=== PATIENT | female | born 1985 | race Caucasian/White ===

== ENCOUNTER → 2017-01-12 | Outpatient (CLI) | payer MEDICARE, OTHER ==
--- NOTE | 2017-01-12 14:11 | BD ---
EXAMINATION TYPE: MG DEXA axial skeleton. DATE OF EXAM: 01/12/2017 COMPARISON: NONE CLINICAL HISTORY: Postmenopausal female. Height: 5 ft 5 in Weight: 191 FRAX RISK QUESTIONS: Alcohol (3 or more units per day): NO Family History (Parent hip fracture): NO Glucocorticoids (More than 3mos): YES (Ex: prednisone, prednisolone, methylprednisolone, dexamethasone, and hydrocortisone). History of Fracture in Adulthood: AGE 26 BROKE LT HIP Secondary Osteoporosis: 1. Type 1 Diabetes: NO 2. Hyperthyroidism: NO 3. Menopause before 45: NA 4. Malnutrition: NO 5. 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 PT HAS DIABETES,PT HAD A PITUITARY TU MOR IT WAS REMOVED IN 2002,NEVER HAD A MENSTRUAL CYCLE EXAM MEASUREMENTS: Bone mineral densitometry was performed using the [employer] System. Bone mineral density as measured about the Lumbar spine is: ----- L1-L4(G/cm2): 0.971 T Score Values are as follows: ----- L2: -1.3 ----- L3: -2.4 ----- L4: -2.6 ----- L1-L4: -1.7 Bone mineral density has: Increased 8.8% since study of: 2008 Bone mineral density about the R hip (g/cm2): 0.607 T Score values are as follows: -----R Neck: -3.1 -----R Total: -2.8 Bone mineral density has: Increased 2.3% since study of: 2008 IMPRESSION: Osteoporosis (T Score less than -2.5) as noted by T Score values at the There is increased fracture risk and therapy is usually indicated based on age. Re-Screen 1-2 years. NOTE: T-SCORE=SD OF THE YOUNG ADULT MEAN.
[2017-01-12 14:29] LABS: ALT 38 U/L (9-52); AST 26 U/L (14-36); Alkaline Phosphatase 69 U/L (38-126); Anion Gap 10 mmol/L; Blood Urea Nitrogen 10 mg/dL (7-17); Calcium 9.6 mg/dL (8.4-10.2); Carbon Dioxide 28 mmol/L (22-30); Chloride 104 mmol/L (98-107); Cholesterol 194 mg/dL (<200); Glucose 164 mg/dL (74-99); HDL Cholesterol 35 mg/dL (40-60); Non-African American GFR(MDRD) >60 (>60 ml/min/1.73 sqM); Potassium 4.4 mmol/L (3.5-5.1); Sodium 142 mmol/L (137-145); Total Bilirubin 0.8 mg/dL (0.2-1.3); Total Protein 7.4 g/dL (6.3-8.2); Triglycerides 479 mg/dL (<150)
[2017-01-12 14:43] LABS: Prolactin 12.2 ng/mL (3.0-18.6)
== END | disposition home or self-care (01) ==
LOC: RADBDWWP 12:36
PROVIDERS: ATTEND Internal Medicine Endocrinology, Diabetes & Metabolism
DX: M81.0 Age-related osteoporosis without current pathological fracture (principal); D35.2 Benign neoplasm of pituitary gland; E11.65 Type 2 diabetes mellitus with hyperglycemia; E03.8 Other specified hypothyroidism
CPT/HCPCS: 77080; 80053; 80061; 82306; 83970; 84146; 84439; 84443

== ENCOUNTER 2017-03-25 23:47 | Emergency (ER) | payer MEDICARE, OTHER ==
[2017-03-26 00:17] VITALS: RESP 18; TEMP 98.3
--- NOTE | 2017-03-26 01:57 | ED ---
General Adult HPI - General Chief complaint: Abdominal Pain Stated complaint: Constipation x5 days Time Seen by Provider: 03/26/17 00:49 Source: patient, RN notes reviewed Mode of arrival: ambulatory Limitations: no limitations - History of Present Illness Initial comments: 32-year-old female presents to the emergency department with a chief complaint of constipation. Patient states she has not had a normal bowel movement in about 5 days. Patient states that she they tried MiraLAX with no improvement to her symptoms. She states that she is not currently having any other complaints. She states that she has had one episode of vomiting with some lower abdominal cramping earlier. Patient was concerned due to her symptoms so she thought that she should be seen.Patient denies any recent fever, chills, shortness of breath, chest pain, back pain, numbness or tingling, dysuria or hematuria, headaches or visual changes, or any other current symptoms. - Related Data Home Medications Medication Instructions Recorded Confirmed Ergocalciferol [Vitamin D2 50,000 unit PO TU 03/25/14 07/09/16 (DRISDOL)] Escitalopram [Lexapro] 20 mg PO DAILY 03/25/14 07/09/16 Estrogens, Conjugated [Premarin] 0.3 mg PO DAILY 03/25/14 07/09/16 Levothyroxine Sodium [Synthroid] 150 mcg PO DAILY 03/25/14 07/09/16 Oxybutynin Chloride [Oxybutynin 5 mg PO DAILY 03/25/14 07/09/16 Chloride ER] Simvastatin [Zocor] 20 mg PO HS 03/25/14 07/09/16 medroxyPROGESTERone [Provera] 1.25 mg PO DAILY 03/25/14 07/09/16 metFORMIN HCL 500 mg PO BID 03/25/14 07/09/16 predniSONE 4 mg PO DAILY 03/25/14 07/09/16 V-Go 30 1 dose SQ DIRECTED 07/09/16 07/09/16 Allergies Allergy/AdvReac Type Severity Reaction Status Date / Time No Known Allergies Allergy Verified 03/26/17 00:16 Review of Systems ROS Statement: Those systems with pertinent positive or pertinent negative responses have been documented in the HPI. ROS Other: All systems not noted in ROS Statement are negative. 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 History of Any Multi-Drug Resistant Organisms: None Reported Past Surgical History: Orthopedic Surgery Additional Past Surgical History / Comment(s): brain, Past Psychological History: Depression Smoking Status: Never smoker Past Alcohol Use History: None Reported Past Drug Use History: None Reported General Exam - General Exam Comments Initial Comments: General: The patient is awake and alert, in no distress, and does not appear acutely ill. Eye: Pupils are equal, round. Ears, nose, mouth and throat: There are moist mucous membranes. Neck: The neck is supple, there is no tenderness. Cardiovascular: There is a regular rate and rhythm. No murmur, rub or gallop is appreciated. Respiratory: Lungs are clear to auscultation, respirations are non-labored, breath sounds are equal. No wheezes, stridor, rales, or rhonchi. Gastrointestinal: Soft, non-distended, non-tender abdomen without masses or organomegaly noted. There is no rebound or guarding present. No CVA tenderness. Bowel sounds are unremarkable. Back: There is no tenderness to palpation in the midline. There is no obvious deformity. No rashes noted. Musculoskeletal: Normal ROM, no tenderness, There is no pedal edema. There is no calf tenderness or swelling. Sensation intact. Pulses equal bilaterally 2+. Neurological: CN II-XII intact, There are no obvious motor or sensory deficits. Coordination appears grossly intact. Speech is normal. Skin: Skin is warm and dry. Psychiatric: Cooperative, appropriate mood & affect, normal judgment. Limitations: no limitations Course Vital Signs 03/26/17 00:14 Temperature 98.3 F Pulse Rate 88 Respiratory 18 Rate Blood Pressure 108/71 O2 Sat by Pulse 96 Oximetry Medical Decision Making - Medical Decision Making 32-year-old female presents emergency Department chief complaint of constipation. This time patient did have success with the enema. This time we discussed continued outpatient follow-up return parameters all patient's family' s questions. They state [facility] management plan. They will be discharged home. - Radiology Data Radiology results: report reviewed, image reviewed Disposition Clinical Impression: Constipation Disposition: HOME SELF-CARE Condition: Stable Instructions: Constipation (ED) Additional Instructions: Please use medication as discussed. Please follow up with family doctor if symptoms have not improved over the next two days. Please return to the emergency room if your symptoms increase or worsen or for any other concerns. Referrals: Janet Stanton MD [Primary Care Provider] - 1-2 days Time of Disposition: 02:41
--- NOTE | 2017-03-26 02:15 | XR ---
EXAM: XR Abdomen Complete, 2 or More Views CLINICAL HISTORY: Reason: Pain TECHNIQUE: Frontal view of the abdomen/pelvis with upright view of the abdomen. COMPARISON: No relevant prior studies available. FINDINGS: Intraperitoneal space: No free air. Gastrointestinal tract: Unremarkable. No dilation. Bones/joints: Left hip intra-medullary nail and compression screw partially visualized. IMPRESSION: No acute findings.
[2017-03-26 02:51] VITALS: BP 120/62; PULSE 80
== END 2017-03-26 02:48 | disposition home or self-care (01) ==
LOC: EC 23:47
DX: K59.00 Constipation, unspecified (principal); E11.9 Type 2 diabetes mellitus without complications; E07.9 Disorder of thyroid, unspecified; F32.9 Major depressive disorder, single episode, unspecified; Z79.84 Long term (current) use of oral hypoglycemic drugs; Z79.3 Long term (current) use of hormonal contraceptives; Z79.51 Long term (current) use of inhaled steroids; Z79.899 Other long term (current) drug therapy
CPT/HCPCS: 74020; 99284

== ENCOUNTER 2018-10-28 | Observation (INO) | payer MEDICARE, OTHER ==
--- NOTE | 2018-10-28 00:05 | ED ---
General Adult HPI - General Stated complaint: altered mental status Time Seen by Provider: 10/28/18 00:03 - History of Present Illness Initial comments: Octavia is a 33-year-old female with past medical history is documented below who is brought to the emergency department today via EMS for evaluation of fatigue and fever. Per family polys been sleeping for most of the past day, she wakes and is at her baseline mental status but then is very groggy and wants to go back to sleep. She's not been eating or drinking well. Upon EMS arrival he noted that she was febrile with a temperature of 104.5. Patient was given IV fluids and oral acetaminophen and he seemed to wake up a little bit more and be more interactive and route to the hospital. Upon arrival patient reports that she just feels tired and doesn't feel well. She denies any pain. denies any headaches or vision changes she denies any neck pain or stiffness. - Related Data Home Medications Medication Instructions Recorded Confirmed Ergocalciferol [Vitamin D2 50,000 unit PO TU 03/25/14 07/09/16 (DRISDOL)] Escitalopram [Lexapro] 20 mg PO DAILY 03/25/14 07/09/16 Estrogens, Conjugated [Premarin] 0.3 mg PO DAILY 03/25/14 07/09/16 Levothyroxine Sodium [Synthroid] 150 mcg PO DAILY 03/25/14 07/09/16 Oxybutynin Chloride [Oxybutynin 5 mg PO DAILY 03/25/14 07/09/16 Chloride ER] Simvastatin [Zocor] 20 mg PO HS 03/25/14 07/09/16 medroxyPROGESTERone [Provera] 1.25 mg PO DAILY 03/25/14 07/09/16 metFORMIN HCL 500 mg PO BID 03/25/14 07/09/16 predniSONE 4 mg PO DAILY 03/25/14 07/09/16 V-Go 30 1 dose SQ DIRECTED 07/09/16 07/09/16 Allergies Allergy/AdvReac Type Severity Reaction Status Date / Time No Known Allergies Allergy Verified 10/28/18 00:04 Review of Systems ROS Statement: Those systems with pertinent positive or pertinent negative responses have been documented in the HPI. ROS Other: All systems not noted in ROS Statement are negative. 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 History of Any Multi-Drug Resistant Organisms: None Reported Past Surgical History: Orthopedic Surgery Additional Past Surgical History / Comment(s): brain, Past Psychological History: Depression Smoking Status: Never smoker Past Alcohol Use History: None Reported Past Drug Use History: None Reported General Exam - General Exam Comments Initial Comments: Physical Exam GENERAL: Patient is pale, warm to the touch, ill-appearing HENT: Changes consistent with previous craniectomy EYES: Pupils are unequal per family this is baseline due to patient's previous brain surgeries PULMONARY: Unlabored respirations. No audible rales rhonchi or wheezing was noted. CARDIOVASCULAR: The cardiac, regular, warm and well perfused extremities ABDOMEN: Soft and nontender with normal bowel sounds. SKIN: Skin is clear with no lesions or rashes and otherwise unremarkable. Pale, warm to the touch, clammy : Normal External genitalia NEUROLOGIC: Patient prefers to be sleeping but wakes is awake alert oriented to person able to identify she is in the hospital and provide a decent recent history MUSCULOSKELETAL: Normal extremities with adequate strength and full range of motion. No lower extremity swelling or edema. No calf tenderness. PSYCHIATRIC: Normal psychiatric evaluation. Limitations: no limitations Course Vital Signs 10/28/18 10/28/18 10/28/18 00:02 01:18 02:05 Temperature 103.2 F H Pulse Rate 103 H 98 90 Respiratory 16 18 18 Rate Blood Pressure 91/76 111/58 102/64 O2 Sat by Pulse 98 98 98 Oximetry 10/28/18 10/28/18 10/28/18 02:27 03:00 03:30 Temperature 100.3 F H Pulse Rate 90 94 92 Respiratory 18 18 18 Rate Blood Pressure 99/60 90/48 90/51 O2 Sat by Pulse 99 100 99 Oximetry EKG Findings - EKG Comments: EKG Findings:: EKG was obtained at 12:21 AM, rate is 101 rhythm is sinus is a rightward axis there are normal intervals, NH 196, QRS 96, QTC [address] elevations or depressions additional evidence of acute ischemia or infarction Medical Decision Making - Medical Decision Making She was seen and evaluated immediately upon arrival to the emergency department there is concern for possible sepsis given the patient's tachycardic, febrile and fatigued with further family decreased mental status Patient is awake alert and oriented on initial evaluation Physical exam does reveal pale female in moderate distress her skin is pale warm and clammy Patient has full range of motion of her neck with no meningeal signs Given the unknown cause of the patient's very high fever 2 g IV Rocephin was ordered empirically Sepsis workup was initiated noted when the patient's fever broke she did become mildly hypotensive however she was more awake alert and oriented. IV fluids were infusing. We will continue to monitor this. Sepsis workup reveals a urine with multiple castanets consistent with dehydration no leukocytosis no acute kidney injury influenza is negative no signs of urinary tract infection At this time I suspect the patient is suffering from a viral illness resulting in significant fatigue and decreased by mouth intake resulting in profound fever and dehydration Patient's BP and transient hypotension improved with IVF Given the severity of the patient's fever with her associated change in mental status I will plan to place the patient in observation for further IV fluid resuscitation, hemodynamic monitoring [facility] were placed - Lab Data Result diagrams: 10/28/18 01:05 10/28/18 01:05 Lab Results 10/28/18 10/28/18 10/28/18 Range/Units 00:06 00:15 01:05 WBC 7.9 (3.8-10.6) k/uL RBC 4.30 (3.80-5.40) m/uL Hgb 12.5 (11.4-16.0) gm/dL Hct 41.3 (34.0-46.0) % MCV 96.1 (80.0-100.0) fL MCH 29.0 (25.0-35.0) pg MCHC 30.2 L (31.0-37.0) g/dL RDW 13.1 (11.5-15.5) % Plt Count 115 L (150-450) k/uL Neutrophils % 80 % Lymphocytes % 12 % Monocytes % 6 % Eosinophils % 1 % Basophils % 0 % Neutrophils # 6.4 (1.3-7.7) k/uL Lymphocytes # 1.0 (1.0-4.8) k/uL Monocytes # 0.5 (0-1.0) k/uL Eosinophils # 0.1 (0-0.7) k/uL Basophils # 0.0 (0-0.2) k/uL Hypochromasia Slight Sodium (137-145) mmol/L Potassium (3.5-5.1) mmol/L Chloride (98-107) mmol/L Carbon Dioxide (22-30) mmol/L Anion Gap mmol/L BUN (7-17) mg/dL Creatinine (0.52-1.04) mg/dL Est GFR (CKD-EPI)AfAm (>60 ml/min/1.73 sqM) Est GFR (CKD-EPI)NonAf (>60 ml/min/1.73 sqM) Glucose (74-99) mg/dL Plasma Lactic Acid William (0.7-2.0) mmol/L Calcium (8.4-10.2) mg/dL Total Bilirubin (0.2-1.3) mg/dL AST (14-36) U/L ALT (9-52) U/L Alkaline Phosphatase (38-126) U/L Total Protein (6.3-8.2) g/dL Albumin (3.5-5.0) g/dL Urine Color Yellow Urine Appearance Cloudy H (Clear) Urine pH 6.5 (5.0-8.0) Ur Specific [place] 1.027 (1.001-1.035) Urine Protein 1+ H (Negative) Urine Glucose (UA) Negative (Negative) Urine Ketones Negative (Negative) Urine Blood Trace H (Negative) Urine Nitrite Negative (Negative) Urine Bilirubin Negative (Negative) Urine Urobilinogen 3.0 (<2.0) mg/dL Ur Leukocyte Esterase Negative (Negative) Urine RBC 4 (0-5) /hpf Urine WBC 11 H (0-5) /hpf Ur Squamous Epith Cells 2 (0-4) /hpf Urine Bacteria Rare H (None) /hpf Cellular Casts 16 (0) /lpf Hyaline Casts 57 H (0-2) /lpf Granular Casts 8 (0) /lpf Urine Mucus Many H (None) /hpf Influenza Type A RNA Not Detected (Not Detectd) Influenza Type B (PCR) Not Detected (Not Detectd) 10/28/18 10/28/18 Range/Units 01:05 01:05 WBC (3.8-10.6) k/uL RBC (3.80-5.40) m/uL Hgb (11.4-16.0) gm/dL Hct (34.0-46.0) % MCV (80.0-100.0) fL MCH (25.0-35.0) pg MCHC (31.0-37.0) g/dL RDW (11.5-15.5) % Plt Count (150-450) k/uL Neutrophils % % Lymphocytes % % Monocytes % % Eosinophils % % Basophils % % Neutrophils # (1.3-7.7) k/uL Lymphocytes # (1.0-4.8) k/uL Monocytes # (0-1.0) k/uL Eosinophils # (0-0.7) k/uL Basophils # (0-0.2) k/uL Hypochromasia Sodium 139 (137-145) mmol/L Potassium 4.8 (3.5-5.1) mmol/L Chloride 106 (98-107) mmol/L Carbon Dioxide 25 (22-30) mmol/L Anion Gap 8 mmol/L BUN 17 (7-17) mg/dL Creatinine 1.15 H (0.52-1.04) mg/dL Est GFR (CKD-EPI)AfAm 72 (>60 ml/min/1.73 sqM) Est GFR (CKD-EPI)NonAf 63 (>60 ml/min/1.73 sqM) Glucose 174 H (74-99) mg/dL Plasma Lactic Acid William 2.0 (0.7-2.0) mmol/L Calcium 8.7 (8.4-10.2) mg/dL Total Bilirubin 1.1 (0.2-1.3) mg/dL AST 22 (14-36) U/L ALT 21 (9-52) U/L Alkaline Phosphatase 62 (38-126) U/L Total Protein 7.0 (6.3-8.2) g/dL Albumin 3.7 (3.5-5.0) g/dL Urine Color Urine Appearance (Clear) Urine pH (5.0-8.0) Ur Specific [place] (1.001-1.035) Urine Protein (Negative) Urine Glucose (UA) (Negative) Urine Ketones (Negative) Urine Blood (Negative) Urine Nitrite (Negative) Urine Bilirubin (Negative) Urine Urobilinogen (<2.0) mg/dL Ur Leukocyte Esterase (Negative) Urine RBC (0-5) /hpf Urine WBC (0-5) /hpf Ur Squamous Epith Cells (0-4) /hpf Urine Bacteria (None) /hpf Cellular Casts (0) /lpf Hyaline Casts (0-2) /lpf Granular Casts (0) /lpf Urine Mucus (None) /hpf Influenza Type A RNA (Not Detectd) Influenza Type B (PCR) (Not Detectd) Critical Care Time Critical Care Time: Yes Total Critical Care Time: 15 Disposition Clinical Impression: Altered mental status, Fever, unknown origin, Dehydration fever Disposition: ADMITTED IP TO THIS HOSP Condition: Stable Referrals: Janet Stanton MD [Primary Care Provider] - 1-2 days
[2018-10-28] MEDS: SODIUM CHLORIDE 0.9% 500 ML 500 ML IV SCH ×3 (00:23→01:15)
[2018-10-28 00:27] LABS: Appearance,Urine Cloudy (Clear); Bacteria,Urine Rare /hpf; Bilirubin,Urine Negative (Negative); Blood,Urine Trace (Negative); Cellular Casts,Urine 16 /lpf (0); Color,Urine Yellow; Glucose,Urine (UA) Negative (Negative); Granular Casts,Urine 8 /lpf (0); Hyaline Casts,Urine 57 /lpf (0-2); Ketones,Urine Negative (Negative); Leukocyte Esterase,Urine Negative (Negative); Mucus,Urine Many /hpf; Nitrite,Urine Negative (Negative); PH, Urine 6.5 (5.0-8.0); Protein,Urine 1+ (Negative); RBC,Urine 4 /hpf (0-5); Specific Gravity,Urine 1.027 (1.001-1.035); Squamous Epithelial Cell,Urine 2 /hpf (0-4); WBC,Urine 11 /hpf (0-5)
[2018-10-28 01:21] LABS: Basophils % (A) 0 %; Eosinophils # (A) 0.1 k/uL (0-0.7); Eosinophils % (A) 1 %; HCT 41.3 % (34.0-46.0); HGB 12.5 gm/dL (11.4-16.0); Hypochromasia Slight; Lymphocytes % (A) 12 %; MCHC 30.2 g/dL (31.0-37.0); MCV 96.1 fL (80.0-100.0); Mean Platelet Volume 8.3; Monocytes # (A) 0.5 k/uL (0-1.0); Monocytes % (A) 6 %; Neutrophils # (A) 6.4 k/uL (1.3-7.7); Neutrophils % (A) 80 %; Platelet Count 115 k/uL (150-450); RDW 13.1 % (11.5-15.5); WBC 7.9 k/uL (3.8-10.6)
[2018-10-28 02:07] LABS: Albumin 3.7 g/dL (3.5-5.0); Calcium 8.7 mg/dL (8.4-10.2); Potassium 4.8 mmol/L (3.5-5.1); Total Bilirubin 1.1 mg/dL (0.2-1.3)
--- NOTE | 2018-10-28 03:10 | XR ---
EXAM: XR Chest, 1 View CLINICAL HISTORY: Pain TECHNIQUE: Frontal view of the chest. COMPARISON: No relevant prior studies available. FINDINGS: Lungs: Unremarkable. No consolidation. Pleural space: Unremarkable. No pneumothorax. Heart: Unremarkable. No cardiomegaly. Mediastinum: Unremarkable. Bones/joints: Unremarkable. IMPRESSION: No acute abnormality in the lungs
[2018-10-28] MEDS ORDERED: IBUPROFEN 400 MG TAB PO PRN (04:25)
[2018-10-28] MEDS ORDERED: ACETAMINOPHEN TAB 325 MG TAB PO PRN (04:25)
[2018-10-28] MEDS ORDERED: NALOXONE 0.4 MG/ML 1 ML VIAL IV PRN (04:25)
[2018-10-28] MEDS: SODIUM CHLORIDE 0.9% 1,000 ML IV SCH ×2 (06:11→17:15)
[2018-10-28 06:21] VITALS: BMI 34.2
[2018-10-28 06:54] LABS: Glucose,Whole Blood 150 mg/dL (75-99)
[2018-10-28] MEDS ORDERED: INSULIN PUMP BASAL RATES 1 EACH MISC MISCELLANE PRN (11:43)
[2018-10-28] MEDS ORDERED: INSULIN ASPART (NovoLOG) 100 UNIT/ML VIAL SQ PRN (11:43)
[2018-10-28 11:49] LABS: Glucose,Whole Blood 114 mg/dL (75-99)
[2018-10-28] MEDS: INSULIN PUMP MEAL BOLUS 1 UNIT MISC MISCELLANE SCH ×3 (12:07→21:05)
[2018-10-28] MEDS ORDERED: DOCUSATE 100 MG CAP PO PRN (12:44)
[2018-10-28] MEDS ORDERED: SENNOSIDES 8.6 MG TAB PO PRN (12:44)
[2018-10-28] MEDS ORDERED: SODIUM CHLORIDE 0.9% 500 ML 500 ML IV ONE (13:19)
--- NOTE | 2018-10-28 13:22 | P.HPIM ---
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 Patient is alert awake and oriented and she tells me she was sent to the hospital by her and because she was sleeping a lot. And she does not have more information. However she denies headache, no neck pain, no chest pain, no dyspnea. No change in urine or bowel habits. No abdominal pain. No nausea vomiting. No rash. However patient states that she has diarrhea although she cannot clarify more. She said that she runs around 3-4 times a day. However there is no abdominal pain and abdominal examination looks benign. Patient is on his routine and prednisone Syeda she does not exactly washed taking this medication however she said that this might be related to her tumor in her pituitary gland. Her blood pressure on the low side Syeda patient is seen that her blood pressure usually runs low. She doesn't know which numbers. On admission her blood pressure on the low side 88/48 currently, she is saturating in 97% on 2 L. She has a temperature of 103.2. shows no leukocytosis. With WBC 7.9K. Hemoglobin 12.5. Creatinine is slightly elevated at 1.1, baseline 2 years ago was 0.7. Glucose controlled. Ethilons that is negative. Urine analysis showing only 11 WBC in the urine. Chest x-ray showing no acute process per radiology report. EKG: Sinus tachycardia at 101, with no significant ST-T changes. In the emergency room she received 1 dose of ceftriaxone. Started on normal saline at 75 mL/h. patient has a Perdomo catheter placed in the emergency room. i offered to check for test , pt decli nancy, risks and benefits are explained Past Medical History Past Medical History: Diabetes Mellitus, Eye Disorder, Hearing Disorder / Deafness, Hyperlipidemia, Musculoskeletal Disorder, Skin Disorder, Thyroid Disorder Additional Past Medical History / Comment(s): OP, has no peripheral vision, hard of hearing to left side, psoriasis History of Any Multi-Drug Resistant Organisms: None Reported Past Surgical History: Orthopedic Surgery Additional Past Surgical History / Comment(s): brain tumor removed 2002, Past Anesthesia/Blood Transfusion Reactions: No Reported Reaction Past Psychological History: Depression Smoking Status: Never smoker Past Alcohol Use History: None Reported Past Drug Use History: None Reported - Past Family History Brother(s) Additional Family Medical History / Comment(s): pt states her brother is healthy Medications and Allergies Home Medications Medication Instructions Recorded Confirmed Type Ergocalciferol [Vitamin D2 50,000 unit PO TU 03/25/14 10/28/18 History (DRISDOL)] Estrogens, Conjugated [Premarin] 0.3 mg PO DAILY 03/25/14 10/28/18 History Oxybutynin Chloride [Oxybutynin 5 mg PO DAILY 03/25/14 10/28/18 History Chloride ER] Simvastatin [Zocor] 20 mg PO HS 03/25/14 10/28/18 History predniSONE 4 mg PO DAILY 03/25/14 10/28/18 History Docusate [Colace] 100 mg PO DAILY PRN 10/28/18 10/28/18 History Escitalopram [Lexapro] 20 mg PO DAILY 10/28/18 10/28/18 History INSULIN LISPRO (humaLOG) [humaLOG] 30 units SQ DAILY 10/28/18 10/28/18 History Levothyroxine Sodium [Synthroid] 100 mcg PO DAILY 10/28/18 10/28/18 History Pioglitazone HCl 30 mg PO DAILY 10/28/18 10/28/18 History Sennosides [Senna] 8.6 mg PO HS PRN 10/28/18 10/28/18 History Allergies Allergy/AdvReac Type Severity Reaction Status Date / Time lactose Allergy Diarrhea Verified 10/28/18 09:17 Physical Exam Vitals: Vital Signs Temp Pulse Pulse Resp BP BP BP 10/28/18 12:00 80 18 10/28/18 11:58 98.5 F 80 18 88/48 10/28/18 11:15 84/48 10/28/18 10:52 99.3 F 76 18 83/50 10/28/18 08:00 84 18 10/28/18 07:49 100.9 F H 84 18 107/57 10/28/18 05:00 100.8 F H 91 17 84/56 10/28/18 04:47 99.6 F 89 18 103/71 10/28/18 03:30 100.3 F H 92 18 90/51 10/28/18 03:00 94 18 90/48 10/28/18 02:27 90 18 99/60 10/28/18 02:05 90 18 102/64 10/28/18 01:18 98 18 111/58 10/28/18 00:02 103.2 F H 103 H 16 91/76 Pulse Ox 10/28/18 12:00 10/28/18 11:58 97 10/28/18 11:15 10/28/18 10:52 96 10/28/18 08:00 10/28/18 07:49 99 10/28/18 05:00 96 10/28/18 04:47 100 10/28/18 03:30 99 10/28/18 03:00 100 10/28/18 02:27 99 10/28/18 02:05 98 10/28/18 01:18 98 10/28/18 00:02 98 Intake and Output 10/27/18 10/28/18 10/28/18 22:59 06:59 14:59 Intake Total 195 Output Total 100 400 Balance 95 -400 Intake: Intake, IV Titration 75 Amount Sodium Chloride 0.9% 1, 75 000 ml @ 75 mls/hr IV . [id number] [facility] Rx#:[id number] Oral 120 Output: Urine 100 400 Uretheral (Perdomo) 100 Other: Voiding Method Indwelling Catheter Indwelling Catheter Weight 96.3 kg GENERAL: The patient is alert and oriented x3, not in any acute distress. Obese, -HEENT: Pupils are round and equally reacting to light. EOMI. No scleral icterus. No conjunctival pallor. Normocephalic, atraumatic. No pharyngeal erythema. No thyromegaly. 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 Patient also has no teeth CARDIOVASCULAR: S1 and S2 present. No murmurs, rubs, or gallops. PULMONARY: Chest is clear to auscultation, no wheezing or crackles. ABDOMEN: Soft, nontender, nondistended, normoactive bowel sounds. No palpable organomegaly. She has external insulin pump in her epigastrium MUSCULOSKELETAL: No joint swelling or deformity. EXTREMITIES: No cyanosis, clubbing, or pedal edema. NEUROLOGICAL: Gross neurological examination did not reveal any focal deficits. SKIN: No rashes. Results CBC & Chem 7: 10/28/18 01:05 10/28/18 01:05 Labs: Abnormal Lab Results - Last 24 Hours (Table) 10/28/18 10/28/18 10/28/18 Range/Units 00:15 01:05 01:05 MCHC 30.2 L (31.0-37.0) g/dL Plt Count 115 L (150-450) k/uL Creatinine 1.15 H (0.52-1.04) mg/dL Glucose 174 H (74-99) mg/dL POC Glucose (mg/dL) (75-99) mg/dL Urine Appearance Cloudy H (Clear) Urine Protein 1+ H (Negative) Urine Blood Trace H (Negative) Urine WBC 11 H (0-5) /hpf Urine Bacteria Rare H (None) /hpf Hyaline Casts 57 H (0-2) /lpf Urine Mucus Many H (None) /hpf 10/28/18 10/28/18 Range/Units 06:53 11:48 MCHC (31.0-37.0) g/dL Plt Count (150-450) k/uL Creatinine (0.52-1.04) mg/dL Glucose (74-99) mg/dL POC Glucose (mg/dL) 150 H 114 H (75-99) mg/dL Urine Appearance (Clear) Urine Protein (Negative) Urine Blood (Negative) Urine WBC (0-5) /hpf Urine Bacteria (None) /hpf Hyaline Casts (0-2) /lpf Urine Mucus (None) /hpf Microbiology - Last 24 Hours (Table) 10/28/18 00:15 Urine Culture - Preliminary Urine,Catheterized Thrombosis Risk Factor Assmnt - Choose All That Apply Any of the Below Risk Factors Present?: Yes Each Factor Represents 1 point: Obesity (BMI >25), Oral contraceptives or hormone replacement therapy Other Risk Factors: No Other congenital or acquired thrombophilia - If yes, enter type in comment: No Thrombosis Risk Factor Assessment Total Risk Factor Score: 2 Thrombosis Risk Factor Assessment Level: Low Risk Assessment and Plan Assessment: Fever of unknown origin Possible loose bowel movements or diarrhea. Patient on laxative which are held. Check for C. diff History of diabetes mellitus on insulin History of pituitary tumor status post resection 2002, as per patient. Developmental delay Hypothyroidism Hyperlipidemia Hearing disorder Plan: This is a pleasant 50 years old female who presents because of fever, unknown source. Patient received ceftriaxone. We'll continue his Effexor for now. Infectious disease consult. Continue with IV fluids.Labs and medication were reviewed.. Continue same treatment. Continue with symptomatic treatment. Resume home medication. Monitor lytes and vitals. DVT and GI prophylaxis. Further recommendations of the clinical course of the patient DVT prophylaxis: Subcutaneous heparin GI Prophylaxis: Pepcid Prognosis is guarded
[2018-10-28 16:36] LABS: Glucose,Whole Blood 138 mg/dL (75-99)
[2018-10-28] MEDS: predniSONE 1 MG TAB PO SCH (17:14)
[2018-10-28] MEDS: LEVOTHYROXINE 100 MCG TAB PO SCH (17:15)
[2018-10-28] MEDS: ESCITALOPRAM 20 MG TAB PO SCH (17:15)
[2018-10-28] MEDS: PIOGLITAZONE 30 MG TAB PO SCH (17:15)
[2018-10-28] MEDS: OXYBUTYNIN XL 5 MG TAB.ER.24 PO SCH (17:15)
[2018-10-28] MEDS: FAMOTIDINE 20 MG/2 ML VIAL IV SCH (20:13)
[2018-10-28] MEDS: HEPARIN SODIUM,PORCINE 5,000 UNIT/ML 1 ML VIAL SQ SCH (20:14)
[2018-10-28] MEDS: ATORVASTATIN 10 MG TAB PO SCH (20:14)
[2018-10-28] MEDS ORDERED: LOPERAMIDE 2 MG CAP PO PRN (20:48)
[2018-10-28 20:59] LABS: Glucose,Whole Blood 130 mg/dL (75-99)
--- NOTE | 2018-10-29 05:45 | CONS ---
CONSULTATION DATE OF SERVICE: 10/28/2018 REASON FOR CONSULTATION: Fever. HISTORY OF PRESENT ILLNESS: The patient is a 33-year-old female who has been brought into the ER at [facility] early this morning for evaluation of fever and fatigue by the EMS. Per family, the patient had been sleeping for most of the past day; however, the patient noticed to be slightly groggy and will go back to sleep. She had not been eating or drinking well. The patient was noticed to have fever 104.5 degrees Fahrenheit on arrival of the EMS. She had been given Tylenol and subsequently was brought to the [facility] ER where the patient has been evaluated by the ER physician. The patient initial workup including a influenza serology that was negative. The patient did have a normal white count 7.6. Kidney function was normal. Liver enzymes were normal. The patient did have slightly cloudy urine with 11 WBCs and rare bacteria. The patient did receive one dose of Rocephin 2 grams in the ER. Subsequently she has been admitted to the hospital. Infectious Disease was consulted for further recommendation regarding of antibiotic therapy. At the time of evaluation earlier this afternoon, the patient's fever has resolved and the patient says she has been feeling sleepy but denies any headache to me. No URI symptoms. No chest pain, shortness of breath or cough. No abdominal pain. She denies any diarrhea today. However, the nursing staff did mention she did have some loose stools so not clear when exactly that started. REVIEW OF SYSTEMS: Positive points have been mentioned in HPI. The rest of the systems are negative. PAST MEDICAL HISTORY: Diabetes mellitus, hyperlipidemia, disorder, hypothyroidism, psoriasis and history of brain tumor. PAST SURGICAL HISTORY: Brain tumor removed 2002. SOCIAL HISTORY: No history of smoking, drinking or drug use. FAMILY HISTORY: No pertinent findings noticed. ALLERGIES: Allergies to LACTOSE. MEDICATIONS: Medications include the patient is currently on Tylenol, Lipitor, vitamin D2, Lexapro, Premarin, Pepcid, NovoLog, Synthroid, Narcan, Ditropan XL, Actos, prednisone and Rocephin one dose she received early this morning. PHYSICAL EXAMINATION: On examination, her blood pressure is 93/59 with a pulse of 77, temperature 98.5. She is 96% on . General weight description is a middle-aged female lying in bed in no distress. No tachypnea or accessory muscle of respiration use. HEENT examination shows no pallor or scleral icterus. Oral mucous membrane is dry. No pharyngeal erythema or thrush. NECK: Trachea central. No thyromegaly. LUNGS: Unlabored breathing, clear to auscultation anteriorly. No wheeze or crackles. HEART: S1, S2. Regular rate and rhythm. No added sounds. ABDOMEN: Soft, no tenderness. No guarding or rigidity. EXTREMITIES: No edema of feet. SKIN EXAMINATION: No rash or mass palpable. NEUROLOGICAL: Patient is awake, alert, oriented x2. Mood and affect normal. LABS: UA positive as mentioned earlier. Hemoglobin is 12.5, white count 7.9 with a BUN of 17, creatinine 1.15. Influenza serology currently negative. Blood and urine cultures currently pending. DIAGNOSTIC IMPRESSION AND PLAN: 1. Patient presented to the hospital with fever, sleepiness in this patient who did have mildly positive UA. Other symptom has been diarrhea with question of urinary tract infection the likely source of this fever as clinically no other clinical focus of infection and fever responded to the Rocephin. 2. Diarrhea, infectious etiology needs to be ruled out. PLAN: 1. We will obtain a stool for C difficile and stool culture. 2. Discontinue the Imodium and will give the patient Questran for symptomatic relief of her diarrhea. 3. Start the patient on Rocephin 1 gram daily. 4. We will follow up on clinical condition and culture to further adjust medication if needed. Thank you for this consultation. Will follow this patient along with you. MMODL / IJN: [id number] /
[2018-10-29] MEDS: SODIUM CHLORIDE 0.9% 1,000 ML IV SCH ×3 (06:06→23:47)
[2018-10-29] MEDS: LEVOTHYROXINE 100 MCG TAB PO SCH (06:07)
[2018-10-29 06:42] LABS: Glucose,Whole Blood 78 mg/dL (75-99)
[2018-10-29 08:06] LABS: Basophils % (A) 0 %; Eosinophils # (A) 0.1 k/uL (0-0.7); Eosinophils % (A) 2 %; HCT 35.3 % (34.0-46.0); HGB 11.5 gm/dL (11.4-16.0); Lymphocytes # (A) 0.9 k/uL (1.0-4.8); Lymphocytes % (A) 12 %; MCH 30.4 pg (25.0-35.0); MCHC 32.6 g/dL (31.0-37.0); MCV 93.2 fL (80.0-100.0); Mean Platelet Volume 8.6; Monocytes # (A) 0.4 k/uL (0-1.0); Monocytes % (A) 5 %; Neutrophils # (A) 5.9 k/uL (1.3-7.7); Neutrophils % (A) 80 %; Platelet Count 123 k/uL (150-450); RBC 3.78 m/uL (3.80-5.40); RDW 13.2 % (11.5-15.5); WBC 7.4 k/uL (3.8-10.6)
[2018-10-29 08:29] LABS: Anion Gap 4 mmol/L; Blood Urea Nitrogen 12 mg/dL (7-17); Calcium 8.4 mg/dL (8.4-10.2); Carbon Dioxide 28 mmol/L (22-30); Chloride 110 mmol/L (98-107); Glucose 88 mg/dL (74-99); Potassium 4.3 mmol/L (3.5-5.1); Sodium 142 mmol/L (137-145)
[2018-10-29] MEDS: FAMOTIDINE 20 MG/2 ML VIAL IV SCH (08:58)
[2018-10-29] MEDS: HEPARIN SODIUM,PORCINE 5,000 UNIT/ML 1 ML VIAL SQ SCH ×2 (08:58→22:25)
[2018-10-29] MEDS: ESCITALOPRAM 20 MG TAB PO SCH (08:59)
[2018-10-29] MEDS: ESTROGENS, CONJUGATED 0.3 MG TAB PO SCH (08:59)
[2018-10-29] MEDS: predniSONE 1 MG TAB PO SCH (08:59)
[2018-10-29] MEDS: OXYBUTYNIN XL 5 MG TAB.ER.24 PO SCH (08:59)
[2018-10-29] MEDS ORDERED: ERGOCALCIFEROL 50,000 UNIT CAP PO SCH (09:00)
[2018-10-29] MEDS: PIOGLITAZONE 30 MG TAB PO SCH (09:00)
[2018-10-29] MEDS: CHOLESTYRAMINE (WITH SUGAR) 4 GM PACKET PO SCH ×2 (09:01→17:40)
[2018-10-29] MEDS: INSULIN PUMP MEAL BOLUS 1 UNIT MISC MISCELLANE SCH ×3 (10:16→17:32)
[2018-10-29 11:49] LABS: Glucose,Whole Blood 106 mg/dL (75-99)
[2018-10-29] MEDS: INSULIN ASPART (NovoLOG) 100 UNIT/ML VIAL SQ SCH ×2 (12:23→17:37)
[2018-10-29 16:51] LABS: Glucose,Whole Blood 88 mg/dL (75-99)
--- NOTE | 2018-10-29 16:56 | P.PN ---
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 Patient is alert awake and oriented and she tells me she was sent to the hospital by her and because she was sleeping a lot. And she does not have more information. However she denies headache, no neck pain, no chest pain, no dyspnea. No change in urine or bowel habits. No abdominal pain. No nausea vomiting. No rash. However patient states that she has diarrhea although she cannot clarify more. She said that she runs around 3-4 times a day. However there is no abdominal pain and abdominal examination looks benign. Patient is on his routine and prednisone Syeda she does not exactly washed taking this medication however she said that this might be related to her tumor in her pituitary gland. Her blood pressure on the low side Syeda patient is seen that her blood pressure usually runs low. She doesn't know which numbers. On admission her blood pressure on the low side 88/48 currently, she is saturating in 97% on 2 L. She has a temperature of 103.2. shows no leukocytosis. With WBC 7.9K. Hemoglobin 12.5. Creatinine is slightly elevated at 1.1, baseline 2 years ago was 0.7. Glucose controlled. Ethilons that is negative. Urine analysis showing only 11 WBC in the urine. Chest x-ray showing no acute process per radiology report. EKG: Sinus tachycardia at 101, with no significant ST-T changes. In the emergency room she received 1 dose of ceftriaxone. Started on normal saline at 75 mL/h. patient has a Perdomo catheter placed in the emergency room. i offered to check for test , pt declined, risks and benefits are explained 10/29/2018 Patient looks clinically more stable today, her blood pressure is improve heart rate is within normal limits. The patient has been afebrile for 24 hrs. patient states that her diarrhea is improving. No abdominal pain. No nausea vomiting. She is tolerating diet well. Labs within normal limits.C. diff came back negative. Infectious disease input is appreciated. Continue ceftriaxone. Keep monitoring for now. Objective - Vital Signs Vital signs: Vital Signs Temp 99 F 10/29/18 12:00 Pulse 79 10/29/18 12:00 Resp 18 10/29/18 12:00 BP 101/67 10/29/18 12:00 Pulse Ox 95 10/29/18 12:00 Intake & Output 10/28/18 10/29/18 10/29/18 18:59 06:59 18:59 Intake Total 518 440 Output Total 1150 1800 Balance -632 -1800 440 Intake: Oral 518 440 Output: Urine 1150 1800 Other: Voiding Method Indwelling Catheter Indwelling Catheter Indwelling Catheter # Voids 1 # Bowel Movements 1 - Exam GENERAL: The patient is alert and oriented x3, not in any acute distress. Obese, -HEENT: Pupils are round and equally reacting to light. EOMI. No scleral icterus. No conjunctival pallor. Normocephalic, atraumatic. No pharyngeal erythema. No thyromegaly. 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 Patient also has no teeth CARDIOVASCULAR: S1 and S2 present. No murmurs, rubs, or gallops. PULMONARY: Chest is clear to auscultation, no wheezing or crackles. ABDOMEN: Soft, nontender, nondistended, normoactive bowel sounds. No palpable organomegaly. She has external insulin pump in her epigastrium MUSCULOSKELETAL: No joint swelling or deformity. EXTREMITIES: No cyanosis, clubbing, or pedal edema. NEUROLOGICAL: Gross neurological examination did not reveal any focal deficits. SKIN: No rashes. - Labs CBC & Chem 7: 10/29/18 07:48 10/29/18 07:48 Labs: Abnormal Lab Results - Last 24 Hours (Table) 10/28/18 10/29/18 10/29/18 Range/Units 20:52 07:48 07:48 RBC 3.78 L (3.80-5.40) m/uL Plt Count 123 L (150-450) k/uL Lymphocytes # 0.9 L (1.0-4.8) k/uL Chloride 110 H (98-107) mmol/L POC Glucose (mg/dL) 130 H (75-99) mg/dL 10/29/18 Range/Units 11:48 RBC (3.80-5.40) m/uL Plt Count (150-450) k/uL Lymphocytes # (1.0-4.8) k/uL Chloride (98-107) mmol/L POC Glucose (mg/dL) 106 H (75-99) mg/dL Microbiology - Last 24 Hours (Table) 10/28/18 13:43 Blood Culture - Preliminary Blood No Growth after 24 hours 10/28/18 00:15 Urine Culture - Final Urine,Catheterized 10/28/18 01:05 Blood Culture - Preliminary Blood No Growth after 24 hours 10/28/18 01:05 Blood Culture - Preliminary Blood No Growth after 24 hours Assessment and Plan Assessment: Fever of unknown origin Possible gastroenteritis, with loose bowel movements or diarrhea. Patient on laxative which are held. C. diff is negative History of diabetes mellitus on insulin History of pituitary tumor status post resection 2002, as per patient. Developmental delay Hypothyroidism Hyperlipidemia Hearing disorder Plan: This is a pleasant 50 years old female who presents because of fever, unknown source. Patient received ceftriaxone. We'll continue his Effexor for now. Infectious disease consult. Continue with IV fluids.Labs and medication were reviewed.. Continue same treatment. Continue with symptomatic treatment. Re sume home medication. Monitor lytes and vitals. DVT and GI prophylaxis. Further recommendations of the clinical course of the patient DVT prophylaxis: Subcutaneous heparin GI Prophylaxis: Pepcid Prognosis is guarded
[2018-10-29] MEDS ORDERED: INSULIN DETEMIR (LEVEMIR) 100 UNIT/ML SYR SQ SCH (21:00)
[2018-10-29] MEDS: ATORVASTATIN 10 MG TAB PO SCH (22:25)
[2018-10-29] MEDS: FAMOTIDINE 20 MG TAB PO SCH (22:25)
--- NOTE | 2018-10-29 22:38 | PN ---
PROGRESS NOTE DATE OF SERVICE: 10/29/2018. REASON FOR FOLLOWUP: Fever likely urinary tract infection. INTERVAL HISTORY: The patient overall fever pattern has improved. The patient is breathing comfortably. The patient denies having any chest pain, shortness of breath or cough. No abdominal pain. No diarrhea. PHYSICAL EXAMINATION: Blood pressure 96/63 with a pulse of 73, temperature 98.3. She is 93% on room air. General description is a middle-aged female lying in bed in no distress. Respiratory system: Unlabored breathing. Clear to auscultation anteriorly. Heart S1, S2. Regular rate and rhythm. Abdomen soft, no tenderness. LABS: Hemoglobin 11.5, white count 7.4, BUN of 12, creatinine 0.71. Urine culture currently pending. Blood culture so far negative. DIAGNOSTIC IMPRESSION AND PLAN: Patient admitted to the hospital with a fever, possible viral syndrome. However, the patient also have a mildly positive underlying urinary tract infection patient seemed to have responded to the Rocephin, to continue as the patient continued to improve finishing therapy with oral Ceftin 500 mg b.i.d. for another 3 to 5 days. Continue supportive care. MMODL / IJN: [id number] /
[2018-10-29 22:39] LABS: Glucose,Whole Blood 116 mg/dL (75-99)
[2018-10-30] MEDS: LEVOTHYROXINE 100 MCG TAB PO SCH (06:18)
[2018-10-30 07:45] LABS: Glucose,Whole Blood 123 mg/dL (75-99)
[2018-10-30] MEDS: HEPARIN SODIUM,PORCINE 5,000 UNIT/ML 1 ML VIAL SQ SCH (07:52)
[2018-10-30] MEDS: OXYBUTYNIN XL 5 MG TAB.ER.24 PO SCH (07:52)
[2018-10-30] MEDS: ESCITALOPRAM 20 MG TAB PO SCH (07:52)
[2018-10-30] MEDS: FAMOTIDINE 20 MG TAB PO SCH (07:52)
[2018-10-30] MEDS: INSULIN ASPART (NovoLOG) 100 UNIT/ML VIAL SQ SCH ×2 (07:53→13:13)
[2018-10-30] MEDS: ESTROGENS, CONJUGATED 0.3 MG TAB PO SCH (07:53)
[2018-10-30] MEDS: predniSONE 1 MG TAB PO SCH (07:53)
[2018-10-30] MEDS: PIOGLITAZONE 30 MG TAB PO SCH (07:53)
[2018-10-30 08:10] LABS: Basophils % (A) 0 %; Eosinophils # (A) 0.2 k/uL (0-0.7); Eosinophils % (A) 4 %; HCT 33.7 % (34.0-46.0); HGB 10.9 gm/dL (11.4-16.0); Lymphocytes # (A) 1.2 k/uL (1.0-4.8); Lymphocytes % (A) 24 %; MCH 30.3 pg (25.0-35.0); MCHC 32.2 g/dL (31.0-37.0); MCV 93.9 fL (80.0-100.0); Mean Platelet Volume 8.3; Monocytes # (A) 0.3 k/uL (0-1.0); Monocytes % (A) 6 %; Neutrophils # (A) 3.1 k/uL (1.3-7.7); Neutrophils % (A) 64 %; Platelet Count 129 k/uL (150-450); RBC 3.59 m/uL (3.80-5.40); RDW 13.7 % (11.5-15.5); WBC 4.9 k/uL (3.8-10.6)
[2018-10-30 08:33] LABS: Anion Gap 4 mmol/L; Blood Urea Nitrogen 13 mg/dL (7-17); Calcium 8.7 mg/dL (8.4-10.2); Carbon Dioxide 28 mmol/L (22-30); Chloride 110 mmol/L (98-107); Glucose 112 mg/dL (74-99); Potassium 4.3 mmol/L (3.5-5.1); Sodium 142 mmol/L (137-145)
[2018-10-30] MEDS: CHOLESTYRAMINE (WITH SUGAR) 4 GM PACKET PO SCH (10:32)
[2018-10-30] MEDS: SODIUM CHLORIDE 0.9% 1,000 ML IV SCH (11:02)
[2018-10-30 12:00] LABS: Glucose,Whole Blood 100 mg/dL (75-99)
--- NOTE | 2018-10-30 12:30 | PN ---
PROGRESS NOTE DATE OF SERVICE: 10/30/2018 REASON FOR FOLLOWUP: Fever, possible UTI/ syndrome. INTERVAL HISTORY: The patient is currently afebrile. No fever has been recorded for the last few days. The patient is awake, alert. She is breathing comfortably, feeling better. Denies any headache or chest pain. No abdominal pain or any diarrhea. PHYSICAL EXAMINATION: On examination, blood pressure is 99/64, pulse of 75, temperature 97. She is 92% on room air. General description is a middle-aged female lying in bed in no distress. RESPIRATORY SYSTEM: Unlabored breathing, clear to auscultation anteriorly. HEART: S1, S2. Regular rate and rhythm. ABDOMEN: Soft, no tenderness. LEGS: No swelling, no redness. LABS: Hemoglobin 10.9, white count 4.9, BUN of 13, creatinine 0.78. Cultures have been negative so far. DIAGNOSTIC IMPRESSION AND PLAN: Patient admitted to the hospital with fever, concern for possible urinary tract infection, syndrome. Patient did show overall improvement on Rocephin. Has been given a short course of oral Ceftin. The Perdomo catheter should be discontinued and postvoid residual check before discharge. I explained to the nurse practitioner. Continue supportive care. MMODL / IJN: [id number] /
--- NOTE | 2018-10-30 15:14 | P.DS ---
<Genevieve Titus - Last Filed: 10/30/18 15:13> Providers Expected date of discharge: 10/30/18 Attending physician: Dr. Joyce Final Diagnoses: Fever of unknown origin, suspect secondary to acute mild UTI, present on admission, possible viral syndrome. Possible gastroenteritis, with loose bowel movements or diarrhea. laxatives held. C. diff is negative Diabetes mellitus History of pituitary tumor status post resection 2002, as per patient. 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 Patient is alert awake and oriented and she tells me she was sent to the hospital by her and because she was sleeping a lot. And she does not have more information. However she denies headache, no neck pain, no chest pain, no dyspnea. No change in urine or bowel habits. No abdominal pain. No nausea vomiting. No rash. However patient states that she has diarrhea although she cannot clarify more. She said that she runs around 3-4 times a day. However there is no abdominal pain and abdominal examination looks benign. Patient is on his routine and prednisone Syeda she does not exactly washed taking this medication however she said that this might be related to her tumor in her pituitary gland. Her blood pressure on the low side Syeda patient is seen that her blood pressure usually runs low. She doesn't know which numbers. On admission her blood pressure on the low side 88/48 currently, she is saturating in 97% on 2 L. She has a temperature of 103.2. shows no leukocytosis. With WBC 7.9K. Hemoglobin 12.5. Creatinine is slightly elevated at 1.1, baseline 2 years ago was 0.7. Glucose controlled. Ethilons that is negative. Urine analysis showing only 11 WBC in the urine. Chest x-ray showing no acute process per radiology report. EKG: Sinus tachycardia at 101, with no significant ST-T changes. In the emergency room she received 1 dose of ceftriaxone. Started on normal saline at 75 mL/h. patient has a Perdomo catheter placed in the emergency room. i offered to check for test , pt declined, risks and benefits are explained 10/29/2018 Patient looks clinically more stable today, her blood pressure is improve heart rate is within normal limits. The patient has been afebrile for 24 hrs. patient states that her diarrhea is improving. No abdominal pain. No nausea vomiting. She is tolerating diet well. Labs within normal limits.C. diff came back negative. Infectious disease input is appreciated. Continue ceftriaxone. Keep monitoring for now. 10/30/2018 maintained on IV antibiotics of Rocephin as per infectious disease. Afebrile, normal WBC. Diarrhea improving. Reports feeling much better .Perdomo catheter discontinued, and patient voided. Bladder scanned, reporting 0 retention. Significant clinical improvement. Patient has been cleared by infectious disease for discharge. Patient is being discharged home in stable condition with guarded prognosis. - Exam GENERAL: alert and oriented x3, no acute distress. CARDIOVASCULAR: S1 and S2 present. No murmurs, rubs, or gallops. PULMONARY: Chest is clear to auscultation, no wheezing or crackles. ABDOMEN: Soft, nontender, nondistended, normoactive bowel sounds. No palpable organomegaly. NEUROLOGICAL: Gross neurological examination did not reveal any focal deficits. Microbiology 10/28/18 01:05 Blood Blood Culture - Preliminary No Growth after 48 hours 10/28/18 01:05 Blood Blood Culture - Preliminary No Growth after 48 hours 10/29/18 13:40 Stool Stool Culture - Preliminary 10/28/18 13:43 Blood Blood Culture - Preliminary No Growth after 24 hours 10/28/18 00:15 Urine,Catheterized Urine Culture - Final The impression and plan of care has been dictated as directed. : I performed a history and examination of this patient, discussed the same with the dictator. I agree with the dictator's note ,documented as a scribe. Any additional findings or plans will be noted. Time taken: 35 minutes Patient Condition at Discharge: Stable Plan - Discharge Summary Discharge Rx Participant: No New Discharge Prescriptions: New Cefuroxime Axetil [Ceftin] 500 mg PO BID #10 tab Continue Ergocalciferol [Vitamin D2 (DRISDOL)] 50,000 unit PO TU predniSONE 4 mg PO DAILY Estrogens, Conjugated [Premarin] 0.3 mg PO DAILY Simvastatin [Zocor] 20 mg PO HS Oxybutynin Chloride [Oxybutynin Chloride ER] 5 mg PO DAILY Escitalopram [Lexapro] 20 mg PO DAILY Pioglitazone HCl 30 mg PO DAILY INSULIN LISPRO (humaLOG) [humaLOG] 30 units SQ DAILY Levothyroxine Sodium [Synthroid] 100 mcg PO DAILY Discontinued Docusate [Colace] 100 mg PO DAILY PRN PRN Reason: Constipation Sennosides [Senna] 8.6 mg PO HS PRN PRN Reason: Constipation Discharge Medication List Ergocalciferol [Vitamin D2 (DRISDOL)] 50,000 unit PO TU 03/25/14 [History] Estrogens, Conjugated [Premarin] 0.3 mg PO DAILY 03/25/14 [History] Oxybutynin Chloride [Oxybutynin Chloride ER] 5 mg PO DAILY 03/25/14 [History] Simvastatin [Zocor] 20 mg PO HS 03/25/14 [History] predniSONE 4 mg PO DAILY 03/25/14 [History] Escitalopram [Lexapro] 20 mg PO DAILY 10/28/18 [History] INSULIN LISPRO (humaLOG) [humaLOG] 30 units SQ DAILY 10/28/18 [History] Levothyroxine Sodium [Synthroid] 100 mcg PO DAILY 10/28/18 [History] Pioglitazone HCl 30 mg PO DAILY 10/28/18 [History] Cefuroxime Axetil [Ceftin] 500 mg PO BID #10 tab 10/30/18 [Rx] Follow up Appointment(s)/Referral(s): Janet Stanton MD [Primary Care Provider] - 3 Days Patient Instructions/Handouts: Urinary Tract Infection in Women (DC) Activity/Diet/Wound Care/Special Instructions: resume your previous diet activity as tolerated Discharge Disposition: HOME SELF-CARE <Rodriguez Joyce E - Last Filed: 10/30/18 21:56> Providers Date of admission: 10/28/18 04:25 Attending physician: Sherice Govea I have discussed the plan and I have reviewed the note with Harleen Mckeon and I agree with it except what is mentioned below Pt is seen and examined by me at bed side his symptoms of tiredness, diarrhea and urinary difficulty, and other are greatly improved on the current therapy . on the day of discharge she returned to her baseline with no chest pain no dyspnea, no change in urine or bowel habit , no nausea or vomiting , no abd pain , she is tolerating diet well . no fever bladder scan was checked by staff and it was zero a.sh Consults: 10/28/18 09:40 Consult Physician Routine Consulting Provider: Maty Branch Consult Reason/Comments: poss sepsis Do you want consulting provider notified?: Yes Primary care physician: Janet Stanton
[2018-10-30 15:43] VITALS: BP 103/67; PULSE 71; RESP 18; TEMP 98.3
== END 2018-10-30 17:28 | disposition home or self-care (01) ==
LOC: EC → 1SOBS 04:25 → 4MS4W 10-29 18:00
PROVIDERS: ADMIT Hospitalist; ATTEND Hospitalist
DX: R50.9 Fever, unspecified (principal); N39.0 Urinary tract infection, site not specified; R41.82 Altered mental status, unspecified; H91.90 Unspecified hearing loss, unspecified ear; F32.9 Major depressive disorder, single episode, unspecified; E86.0 Dehydration; R00.0 Tachycardia, unspecified; I95.9 Hypotension, unspecified; H54.62 Unqualified visual loss, left eye, normal vision right eye; R19.7 Diarrhea, unspecified; E03.9 Hypothyroidism, unspecified; K59.00 Constipation, unspecified; E78.5 Hyperlipidemia, unspecified; E11.9 Type 2 diabetes mellitus without complications; L40.9 Psoriasis, unspecified; E66.9 Obesity, unspecified; Z68.32 Body mass index [BMI] 32.0-32.9, adult; R62.50 Unspecified lack of expected normal physiological development in childhood; R79.89 Other specified abnormal findings of blood chemistry; Z79.890 Hormone replacement therapy; Z79.84 Long term (current) use of oral hypoglycemic drugs; Z79.4 Long term (current) use of insulin; Z79.52 Long term (current) use of systemic steroids; Z79.899 Other long term (current) drug therapy; Z86.011 Personal history of benign neoplasm of the brain; Z91.011 Allergy to milk products
CPT/HCPCS: 96376; 96361 ×2; 96366 ×2; 96372 ×3; 96375; 96365; 99291; 51702; 36415; 93005; 97110; 97163; 97535; 97166; 80053; 80048 ×2; 84443; 83605; 85025 ×3; 81001; 87040; 87324; 87086; 87045; 87046; 87502; 71045; G0378 ×3; J1644 ×3; J0696 ×3; J7512 ×3; 96360

== ENCOUNTER → 2018-11-08 | Outpatient (CLI) | payer MEDICARE, OTHER ==
[2018-11-08 17:55] LABS: Hemoglobin A1C 6.4 % (4.0-6.0)
[2018-11-08 19:12] LABS: ALT 44 U/L (8-44); AST 60 U/L (13-35); Albumin/Globulin Ratio 1.46 (1.60-3.17); Alkaline Phosphatase 53 U/L (41-126); Calcium 9.1 mg/dL (8.7-10.3); Carbon Dioxide 28.8 mmol/L (21.6-31.8); Chloride 103 mmol/L (96-109); Cholesterol 191 mg/dL (0-200); Globulin 2.8 g/dL (1.6-3.3); Glucose 174 mg/dL (70-110); LDL Cholesterol,Calculated 78.6 mg/dL (0.0-131.0); Potassium 3.8 mmol/L (3.5-5.5); Sodium 139 mmol/L (135-145); Total Bilirubin 0.7 mg/dL (0.3-1.2); Total Protein 6.9 g/dL (6.2-8.2)
== END | disposition home or self-care (01) ==
LOC: LABWHC1 10:56
PROVIDERS: ATTEND Internal Medicine Endocrinology, Diabetes & Metabolism
DX: E11.65 Type 2 diabetes mellitus with hyperglycemia (principal); E03.8 Other specified hypothyroidism; D35.2 Benign neoplasm of pituitary gland
CPT/HCPCS: 36415; 80053; 80061; 82533; 83036; 84146; 84439; 84443

== ENCOUNTER 2019-02-07 16:57 | Emergency (ER) | payer MEDICARE, OTHER ==
[2019-02-07 17:40] VITALS: BP 100/67; PULSE 92; RESP 18; TEMP 99.2
--- NOTE | 2019-02-07 18:27 | XR ---
EXAMINATION TYPE: XR foot complete bilateral DATE OF EXAM: 02/07/2019 COMPARISON: NONE HISTORY: Diabetes. Third toe right side blackness TECHNIQUE: 3 views each foot FINDINGS: Metatarsals are intact. There is some narrowing of the left first MP joint with spurring. T here is some spurring at the PIP joint of the right second toe. There is mild deformity of the left s econd third fourth metatarsals consistent with old healed fractures. I see no acute fracture. IMPRESSION: Old trauma. Osteoarthritis. No evidence of osteomyelitis.
--- NOTE | 2019-02-07 18:48 | ED ---
Extremity Problem HPI - General Chief complaint: Extremity Problem,Nontraumatic Stated complaint: R Toe Pain Time Seen by Provider: 02/07/19 17:42 Source: patient, family Mode of arrival: wheelchair Limitations: physical limitation - History of Present Illness Initial comments: Patient is a 33-year-old diabetic female presents to the emergency Department with right foot problems. Patient reports with to the emergency department with her aunt who is taking care of her. The reports excoriations on the plantar aspect of the left foot near the first MTP joint. The aunt reports the patient occasionally walks barefoot and could potentially have stepped on something. The aunt also reports mild discoloration on the right third toe that started approximately 2 days ago. The aunt states are attempting to be seen by a filter screen cleaner who follows the patient but he is currently not in his office. Patient reports mild pain with flexion of the right toes. Patient has problems with balance due to previous neuro surgeries. - Related Data Home Medications Medication Instructions Recorded Confirmed Ergocalciferol [Vitamin D2 50,000 unit PO TU 03/25/14 10/28/18 (DRISDOL)] Estrogens, Conjugated [Premarin] 0.3 mg PO DAILY 03/25/14 10/28/18 Oxybutynin Chloride [Oxybutynin 5 mg PO DAILY 03/25/14 10/28/18 Chloride ER] Simvastatin [Zocor] 20 mg PO HS 03/25/14 10/28/18 predniSONE 4 mg PO DAILY 03/25/14 10/28/18 Escitalopram [Lexapro] 20 mg PO DAILY 10/28/18 10/28/18 INSULIN LISPRO (humaLOG) [humaLOG] 30 units SQ DAILY 10/28/18 10/28/18 Levothyroxine Sodium [Synthroid] 100 mcg PO DAILY 10/28/18 10/28/18 Pioglitazone HCl 30 mg PO DAILY 10/28/18 10/28/18 Previous Rx's Medication Instructions Recorded Cefuroxime Axetil [Ceftin] 500 mg PO BID #10 tab 10/30/18 Allergies Allergy/AdvReac Type Severity Reaction Status Date / Time lactose Allergy Diarrhea Verified 02/07/19 17:39 Review of Systems ROS Statement: Those systems with pertinent positive or pertinent negative responses have been documented in the HPI. ROS Other: All systems not noted in ROS Statement are negative. Past Medical History Past Medical History: Diabetes Mellitus, Eye Disorder, Hearing Disorder / Deafness, Hyperlipidemia, Musculoskeletal Disorder, Skin Disorder, Thyroid Disorder Additional Past Medical History / Comment(s): OP, has no peripheral vision, hard of hearing to left side, psoriasis History of Any Multi-Drug Resistant Organisms: None Reported Past Surgical History: Orthopedic Surgery Additional Past Surgical History / Comment(s): brain tumor removed 2002, Past Anesthesia/Blood Transfusion Reactions: No Reported Reaction Past Psychological History: Depression Smoking Status: Never smoker Past Alcohol Use History: None Reported Past Drug Use History: None Reported - Past Family History Brother(s) Additional Family Medical History / Comment(s): pt states her brother is healthy General Exam Limitations: physical limitation General appearance: alert, in no apparent distress Head exam: Present: atraumatic, normocephalic, normal inspection Eye exam: Present: normal appearance, PERRL, EOMI Pupils: Present: normal accommodation ENT exam: Present: normal exam, mucous membranes moist Neck exam: Present: normal inspection, full ROM Respiratory exam: Present: normal lung sounds bilaterally Cardiovascular Exam: Present: regular rate, normal rhythm, normal heart sounds Extremities exam: Present: normal inspection, full ROM, tenderness (Mild tenderness with toe flexion and extension on the right foot.), normal capillary refill, other (+2 dorsalis pedis and posterior tibialis, bilaterally. Mild excoriation on the plantar aspect of the left foot around the first MTP joint. Mild discoloration of the base of right third toe.) Back exam: Present: normal inspection, full ROM Neurological exam: Present: alert, oriented X3 Psychiatric exam: Present: normal affect, normal mood Skin exam: Present: warm, intact, normal color Course Vital Signs 02/07/19 17:37 Temperature 99.2 F Pulse Rate 92 Respiratory 18 Rate Blood Pressure 100/67 O2 Sat by Pulse 96 Oximetry Medical Decision Making - Medical Decision Making Patient is a 33-year-old female presents emergency Department with right foot discomfort. X-ray of the right third toe is suggestive of old trauma, osteoarthritis and no evidence of osteomyelitis, fractures or dislocations. Based on physical examination the patient does not appear to have any signs of infection. Patient has good capillary refill in bilateral feet. No foreign bodies detected. This point the patient and and were advised to wear socks and minimize barefoot walking. They're also advised to use bath salts. They're also advised to follow-up with the filter screen cleaner. Strict return parameters were thoroughly discussed with patient and aunt who were agreeable and understanding. Case discussed with physician. Disposition Clinical Impression: Superficial bruising of toe Disposition: HOME SELF-CARE Condition: Stable Instructions (If sedation given, give patient instructions): Swollen Joint (ED), Leg Pain (ED) Additional Instructions: Please follow with podiatry. Please use bath salts and avoid barefoot walking. Please return to emergency department if symptoms worsen. Is patient prescribed a controlled substance at d/c from ED?: No Referrals: Janet Stanton MD [Primary Care Provider] - 1-2 days Time of Disposition: 19:22
== END 2019-02-07 19:37 | disposition home or self-care (01) ==
LOC: EC 16:57
DX: S90.121A Contusion of right lesser toe(s) without damage to nail, initial encounter (principal); M19.071 Primary osteoarthritis, right ankle and foot; E11.628 Type 2 diabetes mellitus with other skin complications; E78.5 Hyperlipidemia, unspecified; L40.9 Psoriasis, unspecified; F32.9 Major depressive disorder, single episode, unspecified; E07.9 Disorder of thyroid, unspecified; H91.92 Unspecified hearing loss, left ear; Z79.52 Long term (current) use of systemic steroids; Z79.899 Other long term (current) drug therapy; Z79.890 Hormone replacement therapy; Z79.4 Long term (current) use of insulin; Z91.011 Allergy to milk products; Z98.890 Other specified postprocedural states
CPT/HCPCS: 99283

== ENCOUNTER 2019-04-23 17:15 | Inpatient (IN) | payer MEDICARE, OTHER ==
[2019-04-23 18:18] LABS: Glucose,Whole Blood 268 mg/dL (75-99)
[2019-04-23 18:30] LABS: Basophils # (A) 0.1 k/uL (0-0.2); Basophils % (A) 1 %; Eosinophils # (A) 0.1 k/uL (0-0.7); Eosinophils % (A) 1 %; HCT 33.3 % (34.0-46.0); HGB 11.1 gm/dL (11.4-16.0); Lymphocytes # (A) 1.4 k/uL (1.0-4.8); Lymphocytes % (A) 13 %; MCHC 33.3 g/dL (31.0-37.0); MCV 93.1 fL (80.0-100.0); Mean Platelet Volume 9.5; Monocytes # (A) 0.4 k/uL (0-1.0); Monocytes % (A) 4 %; Neutrophils # (A) 8.6 k/uL (1.3-7.7); Neutrophils % (A) 80 %; Platelet Count 169 k/uL (150-450); RBC 3.58 m/uL (3.80-5.40); RDW 14.8 % (11.5-15.5); WBC 10.7 k/uL (3.8-10.6)
[2019-04-23 18:39] LABS: ALT 25 U/L (9-52); AST 26 U/L (14-36); African American GFR (CKD) >90 (>60 ml/min/1.73 sqM); Albumin 3.9 g/dL (3.5-5.0); Alkaline Phosphatase 51 U/L (38-126); Anion Gap 8 mmol/L; Blood Urea Nitrogen 13 mg/dL (7-17); Carbon Dioxide 29 mmol/L (22-30); Chloride 102 mmol/L (98-107); Glucose 274 mg/dL (74-99); Potassium 4.4 mmol/L (3.5-5.1); Sodium 139 mmol/L (137-145); Total Bilirubin 0.6 mg/dL (0.2-1.3); Total Protein 7.1 g/dL (6.3-8.2)
[2019-04-23 18:41] LABS: INR 0.9 (<1.2); Partial Thromboplastin Time 24.7 sec (22.0-30.0)
--- NOTE | 2019-04-23 18:51 | XR ---
EXAMINATION TYPE: XR foot complete RT DATE OF EXAM: 04/23/2019 COMPARISON: 02/07/2019 HISTORY: Fifth metatarsal wound TECHNIQUE: 3 views FINDINGS: There is some narrowing of the fifth MP joint space with some mild sclerosis of the fifth m etatarsal head. I see no focal bone destruction. The toes appear intact. IMPRESSION: There is some osteoarthritis at the fifth MP joint unchanged. No specific sign of osteomy elitis.
[2019-04-23] MEDS: SODIUM CHLORIDE 0.9% 500 ML 500 ML IV SCH ×2 (19:03→20:58)
--- NOTE | 2019-04-23 19:16 | ED ---
General Adult HPI - General Chief complaint: Extremity Injury, Lower Stated complaint: rt foot diabetic ulcer Time Seen by Provider: 04/23/19 17:34 Source: patient, RN notes reviewed Mode of arrival: wheelchair Limitations: no limitations - History of Present Illness Initial comments: 34-year-old female presents to the emergency determine for chief complaint of diabetic ulcer of the right foot. Patient fell about 1.5 weeks ago and scraped her foot. Since then mother states there has been a wound on her foot that has been worsening. Patient has seen a hosiery looper for this. She was started on Keflex 2 days ago. Followed up with hosiery looper today who sent her into the emergency department for admission and infectious disease consultation. Patient denies fevers or chills. Patient has no other complaints at this time including shortness of breath, chest pain, abdominal pain, nausea or vomiting, headache, or visual changes. - Related Data Home Medications Medication Instructions Recorded Confirmed Ergocalciferol [Vitamin D2 50,000 unit PO TU 03/25/14 04/23/19 (DRISDOL)] Estrogens, Conjugated [Premarin] 0.3 mg PO HS 03/25/14 04/23/19 Oxybutynin Chloride [Oxybutynin 5 mg PO HS 03/25/14 04/23/19 Chloride ER] Simvastatin [Zocor] 20 mg PO HS 03/25/14 04/23/19 predniSONE 4 mg PO HS 03/25/14 04/23/19 Escitalopram [Lexapro] 20 mg PO HS 10/28/18 04/23/19 INSULIN LISPRO (humaLOG) [humaLOG] See Protocol SQ DAILY 10/28/18 04/23/19 Levothyroxine Sodium [Synthroid] 100 mcg PO HS 10/28/18 04/23/19 Pioglitazone HCl 30 mg PO HS 10/28/18 04/23/19 Cephalexin [Keflex] 500 mg PO QID 04/23/19 04/23/19 Allergies Allergy/AdvReac Type Severity Reaction Status Date / Time lactose Allergy Diarrhea Verified 04/23/19 18:19 Review of Systems ROS Statement: Those systems with pertinent positive or pertinent negative responses have been documented in the HPI. ROS Other: All systems not noted in ROS Statement are negative. Past Medical History Past Medical History: Diabetes Mellitus, Eye Disorder, Hearing Disorder / Deafness, Hyperlipidemia, Musculoskeletal Disorder, Skin Disorder, Thyroid Disorder Additional Past Medical History / Comment(s): OP, has no peripheral vision, hard of hearing to left side, psoriasis History of Any Multi-Drug Resistant Organisms: None Reported Past Surgical History: Orthopedic Surgery Additional Past Surgical History / Comment(s): brain tumor removed 2002, Past Anesthesia/Blood Transfusion Reactions: No Reported Reaction Past Psychological History: Depression Smoking Status: Never smoker Past Alcohol Use History: None Reported Past Drug Use History: None Reported - Past Family History Brother(s) Additional Family Medical History / Comment(s): pt states her brother is healthy General Exam Limitations: no limitations General appearance: alert, in no apparent distress Head exam: Present: atraumatic, normocephalic, normal inspection Eye exam: Present: normal appearance, PERRL, EOMI. Absent: scleral icterus, conjunctival injection, periorbital swelling ENT exam: Present: normal exam, mucous membranes moist Neck exam: Present: normal inspection, full ROM. Absent: tenderness, meningismus, lymphadenopathy Respiratory exam: Present: normal lung sounds bilaterally. Absent: respiratory distress, wheezes, rales, rhonchi, stridor Cardiovascular Exam: Present: regular rate, normal rhythm, normal heart sounds. Absent: systolic murmur, diastolic murmur, rubs, gallop, clicks Extremities exam: Present: full ROM (Full range of motion of the right foot and all toes), normal capillary refill (Capillary refill less than 2 seconds, DP pulse 2+ in the right lower extremity.), other (Patient has ulceration noted to the lateral right foot with surrounding erythema and increased warmth. Mild pedal edema noted.) Course Vital Signs 04/23/19 04/23/19 04/23/19 17:24 19:05 19:48 Temperature 98.1 F 97.1 F L Pulse Rate 74 72 Respiratory 18 18 Rate Blood Pressure 113/72 113/71 108/70 O2 Sat by Pulse 97 99 Oximetry Medical Decision Making - Medical Decision Making 34-year-old presents for diabetic foot ulcer 1.5 weeks. There is surrounding erythema around a 2 cm x 2 cm ulceration of the lateral right foot. Patient was sent in by Dr. Cote for admission and infectious disease consultation after feeling 2 days of outpatient antibiotic therapy on Keflex. CBC does show mild cytosis of 10.7. CMP shows a hyperglycemia of 268, history of insulin-dependent diabetes. X-ray shows no specific sign of osteomyelitis. Patient was started on Unasyn, no history of MRSA. Patient will be admitted for IV antibiotics and infectious disease consultation. - Lab Data Result diagrams: 04/23/19 18:12 04/23/19 18:12 Lab Results 04/23/19 04/23/19 04/23/19 Range/Units 18:12 18:12 18:12 WBC 10.7 H (3.8-10.6) k/uL RBC 3.58 L (3.80-5.40) m/uL Hgb 11.1 L (11.4-16.0) gm/dL Hct 33.3 L (34.0-46.0) % MCV 93.1 (80.0-100.0) fL MCH 31.0 (25.0-35.0) pg MCHC 33.3 (31.0-37.0) g/dL RDW 14.8 (11.5-15.5) % Plt Count 169 (150-450) k/uL Neutrophils % 80 % Lymphocytes % 13 % Monocytes % 4 % Eosinophils % 1 % Basophils % 1 % Neutrophils # 8.6 H (1.3-7.7) k/uL Lymphocytes # 1.4 (1.0-4.8) k/uL Monocytes # 0.4 (0-1.0) k/uL Eosinophils # 0.1 (0-0.7) k/uL Basophils # 0.1 (0-0.2) k/uL PT (9.0-12.0) sec INR (<1.2) APTT (22.0-30.0) sec Sodium 139 (137-145) mmol/L Potassium 4.4 (3.5-5.1) mmol/L Chloride 102 (98-107) mmol/L Carbon Dioxide 29 (22-30) mmol/L Anion Gap 8 mmol/L BUN 13 (7-17) mg/dL Creatinine 0.66 (0.52-1.04) mg/dL Est GFR (CKD-EPI)AfAm >90 (>60 ml/min/1.73 sqM) Est GFR (CKD-EPI)NonAf >90 (>60 ml/min/1.73 sqM) Glucose 274 H (74-99) mg/dL POC Glucose (mg/dL) (75-99) mg/dL POC Glu Diesel Machinist ID Plasma Lactic Acid William 1.6 (0.7-2.0) mmol/L Calcium 9.0 (8.4-10.2) mg/dL Total Bilirubin 0.6 (0.2-1.3) mg/dL AST 26 (14-36) U/L ALT 25 (9-52) U/L Alkaline Phosphatase 51 (38-126) U/L Total Protein 7.1 (6.3-8.2) g/dL Albumin 3.9 (3.5-5.0) g/dL Urine Color Urine Appearance (Clear) Urine pH (5.0-8.0) Ur Specific [place] (1.001-1.035) Urine Protein (Negative) Urine Glucose (UA) (Negative) Urine Ketones (Negative) Urine Blood (Negative) Urine Nitrite (Negative) Urine Bilirubin (Negative) Urine Urobilinogen (<2.0) mg/dL Ur Leukocyte Esterase (Negative) Urine HCG, Qual (Not Detectd) 04/23/19 04/23/19 04/23/19 Range/Units 18:12 18:17 20:21 WBC (3.8-10.6) k/uL RBC (3.80-5.40) m/uL Hgb (11.4-16.0) gm/dL Hct (34.0-46.0) % MCV (80.0-100.0) fL MCH (25.0-35.0) pg MCHC (31.0-37.0) g/dL RDW (11.5-15.5) % Plt Count (150-450) k/uL Neutrophils % % Lymphocytes % % Monocytes % % Eosinophils % % Basophils % % Neutrophils # (1.3-7.7) k/uL Lymphocytes # (1.0-4.8) k/uL Monocytes # (0-1.0) k/uL Eosinophils # (0-0.7) k/uL Basophils # (0-0.2) k/uL PT 10.0 (9.0-12.0) sec INR 0.9 (<1.2) APTT 24.7 (22.0-30.0) sec Sodium (137-145) mmol/L Potassium (3.5-5.1) mmol/L Chloride (98-107) mmol/L Carbon Dioxide (22-30) mmol/L Anion Gap mmol/L BUN (7-17) mg/dL Creatinine (0.52-1.04) mg/dL Est GFR (CKD-EPI)AfAm (>60 ml/min/1.73 sqM) Est GFR (CKD-EPI)NonAf (>60 ml/min/1.73 sqM) Glucose (74-99) mg/dL POC Glucose (mg/dL) 268 H (75-99) mg/dL POC Glu Diesel Machinist ID Sofía Wilkinson Plasma Lactic Acid William (0.7-2.0) mmol/L Calcium (8.4-10.2) mg/dL Total Bilirubin (0.2-1.3) mg/dL AST (14-36) U/L ALT (9-52) U/L Alkaline Phosphatase (38-126) U/L Total Protein (6.3-8.2) g/dL Albumin (3.5-5.0) g/dL Urine Color Yellow Urine Appearance Clear (Clear) Urine pH 7.0 (5.0-8.0) Ur Specific [place] 1.026 (1.001-1.035) Urine Protein Trace H (Negative) Urine Glucose (UA) 2+ H (Negative) Urine Ketones Negative (Negative) Urine Blood Negative (Negative) Urine Nitrite Negative (Negative) Urine Bilirubin Negative (Negative) Urine Urobilinogen 8.0 (<2.0) mg/dL Ur Leukocyte Esterase Negative (Negative) Urine HCG, Qual (Not Detectd) 04/23/19 Range/Units 20:21 WBC (3.8-10.6) k/uL RBC (3.80-5.40) m/uL Hgb (11.4-16.0) gm/dL Hct (34.0-46.0) % MCV (80.0-100.0) fL MCH (25.0-35.0) pg MCHC (31.0-37.0) g/dL RDW (11.5-15.5) % Plt Count (150-450) k/uL Neutrophils % % Lymphocytes % % Monocytes % % Eosinophils % % Basophils % % Neutrophils # (1.3-7.7) k/uL Lymphocytes # (1.0-4.8) k/uL Monocytes # (0-1.0) k/uL Eosinophils # (0-0.7) k/uL Basophils # (0-0.2) k/uL PT (9.0-12.0) sec INR (<1.2) APTT (22.0-30.0) sec Sodium (137-145) mmol/L Potassium (3.5-5.1) mmol/L Chloride (98-107) mmol/L Carbon Dioxide (22-30) mmol/L Anion Gap mmol/L BUN (7-17) mg/dL Creatinine (0.52-1.04) mg/dL Est GFR (CKD-EPI)AfAm (>60 ml/min/1.73 sqM) Est GFR (CKD-EPI)NonAf (>60 ml/min/1.73 sqM) Glucose (74-99) mg/dL POC Glucose (mg/dL) (75-99) mg/dL POC Glu Diesel Machinist ID Plasma Lactic Acid William (0.7-2.0) mmol/L Calcium (8.4-10.2) mg/dL Total Bilirubin (0.2-1.3) mg/dL AST (14-36) U/L ALT (9-52) U/L Alkaline Phosphatase (38-126) U/L Total Protein (6.3-8.2) g/dL Albumin (3.5-5.0) g/dL Urine Color Urine Appearance (Clear) Urine pH (5.0-8.0) Ur Specific [place] (1.001-1.035) Urine Protein (Negative) Urine Glucose (UA) (Negative) Urine Ketones (Negative) Urine Blood (Negative) Urine Nitrite (Negative) Urine Bilirubin (Negative) Urine Urobilinogen (<2.0) mg/dL Ur Leukocyte Esterase (Negative) Urine HCG, Qual Not Detected (Not Detectd) Disposition Clinical Impression: Ulcer of right foot, Leukocytosis, Cellulitis Disposition: ADMITTED IP TO THIS HOSP Condition: Fair Is patient prescribed a controlled substance at d/c from ED?: No Referrals: Janet Stanton MD [Primary Care Provider] - 1-2 days Time of Disposition: 20:51
[2019-04-23] MEDS ORDERED: cefTRIAXone IN SWFI 1,000 MG/10 ML SYRINGE IVP STA (19:30)
[2019-04-23 20:28] LABS: Appearance,Urine Clear (Clear); Bilirubin,Urine Negative (Negative); Blood,Urine Negative (Negative); Color,Urine Yellow; Glucose,Urine (UA) 2+ (Negative); Ketones,Urine Negative (Negative); Leukocyte Esterase,Urine Negative (Negative); Nitrite,Urine Negative (Negative); Protein,Urine Trace (Negative); Specific Gravity,Urine 1.026 (1.001-1.035)
[2019-04-23] MEDS ORDERED: NALOXONE 0.4 MG/ML 1 ML VIAL IV PRN (20:52)
[2019-04-23] MEDS ORDERED: ACETAMINOPHEN TAB 325 MG TAB PO PRN (20:52)
[2019-04-23 21:17] LABS: Glucose,Whole Blood 233 mg/dL (75-99)
[2019-04-23] MEDS ORDERED: IBUPROFEN 400 MG TAB PO PRN (22:00)
[2019-04-23 22:46] LABS: Glucose,Whole Blood 171 mg/dL (75-99)
[2019-04-23] MEDS: INSULIN ASPART (NovoLOG) 100 UNIT/ML VIAL SQ SCH (22:47)
[2019-04-23] MEDS: AMPICILLIN-SULBACTAM 3 GM in SODIUM CHLORIDE 0.9% 100 ML IVPB SCH (23:12)
[2019-04-23] MEDS: SODIUM CHLORIDE 0.9% 1,000 ML IV SCH (23:12)
[2019-04-24] MEDS: AMPICILLIN-SULBACTAM 3 GM in SODIUM CHLORIDE 0.9% 100 ML IVPB SCH ×3 (05:25→17:27)
[2019-04-24 06:58] LABS: Glucose,Whole Blood 141 mg/dL (75-99)
[2019-04-24] MEDS: SODIUM CHLORIDE 0.9% 1,000 ML IV SCH ×2 (07:44→14:17)
[2019-04-24] MEDS: INSULIN ASPART (NovoLOG) 100 UNIT/ML VIAL SQ SCH ×4 (07:44→21:57)
[2019-04-24] MEDS ORDERED: DIPH,PERTUS(ACELL)TETVAC-LF 0.5 ML VIAL IM ONE (08:47)
--- NOTE | 2019-04-24 11:42 | P.CONS ---
History of Present Illness - Reason for Consult Consult date: 04/24/19 Diabetic ulcer - History of Present Illness This is a 34-year-old female use history of a fall on April 03 and s he scooted across the carpet injuring her right lateral foot causing a wound. She has seen a primary care physician for this and started on Keflex 2 days ago without any improvement. Redness and swelling have been worsening and patient came into [facility] emergency center for evaluation. She was found to be afebrile, white count 10.7, creatinine 0.66, blood sugar 274. Urinalysis was positive for 2+ glucose, hCG nondetected. 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 No signs of osteomyelitis. Regarding diabetes, patient states that her blood sugars have been running in the 200s and 300s at home. Her last hemoglobin A1c was 6.4 in November 2018. Patient does not recall her last tetanus booster. She has been started on Unasyn. 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, chronic), denies blurred vision Ears, nose, mouth and throat: Denies dysphagia, Denies nasal congestion, Denies nasal discharge, Denies vertigo Cardiovascular: Denies decreased exercise tolerance, Denies dyspnea on exertion, Denies edema, Denies irregular heart beat, Denies leg edema, Denies lightheadedness, Denies syncope Respiratory: Denies cough, Denies cough with sputum, Denies dyspnea, Denies excessive sputum, Denies hemoptysis, Denies home oxygen Gastrointestinal: Denies abdominal pain, Denies diarrhea, Denies loss of appetite, Denies nausea, Denies vomiting Genitourinary: Denies dysuria, Denies urgency, Denies urinary frequency Musculoskeletal: Reports frequent falls, Reports gait dysfunction, Reports muscle weakness, Denies myalgias Integumentary: Reports wounds, Denies pruritus, Denies rash Neurological: Denies aphasia, Denies confusion, Denies head injury, Denies headaches, Denies seizures, Denies syncope, Denies vertigo Psychiatric: Denies anxiety, Denies depression Endocrine: Reports high blood sugars Past Medical History Past Medical History: Diabetes Mellitus, Eye Disorder, Hearing Disorder / Deafness, Hyperlipidemia, Musculoskeletal Disorder, Skin Disorder, Thyroid Disorder Additional Past Medical History / Comment(s): OP, has no peripheral vision, hard of hearing to left side, psoriasis History of Any Multi-Drug Resistant Organisms: None Reported Past Surgical History: Orthopedic Surgery Additional Past Surgical History / Comment(s): brain tumor removed 2002, Past Anesthesia/Blood Transfusion Reactions: No Reported Reaction Past Psychological History: Depression Smoking Status: Never smoker Past Alcohol Use History: None Reported Additional Past Alcohol Use History / Comment(s): Patient has been a lifelong nonsmoker, no illicit drug use, no alcohol use. She lives at home with her aunt and brother. There are 2 dogs and 3 cats in the home. Past Drug Use History: None Reported - Past Family History Brother(s) Additional Family Medical History / Comment(s): pt states her brother is healthy Medications and Allergies Home Medications Medication Instructions Recorded Confirmed Type Ergocalciferol [Vitamin D2 50,000 unit PO TU 03/25/14 04/23/19 History (DRISDOL)] Estrogens, Conjugated [Premarin] 0.3 mg PO HS 03/25/14 04/23/19 History Oxybutynin Chloride [Oxybutynin 5 mg PO HS 03/25/14 04/23/19 History Chloride ER] Simvastatin [Zocor] 20 mg PO HS 03/25/14 04/23/19 History predniSONE 4 mg PO HS 03/25/14 04/23/19 History Escitalopram [Lexapro] 20 mg PO HS 10/28/18 04/23/19 History INSULIN LISPRO (humaLOG) [humaLOG] See Protocol SQ DAILY 10/28/18 04/23/19 Hist ory Levothyroxine Sodium [Synthroid] 100 mcg PO HS 10/28/18 04/23/19 History Pioglitazone HCl 30 mg PO HS 10/28/18 04/23/19 History Cephalexin [Keflex] 500 mg PO QID 04/23/19 04/23/19 History Allergies Allergy/AdvReac Type Severity Reaction Status Date / Time lactose Allergy Diarrhea Verified 04/23/19 18:19 Physical Exam Vitals: Vital Signs Temp Pulse Pulse Pulse Resp BP BP 04/24/19 05:45 98.0 F 69 20 101/67 04/23/19 22:45 98.1 F 70 20 115/78 04/23/19 21:02 98.2 F 88 18 111/69 04/23/19 19:48 97.1 F L 108/70 04/23/19 19:05 72 18 113/71 04/23/19 17:24 98.1 F 74 18 113/72 Pulse Ox 04/24/19 05:45 92 L 04/23/19 22:45 96 04/23/19 21:02 98 04/23/19 19:48 99 04/23/19 19:05 04/23/19 17:24 97 Intake and Output 04/23/19 04/24/19 04/24/19 22:59 06:59 14:59 Other: Voiding Method Diaper Incontinent # Voids 2 Weight 90.718 kg Gen: This is an obese 34-year-old female. Patient is resting bed appears to be comfortable and in no acute distress. HEENT: Head is atraumatic, normocephalic. Left pupil is dilated. Right pupil round and reactive to light. Sclerae is anicteric. Oral mucous membranes are moist. Dentition is in poor order. Mid frontal lobe bilateral alopecia which patient states present since her brain surgery. NECK: Supple. No JVD. No lymphadenopathy. No thyromegaly. LUNGS: Clear to auscultation. No wheezes or rhonchi. No intercostal retractions. HEART: Regular rate and rhythm. No murmur. ABDOMEN: Soft. Bowel sounds are present. No masses. No tenderness. EXTREMITIES: Ulcer to the right foot lateral fifth metatarsal, no drainage, no foul order, there is surrounding erythema and edema. Dorsalis pedis +2 bilaterally. NEUROLOGICAL: Patient is awake, alert and oriented x3. Cranial nerves 2 through 12 are grossly intact. Results Results: Laboratory Results WBC 10.7 k/uL (3.8-10.6) H 04/23/19 18:12 RBC 3.58 m/uL (3.80-5.40) L 04/23/19 18:12 Hgb 11.1 gm/dL (11.4-16.0) L 04/23/19 18:12 Hct 33.3 % (34.0-46.0) L 04/23/19 18:12 MCV 93.1 fL (80.0-100.0) 04/23/19 18:12 MCH 31.0 pg (25.0-35.0) 04/23/19 18:12 MCHC 33.3 g/dL (31.0-37.0) 04/23/19 18:12 RDW 14.8 % (11.5-15.5) 04/23/19 18:12 Plt Count 169 k/uL (150-450) 04/23/19 18:12 Neutrophils % 80 % 04/23/19 18:12 Lymphocytes % 13 % 04/23/19 18:12 Monocytes % 4 % 04/23/19 18:12 Eosinophils % 1 % 04/23/19 18:12 Basophils % 1 % 04/23/19 18:12 Neutrophils # 8.6 k/uL (1.3-7.7) H 04/23/19 18:12 Lymphocytes # 1.4 k/uL (1.0-4.8) 04/23/19 18:12 Monocytes # 0.4 k/uL (0-1.0) 04/23/19 18:12 Eosinophils # 0.1 k/uL (0-0.7) 04/23/19 18:12 Basophils # 0.1 k/uL (0-0.2) 04/23/19 18:12 PT 10.0 sec (9.0-12.0) 04/23/19 18:12 INR 0.9 (<1.2) 04/23/19 18:12 APTT 24.7 sec (22.0-30.0) 04/23/19 18:12 Sodium 139 mmol/L (137-145) 04/23/19 18:12 Potassium 4.4 mmol/L (3.5-5.1) 04/23/19 18:12 Chloride 102 mmol/L (98-107) 04/23/19 18:12 Carbon Dioxide 29 mmol/L (22-30) 04/23/19 18:12 Anion Gap 8 mmol/L 04/23/19 18:12 BUN 13 mg/dL (7-17) 04/23/19 18:12 Creatinine 0.66 mg/dL (0.52-1.04) 04/23/19 18:12 Est GFR (CKD-EPI)AfAm >90 (>60 ml/min/1.73 sqM) 04/23/19 18:12 Est GFR (CKD-EPI)NonAf >90 (>60 ml/min/1.73 sqM) 04/23/19 18:12 Glucose 274 mg/dL (74-99) H 04/23/19 18:12 POC Glucose (mg/dL) 141 mg/dL (75-99) H 04/24/19 06:56 POC Glu Dynamics Ax Developer ID Desire Moreira 04/24/19 06:56 Plasma Lactic Acid William 1.6 mmol/L (0.7-2.0) 04/23/19 18:12 Calcium 9.0 mg/dL (8.4-10.2) 04/23/19 18:12 Total Bilirubin 0.6 mg/dL (0.2-1.3) 04/23/19 18:12 AST 26 U/L (14-36) 04/23/19 18:12 ALT 25 U/L (9-52) 04/23/19 18:12 Alkaline Phosphatase 51 U/L (38-126) 04/23/19 18:12 Total Protein 7.1 g/dL (6.3-8.2) 04/23/19 18:12 Albumin 3.9 g/dL (3.5-5.0) 04/23/19 18:12 Urine Color Yellow 04/23/19 20:21 Urine Appearance Clear (Clear) 04/23/19 20:21 Urine pH 7.0 (5.0-8.0) 04/23/19 20:21 Ur Specific [place] 1.026 (1.001-1.035) 04/23/19 20:21 Urine Protein Trace (Negative) H 04/23/19 20:21 Urine Glucose (UA) 2+ (Negative) H 04/23/19 20:21 Urine Ketones Negative (Negative) 04/23/19 20:21 Urine Blood Negative (Negative) 04/23/19 20:21 Urine Nitrite Negative (Negative) 04/23/19 20:21 Urine Bilirubin Negative (Negative) 04/23/19 20:21 Urine Urobilinogen 8.0 mg/dL (<2.0) 04/23/19 20:21 Ur Leukocyte Esterase Negative (Negative) 04/23/19 20:21 Urine HCG, Qual Not Detected (Not Detectd) 09/18/19 20:21 CBC & Chem 7: 04/23/19 18:12 04/23/19 18:12 Labs: Abnormal Lab Results - Last 24 Hours (Table) 04/23/19 04/23/19 04/23/19 Range/Units 18:12 18:12 18:17 WBC 10.7 H (3.8-10.6) k/uL RBC 3.58 L (3.80-5.40) m/uL Hgb 11.1 L (11.4-16.0) gm/dL Hct 33.3 L (34.0-46.0) % Neutrophils # 8.6 H (1.3-7.7) k/uL Glucose 274 H (74-99) mg/dL POC Glucose (mg/dL) 268 H (75-99) mg/dL Urine Protein (Negative) Urine Glucose (UA) (Negative) 04/23/19 04/23/19 04/23/19 Range/Units 20:21 21:16 22:44 WBC (3.8-10.6) k/uL RBC (3.80-5.40) m/uL Hgb (11.4-16.0) gm/dL Hct (34.0-46.0) % Neutrophils # (1.3-7.7) k/uL Glucose (74-99) mg/dL POC Glucose (mg/dL) 233 H 171 H (75-99) mg/dL Urine Protein Trace H (Negative) Urine Glucose (UA) 2+ H (Negative) 04/24/19 Range/Units 06:56 WBC (3.8-10.6) k/uL RBC (3.80-5.40) m/uL Hgb (11.4-16.0) gm/dL Hct (34.0-46.0) % Neutrophils # (1.3-7.7) k/uL Glucose (74-99) mg/dL POC Glucose (mg/dL) 141 H (75-99) mg/dL Urine Protein (Negative) Urine Glucose (UA) (Negative) Assessment and Plan Plan: This is a 34-year-old female injured her right foot after a fall and scooted across the carpet on April 03. She has underlying history of diabetes. Patient is currently on Unasyn. No culture obtained as this wound is not currently draining. Tetanus status will be updated. Bone scan will be ordered to assess for possible underlying osteomyelitis. Hemoglobin A1c has been ordered. Continue supportive care. Further recommendations as patient regresses. The above dictated assessment and findings were discussed with Dr. Addison. The impression and plan of care have been directed as dictated. Margie Ramirez nurse practitioner acting as scribe for Dr. Addison.
--- NOTE | 2019-04-24 11:42 | P.HPIM ---
History of Present Illness This is a pleasant 54 years old female with past medical history of diabetes mellitus, hearing disorder/deafness, hyperlipidemia, hypothyroidism, psoriasis.patient presents with right foot ulcer Vitals are stable labs showing mild leukocytosis of 10.7 K, unremarkable liver enzymes and BNP. Sugar is controlled. , UA is not suspicious for infection urine test is negative, who did x-ray showing some osteoarthritis of the fifth MP joint with no signs of osteo-myelitis patient was started on Unasyn Past Medical History Past Medical History: Diabetes Mellitus, Eye Disorder, Hearing Disorder / Deafness, Hyperlipidemia, Musculoskeletal Disorder, Skin Disorder, Thyroid Disorder Additional Past Medical History / Comment(s): OP, has no peripheral vision, hard of hearing to left side, psoriasis History of Any Multi-Drug Resistant Organisms: None Reported Past Surgical History: Orthopedic Surgery Additional Past Surgical History / Comment(s): brain tumor removed 2002, Past Anesthesia/Blood Transfusion Reactions: No Reported Reaction Past Psychological History: Depression Smoking Status: Never smoker Past Alcohol Use History: None Reported Past Drug Use History: None Reported - Past Family History Brother(s) Additional Family Medical History / Comment(s): pt states her brother is healthy Medications and Allergies Home Medications Medication Instructions Recorded Confirmed Type Ergocalciferol [Vitamin D2 50,000 unit PO TU 03/25/14 04/23/19 History (DRISDOL)] Estrogens, Conjugated [Premarin] 0.3 mg PO HS 03/25/14 04/23/19 History Oxybutynin Chloride [Oxybutynin 5 mg PO HS 03/25/14 04/23/19 History Chloride ER] Simvastatin [Zocor] 20 mg PO HS 03/25/14 04/23/19 History predniSONE 4 mg PO HS 03/25/14 04/23/19 History Escitalopram [Lexapro] 20 mg PO HS 10/28/18 04/23/19 History INSULIN LISPRO (humaLOG) [humaLOG] See Protocol SQ DAILY 10/28/18 04/23/19 History Levothyroxine Sodium [Synthroid] 100 mcg PO HS 10/28/18 04/23/19 History Pioglitazone HCl 30 mg PO HS 10/28/18 04/23/19 History Cephalexin [Keflex] 500 mg PO QID 04/23/19 04/23/19 History Allergies Allergy/AdvReac Type Severity Reaction Status Date / Time lactose Allergy Diarrhea Verified 04/23/19 18:19 Physical Exam Vitals: Vital Signs Temp Pulse Pulse Pulse Resp BP BP 04/24/19 05:45 98.0 F 69 20 101/67 04/23/19 22:45 98.1 F 70 20 115/78 04/23/19 21:02 98.2 F 88 18 111/69 04/23/19 19:48 97.1 F L 108/70 04/23/19 19:05 72 18 113/71 04/23/19 17:24 98.1 F 74 18 113/72 Pulse Ox 04/24/19 05:45 92 L 04/23/19 22:45 96 04/23/19 21:02 98 04/23/19 19:48 99 04/23/19 19:05 04/23/19 17:24 97 Intake and Output 04/23/19 04/24/19 04/24/19 22:59 06:59 14:59 Intake Total 118 Balance 118 Intake: Oral 118 Other: Voiding Method Diaper Incontinent # Voids 2 Weight 90.718 kg GENERAL: The patient is alert and oriented x3, not in any acute distress. Well developed, well nourished. HEENT: Pupils are round and equally reacting to light. EOMI. No scleral icterus. No conjunctival pallor. Normocephalic, atraumatic. No pharyngeal erythema. No thyromegaly. CARDIOVASCULAR: S1 and S2 present. No murmurs, rubs, or gallops. PULMONARY: Chest is clear to auscultation, no wheezing or crackles. ABDOMEN: Soft, nontender, nondistended, normoactive bowel sounds. No palpable organomegaly. MUSCULOSKELETAL: No joint swelling or deformity. -EXTREMITIES: No cyanosis, clubbing, or pedal edema. ulcer on the lateral right mid foot, with necrotic center and no surrounding redness or swelling. Discharge NEUROLOGICAL: Gross neurological examination did not reveal any focal deficits. SKIN: No rashes. no petechiae. Results CBC & Chem 7: 04/23/19 18:12 04/23/19 18:12 Labs: Abnormal Lab Results - Last 24 Hours (Table) 04/23/19 04/23/19 04/23/19 Range/Units 18:12 18:12 18:17 WBC 10.7 H (3.8-10.6) k/uL RBC 3.58 L (3.80-5.40) m/uL Hgb 11.1 L (11.4-16.0) gm/dL Hct 33.3 L (34.0-46.0) % Neutrophils # 8.6 H (1.3-7.7) k/uL Glucose 274 H (74-99) mg/dL POC Glucose (mg/dL) 268 H (75-99) mg/dL Urine Protein (Negative) Urine Glucose (UA) (Negative) 04/23/19 04/23/19 04/23/19 Range/Units 20:21 21:16 22:44 WBC (3.8-10.6) k/uL RBC (3.80-5.40) m/uL Hgb (11.4-16.0) gm/dL Hct (34.0-46.0) % Neutrophils # (1.3-7.7) k/uL Glucose (74-99) mg/dL POC Glucose (mg/dL) 233 H 171 H (75-99) mg/dL Urine Protein Trace H (Negative) Urine Glucose (UA) 2+ H (Negative) 04/24/19 Range/Units 06:56 WBC (3.8-10.6) k/uL RBC (3.80-5.40) m/uL Hgb (11.4-16.0) gm/dL Hct (34.0-46.0) % Neutrophils # (1.3-7.7) k/uL Glucose (74-99) mg/dL POC Glucose (mg/dL) 141 H (75-99) mg/dL Urine Protein (Negative) Urine Glucose (UA) (Negative) Thrombosis Risk Factor Assmnt - Choose All That Apply Any of the Below Risk Factors Present?: Yes Each Factor Represents 1 point: Obesity (BMI >25) Other Risk Factors: No Other congenital or acquired thrombophilia - If yes, enter type in comment: No Thrombosis Risk Factor Assessment Total Risk Factor Score: 1 Thrombosis Risk Factor Assessment Level: Low Risk Assessment and Plan Assessment: Diabetic Foot ulcer Diabetes mellitus Diabetic neuropathy Hearing difficulty/deafness No peripheral vision Hyperlipidemia Hypothyroidism History of psoriasis Plan: this is a pleasant 54 years old female who presents with diabetic foot ulcer. Continue with antibiotics and IV fluids. Consult infectious disease and surgeon for evaluation. Labs and medication were reviewed.. Continue same treatment. Continue with symptomatic treatment. Resume home medication. Monitor lytes and vitals. DVT and GI prophylaxis. Further recommendations of the clinical course of the patient DVT prophylaxis: Subcutaneous heparin GI Prophylaxis: Pepcid PT/OT: Pending Prognosis is guarded
[2019-04-24 11:46] LABS: Glucose,Whole Blood 172 mg/dL (75-99)
[2019-04-24 13:32] VITALS: BMI 34.3
--- NOTE | 2019-04-24 13:51 | NM ---
EXAMINATION TYPE: NM bone 3 phase DATE OF EXAM: 04/24/2019 COMPARISON: Correlation radiograph 04/23/2019 HISTORY: 34-year-old female with right foot pain for 2 to 3 weeks, rubbing injury against carpet. Pat ient reports history of prior left foot, left hip, and left arm fractures. Prior surgery to the left hip. Technique: Triple phase bone scintigraphy was performed following the injection of 23.5 mCi Tc 99m MD P. Immediate and pool images and 4 hours post injection images acquired. Imaging centered at the abrahan ateral distal lower extremities. FINDINGS: Flow and pool images show increased activity along the lateral aspect of the right midfoot. Pole images show increased uptake within the right forefoot probably at the level of the fourth toe. Delayed images show focal increased uptake on the right along the lateral mid foot and also the right forefoot. IMPRESSION: 1. Three-phase bone scan positive along the lateral right mid foot. This could be posttraumatic osseo us uptake (such as with an occult, acute fracture or bone bruise) or could represent osteomyelitis. 2. Additional focal activity in the right forefoot near the level of the fourth toe. Correlate for an y injury to this location. If an ulcer is present here, additional site of osteomyelitis would be dif ficult to exclude.
[2019-04-24 14:06] LABS: Glucose,Whole Blood 253 mg/dL (75-99)
[2019-04-24 16:50] LABS: Glucose,Whole Blood 196 mg/dL (75-99)
[2019-04-24 21:26] LABS: Glucose,Whole Blood 208 mg/dL (75-99)
[2019-04-24] MEDS: ATORVASTATIN 10 MG TAB PO SCH (21:57)
[2019-04-24] MEDS: LEVOTHYROXINE 100 MCG TAB PO SCH (21:57)
[2019-04-24] MEDS: ARTIFICIAL TEARS-HYPROMELLOSE DROPS 15 ML BTL BOTH EYES PRN (21:57)
[2019-04-24] MEDS: predniSONE 1 MG TAB PO SCH (21:58)
[2019-04-24] MEDS: PIOGLITAZONE 30 MG TAB PO SCH (21:58)
[2019-04-24] MEDS: OXYBUTYNIN XL 5 MG TAB.ER.24 PO SCH (22:01)
[2019-04-24] MEDS: ESTROGENS, CONJUGATED 0.3 MG TAB PO SCH (22:01)
[2019-04-24] MEDS: ESCITALOPRAM 20 MG TAB PO SCH (22:02)
--- NOTE | 2019-04-24 22:11 | P.CON ---
Consult Note - . Consult date: 04/24/19 Assessment/Plan:: This is a 34-year-old female use history of a fall on April 03 and she scooted across the carpet injuring her right lateral foot causing a wound. She has seen a blade worker for this and started on Keflex 2 days ago without any improvement. Redness and swelling have been worsening and patient came into [facility] emergency center for evaluation. She was found to be afebrile, white count 10.7, creatinine 0.66, blood sugar 274. Urinalysis was positive for 2+ glucose, hCG nondetected. 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 No signs of osteomyelitis. Regarding diabetes, patient states that her blood sugars have been running in the 200s and 300s at home. Her last hemoglobin A1c was 6.4 in November 2018. Patient does not recall her last tetanus booster. She has been started on Unasyn. Please see the consult note as dictated by nurse practitioner Mrs. Margie Ramirez. Patient relates to the injury to her foot which is now been nonhealing. Despite some outpatient antibiotic therapy has not improved because he presents the emergency center. Workup at this time for underlying osteomyelitis is occurring. Antibiotic therapy with Unasyn was added. Tetanus will be updated. Local wound care with Santyl is requested to be done twice a day for now. Elevation of the foot to help with underlying edema is also helpful. Improved glucose control will allow some further improvement also. If osteomyelitis is found will require a course of outpatient antibiotic therapy. Wound cultures obtained personally. I agree with evaluation, assessment and plan as dictated by nurse practitioner Mrs. Margie Ramirez.
[2019-04-24 23:44] LABS: Hemoglobin A1C 7.1 % (4.0-6.0)
[2019-04-25] MEDS: AMPICILLIN-SULBACTAM 3 GM in SODIUM CHLORIDE 0.9% 100 ML IVPB SCH ×5 (01:04→23:12)
[2019-04-25] MEDS: SODIUM CHLORIDE 0.9% 1,000 ML IV SCH ×2 (04:43→12:36)
[2019-04-25 07:09] LABS: Glucose,Whole Blood 191 mg/dL (75-99)
[2019-04-25] MEDS: INSULIN ASPART (NovoLOG) 100 UNIT/ML VIAL SQ SCH ×4 (07:24→21:04)
--- NOTE | 2019-04-25 08:10 | P.PN ---
Subjective This is a pleasant 54 years old female with past medical history of diabetes mellitus, hearing disorder/deafness, hyperlipidemia, hypothyroidism, ps oriasis.patient presents with right foot ulcer Vitals are stable labs showing mild leukocytosis of 10.7 K, unremarkable liver enzymes and BNP. Sugar is controlled. , UA is not suspicious for infection urine test is negative, who did x-ray showing some osteoarthritis of the fifth MP joint with no signs of osteo-myelitis patient was started on Unasyn 04/25/2019 Patient was admitted for right lateral foot ulcer with necrotic base, bone scan showed possible osteomyelitis versus fracture of the area. Because also patient has mild leukocytosis, patient has been started on Unasyn and fluids with normal saline Clorpactin 50 mL/h. Hemoglobin A1c, ESR/CRP are sent and results are pending. Also follow-up WBC. Objective - Vital Signs Vital signs: Vital Signs Temp 98.1 F 04/25/19 06:15 Pulse 98 04/25/19 06:15 Resp 16 04/25/19 06:15 BP 117/71 04/25/19 06:15 Pulse Ox 92 L 04/25/19 06:15 Intake & Output 04/24/19 04/25/19 04/25/19 18:59 06:59 18:59 Intake Total 118 Balance 118 Weight 90.718 kg Intake: Oral 118 Other: Voiding Method Toilet Toilet Diaper Bedside Commode Incontinent Incontinent # Voids 2 3 - Exam GENERAL: The patient is alert and oriented x3, not in any acute distress. Well developed, well nourished. HEENT: Pupils are round and equally reacting to light. EOMI. No scleral icterus. No conjunctival pallor. Normocephalic, atraumatic. No pharyngeal erythema. No thyromegaly. CARDIOVASCULAR: S1 and S2 present. No murmurs, rubs, or gallops. PULMONARY: Chest is clear to auscultation, no wheezing or crackles. ABDOMEN: Soft, nontender, nondistended, normoactive bowel sounds. No palpable organomegaly. MUSCULOSKELETAL: No joint swelling or deformity. -EXTREMITIES: No cyanosis, clubbing, or pedal edema. ulcer on the lateral right mid foot, with necrotic center and no surrounding redness or swelling. Discharge NEUROLOGICAL: Gross neurological examination did not reveal any focal deficits. SKIN: No rashes. no petechiae. - Labs CBC & Chem 7: 04/23/19 18:12 04/23/19 18:12 Labs: Abnormal Lab Results - Last 24 Hours (Table) 04/23/19 04/24/19 04/24/19 Range/Units 18:21 11:44 14:04 POC Glucose (mg/dL) 172 H 253 H (75-99) mg/dL Hemoglobin A1c 7.1 H (4.0-6.0) % 04/24/19 04/24/19 04/25/19 Range/Units 16:48 21:25 07:06 POC Glucose (mg/dL) 196 H 208 H 191 H (75-99) mg/dL Hemoglobin A1c (4.0-6.0) % Microbiology - Last 24 Hours (Table) 04/24/19 19:08 Gram Stain - Preliminary Foot - Right Wound Culture - Preliminary 04/23/19 18:12 Blood Culture - Preliminary Blood No Growth after 24 hours Assessment and Plan Assessment: Diabetic Foot ulcer Diabetes mellitus Diabetic neuropathy Hearing difficulty/deafness No peripheral vision Hyperlipidemia Hypothyroidism History of psoriasis Plan: this is a pleasant 54 years old female who presents with diabetic foot ulcer. Continue with antibiotics and IV fluids. Consult infectious disease and surgeon for evaluation. Labs and medication were reviewed.. Continue same treatment. Continue with symptomatic treatment. Resume home medication. Monitor lytes and vitals. DVT and GI prophylaxis. Further recommendations of the clinical course of the patient DVT prophylaxis: Subcutaneous heparin GI Prophylaxis: Pepcid PT/OT: Pending Prognosis is guarded
[2019-04-25 11:37] LABS: Basophils # (A) 0.1 k/uL (0-0.2); Basophils % (A) 1 %; Eosinophils # (A) 0.1 k/uL (0-0.7); Eosinophils % (A) 1 %; HCT 34.4 % (34.0-46.0); HGB 11.3 gm/dL (11.4-16.0); Lymphocytes # (A) 1.3 k/uL (1.0-4.8); Lymphocytes % (A) 17 %; MCH 31.1 pg (25.0-35.0); MCHC 32.8 g/dL (31.0-37.0); MCV 94.8 fL (80.0-100.0); Mean Platelet Volume 9.3; Monocytes # (A) 0.3 k/uL (0-1.0); Monocytes % (A) 4 %; Neutrophils # (A) 5.6 k/uL (1.3-7.7); Neutrophils % (A) 75 %; Platelet Count 135 k/uL (150-450); RBC 3.63 m/uL (3.80-5.40); RDW 13.6 % (11.5-15.5); WBC 7.5 k/uL (3.8-10.6)
[2019-04-25 11:55] LABS: African American GFR (CKD) >90 (>60 ml/min/1.73 sqM); Anion Gap 5 mmol/L; Blood Urea Nitrogen 12 mg/dL (7-17); C Reactive Protein 32.8 mg/L (<10.0); Calcium 8.6 mg/dL (8.4-10.2); Carbon Dioxide 29 mmol/L (22-30); Chloride 105 mmol/L (98-107); Glucose 259 mg/dL (74-99); Potassium 4.4 mmol/L (3.5-5.1); Sodium 139 mmol/L (137-145)
[2019-04-25 12:03] LABS: Glucose,Whole Blood 247 mg/dL (75-99)
[2019-04-25] MEDS: NYSTATIN 100,000 UNIT/GM POWD 15 GM TOPICAL SCH ×3 (12:35→21:08)
[2019-04-25] MEDS: COLLAGENASE 250 UNIT/GM OINTMENT 30 GM TUBE TOPICAL SCH ×2 (12:35→21:05)
[2019-04-25 15:20] LABS: Erythrocyte Sedimentation Rate 25 mm/hr (0-20)
[2019-04-25 16:51] LABS: Glucose,Whole Blood 145 mg/dL (75-99)
--- NOTE | 2019-04-25 17:15 | P.GSHP ---
History of Present Illness H&P Date: 04/25/19 Chief Complaint: Diabetic foot ulcer right with ascending cellulitis 34-year-old female presented my office on Sunday after sustaining a injury to the right foot approximately 10 days prior. This injury occurred in the kitchen where she fell and she may have hit under the counter or the refrigerator. Patient is not sure as she has diabetic neuropathy. After the injury no treatment was rendered other than keeping the area covered. Presented Sunday to my office for treatment of what was a nonhealing wound with redness. During this visit culture and sensitivities of the tissue was taken and sent out as well as debridement of necrotic tissue. She was placed on Keflex and was instructed to use repeat present to our office on Sunday for reevaluation. Sunday there is no progression of the infection and it appeared to be unresponsive. The patient systemic conditions patient was instructed to present to [facility] emergency room for admission and treatment. During this admission will get infectious disease consultation as well as medical to stabilize patie nt's uncontrolled diabetes. Patient states today during the visit that she is doing quite well for the last 24 hours well noted. - Cardiovascular Comment: Patient has edema bilateral with diminished pedal pulses bilateral there is no digital hair. - Musculoskeletal Comment: All inverters everters plantar flexors dorsiflexors grossly intact and symmetrical bilateral range of motion ankle joint subtalar joint and midtarsal joint and metatarsophalangeal joints grossly normal symmetric bilateral. Radiographs show no apparent osteomyelitis. - Integumentary Comment: There is a full-thickness ulceration located at the base of the fifth met cuboid articulation laterally full-thickness there is necrotic tissue marginally fibrotic in nature. There are extending erythema edema of the foot is similar to presentation on Sunday and extends proximal and 5 cm from the wound. There is no advertent purulence there is no odor. Edema of the foot with increased temperature consistent with soft tissue infection. - Neurological Comment: Patient has loss of protective sensation bilateral in a stocking glove distribution up to including the lower leg. Light touch deep tendon reflexes 2 point tactile diminished bilateral to this area. Past Medical History Past Medical History: Diabetes Mellitus, Eye Disorder, Hearing Disorder / Deafness, Hyperlipidemia, Musculoskeletal Disorder, Skin Disorder, Thyroid Disorder Additional Past Medical History / Comment(s): OP, has no peripheral vision, hard of hearing to left side, psoriasis History of Any Multi-Drug Resistant Organisms: None Reported Past Surgical History: Orthopedic Surgery Additional Past Surgical History / Comment(s): brain tumor removed 2002, Past Anesthesia/Blood Transfusion Reactions: No Reported Reaction Past Psychological History: Depression Smoking Status: Never smoker Past Alcohol Use History: None Reported Additional Past Alcohol Use History / Comment(s): Patient has been a lifelong nonsmoker, no illicit drug use, no alcohol use. She lives at home with her aunt and brother. There are 2 dogs and 3 cats in the home. Past Drug Use History: None Reported - Past Family History Brother(s) Additional Family Medical History / Comment(s): pt states her brother is healthy Medications and Allergies Home Medications Medication Instructions Recorded Confirmed Type Ergocalciferol [Vitamin D2 50,000 unit PO TU 03/25/14 04/23/19 History (DRISDOL)] Estrogens, Conjugated [Premarin] 0.3 mg PO HS 03/25/14 04/23/19 History Oxybutynin Chloride [Oxybutynin 5 mg PO HS 03/25/14 04/23/19 History Chloride ER] Simvastatin [Zocor] 20 mg PO HS 03/25/14 04/23/19 History predniSONE 4 mg PO HS 03/25/14 04/23/19 History Escitalopram [Lexapro] 20 mg PO HS 10/28/18 04/23/19 History INSULIN LISPRO (humaLOG) [humaLOG] See Protocol SQ DAILY 10/28/18 04/23/19 History Levothyroxine Sodium [Synthroid] 100 mcg PO HS 10/28/18 04/23/19 History Pioglitazone HCl 30 mg PO HS 10/28/18 04/23/19 History Cephalexin [Keflex] 500 mg PO QID 04/23/19 04/23/19 History Allergies Allergy/AdvReac Type Severity Reaction Status Date / Time lactose Allergy Diarrhea Verified 04/23/19 18:19 Surgical - Exam Vital Signs Temp Pulse Resp BP Pulse Ox 98.1 F 74 18 113/72 97 04/23/19 17:24 04/23/19 17:24 04/23/19 17:24 04/23/19 17:24 04/23/19 17:24 - Cardiovascular Pedal pulses are diminished secondary to be pedal edema bilateral digital hair b ilateral extremities are somewhat cool bilateral - Integumentary Full-thickness ulcer on the lateral aspect of the right foot as above. - Neurologic Decreased epicritic and pallesthetic sensations bilateral stocking glove distribution up to including the lower leg bilateral deep tendon reflexes 2 point tactile and vibratory diminished bilateral to the lower leg - Musculoskeletal All inverters everters plantar flexors dorsiflexors grossly intact symmetrical bilateral range of motion ankle joint subtalar joint and midtarsal joint and metatarsophalangeal joints grossly normal symmetrical bilateral radiographs do not show any osteomyelitis at this point. Results - Labs 04/25/19 10:49 04/25/19 10:49 Abnormal Lab Results - Last 24 Hours (Table) 04/23/19 04/24/19 04/25/19 Range/Units 18:21 21:25 07:06 RBC (3.80-5.40) m/uL Hgb (11.4-16.0) gm/dL Plt Count (150-450) k/uL ESR (0-20) mm/hr Glucose (74-99) mg/dL POC Glucose (mg/dL) 208 H 191 H (75-99) mg/dL Hemoglobin A1c 7.1 H (4.0-6.0) % C-Reactive Protein (<10.0) mg/L 04/25/19 04/25/19 04/25/19 Range/Units 10:49 10:49 11:58 RBC 3.63 L (3.80-5.40) m/uL Hgb 11.3 L (11.4-16.0) gm/dL Plt Count 135 L (150-450) k/uL ESR 25 H (0-20) mm/hr Glucose 259 H (74-99) mg/dL POC Glucose (mg/dL) 247 H (75-99) mg/dL Hemoglobin A1c (4.0-6.0) % C-Reactive Protein 32.8 H (<10.0) mg/L 04/25/19 Range/Units 16:49 RBC (3.80-5.40) m/uL Hgb (11.4-16.0) gm/dL Plt Count (150-450) k/uL ESR (0-20) mm/hr Glucose (74-99) mg/dL POC Glucose (mg/dL) 145 H (75-99) mg/dL Hemoglobin A1c (4.0-6.0) % C-Reactive Protein (<10.0) mg/L Microbiology - Last 24 Hours (Table) 04/24/19 19:08 Gram Stain - Preliminary Foot - Right Wound Culture - Preliminary 04/23/19 18:12 Blood Culture - Preliminary Blood No Growth after 24 hours Diabetes panel 04/23/19 04/25/19 Range/Units 18:21 10:49 Sodium 139 (137-145) mmol/L Potassium 4.4 (3.5-5.1) mmol/L Chloride 105 (98-107) mmol/L Carbon Dioxide 29 (22-30) mmol/L BUN 12 (7-17) mg/dL Creatinine 0.59 (0.52-1.04) mg/dL Glucose 259 H (74-99) mg/dL Hemoglobin A1c 7.1 H (4.0-6.0) % Calcium 8.6 (8.4-10.2) mg/dL Calcium panel 04/25/19 Range/Units 10:49 Calcium 8.6 (8.4-10.2) mg/dL Pituitary panel 04/25/19 Range/Units 10:49 Sodium 139 (137-145) mmol/L Potassium 4.4 (3.5-5.1) mmol/L Chloride 105 (98-107) mmol/L Carbon Dioxide 29 (22-30) mmol/L BUN 12 (7-17) mg/dL Creatinine 0.59 (0.52-1.04) mg/dL Glucose 259 H (74-99) mg/dL Calcium 8.6 (8.4-10.2) mg/dL Adrenal panel 04/25/19 Range/Units 10:49 Sodium 139 (137-145) mmol/L Potassium 4.4 (3.5-5.1) mmol/L Chloride 105 (98-107) mmol/L Carbon Dioxide 29 (22-30) mmol/L BUN 12 (7-17) mg/dL Creatinine 0.59 (0.52-1.04) mg/dL Glucose 259 H (74-99) mg/dL Calcium 8.6 (8.4-10.2) mg/dL Assessment and Plan Assessment: Cleveland grade 3 ulcer right foot with ascending cellulitis Plan: Exam review past medical history and treatment plan as well as IV antibiotic therapy. Agree with treatment at this point and will order Santyl to be applied to the foot daily. We'll reevaluate in 48 hours and if needed we'll performed surgical debridement hopefully at bedside. Once converted will follow patient in the wound care center.
[2019-04-25 20:28] LABS: Glucose,Whole Blood 159 mg/dL (75-99)
[2019-04-25] MEDS: HEPARIN SODIUM,PORCINE 5,000 UNIT/ML 1 ML VIAL SQ SCH (21:03)
[2019-04-25] MEDS: ARTIFICIAL TEARS-HYPROMELLOSE DROPS 15 ML BTL BOTH EYES PRN (21:03)
[2019-04-25] MEDS: ATORVASTATIN 10 MG TAB PO SCH (21:03)
[2019-04-25] MEDS: FAMOTIDINE 20 MG/2 ML VIAL IV SCH (21:03)
[2019-04-25] MEDS: OXYBUTYNIN XL 5 MG TAB.ER.24 PO SCH (21:03)
[2019-04-25] MEDS: ESCITALOPRAM 20 MG TAB PO SCH (21:03)
[2019-04-25] MEDS: LEVOTHYROXINE 100 MCG TAB PO SCH (21:03)
[2019-04-25] MEDS: PIOGLITAZONE 30 MG TAB PO SCH (21:04)
[2019-04-25] MEDS: ESTROGENS, CONJUGATED 0.3 MG TAB PO SCH (21:04)
[2019-04-25] MEDS: predniSONE 1 MG TAB PO SCH (21:04)
--- NOTE | 2019-04-25 22:11 | P.PN ---
Subjective Progress Note Date: 04/25/19 This is a 34-year-old female use history of a fall on April 03 and she scooted across the carpet injuring her right lateral foot causing a wound. She has seen a director dental services for this and started on Keflex 2 days ago without any improvement. Redness and swelling have been worsening and patient came into [facility] emergency center for evaluation. She was found to be afebrile, white count 10.7, creatinine 0.66, blood sugar 274. Urinalysis was positive for 2+ glucose, hCG nondetected. 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 No signs of osteomyelitis. Regarding diabetes, patient states that her blood sugars have been running in the 200s and 300s at home. Her last hemoglobin A1c was 6.4 in November 2018. Patient does not recall her last tetanus booster. She has been started on Unasyn. 04/25/2019 the patient does not have new complaints. Her energy level slightly improved she is not having nausea pain is controlled. There are significant psychosocial dynamics that her occurring that are being navigated for the discharge plan. Objective - Vital Signs Vital signs: Vital Signs Temp 97.6 F 04/25/19 21:44 Pulse 74 04/25/19 21:44 Resp 16 04/25/19 14:25 BP 106/72 04/25/19 21:44 Pulse Ox 95 04/25/19 21:44 Intake & Output 04/25/19 04/25/19 04/26/19 06:59 18:59 06:59 Intake Total 50 Balance 50 Intake: Oral 50 Other: Voiding Method Toilet Toilet Bedside Commode Bedside Commode Incontinent Incontinent # Voids 3 3 - Exam Gen: This is an obese 34-year-old female. Patient is resting bed appears to be comfortable and in no acute distress. HEENT: Head is atraumatic, normocephalic. Left pupil is dilated. Right pupil round and reactive to light. Sclerae is anicteric. Oral mucous membranes are moist. Dentition is in poor order. Mid frontal lobe bilateral alopecia which patient states present since her brain surgery. NECK: Supple. No JVD. No lymphadenopathy. No thyromegaly. LUNGS: Clear to auscultation. No wheezes or rhonchi. No intercostal retractions. HEART: Regular rate and rhythm. No murmur. ABDOMEN: Soft. Bowel sounds are present. No masses. No tenderness. EXTREMITIES: Ulcer to the right foot lateral fifth metatarsal, no drainage, no foul order, there is surrounding erythema and edema. Dorsalis pedis +2 bilaterally. NEUROLOGICAL: Patient is awake, alert and oriented x3. Patient however has a slow affect, and is hesitant about the future any plans about what she'll happen with her - Labs CBC & Chem 7: 04/25/19 10:49 04/25/19 10:49 Labs: Abnormal Lab Results - Last 24 Hours (Table) 04/23/19 04/25/19 04/25/19 Range/Units 18:21 07:06 10:49 RBC 3.63 L (3.80-5.40) m/uL Hgb 11.3 L (11.4-16.0) gm/dL Plt Count 135 L (150-450) k/uL ESR 25 H (0-20) mm/hr Glucose (74-99) mg/dL POC Glucose (mg/dL) 191 H (75-99) mg/dL Hemoglobin A1c 7.1 H (4.0-6.0) % C-Reactive Protein (<10.0) mg/L 04/25/19 04/25/19 04/25/19 Range/Units 10:49 11:58 16:49 RBC (3.80-5.40) m/uL Hgb (11.4-16.0) gm/dL Plt Count (150-450) k/uL ESR (0-20) mm/hr Glucose 259 H (74-99) mg/dL POC Glucose (mg/dL) 247 H 145 H (75-99) mg/dL Hemoglobin A1c (4.0-6.0) % C-Reactive Protein 32.8 H (<10.0) mg/L 04/25/19 Range/Units 20:21 RBC (3.80-5.40) m/uL Hgb (11.4-16.0) gm/dL Plt Count (150-450) k/uL ESR (0-20) mm/hr Glucose (74-99) mg/dL POC Glucose (mg/dL) 159 H (75-99) mg/dL Hemoglobin A1c (4.0-6.0) % C-Reactive Protein (<10.0) mg/L Microbiology - Last 24 Hours (Table) 04/23/19 18:12 Blood Culture - Preliminary Blood No Growth after 48 hours 04/24/19 19:08 Gram Stain - Preliminary Foot - Right Wound Culture - Preliminary Presumptive Staph aureus Laboratory Results WBC 7.5 k/uL (3.8-10.6) 04/25/19 10:49 RBC 3.63 m/uL (3.80-5.40) L 04/25/19 10:49 Hgb 11.3 gm/dL (11.4-16.0) L 04/25/19 10:49 Hct 34.4 % (34.0-46.0) 04/25/19 10:49 MCV 94.8 fL (80.0-100.0) 04/25/19 10:49 MCH 31.1 pg (25.0-35.0) 04/25/19 10:49 MCHC 32.8 g/dL (31.0-37.0) 04/25/19 10:49 RDW 13.6 % (11.5-15.5) 04/25/19 10:49 Plt Count 135 k/uL (150-450) L 04/25/19 10:49 Neutrophils % 75 % 04/25/19 10:49 Lymphocytes % 17 % 04/25/19 10:49 Monocytes % 4 % 04/25/19 10:49 Eosinophils % 1 % 04/25/19 10:49 Basophils % 1 % 04/25/19 10:49 Neutrophils # 5.6 k/uL (1.3-7.7) 04/25/19 10:49 Lymphocytes # 1.3 k/uL (1.0-4.8) 04/25/19 10:49 Monocytes # 0.3 k/uL (0-1.0) 04/25/19 10:49 Eosinophils # 0.1 k/uL (0-0.7) 04/25/19 10:49 Basophils # 0.1 k/uL (0-0.2) 04/25/19 10:49 ESR 25 mm/hr (0-20) H 04/25/19 10:49 PT 10.0 sec (9.0-12.0) 04/23/19 18:12 INR 0.9 (<1.2) 04/23/19 18:12 APTT 24.7 sec (22.0-30.0) 04/23/19 18:12 Sodium 139 mmol/L (137-145) 04/25/19 10:49 Potassium 4.4 mmol/L (3.5-5.1) 04/25/19 10:49 Chloride 105 mmol/L (98-107) 04/25/19 10:49 Carbon Dioxide 29 mmol/L (22-30) 04/25/19 10:49 Anion Gap 5 mmol/L 04/25/19 10:49 BUN 12 mg/dL (7-17) 04/25/19 10:49 Creatinine 0.59 mg/dL (0.52-1.04) 04/25/19 10:49 Est GFR (CKD-EPI)AfAm >90 (>60 ml/min/1.73 sqM) 04/25/19 10:49 Est GFR (CKD-EPI)NonAf >90 (>60 ml/min/1.73 sqM) 04/25/19 10:49 Glucose 259 mg/dL (74-99) H 04/25/19 10:49 POC Glucose (mg/dL) 159 mg/dL (75-99) H 04/25/19 20:21 POC Glu Sales Receptionist ID Ricarda Mathew 04/25/19 20:[address] Glu mg/dL 157 04/23/19 18:21 Hemoglobin A1c 7.1 % (4.0-6.0) H 04/23/19 18:21 Plasma Lactic Acid William 1.6 mmol/L (0.7-2.0) 04/23/19 18:12 Calcium 8.6 mg/dL (8.4-10.2) 04/25/19 10:49 Total Bilirubin 0.6 mg/dL (0.2-1.3) 04/23/19 18:12 AST 26 U/L (14-36) 04/23/19 18:12 ALT 25 U/L (9-52) 04/23/19 18:12 Alkaline Phosphatase 51 U/L (38-126) 04/23/19 18:12 C-Reactive Protein 32.8 mg/L (<10.0) H 04/25/19 10:49 Total Protein 7.1 g/dL (6.3-8.2) 04/23/19 18:12 Albumin 3.9 g/dL (3.5-5.0) 04/23/19 18:12 HCG, Qual Not Detected 04/23/19 18:12 Urine Color Yellow 04/23/19 20:21 Urine Appearance Clear (Clear) 04/23/19 20:21 Urine pH 7.0 (5.0-8.0) 04/23/19 20:21 Ur Specific [place] 1.026 (1.001-1.035) 04/23/19 20:21 Urine Protein Trace (Negative) H 04/23/19 20:21 Urine Glucose (UA) 2+ (Negative) H 04/23/19 20:21 Urine Ketones Negative (Negative) 04/23/19 20: Urine Blood Negative (Negative) 04/23/19 20:21 Urine Nitrite Negative (Negative) 04/23/19 20:21 Urine Bilirubin Negative (Negative) 04/23/19 20:21 Urine Urobilinogen 8.0 mg/dL (<2.0) 04/23/19 20:21 Ur Leukocyte Esterase Negative (Negative) 04/23/19 20:21 Urine HCG, Qual Not Detected (Not Detectd) 04/23/19 20:21 Microbiology 04/23/19 18:12 Blood Blood Culture - Preliminary No Growth after 48 hours 04/24/19 19:08 Foot - Right Gram Stain - Preliminary 04/24/19 19:08 Foot - Right Wound Culture - Preliminary Presumptive Staph aureus Assessment and Plan (1) Cellulitis of right leg Current Visit: Yes Status: Acute Code(s): L03.115 - CELLULITIS OF RIGHT LOWER LIMB SNOMED Code(s): 468309229 (2) Diabetic foot ulcer with osteomyelitis Narrative/Plan: Patient relates to the injury to her foot which is now been nonhealing. Despite some outpatient antibiotic therapy has not improved because he presents the emergency center. Workup at this time for underlying osteomyelitis is occurring. Antibiotic therapy with Unasyn was added. Tetanus will be updated. Local wound care with Santyl is requested to be done twice a day for now. Elevation of the foot to help with underlying edema is also helpful. Improved glucose control will allow some further improvement also. If osteomyelitis is found will require a course of outpatient antibiotic therapy. Wound cultures obtained personally. 04/25/2019 the patient is feeling slightly better. Wound cultures did show evidence of staph aureus. Final culture is in process. The bone scan is positive and the patient does have the Cleveland grade 3 diabetic lower extremity ulceration. Local wound care with Santyl has been requested. She's been seen by podiatry. May need a surgical debridement. Would need ongoing follow-up with the wound healing Center. The patient's family apparently is going out of town and the patient herself should not travel in is not capable of taking care of herself and constantly will likely be going to rehab to receive local wound care, antibiotic therapy and diabetes care. Current Visit: Yes Status: Acute Code(s): E11.621 - TYPE 2 DIABETES MELLITUS WITH FOOT ULCER; E11.69 - TYPE 2 DIABETES MELLITUS WITH OTHER SPECIFIED COMPLICATION; L97.509 - NON-PRESSURE CHRONIC ULCER OTH PRT UNSP FOOT W UNSP SEVERITY; M86.9 - OSTEOMYELITIS, UNSPECIFIED SNOMED Code(s): 53538108
[2019-04-26] MEDS: AMPICILLIN-SULBACTAM 3 GM in SODIUM CHLORIDE 0.9% 100 ML IVPB SCH ×4 (05:52→23:35)
[2019-04-26 07:22] LABS: Glucose,Whole Blood 188 mg/dL (75-99)
[2019-04-26 08:16] LABS: Basophils # (A) 0.1 k/uL (0-0.2); Basophils % (A) 1 %; Eosinophils # (A) 0.1 k/uL (0-0.7); Eosinophils % (A) 1 %; HCT 36.6 % (34.0-46.0); Lymphocytes # (A) 1.2 k/uL (1.0-4.8); Lymphocytes % (A) 18 %; MCH 30.4 pg (25.0-35.0); MCHC 32.6 g/dL (31.0-37.0); MCV 93.3 fL (80.0-100.0); Mean Platelet Volume 9.5; Monocytes # (A) 0.3 k/uL (0-1.0); Monocytes % (A) 4 %; Neutrophils # (A) 5.1 k/uL (1.3-7.7); Neutrophils % (A) 75 %; Platelet Count 156 k/uL (150-450); RBC 3.93 m/uL (3.80-5.40); RDW 13.5 % (11.5-15.5); WBC 6.8 k/uL (3.8-10.6)
[2019-04-26 08:19] LABS: African American GFR (CKD) >90 (>60 ml/min/1.73 sqM); Anion Gap 6 mmol/L; Blood Urea Nitrogen 13 mg/dL (7-17); Calcium 8.9 mg/dL (8.4-10.2); Carbon Dioxide 30 mmol/L (22-30); Chloride 105 mmol/L (98-107); Glucose 194 mg/dL (74-99); Sodium 141 mmol/L (137-145)
[2019-04-26 08:34] LABS: Potassium 4.6 mmol/L (3.5-5.1)
[2019-04-26] MEDS: DOCUSATE 100 MG CAP PO SCH ×2 (09:00→20:10)
[2019-04-26] MEDS: INSULIN ASPART (NovoLOG) 100 UNIT/ML VIAL SQ SCH ×4 (09:01→22:36)
[2019-04-26] MEDS: HEPARIN SODIUM,PORCINE 5,000 UNIT/ML 1 ML VIAL SQ SCH ×2 (09:01→20:10)
[2019-04-26] MEDS: FAMOTIDINE 20 MG/2 ML VIAL IV SCH ×2 (09:01→20:09)
[2019-04-26] MEDS: SODIUM CHLORIDE 0.9% 1,000 ML IV SCH (09:02)
[2019-04-26] MEDS: COLLAGENASE 250 UNIT/GM OINTMENT 30 GM TUBE TOPICAL SCH ×2 (09:02→20:22)
[2019-04-26] MEDS: NYSTATIN 100,000 UNIT/GM POWD 15 GM TOPICAL SCH ×3 (09:02→20:14)
[2019-04-26 12:26] LABS: Glucose,Whole Blood 198 mg/dL (75-99)
--- NOTE | 2019-04-26 13:16 | P.PN ---
Subjective Progress Note Date: 04/26/19 Principal diagnosis: Right diabetic foot ulcer with osteomyelitis Mrs. Huynh is a 54-year-old female with a past medical history of diabetes mellitus, hearing disorder/deafness, hyperlipidemic, hypothyroidism, scoliosis coming to the hospital with a chief complaint of right foot ulcer. Patient had a bone scan showing osteomyelitis so she is currently being treated with IV a ntibiotics as per Dr. Addison recommendations. On 04/26/2019 - patient is lying comfortably in the bed appears to be in no acute distress. She is knitting . On review of systems she denies having any fevers chills or rigors. No chest pain or palpitations. No cough or difficulty in breathing. No abdominal pain nausea vomiting or diarrhea. No dysuria or hematuria. Patient had blood work done this morning which was within normal limits. Active Medications Acetaminophen (Tylenol Tab) 650 mg PO Q6HR PRN PRN Reason: Mild Pain or Fever > 100.5 Artificial Tears (Artificial Tear Drops) 1 drops BOTH EYES TID PRN PRN Reason: Dry Eye(s) Last Admin: 04/25/19 21:03 Dose: 1 drops Documented by: Atorvastatin Calcium (Lipitor) 10 mg PO [facility] Last Admin: 04/25/19 21:03 Dose: 10 mg Documented by: Collagenase (Santyl) 1 applic TOPICAL BID [facility] Last Admin: 04/26/19 09:02 Dose: 1 applic Documented by: Docusate Sodium (Colace) 100 mg PO BID [facility] Last Admin: 04/26/19 09:00 Dose: 100 mg Documented by: Ergocalciferol (Vitamin D2) 50,000 unit PO Tu@0900 [facility] Escitalopram Oxalate (Lexapro) 20 mg PO [facility] Last Admin: 04/25/19 21:03 Dose: 20 mg Documented by: Estrogens Conjugated (Premarin) 0.3 mg PO [facility] Last Admin: 04/25/19 21:04 Dose: 0.3 mg Documented by: Famotidine (Pepcid) 20 mg IV Q12HR [facility] Last Admin: 04/26/19 09:01 Dose: 20 mg Documented by: Heparin Sodium (Porcine) (Heparin) 5,000 unit SQ Q12HR [facility] Last Admin: 04/26/19 09:01 Dose: 5,000 unit Documented by: Ampicillin Sodium/Sulbactam (Sodium 3 gm/ Sodium Chloride) 100 mls @ 200 mls/hr IVPB Q6H [facility] Last Admin: 04/26/19 05:52 Dose: 200 mls/hr Documented by: Sodium Chloride (Saline 0.9%) 1,000 mls @ 50 mls/hr IV .Q20H [facility] Last Admin: 04/26/19 09:02 Dose: 50 mls/hr Documented by: Ibuprofen (Motrin) 400 mg PO Q6HR PRN PRN Reason: Mild Pain or Fever > 100.5 Insulin Aspart (Novolog) 0 unit SQ [facility]; Protocol Last Admin: 04/26/19 09:01 Dose: 2 unit Documented by: Levothyroxine Sodium (Synthroid) 100 mcg PO [facility] Last Admin: 04/25/19 21:03 Dose: 100 mcg Documented by: Naloxone HCl (Narcan) 0.2 mg IV Q2M PRN PRN Reason: Opioid Reversal Nystatin (Mycostatin Powder) 1 applic TOPICAL TID [facility] Last Admin: 04/26/19 09:02 Dose: 1 applic Documented by: Oxybutynin Chloride (Ditropan Xl) 5 mg PO [facility] Last Admin: 04/25/19 21:03 Dose: 5 mg Documented by: Pioglitazone HCl (Actos) 30 mg PO [facility] Last Admin: 04/25/19 21:04 Dose: 30 mg Documented by: Prednisone () 4 mg PO [facility] Last Admin: 04/25/19 21:04 Dose: 4 mg Documented by: Objective - Vital Signs Vital signs: Vital Signs Temp 96.7 F L 04/26/19 07:00 Pulse 77 04/26/19 07:00 Resp 16 04/26/19 07:00 BP 120/67 04/26/19 07:00 Pulse Ox 92 L 04/26/19 07:00 Intake & Output 04/25/19 04/26/19 04/26/19 18:59 06:59 18:59 Intake Total 50 Balance 50 Intake: Oral 50 Other: Voiding Method Toilet Toilet Bedside Commode Incontinent Incontinent # Voids 3 2 - Exam GENERAL: Well developed, well nourished. HEENT: PERRLA. CARDIOVASCULAR: S1 and S2 present. No murmurs, rubs, or gallops. PULMONARY: Chest is clear to auscultation, no wheezing or crackles. ABDOMEN: Soft, nontender, nondistended, normoactive bowel sounds. No palpable organomegaly. MUSCULOSKELETAL: No joint swelling or deformity. EXTREMITIES: Ulcer on the lateral side of the right mid foot, with necrotic base witl mild surrounding redness . No swelling. No pedal edema. NEUROLOGICAL: Gross neurological examination did not reveal any focal deficits. SKIN: No rashes. no petechiae. - Labs CBC & Chem 7: 04/26/19 07:19 04/26/19 07:19 Labs: Abnormal Lab Results - Last 24 Hours (Table) 04/25/19 04/25/19 04/25/19 Range/Units 10:49 16:49 20:21 ESR 25 H (0-20) mm/hr Glucose (74-99) mg/dL POC Glucose (mg/dL) 145 H 159 H (75-99) mg/dL 04/26/19 04/26/19 04/26/19 Range/Units 07:14 07:19 12:19 ESR (0-20) mm/hr Glucose 194 H (74-99) mg/dL POC Glucose (mg/dL) 188 H 198 H (75-99) mg/dL Microbiology - Last 24 Hours (Table) 04/23/19 18:12 Blood Culture - Preliminary Blood No Growth after 48 hours 04/24/19 19:08 Gram Stain - Preliminary Foot - Right Wound Culture - Preliminary Presumptive Staph aureus Assessment and Plan Assessment: Right Diabetic Foot ulcer with osteomyelitis Diabetes mellitus Diabetic neuropathy Hearing difficulty/deafness No peripheral vision Hyperlipidemia Hypothyroidism History of psoriasis PLAN: Continue the antibiotics in the form of Unasyn as per KAILEY Addison recommendations. Continue with the current medication regimen. GI DVT prophylaxis. 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 Further recommendations depending on the progress of the patient. Anticipate discharge on Sunday after approval of home IV antibiotics.
[2019-04-26 17:11] LABS: Glucose,Whole Blood 97 mg/dL (75-99)
[2019-04-26] MEDS: ATORVASTATIN 10 MG TAB PO SCH (20:09)
[2019-04-26] MEDS: ESCITALOPRAM 20 MG TAB PO SCH (20:09)
[2019-04-26] MEDS: OXYBUTYNIN XL 5 MG TAB.ER.24 PO SCH (20:09)
[2019-04-26] MEDS: LEVOTHYROXINE 100 MCG TAB PO SCH (20:09)
[2019-04-26] MEDS: PIOGLITAZONE 30 MG TAB PO SCH (20:11)
[2019-04-26] MEDS: predniSONE 1 MG TAB PO SCH (20:11)
[2019-04-26] MEDS: ESTROGENS, CONJUGATED 0.3 MG TAB PO SCH (20:12)
[2019-04-26 21:21] LABS: Glucose,Whole Blood 158 mg/dL (75-99)
[2019-04-27] MEDS: AMPICILLIN-SULBACTAM 3 GM in SODIUM CHLORIDE 0.9% 100 ML IVPB SCH ×4 (05:23→23:41)
[2019-04-27] MEDS: SODIUM CHLORIDE 0.9% 1,000 ML IV SCH ×2 (05:25→23:44)
[2019-04-27 07:24] LABS: Glucose,Whole Blood 169 mg/dL (75-99)
[2019-04-27 08:09] LABS: Basophils % (A) 0 %; Eosinophils # (A) 0.1 k/uL (0-0.7); Eosinophils % (A) 2 %; HCT 35.2 % (34.0-46.0); HGB 11.6 gm/dL (11.4-16.0); Lymphocytes % (A) 18 %; MCHC 33.1 g/dL (31.0-37.0); MCV 93.6 fL (80.0-100.0); Mean Platelet Volume 8.7; Monocytes # (A) 0.2 k/uL (0-1.0); Monocytes % (A) 4 %; Neutrophils % (A) 75 %; Platelet Count 127 k/uL (150-450); RBC 3.76 m/uL (3.80-5.40); RDW 13.5 % (11.5-15.5); WBC 5.4 k/uL (3.8-10.6)
[2019-04-27] MEDS: HEPARIN SODIUM,PORCINE 5,000 UNIT/ML 1 ML VIAL SQ SCH ×2 (08:13→21:26)
[2019-04-27] MEDS: DOCUSATE 100 MG CAP PO SCH ×2 (08:13→21:26)
[2019-04-27] MEDS: FAMOTIDINE 20 MG/2 ML VIAL IV SCH ×2 (08:13→21:26)
[2019-04-27] MEDS: INSULIN ASPART (NovoLOG) 100 UNIT/ML VIAL SQ SCH ×4 (08:13→21:27)
[2019-04-27] MEDS: NYSTATIN 100,000 UNIT/GM POWD 15 GM TOPICAL SCH ×3 (08:14→21:32)
[2019-04-27] MEDS: COLLAGENASE 250 UNIT/GM OINTMENT 30 GM TUBE TOPICAL SCH ×2 (08:14→21:32)
[2019-04-27 08:26] LABS: African American GFR (CKD) >90 (>60 ml/min/1.73 sqM); Anion Gap 5 mmol/L; Blood Urea Nitrogen 12 mg/dL (7-17); Calcium 8.9 mg/dL (8.4-10.2); Carbon Dioxide 30 mmol/L (22-30); Chloride 106 mmol/L (98-107); Glucose 159 mg/dL (74-99); Potassium 4.3 mmol/L (3.5-5.1); Sodium 141 mmol/L (137-145)
[2019-04-27 11:50] LABS: Glucose,Whole Blood 123 mg/dL (75-99)
--- NOTE | 2019-04-27 11:51 | P.PN ---
Subjective Progress Note Date: 04/27/19 Principal diagnosis: Right diabetic foot ulcer with osteomyelitis Mrs. Huynh is a 54-year-old female with a past medical history of diabetes mellitus, hearing disorder/deafness, hyperlipidemic, hypothyroidism, scoliosis coming to the hospital with a chief complaint of right foot ulcer. Patient had a bone scan showing osteomyelitis so she is currently being treated with IV a ntibiotics as per Dr. Addison recommendations. On 04/27/2019 - patient is sitting up in a chair by the bedside. Appears to be no acute distress. No overnight active issues reported by the nursing staff. Patient denies having any fevers chills or rigors. No cough or difficulty in breathing. No chest pain or palpitations. No abdominal pain nausea vomiting or diarrhea. She states that she is constipated and she had a bowel movement yesterday that was small. She has been passing gas. Active Medications Acetaminophen (Tylenol Tab) 650 mg PO Q6HR PRN PRN Reason: Mild Pain or Fever > 100.5 Artificial Tears (Artificial Tear Drops) 1 drops BOTH EYES TID PRN PRN Reason: Dry Eye(s) Last Admin: 04/25/19 21:03 Dose: 1 drops Documented by: Atorvastatin Calcium (Lipitor) 10 mg PO [facility] Last Admin: 04/26/19 20:09 Dose: 10 mg Documented by: Collagenase (Santyl) 1 applic TOPICAL BID [facility] Last Admin: 04/27/19 08:14 Dose: 1 applic Documented by: Docusate Sodium (Colace) 100 mg PO BID [facility] Last Admin: 04/27/19 08:13 Dose: 100 mg Documented by: Ergocalciferol (Vitamin D2) 50,000 unit PO Tu@0900 [facility] Escitalopram Oxalate (Lexapro) 20 mg PO [facility] Last Admin: 04/26/19 20:09 Dose: 20 mg Documented by: Estrogens Conjugated (Premarin) 0.3 mg PO [facility] Last Admin: 04/26/19 20:12 Dose: 0.3 mg Documented by: Famotidine (Pepcid) 20 mg IV Q12HR [facility] Last Admin: 04/27/19 08:13 Dose: 20 mg Documented by: Heparin Sodium (Porcine) (Heparin) 5,000 unit SQ Q12HR [facility] Last Admin: 04/27/19 08:13 Dose: 5,000 unit Documented by: Ampicillin Sodium/Sulbactam (Sodium 3 gm/ Sodium Chloride) 100 mls @ 200 mls/hr IVPB Q6H [facility] Last Admin: 04/27/19 05:23 Dose: 200 mls/hr Documented by: Sodium Chloride (Saline 0.9%) 1,000 mls @ 50 mls/hr IV .Q20H [facility] Last Admin: 04/27/19 05:25 Dose: 50 mls/hr Documented by: Ibuprofen (Motrin) 400 mg PO Q6HR PRN PRN Reason: Mild Pain or Fever > 100.5 Insulin Aspart (Novolog) 0 unit SQ [facility]; Protocol Last Admin: 04/27/19 08:13 Dose: 2 unit Documented by: Levothyroxine Sodium (Synthroid) 100 mcg PO [facility] Last Admin: 04/26/19 20:09 Dose: 100 mcg Documented by: Naloxone HCl (Narcan) 0.2 mg IV Q2M PRN PRN Reason: Opioid Reversal Nystatin (Mycostatin Powder) 1 applic TOPICAL TID [facility] Last Admin: 04/27/19 08:14 Dose: 1 applic Documented by: Oxybutynin Chloride (Ditropan Xl) 5 mg PO [facility] Last Admin: 04/26/19 20:09 Dose: 5 mg Documented by: Pioglitazone HCl (Actos) 30 mg PO [facility] Last Admin: 04/26/19 20:11 Dose: 30 mg Documented by: Prednisone () 4 mg PO [facility] Last Admin: 04/26/19 20:11 Dose: 4 mg Documented by: Objective - Vital Signs Vital signs: Vital Signs Temp 97.5 F L 04/27/19 06:06 Pulse 72 04/27/19 06:06 Resp 18 04/27/19 06:06 BP 119/79 04/27/19 06:06 Pulse Ox 93 L 04/27/19 06:06 Intake & Output 04/26/19 04/27/19 04/27/19 18:59 06:59 18:59 Intake Total 200 400 Balance 200 400 Intake: Oral 200 400 Other: Voiding Method Toilet Toilet Toilet Incontinent Incontinent Incontinent # Voids 2 1 # Bowel Movements 0 - Exam GENERAL: Well developed, well nourished. HEENT: PERRLA. CARDIOVASCULAR: S1 and S2 present. No murmurs, rubs, or gallops. PULMONARY: Chest is clear to auscultation, no wheezing or crackles. ABDOMEN: Soft, nontender, nondistended, normoactive bowel sounds. EXTREMITIES: Ulcer on the lateral side of the right mid foot, with necrotic base witl mild surrounding redness . No swelling. No pedal edema. NEUROLOGICAL: Gross neurological examination did not reveal any focal deficits. SKIN: No rashes. no petechiae. - Labs CBC & Chem 7: 04/27/19 07:50 04/27/19 07:50 Labs: Abnormal Lab Results - Last 24 Hours (Table) 04/26/19 04/26/19 04/27/19 Range/Units 12:19 21:18 07:21 RBC (3.80-5.40) m/uL Plt Count (150-450) k/uL Glucose (74-99) mg/dL POC Glucose (mg/dL) 198 H 158 H 169 H (75-99) mg/dL 04/27/19 04/27/19 Range/Units 07:50 07:50 RBC 3.76 L (3.80-5.40) m/uL Plt Count 127 L (150-450) k/uL Glucose 159 H (74-99) mg/dL POC Glucose (mg/dL) (75-99) mg/dL Microbiology - Last 24 Hours (Table) 04/24/19 19:08 Gram Stain - Final Foot - Right Wound Culture - Final Staphylococcus aureus 04/23/19 18:12 Blood Culture - Preliminary Blood No Growth after 72 hours Assessment and Plan Assessment: ASSESSMENT Right Diabetic Foot ulcer with osteomyelitis Diabetes mellitus Diabetic neuropathy Hearing difficulty/deafness No peripheral vision Hyperlipidemia Hypothyroidism History of psoriasis PLAN: Reviewed the patient's vitals and labs that are within normal limits. Wound cultures are positive for staph aureus, MSSA. She is on Unasyn. ID Dr. Addison following the patient. Continue with the current medication regimen. GI and DVT prophylaxis. Further recommendations to follow depending on the progress of the patient. 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
[2019-04-27] MEDS ORDERED: BISACODYL 10 MG SUPP RECTAL STA (12:52)
[2019-04-27 17:09] LABS: Glucose,Whole Blood 127 mg/dL (75-99)
[2019-04-27 20:44] LABS: Glucose,Whole Blood 152 mg/dL (75-99)
[2019-04-27] MEDS: PIOGLITAZONE 30 MG TAB PO SCH (21:26)
[2019-04-27] MEDS: predniSONE 1 MG TAB PO SCH (21:26)
[2019-04-27] MEDS: ATORVASTATIN 10 MG TAB PO SCH (21:26)
[2019-04-27] MEDS: ESTROGENS, CONJUGATED 0.3 MG TAB PO SCH (21:26)
[2019-04-27] MEDS: ESCITALOPRAM 20 MG TAB PO SCH (21:26)
[2019-04-27] MEDS: LEVOTHYROXINE 100 MCG TAB PO SCH (21:27)
[2019-04-27] MEDS: OXYBUTYNIN XL 5 MG TAB.ER.24 PO SCH (21:27)
[2019-04-28 05:13] VITALS: BP 99/61; PULSE 71; RESP 18; TEMP 97.5
[2019-04-28] MEDS: AMPICILLIN-SULBACTAM 3 GM in SODIUM CHLORIDE 0.9% 100 ML IVPB SCH (05:43)
[2019-04-28 07:23] LABS: Glucose,Whole Blood 180 mg/dL (75-99)
[2019-04-28] MEDS: DOCUSATE 100 MG CAP PO SCH (07:55)
[2019-04-28] MEDS: HEPARIN SODIUM,PORCINE 5,000 UNIT/ML 1 ML VIAL SQ SCH (07:55)
[2019-04-28] MEDS: FAMOTIDINE 20 MG/2 ML VIAL IV SCH (07:55)
[2019-04-28] MEDS: INSULIN ASPART (NovoLOG) 100 UNIT/ML VIAL SQ SCH ×2 (07:55→12:49)
[2019-04-28] MEDS: COLLAGENASE 250 UNIT/GM OINTMENT 30 GM TUBE TOPICAL SCH (07:56)
[2019-04-28] MEDS: NYSTATIN 100,000 UNIT/GM POWD 15 GM TOPICAL SCH (07:56)
[2019-04-28 12:27] LABS: Glucose,Whole Blood 157 mg/dL (75-99)
[2019-04-28] MEDS ORDERED: LIDOCAINE 1% INJ 10MG/ML (20 ML MDV) ONE (14:29)
[2019-04-28] MEDS ORDERED: LIDOCAINE 1% INJ 10MG/ML (20 ML MDV) SQ ONE ×2 (14:42→14:50)
--- NOTE | 2019-04-28 15:32 | P.DS ---
Providers Date of admission: 04/23/19 21:27 Expected date of discharge: 04/28/19 Attending physician: Sherice Govea Consults: 04/23/19 23:25 Consult Physician Urgent Consulting Provider: Uzair Gibson Consult Reason/Comments: foot ulcer Do you want consulting provider notified?: Yes 04/23/19 23:26 Consult Physician Urgent Consulting Provider: Sumit Addison Reason/Comments: diabetic ulcer/ infection Do you want consulting provider notified?: Yes Primary care physician: [facility] Course: Mrs. Huynh is a 54-year-old female with a past medical history of diabetes mellitus, hearing disorder/deafness, hyperlipidemic, hypothyroidism, scoliosis coming to the hospital with a chief complaint of right foot ulcer. Patient had a bone scan showing osteomyelitis so she is treated with IV antibiotics as per Dr. Addison recommendations. Patient had Unasyn during her hospital stay. She had frequent dressing changes of the foot ulcer. There was significant improvement in her pain and swelling and redness. Patient got a PICC line placed on 04/28/2019. ID Dr. Addison recommended ceftriaxone to be taken for her osteomyelitis for a total of 6 weeks. Patient is being discharged to [facility]. Vital Signs - 24 hr 04/27/19 04/28/19 20:45 04:20 Temperature 98.2 F 97.5 F L Pulse Rate [ 77 71 Pulse Oximetery ] Respiratory 20 18 Rate Blood Pressure 94/65 99/61 [Right Arm] O2 Sat by Pulse 93 L 93 L Oximetry GENERAL: Well developed, well nourished. HEENT: PERRLA. CARDIOVASCULAR: S1 and S2 present. No murmurs, rubs, or gallops. PULMONARY: Chest is clear to auscultation, no wheezing or crackles. ABDOMEN: Soft, nontender, nondistended, normoactive bowel sounds. EXTREMITIES: Ulcer on the lateral side of the right mid foot, with necrotic base witl mild surrounding redness . No swelling. No pedal edema. NEUROLOGICAL: Gross neurological examination did not reveal any focal deficits. SKIN: No rashes. no petechiae. DISCHARGE DIAGNOSIS Right Diabetic Foot ulcer with osteomyelitis Diabetes mellitus Diabetic neuropathy Hearing difficulty/deafness No peripheral vision Hyperlipidemia Hypothyroidism History of psoriasis PLAN: Patient is being discharged to [facility] . She is advised to complete her antibiotic course for 6 weeks. Follow-up with Dr. Addison in 3 weeks. And her primary care physician Dr. Janet Stanton in 1-2 days. More than 35 minutes spent towards the discharge of the patient. Patient Condition at Discharge: Fair Plan - Discharge Summary Discharge Rx Participant: No New Discharge Prescriptions: New cefTRIAXone [Rocephin] 2,000 mg IVPB Q24HR #42 vial Discontinued Cephalexin [Keflex] 500 mg PO QID No Action Ergocalciferol [Vitamin D2 (DRISDOL)] 50,000 unit PO TU predniSONE 4 mg PO HS Estrogens, Conjugated [Premarin] 0.3 mg PO HS Simvastatin [Zocor] 20 mg PO HS Oxybutynin Chloride [Oxybutynin Chloride ER] 5 mg PO HS Escitalopram [Lexapro] 20 mg PO HS Pioglitazone HCl 30 mg PO HS INSULIN LISPRO (humaLOG) [humaLOG] See Protocol SQ DAILY Levothyroxine Sodium [Synthroid] 100 mcg PO HS Discharge Medication List Ergocalciferol [Vitamin D2 (DRISDOL)] 50,000 unit PO TU 03/25/14 [History] Estrogens, Conjugated [Premarin] 0.3 mg PO HS 03/25/14 [History] Oxybutynin Chloride [Oxybutynin Chloride ER] 5 mg PO HS 03/25/14 [History] Simvastatin [Zocor] 20 mg PO HS 03/25/14 [History] predniSONE 4 mg PO HS 03/25/14 [History] Escitalopram [Lexapro] 20 mg PO HS 10/28/18 [History] INSULIN LISPRO (humaLOG) [humaLOG] See Protocol SQ DAILY 10/28/18 [History] Levothyroxine Sodium [Synthroid] 100 mcg PO HS 10/28/18 [History] Pioglitazone HCl 30 mg PO HS 10/28/18 [History] cefTRIAXone [Rocephin] 2,000 mg IVPB Q24HR #42 vial 04/28/19 [Rx] Follow up Appointment(s)/Referral(s): Sumit Addison MD [STAFF PHYSICIAN] - 3 Weeks [facility], [NON-STAFF] - Janet Stanton MD [Primary Care Provider] - 1-2 days [facility] [NON-STAFF] - 1 Week Ambulatory/Diagnostic Orders: Basic Metabolic Panel [LAB.AMB] Location: None Selected C Reactive Protein [LAB.AMB] Location: None Selected Complete Blood Count w/diff [LAB.AMB] Location: None Selected Erythrocyte Sedimentation Rate [LAB.AMB] Location: None Selected
--- NOTE | 2019-04-28 23:14 | P.PN ---
Subjective Progress Note Date: 04/28/19 This is a 34-year-old female use history of a fall on April 03 and she scooted across the carpet injuring her right lateral foot causing a wound. She has seen a signaling design engineer for this and started on Keflex 2 days ago without any improvement. Redness and swelling have been worsening and patient came into [facility] emergency center for evaluation. She was found to be afebrile, white count 10.7, creatinine 0.66, blood sugar 274. Urinalysis was positive for 2+ glucose, hCG nondetected. 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 No signs of osteomyelitis. Regarding diabetes, patient states that her blood sugars have been running in the 200s and 300s at home. Her last hemoglobin A1c was 6.4 in November 2018. Patient does not recall her last tetanus booster. She has been started on Unasyn. 04/25/2019 the patient does not have new complaints. Her energy level slightly improved she is not having nausea pain is controlled. There are significant psychosocial dynamics that her occurring that are being navigated for the discharge plan. 04/28/2019 the patient is discharge plan has been finalized. She will go to rehab to receive therapy wound care and antibiotics. Objective - Vital Signs Vital signs: Vital Signs Temp 97.5 F L 04/28/19 04:20 Pulse 71 04/28/19 04:20 Resp 18 04/28/19 04:20 BP 99/61 04/28/19 04:20 Pulse Ox 93 L 04/28/19 04:20 Intake & Output 04/28/19 04/28/19 04/29/19 06:59 18:59 06:59 Other: # Voids 2 3 - Exam Gen: This is an obese 34-year-old female. Patient is resting bed appears to be comfortable and in no acute distress. HEENT: Head is atraumatic, normocephalic. Left pupil is dilated. Right pupil round and reactive to light. Sclerae is anicteric. Oral mucous membranes are m oist. Dentition is in poor order. Mid frontal lobe bilateral alopecia which patient states present since her brain surgery. NECK: Supple. No JVD. No lymphadenopathy. No thyromegaly. LUNGS: Clear to auscultation. No wheezes or rhonchi. No intercostal retractions. HEART: Regular rate and rhythm. No murmur. ABDOMEN: Soft. Bowel sounds are present. No masses. No tenderness. EXTREMITIES: Ulcer to the right foot lateral fifth metatarsal, no drainage, no foul order, there is surrounding erythema and edema. Dorsalis pedis +2 bilaterally. NEUROLOGICAL: Patient is awake, alert and oriented x3. Patient however has a slow affect, and is hesitant about the future any plans about what she'll happen with her - Labs CBC & Chem 7: 04/27/19 07:50 04/27/19 07:50 Labs: Abnormal Lab Results - Last 24 Hours (Table) 04/28/19 04/28/19 Range/Units 07:06 12:17 POC Glucose (mg/dL) 180 H 157 H (75-99) mg/dL Microbiology - Last 24 Hours (Table) 04/23/19 18:12 Blood Culture - Preliminary Blood No Growth after 120 hours Laboratory Results WBC 5.4 k/uL (3.8-10.6) 04/27/19 07:50 RBC 3.76 m/uL (3.80-5.40) L 04/27/19 07:50 Hgb 11.6 gm/dL (11.4-16.0) 04/27/19 07:50 Hct 35.2 % (34.0-46.0) 04/27/19 07:50 MCV 93.6 fL (80.0-100.0) 04/27/19 07:50 MCH 31.0 pg (25.0-35.0) 04/27/19 07:50 MCHC 33.1 g/dL (31.0-37.0) 04/27/19 07:50 RDW 13.5 % (11.5-15.5) 04/27/19 07:50 Plt Count 127 k/uL (150-450) L 04/27/19 07:50 Neutrophils % 75 % 04/27/19 07:50 Lymphocytes % 18 % 04/27/19 07:50 Monocytes % 4 % 04/27/19 07:50 Eosinophils % 2 % 04/27/19 07:50 Basophils % 0 % 04/27/19 07:50 Neutrophils # 4.0 k/uL (1.3-7.7) 04/27/19 07:50 Lymphocytes # 1.0 k/uL (1.0-4.8) 04/27/19 07:50 Monocytes # 0.2 k/uL (0-1.0) 04/27/19 07:50 Eosinophils # 0.1 k/uL (0-0.7) 04/27/19 07:50 Basophils # 0.0 k/uL (0-0.2) 04/27/19 07:50 ESR 25 mm/hr (0-20) H 04/25/19 10:49 PT 10.0 sec (9.0-12.0) 04/23/19 18:12 INR 0.9 (<1.2) 04/23/19 18:12 APTT 24.7 sec (22.0-30.0) 04/23/19 18:12 Sodium 141 mmol/L (137-145) 04/27/19 07:50 Potassium 4.3 mmol/L (3.5-5.1) 04/27/19 07:50 Chloride 106 mmol/L (98-107) 04/27/19 07:50 Carbon Dioxide 30 mmol/L (22-30) 04/27/19 07:50 Anion Gap 5 mmol/L 04/27/19 07:50 BUN 12 mg/dL (7-17) 04/27/19 07:50 Creatinine 0.65 mg/dL (0.52-1.04) 04/27/19 07:50 Est GFR (CKD-EPI)AfAm >90 (>60 ml/min/1.73 sqM) 04/27/19 07:50 Est GFR (CKD-EPI)NonAf >90 (>60 ml/min/1.73 sqM) 04/27/19 07:50 Glucose 159 mg/dL (74-99) H 04/27/19 07:50 POC Glucose (mg/dL) 157 mg/dL (75-99) H 04/28/19 12:17 POC Glu History Faculty Member KAILEY Bella Molina 04/28/19 12:[address] Glu mg/dL 157 04/23/19 18:21 Hemoglobin A1c 7.1 % (4.0-6.0) H 04/23/19 18:21 Plasma Lactic Acid William 1.6 mmol/L (0.7-2.0) 04/23/19 18:12 Calcium 8.9 mg/dL (8.4-10.2) 04/27/19 07:50 Total Bilirubin 0.6 mg/dL (0.2-1.3) 04/23/19 18:12 AST 26 U/L (14-36) 04/23/19 18:12 ALT 25 U/L (9-52) 04/23/19 18:12 Alkaline Phosphatase 51 U/L (38-126) 04/23/19 18:12 C-Reactive Protein 32.8 mg/L (<10.0) H 04/25/19 10:49 Total Protein 7.1 g/dL (6.3-8.2) 04/23/19 18:12 Albumin 3.9 g/dL (3.5-5.0) 04/23/19 18:12 HCG, Qual Not Detected 04/23/19 18:12 Urine Color Yellow 04/23/19 20:21 Urine Appearance Clear (Clear) 04/23/19 20:21 Urine pH 7.0 (5.0-8.0) 04/23/19 20:21 Ur Specific [place] 1.026 (1.001-1.035) 04/23/19 20:21 Urine Protein Trace (Negative) H 04/23/19 20:21 Urine Glucose (UA) 2+ (Negative) H 04/23/19 20:21 Urine Ketones Negative (Negative) 04/23/19 20:21 Urine Blood Negative (Negative) 04/23/19 20:21 Urine Nitrite Negative (Negative) 04/23/19 20:21 Urine Bilirubin Negative (Negative) 04/23/19 20:21 Urine Urobilinogen 8.0 mg/dL (<2.0) 04/23/19 20:21 Ur Leukocyte Esterase Negative (Negative) 04/23/19 20:21 Urine HCG, Qual Not Detected (Not Detectd) 04/23/19 20:21 Microbiology 04/23/19 18:12 Blood Blood Culture - Preliminary No Growth after 120 hours 04/24/19 19:08 Foot - Right Gram Stain - Final 04/24/19 19:08 Foot - Right Wound Culture - Final Staphylococcus aureus Assessment and Plan (1) Cellulitis of right leg Status: Acute Code(s): L03.115 - CELLULITIS OF RIGHT LOWER LIMB SNOMED Code(s): 067980183 (2) Diabetic foot ulcer with osteomyelitis Narrative/Plan: Patient relates to the injury to her foot which is now been nonhealing. Despite some outpatient antibiotic therapy has not improved because he presents the emergency center. Workup at this time for underlying osteomyelitis is occurring. Antibiotic therapy with Unasyn was added. Tetanus will be updated. Local wound care with Santyl is requested to be done twice a day for now. Elevation of the foot to help with underlying edema is also helpful. Improved glucose control will allow some further improvement also. If osteomyelitis is found will require a course of outpatient antibiotic therapy. Wound cultures ob tained personally. 04/25/2019 the patient is feeling slightly better. Wound cultures did show evid ence of staph aureus. Final culture is in process. The bone scan is positive and the patient does have the [place] grade 3 diabetic lower extremity ulceration. Local wound care with Santyl has been requested. She's been seen by podiatry. May need a surgical debridement. Would need ongoing follow-up with the wound healing Center. The patient's family apparently is going out of town and the patient herself should not travel in is not capable of taking care of herself and constantly will likely be going to rehab to receive local wound care, antibiotic therapy and diabetes care. .04/28/2019 patient is showing some improvement. Evidence of the underlying [place] grade 3 diabetic lower extremities ulceration with osteomyelitis to the foot. Local wound care is with Santyl. Intravenous antibiotic therapy is being arranged With Rocephin daily. The importance of offloading is also stressed and will follow-up in the wound healing Center. Status: Acute Code(s): E11.621 - TYPE 2 DIABETES MELLITUS WITH FOOT ULCER; E11.69 - TYPE 2 DIABETES MELLITUS WITH OTHER SPECIFIED COMPLICATION; L97.509 - NON-PRESSURE CHRONIC ULCER OTH PRT UNSP FOOT W UNSP SEVERITY; M86.9 - OSTEOMYELITIS, UNSPECIFIED SNOMED Code(s): 40549188
--- NOTE | 2019-04-29 08:35 | IR ---
PICC LINE PLACEMENT: HISTORY: Infection requiring long-term antibiotic therapy PROCEDURE: Ultrasound and fluoroscopic guidance of PICC line placement. COMPLICATIONS: None ANESTHESIA: 1. 1% Lidocaine locally. FINDINGS/TECHNIQUE: The procedure was explained to the patient. The risks, complications, benefits and alternatives were discussed and any questions were answered. Informed consent was obtained. The patient was placed supine on the fluoroscopic table and prepped and draped in the usual sterile fas ion. Utilizing a 21 gauge needle and sonographic and fluoroscopic guidance, access in the right cep halic vein was achieved and there is placement of a 0.018 guidewire. The vein is patent. A 4-F she ath was placed over the guidewire. The guidewire and dilator were removed and a 4-F. PICC line was p laced through the sheath with the tip at the level of the SVC. The sheath was removed, the catheter was flushed and sutured into position. The patient was stable throughout the procedure and remained stable upon discharge from the Department of Radiology. The vein puncture was patent under ultrasound. A mahan scale image was obtained to document patency of the vein punctured. All elements of the maximal barrier technique were utilized. FLUOROSCOPY TIME: 0.2 minutes and one image submitted IMPRESSION: Successful PICC line placement under ultrasound and fluoroscopic guidance.
[2019-04-29] MEDS ORDERED: ERGOCALCIFEROL 50,000 UNIT CAP PO SCH (09:00)
== END 2019-04-28 17:21 | DRG 638 ==
LOC: EC 17:15 → 4MS4W 21:27
PROVIDERS: ADMIT Hospitalist; ATTEND Hospitalist
PROC: B5181ZA Fluoroscopy of Superior Vena Cava using Low Osmolar Contrast, Guidance (ICD-10-PCS; principal; 2019-04-28 14:25)
PROC: 02HV33Z Insertion of Infusion Device into Superior Vena Cava, Percutaneous Approach (ICD-10-PCS; principal; 2019-04-28 14:25)
DX: E11.69 Type 2 diabetes mellitus with other specified complication (principal); M86.171 Other acute osteomyelitis, right ankle and foot; E03.9 Hypothyroidism, unspecified; E11.40 Type 2 diabetes mellitus with diabetic neuropathy, unspecified; E11.621 Type 2 diabetes mellitus with foot ulcer; E11.622 Type 2 diabetes mellitus with other skin ulcer; E11.65 Type 2 diabetes mellitus with hyperglycemia; E78.5 Hyperlipidemia, unspecified; F32.9 Major depressive disorder, single episode, unspecified; H91.90 Unspecified hearing loss, unspecified ear; K59.00 Constipation, unspecified; M19.90 Unspecified osteoarthritis, unspecified site; L40.9 Psoriasis, unspecified; M41.9 Scoliosis, unspecified; Z79.84 Long term (current) use of oral hypoglycemic drugs; Z79.890 Hormone replacement therapy; Z79.899 Other long term (current) drug therapy; Z91.011 Allergy to milk products; Z98.890 Other specified postprocedural states
CPT/HCPCS: 36415; 36573; 78315; 80048; 80053; 81003; 81025; 83036; 83605; 84703; 85025; 85610; 85652; 85730; 86140; 87040; 87070; 87077; 87186; 87205; 90715; 96361; 96374; 99284

== ENCOUNTER 2019-06-29 15:32 | Inpatient (IN) | payer MEDICARE, OTHER ==
[2019-06-29 15:55] LABS: Glucose,Whole Blood 226 mg/dL (75-99)
[2019-06-29] MEDS ORDERED: SODIUM CHLORIDE 0.9% 1,000 ML IV ONE ×2 (16:04)
--- NOTE | 2019-06-29 16:14 | ED ---
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 She's been sleeping a lot last 24 hours of decreased oral intake she recently did get over a ulcer/foot infection the right foot with antibiotics. No overt fevers chills nausea vomiting sweats or other symptoms reported. Patient does complain however of some left eye pain but no drainage she does have blindness in left eye. - Related Data Home Medications Medication Instructions Recorded Confirmed Ergocalciferol [Vitamin D2 50,000 unit PO TU 03/25/14 04/23/19 (DRISDOL)] Estrogens, Conjugated [Premarin] 0.3 mg PO HS 03/25/14 04/23/19 Oxybutynin Chloride [Oxybutynin 5 mg PO HS 03/25/14 04/23/19 Chloride ER] Simvastatin [Zocor] 20 mg PO HS 03/25/14 04/23/19 predniSONE 4 mg PO HS 03/25/14 04/23/19 Escitalopram [Lexapro] 20 mg PO HS 10/28/18 04/23/19 INSULIN LISPRO (humaLOG) [humaLOG] See Protocol SQ DAILY 10/28/18 04/23/19 Levothyroxine Sodium [Synthroid] 100 mcg PO HS 10/28/18 04/23/19 Pioglitazone HCl 30 mg PO HS 10/28/18 04/23/19 Previous Rx's Medication Instructions Recorded cefTRIAXone [Rocephin] 2,000 mg IVPB Q24HR #42 vial 04/28/19 Allergies Allergy/AdvReac Type Severity Reaction Status Date / Time lactose Allergy Diarrhea Verified 06/29/19 15:40 Review of Systems ROS Statement: Those systems with pertinent positive or pertinent negative responses have been documented in the HPI. ROS Other: All systems not noted in ROS Statement are negative. Past Medical History Past Medical History: Diabetes Mellitus, Eye Disorder, Hearing Disorder / Deafness, Hyperlipidemia, Musculoskeletal Disorder, Skin Disorder, Thyroid Disorder Additional Past Medical History / Comment(s): OP, has no peripheral vision, hard of hearing to left side, psoriasis History of Any Multi-Drug Resistant Organisms: None Reported Past Surgical History: Orthopedic Surgery Additional Past Surgical History / Comment(s): brain tumor removed 2002, Past Anesthesia/Blood Transfusion Reactions: No Reported Reaction Past Psychological History: Depression Smoking Status: Never smoker Past Alcohol Use History: None Reported Past Drug Use History: None Reported - Past Family History Brother(s) Additional Family Medical History / Comment(s): pt states her brother is healthy General Exam - General Exam Comments Initial Comments: This is a well-developed awake alert oriented 3 female Limitations: no limitations General appearance: alert, lethargic Head exam: Present: atraumatic, normocephalic, normal inspection Eye exam: Present: other (Left pupil is dilated consistent with her blindness there is conjunctival injection with no overt drainage seen at this time.) ENT exam: Present: mucous membranes dry Neck exam: Present: normal inspection. Absent: tenderness, meningismus, lymphadenopathy Respiratory exam: Present: normal lung sounds bilaterally. Absent: respiratory distress, wheezes, rales, rhonchi, stridor Cardiovascular Exam: Present: regular rate, normal rhythm, normal heart sounds. Absent: systolic murmur, diastolic murmur, rubs, gallop, clicks GI/Abdominal exam: Present: soft, normal bowel sounds. Absent: distended, tenderness, guarding, rebound, rigid Extremities exam: Present: full ROM, normal capillary refill, other (Is a healing ulcer over the lateral aspect of the right foot some localized erythema no drainage no lymphangitis). Absent: tenderness, pedal edema, joint swelling, calf tenderness Back exam: Present: normal inspection Neurological exam: Present: alert, oriented X3, other (Blind in the left eye) Psychiatric exam: Present: normal affect, normal mood Skin exam: Present: warm, dry, intact, normal color. Absent: rash Course Vital Signs 06/29/19 06/29/19 15:40 17:48 Temperature 98.9 F 101.8 F H Pulse Rate 121 H 113 H Respiratory 20 18 Rate Blood Pressure 111/75 119/75 O2 Sat by Pulse 93 L 96 Oximetry - Reevaluation(s) Reevaluation #1: 06/29/19 16:14 Patient is urine is quite past and treated in appearance Medical Decision Making - Medical Decision Making I did discuss the findings patient will be admitted Dr. Govea did come the emergency department see the patient the exact source of the fever is not known over the more likely areas the foot - Lab Data Result diagrams: 06/29/19 15:45 06/29/19 15:45 Lab Results 06/29/19 06/29/19 06/29/19 Range/Units 15:45 15:45 15:45 WBC 16.4 H (3.8-10.6) k/uL RBC 4.50 (3.80-5.40) m/uL Hgb 14.1 (11.4-16.0) gm/dL Hct 41.6 (34.0-46.0) % MCV 92.3 (80.0-100.0) fL MCH 31.4 (25.0-35.0) pg MCHC 34.0 (31.0-37.0) g/dL RDW 12.8 (11.5-15.5) % Plt Count 191 D (150-450) k/uL Neutrophils % 71 % Lymphocytes % 17 % Monocytes % 9 % Eosinophils % 1 % Basophils % 1 % Neutrophils # 11.7 H (1.3-7.7) k/uL Lymphocytes # 2.7 (1.0-4.8) k/uL Monocytes # 1.5 H (0-1.0) k/uL Eosinophils # 0.2 (0-0.7) k/uL Basophils # 0.2 (0-0.2) k/uL PT (9.0-12.0) sec INR (<1.2) APTT (22.0-30.0) sec Sodium 137 (137-145) mmol/L Potassium 4.3 (3.5-5.1) mmol/L Chloride 98 (98-107) mmol/L Carbon Dioxide 26 (22-30) mmol/L Anion Gap 13 mmol/L BUN 17 (7-17) mg/dL Creatinine 1.14 H (0.52-1.04) mg/dL Est GFR (CKD-EPI)AfAm 73 (>60 ml/min/1.73 sqM) Est GFR (CKD-EPI)NonAf 63 (>60 ml/min/1.73 sqM) Glucose 234 H (74-99) mg/dL POC Glucose (mg/dL) (75-99) mg/dL POC Glu Coffee Attendant ID Calcium 9.7 (8.4-10.2) mg/dL Total Bilirubin 2.6 H (0.2-1.3) mg/dL AST 62 H (14-36) U/L ALT 29 (9-52) U/L Alkaline Phosphatase 89 (38-126) U/L Ammonia (<30) umol/L Creatine Kinase 49 (30-135) U/L Troponin I (0.000-0.034) ng/mL Total Protein 7.8 (6.3-8.2) g/dL Albumin 4.1 (3.5-5.0) g/dL Urine Color Yellow Urine Appearance Clear (Clear) Urine pH 7.5 (5.0-8.0) Ur Specific Bard 1.020 (1.001-1.035) Urine Protein Trace H (Negative) Urine Glucose (UA) Negative (Negative) Urine Ketones Negative (Negative) Urine Blood Negative (Negative) Urine Nitrite Negative (Negative) Urine Bilirubin Negative (Negative) Urine Urobilinogen 3.0 (<2.0) mg/dL Ur Leukocyte Esterase Negative (Negative) Urine HCG, Qual (Not Detectd) Urine Opiates Screen Not Detected (NotDetected) Ur Oxycodone Screen Not Detected (NotDetected) Urine Methadone Screen Not Detected (NotDetected) Ur Propoxyphene Screen Not Detected (NotDetected) Ur Barbiturates Screen Not Detected (NotDetected) U Tricyclic Antidepress Not Detected (NotDetected) Ur Phencyclidine Scrn Not Detected (NotDetected) Ur Amphetamines Screen Not Detected (NotDetected) U Methamphetamines Scrn Not Detected (NotDetected) U Benzodiazepines Scrn Not Detected (NotDetected) Urine Cocaine Screen Not Detected (NotDetected) U Marijuana (THC) Screen Not Detected (NotDetected) 06/29/19 06/29/19 06/29/19 Range/Units 15:45 15:45 15:45 WBC (3.8-10.6) k/uL RBC (3.80-5.40) m/uL Hgb (11.4-16.0) gm/dL Hct (34.0-46.0) % MCV (80.0-100.0) fL MCH (25.0-35.0) pg MCHC (31.0-37.0) g/dL RDW (11.5-15.5) % Plt Count (150-450) k/uL Neutrophils % % Lymphocytes % % Monocytes % % Eosinophils % % Basophils % % Neutrophils # (1.3-7.7) k/uL Lymphocytes # (1.0-4.8) k/uL Monocytes # (0-1.0) k/uL Eosinophils # (0-0.7) k/uL Basophils # (0-0.2) k/uL PT 11.6 (9.0-12.0) sec INR 1.1 (<1.2) APTT 28.9 (22.0-30.0) sec Sodium (137-145) mmol/L Potassium (3.5-5.1) mmol/L Chloride (98-107) mmol/L Carbon Dioxide (22-30) mmol/L Anion Gap mmol/L BUN (7-17) mg/dL Creatinine (0.52-1.04) mg/dL Est GFR (CKD-EPI)AfAm (>60 ml/min/1.73 sqM) Est GFR (CKD-EPI)NonAf (>60 ml/min/1.73 sqM) Glucose (74-99) mg/dL POC Glucose (mg/dL) (75-99) mg/dL POC Glu Coffee Attendant ID Calcium (8.4-10.2) mg/dL Total Bilirubin (0.2-1.3) mg/dL AST (14-36) U/L ALT (9-52) U/L Alkaline Phosphatase (38-126) U/L Ammonia <9 (<30) umol/L Creatine Kinase (30-135) U/L Troponin I <0.012 (0.000-0.034) ng/mL Total Protein (6.3-8.2) g/dL Albumin (3.5-5.0) g/dL Urine Color Urine Appearance (Clear) Urine pH (5.0-8.0) Ur Specific Bard (1.001-1.035) Urine Protein (Negative) Urine Glucose (UA) (Negative) Urine Ketones (Negative) Urine Blood (Negative) Urine Nitrite (Negative) Urine Bilirubin (Negative) Urine Urobilinogen (<2.0) mg/dL Ur Leukocyte Esterase (Negative) Urine HCG, Qual (Not Detectd) Urine Opiates Screen (NotDetected) Ur Oxycodone Screen (NotDetected) Urine Methadone Screen (NotDetected) Ur Propoxyphene Screen (NotDetected) Ur Barbiturates Screen (NotDetected) U Tricyclic Antidepress (NotDetected) Ur Phencyclidine Scrn (NotDetected) Ur Amphetamines Screen (NotDetected) U Methamphetamines Scrn (NotDetected) U Benzodiazepines Scrn (NotDetected) Urine Cocaine Screen (NotDetected) U Marijuana (THC) Screen (NotDetected) 06/29/19 06/29/19 Range/Units 15:45 15:54 WBC (3.8-10.6) k/uL RBC (3.80-5.40) m/uL Hgb (11.4-16.0) gm/dL Hct (34.0-46.0) % MCV (80.0-100.0) fL MCH (25.0-35.0) pg MCHC (31.0-37.0) g/dL RDW (11.5-15.5) % Plt Count (150-450) k/uL Neutrophils % % Lymphocytes % % Monocytes % % Eosinophils % % Basophils % % Neutrophils # (1.3-7.7) k/uL Lymphocytes # (1.0-4.8) k/uL Monocytes # (0-1.0) k/uL Eosinophils # (0-0.7) k/uL Basophils # (0-0.2) k/uL PT (9.0-12.0) sec INR (<1.2) APTT (22.0-30.0) sec Sodium (137-145) mmol/L Potassium (3.5-5.1) mmol/L Chloride (98-107) mmol/L Carbon Dioxide (22-30) mmol/L Anion Gap mmol/L BUN (7-17) mg/dL Creatinine (0.52-1.04) mg/dL Est GFR (CKD-EPI)AfAm (>60 ml/min/1.73 sqM) Est GFR (CKD-EPI)NonAf (>60 ml/min/1.73 sqM) Glucose (74-99) mg/dL POC Glucose (mg/dL) 226 H (75-99) mg/dL POC Glu Coffee Attendant ID Sofía Wilkinson Calcium (8.4-10.2) mg/dL Total Bilirubin (0.2-1.3) mg/dL AST (14-36) U/L ALT (9-52) U/L Alkaline Phosphatase (38-126) U/L Ammonia (<30) umol/L Creatine Kinase (30-135) U/L Troponin I (0.000-0.034) ng/mL Total Protein (6.3-8.2) g/dL Albumin (3.5-5.0) g/dL Urine Color Urine Appearance (Clear) Urine pH (5.0-8.0) Ur Specific Bard (1.001-1.035) Urine Protein (Negative) Urine Glucose (UA) (Negative) Urine Ketones (Negative) Urine Blood (Negative) Urine Nitrite (Negative) Urine Bilirubin (Negative) Urine Urobilinogen (<2.0) mg/dL Ur Leukocyte Esterase (Negative) Urine HCG, Qual Not Detected (Not Detectd) Urine Opiates Screen (NotDetected) Ur Oxycodone Screen (NotDetected) Urine Methadone Screen (NotDetected) Ur Propoxyphene Screen (NotDetected) Ur Barbiturates Screen (NotDetected) U Tricyclic Antidepress (NotDetected) Ur Phencyclidine Scrn (NotDetected) Ur Amphetamines Screen (NotDetected) U Methamphetamines Scrn (NotDetected) U Benzodiazepines Scrn (NotDetected) Urine Cocaine Screen (NotDetected) U Marijuana (THC) Screen (NotDetected) - EKG Data -: EKG Interpreted by Me (Sinus rhythm 122 QRS 96 QT since QTC 438/6024 left posterior fascicular blo) - Radiology Data Radiology results: report reviewed (Imaging reviewed no acute findings.), image reviewed Disposition Clinical Impression: Fever of unknown origin, Dehydration, Tachycardia, Ulcer of right foot Disposition: ADMITTED IP TO THIS [facility] Condition: Fair Referrals: Janet Stanton MD [Primary Care Provider] - 1-2 days
[2019-06-29 16:23] LABS: Appearance,Urine Clear (Clear); Bilirubin,Urine Negative (Negative); Blood,Urine Negative (Negative); Color,Urine Yellow; Glucose,Urine (UA) Negative (Negative); Ketones,Urine Negative (Negative); Leukocyte Esterase,Urine Negative (Negative); Nitrite,Urine Negative (Negative); PH, Urine 7.5 (5.0-8.0); Protein,Urine Trace (Negative)
[2019-06-29 16:25] LABS: Basophils # (A) 0.2 k/uL (0-0.2); Basophils % (A) 1 %; Eosinophils # (A) 0.2 k/uL (0-0.7); Eosinophils % (A) 1 %; HCT 41.6 % (34.0-46.0); HGB 14.1 gm/dL (11.4-16.0); Lymphocytes # (A) 2.7 k/uL (1.0-4.8); Lymphocytes % (A) 17 %; MCH 31.4 pg (25.0-35.0); MCV 92.3 fL (80.0-100.0); Monocytes # (A) 1.5 k/uL (0-1.0); Monocytes % (A) 9 %; Neutrophils # (A) 11.7 k/uL (1.3-7.7); Neutrophils % (A) 71 %; RDW 12.8 % (11.5-15.5); WBC 16.4 k/uL (3.8-10.6)
[2019-06-29 16:27] LABS: Platelet Count 191 k/uL (150-450)
[2019-06-29 16:30] LABS: INR 1.1 (<1.2); Partial Thromboplastin Time 28.9 sec (22.0-30.0); Prothrombin Time 11.6 sec (9.0-12.0)
[2019-06-29 16:31] LABS: Albumin 4.1 g/dL (3.5-5.0); Calcium 9.7 mg/dL (8.4-10.2); Total Bilirubin 2.6 mg/dL (0.2-1.3); Total Protein 7.8 g/dL (6.3-8.2)
[2019-06-29 16:33] LABS: Amphetamine Screen,Urine Not Detected (NotDetected); Barbiturate Screen,Urine Not Detected (NotDetected); Benzodiazepines Screen,Urine Not Detected (NotDetected); Cocaine Screen,Urine Not Detected (NotDetected); Methadone Screen, Urine Not Detected (NotDetected); Opiate Screen,Urine Not Detected (NotDetected); Oxycodone Screen, Urine Not Detected (NotDetected); Phencyclidine Screen,Urine Not Detected (NotDetected); Tricyclic Antidepressant,Urine Not Detected (NotDetected); Urn Cannabinoid Scrn Not Detected (NotDetected)
[2019-06-29 16:34] LABS: Potassium 4.3 mmol/L (3.5-5.1)
--- NOTE | 2019-06-29 17:04 | CT ---
EXAMINATION TYPE: CT brain wo con DATE OF EXAM: 06/29/2019 COMPARISON: None HISTORY: AMS, HX BRAIN TUMOR. CT DLP: 1129.4 mGycm. Automated Exposure Control for Dose Reduction was Utilized. TECHNIQUE: CT scan of the head is performed without contrast. FINDINGS: There is no acute intracranial hemorrhage, mass effect, or midline shift identified. High attenuation is present within the brainstem and bilaterally within the basal ganglia and thalami con sistent with calcification, there is also calcification present within the region of the sella eccent rically to the right which is coarse. Cerebral vascular calcifications are present. Right frontal lob e shows low attenuation inferiorly, postop changes are noted to the calvarium in the right frontal re gion. The ventricles and sulci are within normal limits in size. The globes are intact and the visua lized sinuses are clear. IMPRESSION: No acute intracranial hemorrhage, mass effect, or midline shift is seen. Additional abno rmal findings are felt likely to be chronic. Comparison with prior head CT is available would be of b enefit to assess for stability.
--- NOTE | 2019-06-29 17:10 | XR ---
EXAMINATION TYPE: XR chest 2V DATE OF EXAM: 06/29/2019 COMPARISON: Prior chest x-ray 10/28/2018 HISTORY: Altered mental status TECHNIQUE: Frontal and lateral views of the chest are obtained. FINDINGS: There is no focal air space opacity, pleural effusion, or pneumothorax seen. The cardiac silhouette size is stable, enlarged. Exam is expiratory and rotated. The osseous structures are inta ct, mild anterior wedge vertebral deformity noted near the thoracic lumbar junction. IMPRESSION: No acute cardiopulmonary process. Expiratory rotated exam.
--- NOTE | 2019-06-29 17:13 | XR ---
Right foot HISTORY: Right foot ulcer 3 views the right foot correlated to prior right foot dated 04/23/2019 and bone scan 04/24/2019 There is no significant interval change. Bone mineralization is reduced which could limit sensitivity . There is sclerosis involving the distal fifth metatarsal with associated lucency in the subchondral location at the distal fifth metatarsal. Osteoarthritic changes noted at the first metatarsophalange al joint. IMPRESSION: Stable findings.
[2019-06-29] MEDS ORDERED: ACETAMINOPHEN TAB 500 MG TAB PO STA (17:41)
[2019-06-29] MEDS ORDERED: ACETAMINOPHEN TAB 500 MG TAB PO PRN (17:46)
[2019-06-29] MEDS ORDERED: ACETAMINOPHEN TAB 325 MG TAB PO PRN (18:06)
[2019-06-29] MEDS ORDERED: NALOXONE 0.4 MG/ML 1 ML VIAL IV PRN (18:06)
[2019-06-29] MEDS ORDERED: PIPERACILLIN-TAZOBACTAM 3.375 GM in SODIUM CHLORIDE 0.9% 100 ML IVPB STA (18:18)
[2019-06-29] MEDS ORDERED: SODIUM CHLORIDE 0.9% 1,000 ML IV STA (18:43)
[2019-06-29 19:49] VITALS: BMI 36.3
--- NOTE | 2019-06-29 20:25 | HP ---
HISTORY AND PHYSICAL DATE OF SERVICE: 06/29/2019 CHIEF COMPLAINT: Weakness, change in mental status. HISTORY OF PRESENT ILLNESS: This 34-year-old woman with a past medical history of multiple medical problems including diabetes mellitus, history of hearing difficulties, hyperlipidemia, history of DJD, hypothyroidism, history of depression, being followed by Dr. Janet Stanton in the outpatient setting recently noted to have right foot diabetic osteomyelitis. The patient was given IV antibiotics as an outpatient, IV Rocephin. The patient just finished a course of IV antibiotics but currently the patient had some change in mental status. The patient is slightly confused, decreased p.o. intake and the patient taken to [facility] and admitted to the hospital for further evaluation and treatment. The patient has got blindness of the left eye because of the diabetes mellitus. Otherwise, there is no history of fever, rigors or chills. No history of headache, loss of consciousness or seizures. Patient unable to give coherent history. Most of the history is taken from my discussion with staff, and discussion with the ER physician and review of chart. PAST MEDICAL HISTORY: Diabetes type 2, recent osteomyelitis, right foot ulcer, hypothyroidism, depression. MEDICATIONS: Home medications are reviewed prior to admission and include: 1. Prednisone 4 mg q.h.s. 2. Rocephin 2 g IV q.24 hours. 3. Zocor 20 mg q.h.s. 4. Actos 30 mg q.h.s. 5. Oxybutynin 5 mg q.h.s. 6. Synthroid 100 mcg q.h.s. 7. Lispro. 8. Estrogen 0.3 mg q.h.s. 9. Lexapro 20 mg q.h.s. 10.Drisdol 64384 p.o. Sunday. ALLERGIES: LACTOSE. Family history, social history and review of systems could not be taken because of the patient's change in mental status. No history of smoking or alcohol per chart. PHYSICAL EXAM: Patient is confused, drowsy, arousable minimally. Pulse is 121, blood pressure 111/74, respiration 20, temperature 98.2, pulse ox 98% on room air. HEENT: Conjunctivae pale. Oral mucosa dry. NECK is no jugular venous distention. No carotid bruit. No lymph node enlargement. Cardiovascular systems: S1, S2 muffled. Respiration: Breath sounds diminished in the bases. Scattered rhonchi and crackles. ABDOMEN: Soft, obese, nontender. No mass palpable. LEGS: Minimal ulceration present in the right foot. Otherwise nervous system as mentioned earlier. Could not be examined completely. SKIN as mentioned earlier. JOINTS: No active deforming arthropathy. LYMPHATICS: No lymph nodes palpable in the neck, axillae or groin. LABS: WBC 16.4 and creatinine 1.14, glucose 226 and total bilirubin is 2.6 and AST is 62. ASSESSMENT: 1. Change in mental status, acute metabolic encephalopathy possibly secondary to sepsis. 2. Right foot diabetic ulcer as a cause of possible sepsis. 3. Dehydration with acute renal failure, acute prerenal acute tubular necrosis. 4. Diabetes mellitus type 2, uncontrolled with hyperglycemia. 5. Elevated bilirubin and AST, possibly indicating hepatitis of undetermined etiology. 6. History of recent osteomyelitis of the right foot, status post IV antibiotics. 7. Diabetes mellitus type 1. 8. Left eye blindness secondary to diabetes mellitus. 9. Hyperlipidemia. 10.Degenerative joint disease. 11.Hypothyroidism. 12.Depression. 13.Obesity with body mass of 36.4. RECOMMENDATIONS AND DISCUSSION: In this 34-year-old woman who presented with multiple complex medical issues, we will monitor the patient closely. Continue the current medications, management and IV fluids. I would recommend empiric antibiotics. Obtain cultures. Order lactic acid. Infectious disease evaluation with Dr. Addison. Otherwise, prognosis guarded because of multiple complex medical issues. Further recommendations to follow. See orders for details. Home medications will be continued. IV fluids. I would also repeat abnormal labs as mentioned earlier. The bilirubin and AST is also elevated. Exact etiology undetermined. Further recommendations to follow. MMODL / IJN: [id number] /
[2019-06-29 20:59] LABS: Glucose,Whole Blood 222 mg/dL (75-99)
[2019-06-29] MEDS: HEPARIN SODIUM,PORCINE 5,000 UNIT/ML 1 ML VIAL SQ SCH (21:03)
[2019-06-29] MEDS: ESCITALOPRAM 20 MG TAB PO SCH (21:03)
[2019-06-29] MEDS: OXYBUTYNIN XL 5 MG TAB.ER.24 PO SCH (21:03)
[2019-06-29] MEDS: ATORVASTATIN 10 MG TAB PO SCH (21:03)
[2019-06-29] MEDS: INSULIN ASPART (NovoLOG) 100 UNIT/ML VIAL SQ SCH (21:03)
[2019-06-29] MEDS: LEVOTHYROXINE 100 MCG TAB PO SCH (21:03)
[2019-06-29] MEDS: PIOGLITAZONE 30 MG TAB PO SCH (21:04)
[2019-06-29] MEDS: ESTROGENS, CONJUGATED 0.3 MG TAB PO SCH (21:04)
[2019-06-29] MEDS: predniSONE 1 MG TAB PO SCH (21:05)
[2019-06-29] MEDS: SODIUM CHLORIDE 0.9% 1,000 ML IV SCH (22:02)
[2019-06-29] MEDS: PIPERACILLIN-TAZOBACTAM 3.375 GM in SODIUM CHLORIDE 0.9% 100 ML IVPB SCH (23:50)
[2019-06-30 02:24] LABS: Glucose,Whole Blood 206 mg/dL (75-99)
[2019-06-30] MEDS: SODIUM CHLORIDE 0.9% 1,000 ML IV SCH ×2 (05:43→18:52)
[2019-06-30 06:55] LABS: Glucose,Whole Blood 179 mg/dL (75-99)
[2019-06-30] MEDS: PIPERACILLIN-TAZOBACTAM 3.375 GM in SODIUM CHLORIDE 0.9% 100 ML IVPB SCH ×3 (07:20→22:28)
[2019-06-30] MEDS: INSULIN ASPART (NovoLOG) 100 UNIT/ML VIAL SQ SCH ×4 (07:20→19:58)
[2019-06-30] MEDS: HEPARIN SODIUM,PORCINE 5,000 UNIT/ML 1 ML VIAL SQ SCH ×2 (07:21→19:13)
[2019-06-30 07:51] LABS: Basophils # (A) 0.3 k/uL (0-0.2); Basophils % (A) 3 %; Eosinophils # (A) 0.1 k/uL (0-0.7); Eosinophils % (A) 1 %; HGB 12.8 gm/dL (11.4-16.0); Lymphocytes # (A) 0.8 k/uL (1.0-4.8); Lymphocytes % (A) 8 %; MCH 30.3 pg (25.0-35.0); MCHC 32.8 g/dL (31.0-37.0); MCV 92.4 fL (80.0-100.0); Mean Platelet Volume 8.9; Monocytes # (A) 0.6 k/uL (0-1.0); Monocytes % (A) 6 %; Neutrophils # (A) 7.7 k/uL (1.3-7.7); Neutrophils % (A) 82 %; Platelet Count 125 k/uL (150-450); RBC 4.22 m/uL (3.80-5.40); RDW 12.8 % (11.5-15.5); WBC 9.4 k/uL (3.8-10.6)
[2019-06-30 07:53] LABS: ALT 31 U/L (9-52); AST 47 U/L (14-36); African American GFR (CKD) >90 (>60 ml/min/1.73 sqM); Albumin 3.4 g/dL (3.5-5.0); Alkaline Phosphatase 81 U/L (38-126); Anion Gap 11 mmol/L; Blood Urea Nitrogen 11 mg/dL (7-17); Calcium 8.7 mg/dL (8.4-10.2); Carbon Dioxide 22 mmol/L (22-30); Chloride 109 mmol/L (98-107); Glucose 177 mg/dL (74-99); Non-African American GFR(CKD) >90 (>60 ml/min/1.73 sqM); Potassium 4.5 mmol/L (3.5-5.1); Sodium 142 mmol/L (137-145); Total Protein 6.7 g/dL (6.3-8.2)
[2019-06-30] MEDS ORDERED: PANTOPRAZOLE 40 MG/10 ML VIAL IV SCH (09:00)
[2019-06-30] MEDS ORDERED: NON FORMULARY DRUG (Ceftriaxone 2,000 MG) IVPB SCH (09:00)
--- NOTE | 2019-06-30 10:31 | P.CONS ---
History of Present Illness - Reason for Consult Consult date: 06/30/19 Sepsis - History of Present Illness This is a 34-year-old female known to ID service as she was recently treated in April for osteomyelitis of the lateral right foot. Patient was discharged to [facility] and completed a 6 week course of Rocephin. Patient has had follow-up [facility] with Dr. Gibson. Her last appointment was June 23 status post debridement and wound care is in the form of honey alginate changed on Sunday and Sunday. Patient was brought into [facility] emergency center due to mental status change and increased sleeping over the past 24 hours and decreased oral intake. She was found to be febrile at 101.8, tachycardic, white count 16.4. Other lab work revealed BUN of 17, creatinine 1.14, blood sugar 234. Total bilirubin 2.6 and AST 62, albumin 4.1. Urine trace protein and culture is in progress. HCG and urine drug screen were negative. Ammonia level less than 9. Initial lactic acid 2.1 and repeat 1.1. She is status post 3 L of fluid and was started on Zosyn. Repeat lab work this morning reveals a white count of 9.4, platelet count 125. X-ray of the right foot is stable findings. Chest x-ray showed no acute cardiopulmonary process. CAT scan of the brain showed no acute intracranial hemorrhage, mass effect, or midline shift. Patient is complaining of right upper quadrant abdominal pain and tenderness. She states she is not feeling back to her baseline. She denies pain in her right foot. Patient states some of her abdominal pain was related to constipation and she did have a bowel movement last night. She denies having any diarrhea. No nausea or vomiting. Review of Systems Constitutional: Reports chills, Reports fatigue, Reports fever, Reports lethargy, Reports malaise, Denies anorexia, Denies poor appetite Eyes: denies blurred vision, denies pain Ears, nose, mouth and throat: Denies headache, Denies nasal congestion, Denies nasal discharge, Denies sore throat, Denies vertigo Cardiovascular: Denies chest pain, Denies dyspnea on exertion, Denies edema, Denies leg edema, Denies lightheadedness, Denies shortness of breath, Denies syncope Respiratory: Denies cough, Denies cough with sputum, Denies dyspnea, Denies excessive sputum, Denies hemoptysis, Denies home oxygen Gastrointestinal: Reports abdominal pain, Reports constipation, Denies diarrhea, Denies loss of appetite, Denies nausea, Denies vomiting Genitourinary: Denies dysuria, Denies hematuria, Denies urgency, Denies urinary frequency Musculoskeletal: Reports gait dysfunction, Reports muscle weakness, Denies f requent falls, Denies myalgias Integumentary: Reports wounds, Denies pruritus, Denies rash Neurological: Reports gait dysfunction, Denies change in mentation, Denies change in speech, Denies numbness, Denies weakness Psychiatric: Denies anxiety, Denies depression Endocrine: Reports high blood sugars, Denies fatigue, Denies weight change Past Medical History Past Medical History: Diabetes Mellitus, Eye Disorder, Hearing Disorder / Deafness, Hyperlipidemia, Musculoskeletal Disorder, Skin Disorder, Thyroid Disorder Additional Past Medical History / Comment(s): OP, has no peripheral vision, hard of hearing to left side, psoriasis History of Any Multi-Drug Resistant Organisms: None Reported Past Surgical History: Orthopedic Surgery Additional Past Surgical History / Comment(s): brain tumor removed 2002, Past Anesthesia/Blood Transfusion Reactions: No Reported Reaction Past Psychological History: Depression Smoking Status: Never smoker Past Alcohol Use History: None Reported Additional Past Alcohol Use History / Comment(s): Patient has been a lifelong nonsmoker, no illicit drug use, no alcohol use. She lives at home with her aunt and brother. There are 2 dogs and 3 cats in the home. Past Drug Use History: None Reported - Past Family History Brother(s) Additional Family Medical History / Comment(s): pt states her brother is healthy Medications and Allergies Home Medications Medication Instructions Recorded Confirmed Type Ergocalciferol [Vitamin D2 50,000 unit PO Q7D 03/25/14 06/29/19 History (DRISDOL)] Estrogens, Conjugated [Premarin] 0.3 mg PO DAILY 03/25/14 06/29/19 History Simvastatin [Zocor] 20 mg PO DAILY 03/25/14 06/29/19 History predniSONE 4 mg PO DAILY 03/25/14 06/29/19 History Escitalopram [Lexapro] 20 mg PO DAILY 10/28/18 06/29/19 History INSULIN LISPRO (humaLOG) [humaLOG] See Protocol SQ ACHS 10/28/18 06/29/19 History Levothyroxine Sodium [Synthroid] 100 mcg PO DAILY 10/28/18 06/29/19 History Pioglitazone HCl 30 mg PO DAILY 10/28/18 06/29/19 History Bisacodyl [Dulcolax] 5 - 15 mg PO DAILY PRN 06/29/19 06/29/19 History Brimonidine Tartrate/Timolol 1 drop BOTH EYES BID 06/29/19 06/29/19 History [Combigan 0.2%-0.5% Eye Drops] Brinzolamide [Azopt 1% Ophth Susp] 1 drop BOTH EYES BID 06/29/19 06/29/19 History Oxybutynin Chloride [Ditropan] 5 mg PO DAILY 06/29/19 06/29/19 History Allergies Allergy/AdvReac Type Severity Reaction Status Date / Time lactose Allergy Diarrhea Verified 06/29/19 18:19 Physical Exam Vitals: Vital Signs Temp Pulse Pulse Resp BP BP Pulse Ox 06/30/19 07:00 98 F 86 15 125/75 90 L 06/30/19 01:05 98.4 F 90 18 110/71 96 06/30/19 00:15 100.4 F H 06/29/19 19:42 99.5 F 107 H 18 144/75 94 L 06/29/19 18:55 100.8 F H 06/29/19 18:32 101.3 F H 107 H 18 119/79 97 06/29/19 17:48 101.8 F H 113 H 18 119/75 96 06/29/19 15:40 98.9 F 121 H 20 111/75 93 L Intake and Output 06/29/19 06/30/19 06/30/19 22:59 06:59 14:59 Intake Total 450 900 240 Output Total 20 Balance 430 900 240 Intake: Intake, IV Titration 450 900 Amount 0.9% NaCl with KCl 20 Meq 800 /l 1,000 ml @ 100 mls/hr IV .BY DURATION [facility] Rx#: [id number] Mvi, Adult No.4 with Vit 350 K 10 ml Thiamine 100 mg Folic Acid 1 mg In 0.9% NaCl with KCl 20 Meq/l 1, 000 ml @ 100 mls/hr IV . BY DURATION [facility] Rx#: [id number] Piperacillin-Tazobactam 3 100 100 .375 gm In Sodium Chloride 0.9% 100 ml @ 200 mls/hr IVPB ONCE STA Rx#:[id number] Oral 240 Output: Urine 20 Straight 20 Other: # Voids 1 2 Weight 96.207 kg Gen: This is an obese 34-year-old female. Patient is resting in bed appears to be comfortable and in no acute distress. HEENT: Head is atraumatic, normocephalic. Left pupil is dilated. Right pupil round and reactive to light. Sclerae is anicteric. Oral mucous membranes are moist. Dentition is in poor order. Mid frontal lobe bilateral alopecia which patient states present since her brain surgery. NECK: Supple. No JVD. No lymphadenopathy. No thyromegaly. LUNGS: Clear to auscultation. No wheezes or rhonchi. No intercostal retractions. HEART: Regular rate and rhythm. No murmur. ABDOMEN: Soft. Bowel sounds are present. No masses. Right upper quadrant tenderness. EXTREMITIES: Ulcer to the right foot lateral fifth metatarsal, no drainage, no foul order, there is surrounding erythema and warmth. Dorsalis pedis +2 bilaterally. NEUROLOGICAL: Patient is awake, alert and oriented x3. Results Results: Laboratory Results WBC 9.4 k/uL (3.8-10.6) 06/30/19 06:43 RBC 4.22 m/uL (3.80-5.40) 06/30/19 06:43 Hgb 12.8 gm/dL (11.4-16.0) 06/30/19 06:43 Hct 39.0 % (34.0-46.0) 06/30/19 06:43 MCV 92.4 fL (80.0-100.0) 06/30/19 06:43 MCH 30.3 pg (25.0-35.0) 06/30/19 06:43 MCHC 32.8 g/dL (31.0-37.0) 06/30/19 06:43 RDW 12.8 % (11.5-15.5) 06/30/19 06:43 Plt Count 125 k/uL (150-450) L 06/30/19 06:43 Neutrophils % 82 % 06/30/19 06:43 Lymphocytes % 8 % 06/30/19 06:43 Monocytes % 6 % 06/30/19 06:43 Eosinophils % 1 % 06/30/19 06:43 Basophils % 3 % 06/30/19 06:43 Neutrophils # 7.7 k/uL (1.3-7.7) 06/30/19 06:43 Lymphocytes # 0.8 k/uL (1.0-4.8) L 06/30/19 06:43 Monocytes # 0.6 k/uL (0-1.0) 06/30/19 06:43 Eosinophils # 0.1 k/uL (0-0.7) 06/30/19 06:43 Basophils # 0.3 k/uL (0-0.2) H 06/30/19 06:43 PT 11.6 sec (9.0-12.0) 06/29/19 15:45 INR 1.1 (<1.2) 06/29/19 15:45 APTT 28.9 sec (22.0-30.0) 06/29/19 15:45 Sodium 142 mmol/L (137-145) 06/30/19 06:43 Potassium 4.5 mmol/L (3.5-5.1) 06/30/19 06:43 Chloride 109 mmol/L (98-107) H 06/30/19 06:43 Carbon Dioxide 22 mmol/L (22-30) 06/30/19 06:43 Anion Gap 11 mmol/L 06/30/19 06:43 BUN 11 mg/dL (7-17) 06/30/19 06:43 Creatinine 0.68 mg/dL (0.52-1.04) 06/30/19 06:43 Est GFR (CKD-EPI)AfAm >90 (>60 ml/min/1.73 sqM) 06/30/19 06:43 Est GFR (CKD-EPI)NonAf >90 (>60 ml/min/1.73 sqM) 06/30/19 06:43 Glucose 177 mg/dL (74-99) H 06/30/19 06:43 POC Glucose (mg/dL) 179 mg/dL (75-99) H 06/30/19 06:53 POC Glu Manager [employer]aging ID Lillie, Kalib 06/30/19 06:53 Lactic Ac Sepsis Rflx Y 06/29/19 18:41 Plasma Lactic Acid William 1.1 mmol/L (0.7-2.0) 06/29/19 22:09 Calcium 8.7 mg/dL (8.4-10.2) 06/30/19 06:43 Total Bilirubin 2.0 mg/dL (0.2-1.3) H 06/30/19 06:43 AST 47 U/L (14-36) H 06/30/19 06:43 ALT 31 U/L (9-52) 06/30/19 06:43 Alkaline Phosphatase 81 U/L (38-126) 06/30/19 06:43 Ammonia <9 umol/L (<30) 06/29/19 15:45 Creatine Kinase 49 U/L (30-135) 06/29/19 15:45 Troponin I <0.012 ng/mL (0.000-0.034) 06/29/19 15:45 Total Protein 6.7 g/dL (6.3-8.2) 06/30/19 06:43 Albumin 3.4 g/dL (3.5-5.0) L 06/30/19 06:43 Urine Color Yellow 06/29/19 15:45 Urine Appearance Clear (Clear) 06/29/19 15:45 Urine pH 7.5 (5.0-8.0) 06/29/19 15:45 Ur Specific Richardson 1.020 (1.001-1.035) 06/29/19 15:45 Urine Protein Trace (Negative) H 06/29/19 15:45 Urine Glucose (UA) Negative (Negative) 06/29/19 15:45 Urine Ketones Negative (Negative) 06/29/19 15:45 Urine Blood Negative (Negative) 06/29/19 15:45 Urine Nitrite Negative (Negative) 06/29/19 15:45 Urine Bilirubin Negative (Negative) 06/29/19 15:45 Urine Urobilinogen 3.0 mg/dL (<2.0) 06/29/19 15:45 Ur Leukocyte Esterase Negative (Negative) 06/29/19 15:45 Urine HCG, Qual Not Detected (Not Detectd) 06/29/19 15:45 Urine Opiates Screen Not Detected (NotDetected) 06/29/19 15:45 Ur Oxycodone Screen Not Detected (NotDetected) 06/29/19 15:45 Urine Methadone Screen Not Detected (NotDetected) 06/29/19 15:45 Ur Propoxyphene Screen Not Detected (NotDetected) 06/29/19 15:45 Ur Barbiturates Screen Not Detected (NotDetected) 06/29/19 15:45 U Tricyclic Antidepress Not Detected (NotDetected) 06/29/19 15:45 Ur Phencyclidine Scrn Not Detected (NotDetected) 06/29/19 15:45 Ur Amphetamines Screen Not Detected (NotDetected) 06/29/19 15:45 U Methamphetamines Scrn Not Detected (NotDetected) 06/29/19 15:45 U Benzodiazepines Scrn Not Detected (NotDetected) 06/29/19 15:45 Urine Cocaine Screen Not Detected (NotDetected) 06/29/19 15:45 U Marijuana (THC) Screen Not Detected (NotDetected) 06/29/19 15:45 CBC & Chem 7: 06/30/19 06:43 06/30/19 06:43 Labs: Abnormal Lab Results - Last 24 Hours (Table) 06/29/19 06/29/19 06/29/19 Range/Units 15:45 15:45 15:45 WBC 16.4 H (3.8-10.6) k/uL Plt Count (150-450) k/uL Neutrophils # 11.7 H (1.3-7.7) k/uL Lymphocytes # (1.0-4.8) k/uL Monocytes # 1.5 H (0-1.0) k/uL Basophils # (0-0.2) k/uL Chloride (98-107) mmol/L Creatinine 1.14 H (0.52-1.04) mg/dL Glucose 234 H (74-99) mg/dL POC Glucose (mg/dL) (75-99) mg/dL Plasma Lactic Acid William (0.7-2.0) mmol/L Total Bilirubin 2.6 H (0.2-1.3) mg/dL AST 62 H (14-36) U/L Albumin (3.5-5.0) g/dL Urine Protein Trace H (Negative) 06/29/19 06/29/19 06/29/19 Range/Units 15:54 17:35 20:58 WBC (3.8-10.6) k/uL Plt Count (150-450) k/uL Neutrophils # (1.3-7.7) k/uL Lymphocytes # (1.0-4.8) k/uL Monocytes # (0-1.0) k/uL Basophils # (0-0.2) k/uL Chloride (98-107) mmol/L Creatinine (0.52-1.04) mg/dL Glucose (74-99) mg/dL POC Glucose (mg/dL) 226 H 222 H (75-99) mg/dL Plasma Lactic Acid William 2.1 H* (0.7-2.0) mmol/L Total Bilirubin (0.2-1.3) mg/dL AST (14-36) U/L Albumin (3.5-5.0) g/dL Urine Protein (Negative) 06/30/19 06/30/19 06/30/19 Range/Units 02:22 06:43 06:43 WBC (3.8-10.6) k/uL Plt Count 125 L (150-450) k/uL Neutrophils # (1.3-7.7) k/uL Lymphocytes # 0.8 L (1.0-4.8) k/uL Monocytes # (0-1.0) k/uL Basophils # 0.3 H (0-0.2) k/uL Chloride 109 H (98-107) mmol/L Creatinine (0.52-1.04) mg/dL Glucose 177 H (74-99) mg/dL POC Glucose (mg/dL) 206 H (75-99) mg/dL Plasma Lactic Acid William (0.7-2.0) mmol/L Total Bilirubin 2.0 H (0.2-1.3) mg/dL AST 47 H (14-36) U/L Albumin 3.4 L (3.5-5.0) g/dL Urine Protein (Negative) 06/30/19 Range/Units 06:53 WBC (3.8-10.6) k/uL Plt Count (150-450) k/uL Neutrophils # (1.3-7.7) k/uL Lymphocytes # (1.0-4.8) k/uL Monocytes # (0-1.0) k/uL Basophils # (0-0.2) k/uL Chloride (98-107) mmol/L Creatinine (0.52-1.04) mg/dL Glucose (74-99) mg/dL POC Glucose (mg/dL) 179 H (75-99) mg/dL Plasma Lactic Acid William (0.7-2.0) mmol/L Total Bilirubin (0.2-1.3) mg/dL AST (14-36) U/L Albumin (3.5-5.0) g/dL Urine Protein (Negative) Microbiology - Last 24 Hours (Table) 06/29/19 15:45 Urine Culture - Preliminary Urine,Catheterized Assessment and Plan Plan: This is a 34-year-old female who presented to hospital with signs of sepsis of unclear etiology along with metabolic encephalopathy, lactic acidosis, possibly related to the right foot wound which has been chronic. Patient has been treated for osteomyelitis and completed her course of Rocephin as an outpatient at [facility]. She has been following in the [facility] and underwent a debridement on June 23. Her tetanus status is up to date. Hemoglobin A1c on last admission was 7.1. Patient is currently on Rocephin. Antibiotics and local wound care will be addressed. Continue sup portive care. Further recommendations as patient progresses. The above dictated assessment and findings were discussed with Dr. Addison. The impression and plan of care have been directed as dictated. Margie Ramirez nurse practitioner acting as scribe for Dr. Addison.
[2019-06-30 12:08] LABS: Glucose,Whole Blood 166 mg/dL (75-99)
--- NOTE | 2019-06-30 15:25 | P.PN ---
Subjective Progress Note Date: 06/30/19 Principal diagnosis: This is a 34-year-old female who was recently admitted with a change in mental status and a decrease in oral intake and is being closely monitored. Patient was recently receiving IV antibiotic therapy and following up with the wound care center for a right foot diabetic osteomyelitis. Patient states that she recently underwent debridement of the right foot ulcer last week. Infectious disease was consulted. No acute overnight issues. Patient continues to be slightly delayed with responses and slightly confused. Patient denies any chest pain, shortness of breath, or palpitations. Patient has been afebrile. Patient denies any nausea or vomiting and is tolerating diet. Patient states that she has some discomfort in the right upper quadrant. Patient states that she is passing gas and having bowel movements. Objective - Vital Signs Vital signs: Vital Signs Temp 98 F 06/30/19 07:00 Pulse 86 06/30/19 07:00 Resp 15 06/30/19 07:00 BP 125/75 06/30/19 07:00 Pulse Ox 90 L 06/30/19 07:00 Intake & Output 06/29/19 06/30/19 06/30/19 18:59 06:59 18:59 Intake Total 1350 240 Output Total 20 Balance -20 1350 240 Weight 96.207 kg Intake: Intake, IV Titration 1350 Amount 0.9% NaCl with KCl 20 Meq 800 /l 1,000 ml @ 100 mls/hr IV .BY DURATION [facility] Rx#: [id number] Mvi, Adult No.4 with Vit 350 K 10 ml Thiamine 100 mg Folic Acid 1 mg In 0.9% NaCl with KCl 20 Meq/l 1, 000 ml @ 100 mls/hr IV . BY DURATION [facility] Rx#: [id number] Piperacillin-Tazobactam 3 200 .375 gm In Sodium Chloride 0.9% 100 ml @ 200 mls/hr IVPB ONCE STA Rx#:[id number] Oral 240 Output: Urine 20 Straight 20 Other: # Voids 2 - Exam Gen: This is a 34-year-old female sitting up in bed in no acute distress. Temp is 98F, pulse is 86, respirations are 15, blood pressure is 125/75, oxygen saturation is 90% on room air. HEENT: Head is atraumatic, normocephalic. Pupils equal, round. Sclerae is anicteric. Conjunctivae pale, oral mucosa is dry NECK: Supple. No JVD. No lymphadenopathy. No thyromegaly. LUNGS: Diminished breath sounds at the bases with a few scattered rhonchi noted. No intercostal retractions. HEART: S1, S2 are muffled ABDOMEN: Soft. Obese. Bowel sounds are present. No masses. Mild tenderness noted of the right upper quadrant upon palpation. EXTREMITIES: No pedal edema. No calf tenderness. NEUROLOGICAL: Patient is awake, alert and oriented x3. Cranial nerves 2 through 12 are grossly intact. SKIN: Right foot lateral aspect ulceration noted with minimal redness and no swelling - Labs CBC & Chem 7: 06/30/19 06:43 06/30/19 06:43 Labs: Abnormal Lab Results - Last 24 Hours (Table) 06/29/19 06/29/19 06/29/19 Range/Units 15:45 15:45 15:45 WBC 16.4 H (3.8-10.6) k/uL Plt Count (150-450) k/uL Neutrophils # 11.7 H (1.3-7.7) k/uL Lymphocytes # (1.0-4.8) k/uL Monocytes # 1.5 H (0-1.0) k/uL Basophils # (0-0.2) k/uL Chloride (98-107) mmol/L Creatinine 1.14 H (0.52-1.04) mg/dL Glucose 234 H (74-99) mg/dL POC Glucose (mg/dL) (75-99) mg/dL Plasma Lactic Acid William (0.7-2.0) mmol/L Total Bilirubin 2.6 H (0.2-1.3) mg/dL AST 62 H (14-36) U/L Albumin (3.5-5.0) g/dL Urine Protein Trace H (Negative) 06/29/19 06/29/19 06/29/19 Range/Units 15:54 17:35 20:58 WBC (3.8-10.6) k/uL Plt Count (150-450) k/uL Neutrophils # (1.3-7.7) k/uL Lymphocytes # (1.0-4.8) k/uL Monocytes # (0-1.0) k/uL Basophils # (0-0.2) k/uL Chloride (98-107) mmol/L Creatinine (0.52-1.04) mg/dL Glucose (74-99) mg/dL POC Glucose (mg/dL) 226 H 222 H (75-99) mg/dL Plasma Lactic Acid William 2.1 H* (0.7-2.0) mmol/L Total Bilirubin (0.2-1.3) mg/dL AST (14-36) U/L Albumin (3.5-5.0) g/dL Urine Protein (Negative) 06/30/19 06/30/19 06/30/19 Range/Units 02:22 06:43 06:43 WBC (3.8-10.6) k/uL Plt Count 125 L (150-450) k/uL Neutrophils # (1.3-7.7) k/uL Lymphocytes # 0.8 L (1.0-4.8) k/uL Monocytes # (0-1.0) k/uL Basophils # 0.3 H (0-0.2) k/uL Chloride 109 H (98-107) mmol/L Creatinine (0.52-1.04) mg/dL Glucose 177 H (74-99) mg/dL POC Glucose (mg/dL) 206 H (75-99) mg/dL Plasma Lactic Acid William (0.7-2.0) mmol/L Total Bilirubin 2.0 H (0.2-1.3) mg/dL AST 47 H (14-36) U/L Albumin 3.4 L (3.5-5.0) g/dL Urine Protein (Negative) 06/30/19 06/30/19 Range/Units 06:53 12:06 WBC (3.8-10.6) k/uL Plt Count (150-450) k/uL Neutrophils # (1.3-7.7) k/uL Lymphocytes # (1.0-4.8) k/uL Monocytes # (0-1.0) k/uL Basophils # (0-0.2) k/uL Chloride (98-107) mmol/L Creatinine (0.52-1.04) mg/dL Glucose (74-99) mg/dL POC Glucose (mg/dL) 179 H 166 H (75-99) mg/dL Plasma Lactic Acid William (0.7-2.0) mmol/L Total Bilirubin (0.2-1.3) mg/dL AST (14-36) U/L Albumin (3.5-5.0) g/dL Urine Protein (Negative) Microbiology - Last 24 Hours (Table) 06/29/19 15:45 Urine Culture - Preliminary Urine,Catheterized Assessment and Plan Assessment: Change in mental status, acute metabolic encephalopathy, possibly secondary to sepsis Right foot diabetic ulcer as a cause of possible sepsis Dehydration with acute renal failure, acute prerenal acute tubular necrosis Diabetes mellitus type 2, uncontrolled with hyperglycemia Elevated bilirubin and AST, possibly indicating hepatitis of undetermined etiology History of recent osteomyelitis of the right foot, status post IV antibiotics Hyperlipidemia 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 Recommendations and discussion: Recommend to continue current medications, management, and symptomatic treatment. Infectious disease is following. Patient is currently on IV antibiotics in the form of Zosyn and will continue at this time. Bilirubin is 2.0 and is down from 2.6 yesterday. AST today is 47 and trending down. An ultrasound of the abdomen was ordered and is pending at this time. Awaiting cultures. Patient will continue with IV fluids with vitamin supplementation and potassium. Will repeat a.m. labs. Guarded prognosis. Further recommendations to follow.
[2019-06-30 16:41] LABS: Glucose,Whole Blood 155 mg/dL (75-99)
--- NOTE | 2019-06-30 18:01 | US ---
EXAMINATION TYPE: US abdomen limited DATE OF EXAM: 06/30/2019 COMPARISON: NONE CLINICAL HISTORY: RUQ pain and tenderness, elevated LFT. patient swollen due to Cortizone shots and f ull of bowel gas EXAM MEASUREMENTS: Liver Length: 16.6 cm Gallbladder Wall: 0.3 cm CBD: not seen Right Kidney: 9.9 x 4.1 x 4.4cm VERY DIFFICULT PATIENT TO IMAGE DUE TO EXTENSIVE BOWEL GAS THAT ULTRASOUND COULD NOT PENETRATE THRO UGH Pancreas: not seen due to bowel gas Liver: very limited images, unable to image left lobe and only viewed posterior portion of right lob e Gallbladder: full of stones with borderline wall thickness Evidence for sonographic Anders's sign: yes CBD: unable to view due to bowel gas and difficulty penetrating abdomen. Right Kidney: wnl IMPRESSION: Limited exam. There appears to be numerous gallstones. Intrahepatic bile ducts are not di lated. Common bile duct is not seen. Right kidney shows no hydronephrosis.
[2019-06-30] MEDS: PIOGLITAZONE 30 MG TAB PO SCH (19:14)
[2019-06-30] MEDS: predniSONE 1 MG TAB PO SCH (19:14)
[2019-06-30] MEDS: OXYBUTYNIN XL 5 MG TAB.ER.24 PO SCH (19:14)
[2019-06-30] MEDS: ATORVASTATIN 10 MG TAB PO SCH (19:14)
[2019-06-30] MEDS: ESTROGENS, CONJUGATED 0.3 MG TAB PO SCH (19:14)
[2019-06-30] MEDS: ESCITALOPRAM 20 MG TAB PO SCH (19:14)
[2019-06-30] MEDS: LEVOTHYROXINE 100 MCG TAB PO SCH (19:21)
[2019-06-30 19:24] LABS: Hemoglobin A1C 6.7 % (4.0-6.0)
[2019-06-30 19:58] LABS: Glucose,Whole Blood 145 mg/dL (75-99)
--- NOTE | 2019-06-30 22:42 | P.CON ---
Consult Note - . Consult date: 06/30/19 Assessment/Plan:: This is a 34-year-old female known to ID service as she was recently treated in April for osteomyelitis of the lateral right foot. Patient was discharged to [facility] and completed a 6 week course of Rocephin. Negrito wiley has had follow-up in the [facility] with Dr. Gibson. Her last appointment was June 23 status post debridement and wound care is in the form of honey alginate changed on Sunday and Sunday. Patient was brought into [facility] emergency center due to mental status change and increased sleeping over the past 24 hours and decreased oral intake. She was found to be febrile at 101.8, tachycardic, white count 16.4. Other lab work revealed BUN of 17, creatinine 1.14, blood sugar 234. Total bilirubin 2.6 and AST 62, albumin 4.1. Urine trace protein and culture is in progress. HCG and urine drug screen were negative. Ammonia level less than 9. Initial lactic acid 2.1 and repeat 1.1. She is status post 3 L of fluid and was started on Zosyn. Repeat lab work this morning reveals a white count of 9.4, platelet count 125. X-ray of the right foot is stable findings. Chest x-ray showed no acute cardiopulmonary process. CAT scan of the brain showed no acute intracranial hemorrhage, mass effect, or midline shift. Patient is complaining of right upper quadrant abdominal pain and tenderness. She states she is not feeling back to her baseline. She denies pain in her right foot. Patient states some of her abdominal pain was related to constipation and she did have a bowel movement last night. She denies having any diarrhea. No nausea or vomiting. Please see the consult note is dictated by nurse practitioner Mrs. Margie Jones. The referral and presents to Hospital again with about a fever not feeling well at admission with increasing fatigue and malaise. She is not feeling somewhat better after some fluid resuscitation. Following the wound center for the foot ulcerations. For now we'll continue local wound care with the therahoney product. Antibiotic therapy with Zosyn has been initiated a workup is in process. Because of infection is being evaluated. Elevation and optimization of diabetes is all in process. She had fever admission it's resolved she has no respiratory complaints in doubt influenza. We'll monitor through her stay. I agree with evaluation, assessment and plan as dictated by nurse practitioner Mrs. Margie Ramirez.
[2019-07-01 05:02] LABS: Glucose,Whole Blood 113 mg/dL (75-99)
[2019-07-01 06:40] LABS: Glucose,Whole Blood 117 mg/dL (75-99)
[2019-07-01 07:56] LABS: Basophils % (A) 0 %; Eosinophils # (A) 0.1 k/uL (0-0.7); Eosinophils % (A) 1 %; HGB 10.7 gm/dL (11.4-16.0); Lymphocytes # (A) 0.9 k/uL (1.0-4.8); Lymphocytes % (A) 7 %; MCH 31.1 pg (25.0-35.0); MCHC 33.5 g/dL (31.0-37.0); MCV 92.8 fL (80.0-100.0); Mean Platelet Volume 7.6; Monocytes # (A) 0.2 k/uL (0-1.0); Monocytes % (A) 2 %; Neutrophils # (A) 11.4 k/uL (1.3-7.7); Neutrophils % (A) 89 %; Platelet Count 159 k/uL (150-450); RBC 3.45 m/uL (3.80-5.40); RDW 12.8 % (11.5-15.5); WBC 12.8 k/uL (3.8-10.6)
[2019-07-01] MEDS: INSULIN ASPART (NovoLOG) 100 UNIT/ML VIAL SQ SCH ×4 (07:58→21:22)
[2019-07-01] MEDS: ERGOCALCIFEROL 50,000 UNIT CAP PO SCH (08:02)
[2019-07-01] MEDS: PANTOPRAZOLE 40 MG TABLET PO SCH (08:03)
[2019-07-01] MEDS: SODIUM CHLORIDE 0.9% 1,000 ML IV SCH ×2 (08:03→21:22)
[2019-07-01] MEDS: HEPARIN SODIUM,PORCINE 5,000 UNIT/ML 1 ML VIAL SQ SCH ×2 (08:03→21:24)
[2019-07-01] MEDS: PIPERACILLIN-TAZOBACTAM 3.375 GM in SODIUM CHLORIDE 0.9% 100 ML IVPB SCH ×3 (08:03→21:45)
[2019-07-01 08:08] LABS: ALT 27 U/L (9-52); AST 29 U/L (14-36); African American GFR (CKD) >90 (>60 ml/min/1.73 sqM); Albumin 3.4 g/dL (3.5-5.0); Alkaline Phosphatase 82 U/L (38-126); Anion Gap 7 mmol/L; Blood Urea Nitrogen 10 mg/dL (7-17); Calcium 8.4 mg/dL (8.4-10.2); Carbon Dioxide 23 mmol/L (22-30); Chloride 111 mmol/L (98-107); Glucose 116 mg/dL (74-99); Non-African American GFR(CKD) >90 (>60 ml/min/1.73 sqM); Potassium 4.1 mmol/L (3.5-5.1); Sodium 141 mmol/L (137-145); Total Bilirubin 0.8 mg/dL (0.2-1.3); Total Protein 6.5 g/dL (6.3-8.2)
[2019-07-01 11:36] LABS: Glucose,Whole Blood 110 mg/dL (75-99)
--- NOTE | 2019-07-01 14:04 | P.GSCN ---
History of Present Illness Consult date: 07/01/19 Reason for Consult: gallstones Requesting physician: Saritha Pimentel History of present illness: CHIEF COMPLAINT: Gallstones HISTORY OF PRESENT ILLNESS: 34-year-old female who was admitted to the hospital secondary to altered mental status. Abdominal ultrasound was performed revealing numerous gallstones. General surgery was consulted for evaluation. Patient examined at the bedside with Dr. Walsh. Patient reports right upper quadrant tenderness. She denies nausea or vomiting at this time. She ate breakfast and reports she tolerated it well. She is passing flatus. PAST MEDICAL HISTORY: See list. PAST SURGICAL HISTORY: See list. SOCIAL HISTORY: No illicit drug use. REVIEW OF SYSTEMS: CONSTITUTIONAL: Denies fever or chills. HEENT: Denies blurred vision, vision changes, or eye pain. Denies hemoptysis CARDIOVASCULAR: Denies chest pain or pressure. RESPIRATORY: No shortness of breath. GASTROINTESTINAL: Refer to HPI for pertinent findings HEMATOLOGIC: Denies bleeding disorders. GENITOURINARY: Denies any blood in urine. SKIN: Denies pruitis. Denies rash. PHYSICAL EXAM: VITAL SIGNS: Reviewed. GENERAL: Well-developed in no acute distress. HEENT: No sclera icterus. Extraocular movements grossly intact. Moist buccal mucosa. Head is atraumatic, normocephalic. ABDOMEN: Soft. Nondistended. Tenderness on palpation of right upper quadrant. NEUROLOGIC: Alert and oriented. Cranial nerves II through XII grossly intact. LABORATORY DATA: WBC on admission 16.4. Repeat 12.8. Total bilirubin on admission 2.6. AST 62. ALT 29. Most recent LFTs revealed bilirubin 0.8. AST 29. ALT 27. IMAGING: Abdominal ultrasound: Numerous gallstones. Intrahepatic ducts are not dilated. Common bile duct was not visualized. ASSESSMENT: 1. Right upper quadrant abdominal pain 2. Cholelithiasis 3. Elevated bilirubin, resolved 4. Mildly elevated LFTs, resolved PLAN: Patient did eat breakfast this morning. Will make patient NPO at this time. She will be scheduled for laparoscopic cholecystectomy this afternoon with Dr. Walsh Nurse practitioner note has been reviewed by physician. Signing provider agrees with the documented findings, assessment, and plan of care. Past Medical History Past Medical History: Diabetes Mellitus, Eye Disorder, Hearing Disorder / Deafness, Hyperlipidemia, Musculoskeletal Disorder, Skin Disorder, Thyroid Disorder Additional Past Medical History / Comment(s): OP, has no peripheral vision, hard of hearing to left side, psoriasis History of Any Multi-Drug Resistant Organisms: None Reported Past Surgical History: Orthopedic Surgery Additional Past Surgical History / Comment(s): brain tumor removed 2002, Past Anesthesia/Blood Transfusion Reactions: No Reported Reaction Past Psychological History: Depression Smoking Status: Never smoker Past Alcohol Use History: None Reported Additional Past Alcohol Use History / Comment(s): Patient has been a lifelong nonsmoker, no illicit drug use, no alcohol use. She lives at home with her aunt and brother. There are 2 dogs and 3 cats in the home. Past Drug Use History: None Reported - Past Family History Brother(s) Additional Family Medical History / Comment(s): pt states her brother is healthy Medications and Allergies Home Medications Medication Instructions Recorded Confirmed Type Ergocalciferol [Vitamin D2 50,000 unit PO Q7D 03/25/14 06/29/19 History (DRISDOL)] Estrogens, Conjugated [Premarin] 0.3 mg PO DAILY 03/25/14 06/29/19 History Simvastatin [Zocor] 20 mg PO DAILY 03/25/14 06/29/19 History predniSONE 4 mg PO DAILY 03/25/14 06/29/19 History Escitalopram [Lexapro] 20 mg PO DAILY 10/28/18 06/29/19 History INSULIN LISPRO (humaLOG) [humaLOG] See Protocol SQ ACHS 10/28/18 06/29/19 Hist ory Levothyroxine Sodium [Synthroid] 100 mcg PO DAILY 10/28/18 06/29/19 History Pioglitazone HCl 30 mg PO DAILY 10/28/18 06/29/19 History Bisacodyl [Dulcolax] 5 - 15 mg PO DAILY PRN 06/29/19 06/29/19 History Brimonidine Tartrate/Timolol 1 drop BOTH EYES BID 06/29/19 06/29/19 History [Combigan 0.2%-0.5% Eye Drops] Brinzolamide [Azopt 1% Ophth Susp] 1 drop BOTH EYES BID 06/29/19 06/29/19 History Oxybutynin Chloride [Ditropan] 5 mg PO DAILY 06/29/19 06/29/19 History Allergies Allergy/AdvReac Type Severity Reaction Status Date / Time lactose Allergy Diarrhea Verified 06/29/19 18:19 Surgical - Exam Vital Signs Temp Pulse Resp BP Pulse Ox 98.9 F 121 H 20 111/75 93 L 06/29/19 15:40 06/29/19 15:40 06/29/19 15:40 06/29/19 15:40 06/29/19 15:40 Results - Labs 07/01/19 07:36 07/01/19 07:36 Abnormal Lab Results - Last 24 Hours (Table) 06/30/19 06/30/19 06/30/19 Range/Units 06:43 16:39 19:57 WBC (3.8-10.6) k/uL RBC (3.80-5.40) m/uL Hgb (11.4-16.0) gm/dL Hct (34.0-46.0) % Neutrophils # (1.3-7.7) k/uL Lymphocytes # (1.0-4.8) k/uL Chloride (98-107) mmol/L Glucose (74-99) mg/dL POC Glucose (mg/dL) 155 H 145 H (75-99) mg/dL Hemoglobin A1c 6.7 H (4.0-6.0) % Albumin (3.5-5.0) g/dL 07/01/19 07/01/19 07/01/19 Range/Units 02:24 06:38 07:36 WBC 12.8 H (3.8-10.6) k/uL RBC 3.45 L (3.80-5.40) m/uL Hgb 10.7 L (11.4-16.0) gm/dL Hct 32.0 L (34.0-46.0) % Neutrophils # 11.4 H (1.3-7.7) k/uL Lymphocytes # 0.9 L (1.0-4.8) k/uL Chloride (98-107) mmol/L Glucose (74-99) mg/dL POC Glucose (mg/dL) 113 H 117 H (75-99) mg/dL Hemoglobin A1c (4.0-6.0) % Albumin (3.5-5.0) g/dL 07/01/19 07/01/19 Range/Units 07:36 11:33 WBC (3.8-10.6) k/uL RBC (3.80-5.40) m/uL Hgb (11.4-16.0) gm/dL Hct (34.0-46.0) % Neutrophils # (1.3-7.7) k/uL Lymphocytes # (1.0-4.8) k/uL Chloride 111 H (98-107) mmol/L Glucose 116 H (74-99) mg/dL POC Glucose (mg/dL) 110 H (75-99) mg/dL Hemoglobin A1c (4.0-6.0) % Albumin 3.4 L (3.5-5.0) g/dL Microbiology - Last 24 Hours (Table) 06/29/19 15:45 Urine Culture - Final Urine,Catheterized 06/29/19 15:45 Blood Culture - Preliminary Blood No Growth after 24 hours Diabetes panel 06/30/19 07/01/19 Range/Units 06:43 07:36 Sodium 141 (137-145) mmol/L Potassium 4.1 (3.5-5.1) mmol/L Chloride 111 H (98-107) mmol/L Carbon Dioxide 23 (22-30) mmol/L BUN 10 (7-17) mg/dL Creatinine 0.64 (0.52-1.04) mg/dL Glucose 116 H (74-99) mg/dL Hemoglobin A1c 6.7 H (4.0-6.0) % Calcium 8.4 (8.4-10.2) mg/dL AST 29 (14-36) U/L ALT 27 (9-52) U/L Alkaline Phosphatase 82 (38-126) U/L Total Protein 6.5 (6.3-8.2) g/dL Albumin 3.4 L (3.5-5.0) g/dL Calcium panel 07/01/19 Range/Units 07:36 Calcium 8.4 (8.4-10.2) mg/dL Albumin 3.4 L (3.5-5.0) g/dL Pituitary panel 07/01/19 Range/Units 07:36 Sodium 141 (137-145) mmol/L Potassium 4.1 (3.5-5.1) mmol/L Chloride 111 H (98-107) mmol/L Carbon Dioxide 23 (22-30) mmol/L BUN 10 (7-17) mg/dL Creatinine 0.64 (0.52-1.04) mg/dL Glucose 116 H (74-99) mg/dL Calcium 8.4 (8.4-10.2) mg/dL Adrenal panel 07/01/19 Range/Units 07:36 Sodium 141 (137-145) mmol/L Potassium 4.1 (3.5-5.1) mmol/L Chloride 111 H (98-107) mmol/L Carbon Dioxide 23 (22-30) mmol/L BUN 10 (7-17) mg/dL Creatinine 0.64 (0.52-1.04) mg/dL Glucose 116 H (74-99) mg/dL Calcium 8.4 (8.4-10.2) mg/dL Total Bilirubin 0.8 (0.2-1.3) mg/dL AST 29 (14-36) U/L ALT 27 (9-52) U/L Alkaline Phosphatase 82 (38-126) U/L Total Protein 6.5 (6.3-8.2) g/dL Albumin 3.4 L (3.5-5.0) g/dL
--- NOTE | 2019-07-01 16:01 | P.PN ---
Subjective Progress Note Date: 07/01/19 Principal diagnosis: This is a 34-year-old female who was recently admitted with a change in mental status and a decrease in oral intake and is being closely monitored. Patient was recently receiving IV antibiotic therapy and following up with the wound care center for a right foot diabetic osteomyelitis. Patient states that she recently underwent debridement of the right foot ulcer last week. Infectious disease was consulted. No acute overnight issues. Patient continues to be slightly delayed with responses and slightly confused. Patient denies any chest pain, shortness of breath, or palpitations. Patient has been afebrile. Patient denies any nausea or vomiting and is tolerating diet. Patient states that she has some discomfort in the right upper quadrant. Patient states that she is passing gas and having bowel movements. 07/01/2019 Patient is sitting up in bed in no acute distress with no acute overnight issues. Infectious disease is following. Patient continues to have some right upper quadrant pain and underwent an abdominal ultrasound yesterday showing numerous gallstones. Surgery was consulted. Patient states that she is passing gas and had a bowel movement yesterday and has tolerated diet this morning. Currently patient denies any chest pain, shortness of breath, or palpitations. Patient has been afebrile. Patient denies any nausea or vomiting. Patient's mentation is slightly improved from yesterday and is a little more awake and a lert today. Will continue to monitor closely. Objective - Vital Signs Vital signs: Vital Signs Temp 98 F 07/01/19 07:00 Pulse 77 07/01/19 07:00 Resp 16 07/01/19 07:00 BP 117/68 07/01/19 07:00 Pulse Ox 90 L 07/01/19 07:00 Intake & Output 06/30/19 07/01/19 07/01/19 18:59 06:59 18:59 Intake Total 240 250 240 Balance 240 250 240 Intake: Intake, IV Titration 100 Amount Piperacillin-Tazobactam 3 100 .375 gm In Sodium Chloride 0.9% 100 ml @ 25 mls/hr IVPB Q8HR [facility] Rx# :[id number] Oral 240 150 240 Other: # Voids 2 2 # Bowel Movements 1 - Exam Gen: This is a 34-year-old female sitting up in bed in no acute distress. Temp is 98F, pulse is 77, respirations are 16, blood pressure is 117/68, oxygen saturation is 90% on 2 L via nasal cannula. HEENT: Head is atraumatic, normocephalic. Pupils equal, round. Sclerae is anicteric. Conjunctivae pale, oral mucosa is dry NECK: Supple. No JVD. No lymphadenopathy. No thyromegaly. LUNGS: Diminished breath sounds at the bases with a few scattered rhonchi noted. No intercostal retractions. HEART: S1, S2 are muffled ABDOMEN: Soft. Obese. Bowel sounds are present. No masses. Mild tenderness noted of the right upper quadrant upon palpation. EXTREMITIES: No pedal edema. No calf tenderness. NEUROLOGICAL: Patient is awake, alert and oriented x3. Cranial nerves 2 through 12 are grossly intact. SKIN: Right foot lateral aspect ulceration noted with minimal redness and no swelling - Labs CBC & Chem 7: 07/01/19 07:36 07/01/19 07:36 Labs: Abnormal Lab Results - Last 24 Hours (Table) 06/30/19 06/30/19 06/30/19 Range/Units 06:43 16:39 19:57 WBC (3.8-10.6) k/uL RBC (3.80-5.40) m/uL Hgb (11.4-16.0) gm/dL Hct (34.0-46.0) % Neutrophils # (1.3-7.7) k/uL Lymphocytes # (1.0-4.8) k/uL Chloride (98-107) mmol/L Glucose (74-99) mg/dL POC Glucose (mg/dL) 155 H 145 H (75-99) mg/dL Hemoglobin A1c 6.7 H (4.0-6.0) % Albumin (3.5-5.0) g/dL 07/01/19 07/01/19 07/01/19 Range/Units 02:24 06:38 07:36 WBC 12.8 H (3.8-10.6) k/uL RBC 3.45 L (3.80-5.40) m/uL Hgb 10.7 L (11.4-16.0) gm/dL Hct 32.0 L (34.0-46.0) % Neutrophils # 11.4 H (1.3-7.7) k/uL Lymphocytes # 0.9 L (1.0-4.8) k/uL Chloride (98-107) mmol/L Glucose (74-99) mg/dL POC Glucose (mg/dL) 113 H 117 H (75-99) mg/dL Hemoglobin A1c (4.0-6.0) % Albumin (3.5-5.0) g/dL 07/01/19 07/01/19 Range/Units 07:36 11:33 WBC (3.8-10.6) k/uL RBC (3.80-5.40) m/uL Hgb (11.4-16.0) gm/dL Hct (34.0-46.0) % Neutrophils # (1.3-7.7) k/uL Lymphocytes # (1.0-4.8) k/uL Chloride 111 H (98-107) mmol/L Glucose 116 H (74-99) mg/dL POC Glucose (mg/dL) 110 H (75-99) mg/dL Hemoglobin A1c (4.0-6.0) % Albumin 3.4 L (3.5-5.0) g/dL Microbiology - Last 24 Hours (Table) 06/29/19 15:45 Urine Culture - Final Urine,Catheterized 06/29/19 15:45 Blood Culture - Preliminary Blood No Growth after 24 hours Assessment and Plan Assessment: Change in mental status, acute metabolic encephalopathy, possibly secondary to sepsis Cholelithiasis as noted on abdominal ultrasound Right foot diabetic ulcer as a cause of possible sepsis Dehydration with acute renal failure, acute prerenal acute tubular necrosis Diabetes mellitus type 2, uncontrolled with hyperglycemia Elevated bilirubin and AST, possibly indicating hepatitis of undetermined etiology History of recent osteomyelitis of the right foot, status post IV antibiotics Hyperlipidemia 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 Recommendations and discussion: Recommend to continue current medications, management, and symptomatic treatment. Infectious disease is following. Patient underwent abdominal CT yesterday showing multiple gallstones. Surgery was consulted and patient will be undergoing cholecystectomy this afternoon with Dr. Walsh. Patient is currently on IV antibiotics in the form of Zosyn and will continue at this time. Awaiting cultures. Blood and urine cultures thus far have been negative. Patient will continue with IV fluids with vitamin supplementation and potassium. Will repeat a.m. labs. Guarded prognosis. Further recommendations to follow.
[2019-07-01 16:38] LABS: Glucose,Whole Blood 89 mg/dL (75-99)
[2019-07-01] MEDS ORDERED: IV FLUID CONTINUATION 1,000 ML IV ONE (17:09)
[2019-07-01] MEDS ORDERED: HYDROCORTISONE SUCCINATE 100 MG/2 ML VIAL IV ONE (17:29)
[2019-07-01] MEDS ORDERED: ONDANSETRON 4 MG/2 ML VIAL IVP ONE (17:29)
[2019-07-01] MEDS ORDERED: GLYCOPYRROLATE 0.2 MG/ML 2 ML VIAL ONE (18:50)
[2019-07-01] MEDS ORDERED: fentaNYL (PF) 50 MCG/ML 2 ML AMP ONE (18:50)
[2019-07-01] MEDS ORDERED: KETOROLAC 30 MG/ML 1 ML VIAL ONE (18:50)
[2019-07-01] MEDS ORDERED: ROCURONIUM BROMIDE 10 MG/ML 10 ML VIAL IV ONE (18:50)
[2019-07-01] MEDS ORDERED: LIDOCAINE 1% INJ 10MG/ML (20 ML MDV) ONE (18:50)
[2019-07-01] MEDS ORDERED: SUCCINYLCHOLINE CHLORIDE 100 MG/5 ML SYR IV ONE (18:50)
[2019-07-01] MEDS ORDERED: PROPOFOL 10 MG/ML 20 ML VIAL IV ONE (18:50)
[2019-07-01] MEDS ORDERED: NEOSTIGMINE 1 MG/ML 10 ML VIAL ONE (18:50)
[2019-07-01] MEDS ORDERED: MIDAZOLAM 2 MG/2 ML VIAL ONE (18:50)
[2019-07-01] MEDS ORDERED: BUPIVACAINE (PF) 0.5% 30 ML VIAL SQ ONE ×2 (19:03)
[2019-07-01] MEDS ORDERED: SODIUM CHLORIDE 0.9% 100 ML with ceFAZolin 2,000 MG IV ONE ×2 (19:13)
[2019-07-01] MEDS ORDERED: HYDROmorphone 1 MG/ML 1 ML SYRINGE IM PRN (20:07)
--- NOTE | 2019-07-01 20:07 | P.OP ---
Date of Procedure: 07/01/19 Preoperative Diagnosis: Acute cholecystitis Postoperative Diagnosis: Acute gangrenous cholecystitis Procedure(s) Performed: Laparoscopic cholecystectomy Anesthesia: NURY Surgeon: Vince Walsh Estimated Blood Loss (ml): 25 Pathology: other (Gallbladder) Condition: stable Disposition: PACU Description of Procedure: The patient was placed on the operating table. The patient received a general endotracheal tube anesthesia. The patients abdomen was prepped and draped in the usual sterile fashion. Through an infraumbilical stab incision, the fascia of the anterior abdominal wall was grasped with a pair of Kochers and then the Veress needle was placed in the peritoneal cavity. Position of the Veress needle was confirmed with positive drop test. The abdomen was then insufflated. After adequate insufflation, the 10 mm trocar was placed in the peritoneal cavity. Following this the laparoscope was placed in the peritoneal cavity. The patient was placed in the head-up, right side up position and then a 5 mm trocar was placed in the right lateral and right subcostal position under direct visualization. A 8 mm trocar was placed in the epigastric position. The gallbladder was gangrenous. An opening in the gallbladder was made to decompress the gallbladder. The gallbladder was grasped in the fundus and infundibulum. Traction on the gallbladder was placed in the lateral and the cephalad positions. The triangle of Calot could not be visualized at this point is to perform a subtotal cholecystectomy. The infundibulum was dissected and then a 2-0 Ethibond sutures placed around the abdomen. This was secured with a timeout device. A second suture was used to ligate the infundibulum. The gallbladder was then transected using Harmonic scissors. And then the gallbladder was taken off liver bed using Harmonic scissors. The gallbladder was then extracted through the epigastric port site. Operative field was checked for any bleeding spots and Harmonic scissors was used to coagulate the liver bed. The abdomen was irrigated. A ISAAC drain is placed in the liver fossa and brought out through the right lateral port site. The trocars were removed. The skin was closed using interrupted 3-0 Vicryl suture. Dermabond dressing were applied. The patient tolerated the procedure well.
[2019-07-01 20:40] LABS: Glucose,Whole Blood 87 mg/dL (75-99)
--- NOTE | 2019-07-01 21:04 | P.PN ---
Subjective Progress Note Date: 07/01/19 This is a 34-year-old female known to ID service as she was recently treated in April for osteomyelitis of the lateral right foot. Patient was discharged to [facility] and completed a 6 week course of Rocephin. Patient has [facility] with Dr. Gibson. Her last appointment was June 23 status post debridement and wound care is in the form of honey alginate changed on Sunday and Sunday. Patient was brought into [facility] emergency center due to mental status change and increased sleeping over the past 24 hours and decreased oral intake. She was found to be febrile at 101.8, tachycardic, white count 16.4. Other lab work revealed BUN of 17, creatinine 1.14, blood sugar 234. Total bilirubin 2.6 and AST 62, albumin 4.1. Urine trace protein and culture is in progress. HCG and urine drug screen were negative. Ammonia level less than 9. Initial lactic acid 2.1 and repeat 1.1. She is status post 3 L of fluid and was started on Zosyn. Repeat lab work this morning reveals a white count of 9.4, platelet count 125. X-ray of the right foot is stable findings. Chest x-ray showed no acute cardiopulmonary process. CAT scan of the brain showed no acute intracranial hemorrhage, mass effect, or midline shift. Patient is complaining of right upper quadrant abdominal pain and tenderness. She states she is not feeling back to her baseline. She denies pain in her right foot. Patient states some of her abdominal pain was related to constipation and she did have a bowel movement last night. She denies having any diarrhea. No nausea or vomiting. 07/01/2019 patient still feeling poorly. However ultrasound is normal Babel show evidence of significant gallstones with cholecystitis and she is to be taken to the operative room later today for her laparoscopic cholecystectomy. It is thought that the gallbladder is the current source of her abdominal pain and illness. Objective - Vital Signs Vital signs: Vital Signs Temp 97.6 F 07/01/19 20:25 Pulse 83 07/01/19 20:40 Resp 16 07/01/19 20:40 BP 132/63 07/01/19 20:40 Pulse Ox 95 07/01/19 20:40 Intake & Output 07/01/19 07/01/19 07/02/19 06:59 18:59 06:59 Intake Total 250 240 800 Output Total 20 Balance 250 240 780 Intake: IV 800 Intake, IV Titration 100 Amount Piperacillin-Tazobactam 3 100 .375 gm In Sodium Chloride 0.9% 100 ml @ 25 mls/hr IVPB Q8HR [facility] Rx# :[id number] Oral 150 240 Output: Estimated Blood Loss 20 Other: # Voids 2 - Exam Gen: This is an obese 34-year-old female. Patient is resting in bed appears to be comfortable and in no acute distress. HEENT: Head is atraumatic, normocephalic. Left pupil is dilated. Right pupil round and reactive to light. Sclerae is anicteric. Oral mucous membranes are moist. Dentition is in poor order. Mid frontal lobe bilateral alopecia which patient states present since her brain surgery. NECK: Supple. No JVD. No lymphadenopathy. No thyromegaly. LUNGS: Clear to auscultation. No wheezes or rhonchi. No intercostal retractions. HEART: Regular rate and rhythm. No murmur. ABDOMEN: Soft. Bowel sounds are present. No masses. Right upper quadrant tenderness. The abdomen is not rigid EXTREMITIES: Ulcer to the right foot lateral fifth metatarsal, no drainage, no foul order, there is surrounding erythema and warmth. Dorsalis pedis +2 bilaterally. NEUROLOGICAL: Patient is awake, alert and oriented x3. - Labs CBC & Chem 7: 07/01/19 07:36 07/01/19 07:36 Labs: Abnormal Lab Results - Last 24 Hours (Table) 07/01/19 07/01/19 07/01/19 Range/Units 02:24 06:38 07:36 WBC 12.8 H (3.8-10.6) k/uL RBC 3.45 L (3.80-5.40) m/uL Hgb 10.7 L (11.4-16.0) gm/dL Hct 32.0 L (34.0-46.0) % Neutrophils # 11.4 H (1.3-7.7) k/uL Lymphocytes # 0.9 L (1.0-4.8) k/uL Chloride (98-107) mmol/L Glucose (74-99) mg/dL POC Glucose (mg/dL) 113 H 117 H (75-99) mg/dL Albumin (3.5-5.0) g/dL 07/01/19 07/01/19 Range/Units 07:36 11:33 WBC (3.8-10.6) k/uL RBC (3.80-5.40) m/uL Hgb (11.4-16.0) gm/dL Hct (34.0-46.0) % Neutrophils # (1.3-7.7) k/uL Lymphocytes # (1.0-4.8) k/uL Chloride 111 H (98-107) mmol/L Glucose 116 H (74-99) mg/dL POC Glucose (mg/dL) 110 H (75-99) mg/dL Albumin 3.4 L (3.5-5.0) g/dL Microbiology - Last 24 Hours (Table) 06/29/19 15:45 Blood Culture - Preliminary Blood No Growth after 48 hours 06/29/19 15:45 Urine Culture - Final Urine,Catheterized Laboratory Results WBC 12.8 k/uL (3.8-10.6) H 07/01/19 07:36 RBC 3.45 m/uL (3.80-5.40) L 07/01/19 07:36 Hgb 10.7 gm/dL (11.4-16.0) L 07/01/19 07:36 Hct 32.0 % (34.0-46.0) L 07/01/19 07:36 MCV 92.8 fL (80.0-100.0) 07/01/19 07:36 MCH 31.1 pg (25.0-35.0) 07/01/19 07:36 MCHC 33.5 g/dL (31.0-37.0) 07/01/19 07:36 RDW 12.8 % (11.5-15.5) 07/01/19 07:36 Plt Count 159 k/uL (150-450) 07/01/19 07:36 Neutrophils % 89 % 07/01/19 07:36 Lymphocytes % 7 % 07/01/19 07:36 Monocytes % 2 % 07/01/19 07:36 Eosinophils % 1 % 07/01/19 07:36 Basophils % 0 % 07/01/19 07:36 Neutrophils # 11.4 k/uL (1.3-7.7) H 07/01/19 07:36 Lymphocytes # 0.9 k/uL (1.0-4.8) L 07/01/19 07:36 Monocytes # 0.2 k/uL (0-1.0) 07/01/19 07:36 Eosinophils # 0.1 k/uL (0-0.7) 07/01/19 07:36 Basophils # 0.0 k/uL (0-0.2) 07/01/19 07:36 PT 11.6 sec (9.0-12.0) 06/29/19 15:45 INR 1.1 (<1.2) 06/29/19 15:45 APTT 28.9 sec (22.0-30.0) 06/29/19 15:45 Sodium 141 mmol/L (137-145) 07/01/19 07:36 Potassium 4.1 mmol/L (3.5-5.1) 07/01/19 07:36 Chloride 111 mmol/L (98-107) H 07/01/19 07:36 Carbon Dioxide 23 mmol/L (22-30) 07/01/19 07:36 Anion Gap 7 mmol/L 07/01/19 07:36 BUN 10 mg/dL (7-17) 07/01/19 07:36 Creatinine 0.64 mg/dL (0.52-1.04) 07/01/19 07:36 Est GFR (CKD-EPI)AfAm >90 (>60 ml/min/1.73 sqM) 07/01/19 07:36 Est GFR (CKD-EPI)NonAf >90 (>60 ml/min/1.73 sqM) 07/01/19 07:36 Glucose 116 mg/dL (74-99) H 07/01/19 07:36 POC Glucose (mg/dL) 87 mg/dL (75-99) 07/01/19 20:39 POC Glu Knitter Operator ID Annie Mccall 07/01/19 20:[address] Glu mg/dL 146 06/30/19 06:43 Hemoglobin A1c 6.7 % (4.0-6.0) H 06/30/19 06:43 Lactic Ac Sepsis Rflx Y 06/29/19 18:41 Plasma Lactic Acid William 1.1 mmol/L (0.7-2.0) 06/29/19 22:09 Calcium 8.4 mg/dL (8.4-10.2) 07/01/19 07:36 Total Bilirubin 0.8 mg/dL (0.2-1.3) 07/01/19 07:36 AST 29 U/L (14-36) 07/01/19 07:36 ALT 27 U/L (9-52) 07/01/19 07:36 Alkaline Phosphatase 82 U/L (38-126) 07/01/19 07:36 Ammonia <9 umol/L (<30) 06/29/19 15:45 Creatine Kinase 49 U/L (30-135) 06/29/19 15:45 Troponin I <0.012 ng/mL (0.000-0.034) 06/29/19 15:45 Total Protein 6.5 g/dL (6.3-8.2) 07/01/19 07:36 Albumin 3.4 g/dL (3.5-5.0) L 07/01/19 07:36 HCG, Qual Not Detected 07/01/19 07:36 Urine Color Yellow 06/29/19 15:45 Urine Appearance Clear (Clear) 06/29/19 15:45 Urine pH 7.5 (5.0-8.0) 06/29/19 15:45 Ur Specific [place] 1.020 (1.001-1.035) 06/29/19 15:45 Urine Protein Trace (Negative) H 06/29/19 15:45 Urine Glucose (UA) Negative (Negative) 06/29/19 15:45 Urine Ketones Negative (Negative) 06/29/19 15:45 Urine Blood Negative (Negative) 06/29/19 15:45 Urine Nitrite Negative (Negative) 06/29/19 15:45 Urine Bilirubin Negative (Negative) 06/29/19 15:45 Urine Urobilinogen 3.0 mg/dL (<2.0) 06/29/19 15:45 Ur Leukocyte Esterase Negative (Negative) 06/29/19 15:45 Urine HCG, Qual Not Detected (Not Detectd) 06/29/19 15:45 Urine Opiates Screen Not Detected (NotDetected) 06/29/19 15:45 Ur Oxycodone Screen Not Detected (NotDetected) 06/29/19 15:45 Urine Methadone Screen Not Detected (NotDetected) 06/29/19 15:45 Ur Propoxyphene Screen Not Detected (NotDetected) 06/29/19 15:45 Ur Barbiturates Screen Not Detected (NotDetected) 06/29/19 15:45 U Tricyclic Antidepress Not Detected (NotDetected) 06/29/19 15:45 Ur Phencyclidine Scrn Not Detected (NotDetected) 06/29/19 15:45 Ur Amphetamines Screen Not Detected (NotDetected) 06/29/19 15:45 U Methamphetamines Scrn Not Detected (NotDetected) 06/29/19 15:45 U Benzodiazepines Scrn Not Detected (NotDetected) 06/29/19 15:45 Urine Cocaine Screen Not Detected (NotDetected) 06/29/19 15:45 U Marijuana (THC) Screen Not Detected (NotDetected) 06/29/19 15:45 Microbiology 06/29/19 15:45 Blood Blood Culture - Preliminary No Growth after 48 hours 06/29/19 15:45 Urine,Catheterized Urine Culture - Final Assessment and Plan (1) Fever Narrative/Plan: The referral and presents to Hospital again with about a fever not feeling well at admission with increasing fatigue and malaise. She is not feeling somewhat better after some fluid resuscitation. Following the wound center for the foot ulcerations. For now we'll continue local wound care with the therahoney product. Antibiotic therapy with Zosyn has been initiated a workup is in process. Because of infection is being evaluated. Elevation and optimization of diabetes is all in process. She had fever admission it's resolved she has no respiratory complaints in doubt influenza. 07/01/2019 as of the abdominal ultrasound is available revealed evidence of the chronic cholecystitis with multiple gallstones. She's been evaluated by surgery and there are plans for her going to the operating room this afternoon for the laparoscopic cholecystectomy. She is receiving antibiotic therapy with Zosyn which should give adequate coverage for cholecystitis and biliary infection. She will followed in the postoperative course. Current Visit: Yes Status: Acute Code(s): R50.9 - FEVER, UNSPECIFIED SNOMED Code(s): 622840570 (2) Acute on chronic cholecystitis concurrent with and due to calculus of gallbladder and bile duct Current Visit: Yes Status: Acute Code(s): K80.66 - CALCULUS OF GB AND BILE DUCT W AC AND CHR CHOLECYST W/O OBST SNOMED Code(s): 05016474468636
[2019-07-01] MEDS: predniSONE 1 MG TAB PO SCH (21:21)
[2019-07-01] MEDS: PIOGLITAZONE 30 MG TAB PO SCH (21:21)
[2019-07-01] MEDS: LEVOTHYROXINE 100 MCG TAB PO SCH (21:21)
[2019-07-01] MEDS: OXYBUTYNIN XL 5 MG TAB.ER.24 PO SCH (21:21)
[2019-07-01] MEDS: ATORVASTATIN 10 MG TAB PO SCH (21:22)
[2019-07-01] MEDS: ESCITALOPRAM 20 MG TAB PO SCH (21:22)
[2019-07-01] MEDS: ESTROGENS, CONJUGATED 0.3 MG TAB PO SCH (21:22)
[2019-07-02 01:46] LABS: Glucose,Whole Blood 83 mg/dL (75-99)
[2019-07-02 06:46] LABS: Glucose,Whole Blood 74 mg/dL (75-99)
[2019-07-02] MEDS: INSULIN ASPART (NovoLOG) 100 UNIT/ML VIAL SQ SCH ×3 (07:11→20:49)
[2019-07-02 07:35] LABS: Basophils # (A) 0.1 k/uL (0-0.2); Basophils % (A) 1 %; Eosinophils # (A) 0.2 k/uL (0-0.7); Eosinophils % (A) 2 %; HGB 10.5 gm/dL (11.4-16.0); Lymphocytes # (A) 1.3 k/uL (1.0-4.8); Lymphocytes % (A) 17 %; MCHC 32.9 g/dL (31.0-37.0); Mean Platelet Volume 8.2; Monocytes # (A) 0.4 k/uL (0-1.0); Monocytes % (A) 5 %; Neutrophils # (A) 5.6 k/uL (1.3-7.7); Neutrophils % (A) 74 %; Platelet Count 150 k/uL (150-450); WBC 7.6 k/uL (3.8-10.6)
[2019-07-02 07:48] LABS: ALT 33 U/L (9-52); AST 62 U/L (14-36); African American GFR (CKD) >90 (>60 ml/min/1.73 sqM); Albumin 2.8 g/dL (3.5-5.0); Alkaline Phosphatase 105 U/L (38-126); Anion Gap 6 mmol/L; Blood Urea Nitrogen 12 mg/dL (7-17); Calcium 7.9 mg/dL (8.4-10.2); Carbon Dioxide 26 mmol/L (22-30); Chloride 110 mmol/L (98-107); Glucose 79 mg/dL (74-99); Non-African American GFR(CKD) >90 (>60 ml/min/1.73 sqM); Potassium 3.9 mmol/L (3.5-5.1); Sodium 142 mmol/L (137-145); Total Bilirubin 0.8 mg/dL (0.2-1.3); Total Protein 5.7 g/dL (6.3-8.2)
[2019-07-02] MEDS: HEPARIN SODIUM,PORCINE 5,000 UNIT/ML 1 ML VIAL SQ SCH ×2 (10:03→20:37)
[2019-07-02] MEDS: PANTOPRAZOLE 40 MG TABLET PO SCH (10:03)
[2019-07-02] MEDS: PIPERACILLIN-TAZOBACTAM 3.375 GM in SODIUM CHLORIDE 0.9% 100 ML IVPB SCH ×3 (10:04→23:20)
[2019-07-02] MEDS ORDERED: HYDROmorphone 1 MG/ML 1 ML SYRINGE IVP PRN (10:05)
--- NOTE | 2019-07-02 10:24 | P.PN ---
<Vanessa Johnson Radha - Last Filed: 07/02/19 10:18> Subjective Progress Note Date: 07/02/19 CHIEF COMPLAINT: Gallstones HISTORY OF PRESENT ILLNESS: 34-year-old female who is status post laparoscopic cholecystectomy secondary to acute gangrenous cholecystitis. POD #1. Patient examined this morning at the bedside. She is lethargic but awakes easily to verbal stimuli. She reports her abdominal pain is tolerable. Denies nausea or vomiting. She is tolerating clear liquid diet. Patient has not been OOB yet this morning but PT is able to work with patient at the time of my examination. WBC 7.6. Hemoglobin 10.5. Bilirubin 0.8. AST 62. ALT 33. PHYSICAL EXAM: VITAL SIGNS: Reviewed. GENERAL: Well-developed in no acute distress. HEENT: No sclera icterus. Extraocular movements grossly intact. Moist buccal mucosa. Head is atraumatic, normocephalic. ABDOMEN: Soft. Nondistended. Appropriate surgical tenderness. ISAAC with serosanguineous drainage NEUROLOGIC: Alert and oriented. Cranial nerves II through XII grossly intact. ASSESSMENT: 1. Right upper quadrant abdominal pain 2. Cholelithiasis, acute gangrenous cholecystitis, status post lap monica 3. Elevated bilirubin, resolved 4. Mildly elevated LFTs, resolved PLAN: -Continue clear liquid diet. Advance as tolerated -Pain control. Will add [place] PRN -Increase activity as tolerated. PT/OT on consult. -Incentive spirometry -Continue to monitor drainage from ISAAC drain Nurse practitioner note has been reviewed by physician. Signing provider agrees with the documented findings, assessment, and plan of care. Objective - Vital Signs Vital signs: Vital Signs Temp 98.3 F 07/02/19 07:00 Pulse 82 07/02/19 07:00 Resp 16 07/02/19 07:00 BP 104/71 07/02/19 07:00 Pulse Ox 97 07/02/19 07:00 Intake & Output 07/01/19 07/02/19 07/02/19 18:59 06:59 18:59 Intake Total 240 1929 Output Total 790 Balance 240 1139 Intake: IV 850 Intake, IV Titration 579 Amount 0.9% NaCl with KCl 20 Meq 479 /l 1,000 ml @ 100 mls/hr IV .BY DURATION [facility] Rx#: [id number] Piperacillin-Tazobactam 3 100 .375 gm In Sodium Chloride 0.9% 100 ml @ 25 mls/hr IVPB Q8HR [facility] Rx# :[id number] Oral 240 500 Output: Drainage 250 Right 250 Urine 520 Straight 520 Post Void Residual 0 Estimated Blood Loss 20 Other: # Voids 2 - Labs CBC & Chem 7: 07/02/19 06:27 07/02/19 06:27 Labs: Abnormal Lab Results - Last 24 Hours (Table) 07/01/19 07/02/19 07/02/19 Range/Units 11:33 06:27 06:27 RBC 3.40 L (3.80-5.40) m/uL Hgb 10.5 L (11.4-16.0) gm/dL Hct 32.0 L (34.0-46.0) % Chloride 110 H (98-107) mmol/L POC Glucose (mg/dL) 110 H (75-99) mg/dL Calcium 7.9 L (8.4-10.2) mg/dL AST 62 H (14-36) U/L Total Protein 5.7 L (6.3-8.2) g/dL Albumin 2.8 L (3.5-5.0) g/dL 07/02/19 Range/Units 06:44 RBC (3.80-5.40) m/uL Hgb (11.4-16.0) gm/dL Hct (34.0-46.0) % Chloride (98-107) mmol/L POC Glucose (mg/dL) 74 L (75-99) mg/dL Calcium (8.4-10.2) mg/dL AST (14-36) U/L Total Protein (6.3-8.2) g/dL Albumin (3.5-5.0) g/dL Microbiology - Last 24 Hours (Table) 06/29/19 15:45 Blood Culture - Preliminary Blood No Growth after 48 hours <Nikos Jj - Last Filed: 07/02/19 12:41> Subjective As above. Patient somewhat sleepy after giving narcotics earlier today. Labs noted. ISAAC drain is serosanguineous. Continue analgesics but decrease dosage. Increase activity. Advance diet as tolerated. Objective - Vital Signs Vital signs: Vital Signs Temp 98.3 F 07/02/19 07:00 Pulse 101 H 07/02/19 12:35 Resp 16 07/02/19 07:00 BP 113/76 07/02/19 12:35 Pulse Ox 94 L 07/02/19 12:35 Intake & Output 07/01/19 07/02/19 07/02/19 18:59 06:59 18:59 Intake Total 240 1929 240 Output Total 790 50 Balance 240 1139 190 Intake: IV 850 Intake, IV Titration 579 Amount 0.9% NaCl with KCl 20 Meq 479 /l 1,000 ml @ 100 mls/hr IV .BY DURATION [facility] Rx#: [id number] Piperacillin-Tazobactam 3 100 .375 gm In Sodium Chloride 0.9% 100 ml @ 25 mls/hr IVPB Q8HR [facility] Rx# :[id number] Oral 240 500 240 Output: Drainage 250 50 Right 250 50 Urine 520 Straight 520 Post Void Residual 0 Estimated Blood Loss 20 Other: # Voids 2 - Labs CBC & Chem 7: 07/02/19 06:27 07/02/19 06:27 Labs: Abnormal Lab Results - Last 24 Hours (Table) 07/02/19 07/02/19 07/02/19 Range/Units 06:27 06:27 06:44 RBC 3.40 L (3.80-5.40) m/uL Hgb 10.5 L (11.4-16.0) gm/dL Hct 32.0 L (34.0-46.0) % Chloride 110 H (98-107) mmol/L POC Glucose (mg/dL) 74 L (75-99) mg/dL Calcium 7.9 L (8.4-10.2) mg/dL AST 62 H (14-36) U/L Total Protein 5.7 L (6.3-8.2) g/dL Albumin 2.8 L (3.5-5.0) g/dL 07/02/19 Range/Units 11:41 RBC (3.80-5.40) m/uL Hgb (11.4-16.0) gm/dL Hct (34.0-46.0) % Chloride (98-107) mmol/L POC Glucose (mg/dL) 113 H (75-99) mg/dL Calcium (8.4-10.2) mg/dL AST (14-36) U/L Total Protein (6.3-8.2) g/dL Albumin (3.5-5.0) g/dL Microbiology - Last 24 Hours (Table) 06/29/19 15:45 Blood Culture - Preliminary Blood No Growth after 48 hours
[2019-07-02] MEDS ORDERED: HYDROmorphone 0.5 MG/0.5 ML SYRINGE IVP PRN (11:41)
[2019-07-02] MEDS ORDERED: KETOROLAC 30 MG/ML 1 ML VIAL IVP PRN (11:42)
[2019-07-02 11:45] LABS: Glucose,Whole Blood 113 mg/dL (75-99)
--- NOTE | 2019-07-02 13:09 | XR ---
EXAMINATION TYPE: XR chest 1V portable DATE OF EXAM: 07/02/2019 COMPARISON: 06/29/2019 INDICATION: Dehydration lethargic, fever TECHNIQUE: Single frontal view of the chest is obtained. FINDINGS: The heart size is moderately prominent. The pulmonary vasculature is within normal limits. Small infiltrate is at the left base. Degree of inspiration is limited. IMPRESSION: 1. Very minimally. 2. Left lower lobe infiltrate. Correlate for atelectasis or pneumonia. 3. Overt congestive heart failure not radiographically apparent. Note this can lag behind clinical fi ndings and follow-up can be performed as clinically indicated.
--- NOTE | 2019-07-02 15:09 | P.PN ---
Subjective Progress Note Date: 07/02/19 Principal diagnosis: This is a 34-year-old female who was recently admitted with a change in mental status and a decrease in oral intake and is being closely monitored. Patient was recently receiving IV antibiotic therapy and following up with the wound care center for a right foot diabetic osteomyelitis. Patient states that she recently underwent debridement of the right foot ulcer last week. Infectious disease was consulted. No acute overnight issues. Patient continues to be slightly delayed with responses and slightly confused. Patient denies any chest pain, shortness of breath, or palpitations. Patient has been afebrile. Patient denies any nausea or vomiting and is tolerating diet. Patient states that she has some discomfort in the right upper quadrant. Patient states that she is passing gas and having bowel movements. 07/01/2019 Patient is sitting up in bed in no acute distress with no acute overnight issues. Infectious disease is following. Patient continues to have some right upper quadrant pain and underwent an abdominal ultrasound yesterday showing numerous gallstones. Surgery was consulted. Patient states that she is passing gas and had a bowel movement yesterday and has tolerated diet this morning. Currently patient denies any chest pain, shortness of breath, or palpitations. Patient has been afebrile. Patient denies any nausea or vomiting. Patient's mentation is slightly improved from yesterday and is a little more awake and a lert today. Will continue to monitor closely. 07/02/2019 Patient is sitting up in the chair sleeping but arousable. No acute overnight issues. Patient is quite lethargic today status post laparoscopic cholecystectomy. Surgery is following. Patient states that she is having some discomfort in the abdomen near the ISAAC drain but is tolerable. Patient is currently on clear liquid diet and tolerating well. Patient denies any chest pain, shortness of breath, or palpitations. Patient has been afebrile. Patient denies any nausea or vomiting at this time. Patient states that she is passing gas but has not had a bowel movement yet. PT/OT following. Will continue to monitor closely. Objective - Vital Signs Vital signs: Vital Signs Temp 98.3 F 07/02/19 07:00 Pulse 101 H 07/02/19 12:35 Resp 16 07/02/19 07:00 BP 113/76 07/02/19 12:35 Pulse Ox 94 L 07/02/19 12:35 Intake & Output 07/01/19 07/02/19 07/02/19 18:59 06:59 18:59 Intake Total 240 1929 240 Output Total 790 50 Balance 240 1139 190 Intake: IV 850 Intake, IV Titration 579 Amount 0.9% NaCl with KCl 20 Meq 479 /l 1,000 ml @ 100 mls/hr IV .BY DURATION [facility] Rx#: [id number] Piperacillin-Tazobactam 3 100 .375 gm In Sodium Chloride 0.9% 100 ml @ 25 mls/hr IVPB Q8HR [facility] Rx# :[id number] Oral 240 500 240 Output: Drainage 250 50 Right 250 50 Urine 520 Straight 520 Post Void Residual 0 Estimated Blood Loss 20 Other: # Voids 2 - Exam Gen: This is a 34-year-old female sitting up in the chair in no acute distress. Temp is 98.3F, pulse is 82, respirations are 16, blood pressure is 104/71, oxygen saturation is 97 % on 3 L via nasal cannula. HEENT: Head is atraumatic, normocephalic. Pupils equal, round. Sclerae is anicteric. Conjunctivae pale, oral mucosa is dry NECK: Supple. No JVD. No lymphadenopathy. No thyromegaly. LUNGS: Diminished breath sounds at the bases with a few scattered rhonchi noted. No intercostal retractions. HEART: S1, S2 are muffled ABDOMEN: Soft. Obese. Bowel sounds are present. No masses. Mild tenderness noted of the right upper quadrant upon palpation. ISAAC drain present with serosanguineous drainage noted. EXTREMITIES: No pedal edema. No calf tenderness. NEUROLOGICAL: Patient is asleep but arousable, alert and oriented x3. Cranial nerves 2 through 12 are grossly intact. SKIN: Right foot lateral aspect ulceration noted with minimal redness and no swelling - Labs CBC & Chem 7: 07/02/19 06:27 07/02/19 06:27 Labs: Abnormal Lab Results - Last 24 Hours (Table) 07/02/19 07/02/19 07/02/19 Range/Units 06:27 06:27 06:44 RBC 3.40 L (3.80-5.40) m/uL Hgb 10.5 L (11.4-16.0) gm/dL Hct 32.0 L (34.0-46.0) % Chloride 110 H (98-107) mmol/L POC Glucose (mg/dL) 74 L (75-99) mg/dL Calcium 7.9 L (8.4-10.2) mg/dL AST 62 H (14-36) U/L Total Protein 5.7 L (6.3-8.2) g/dL Albumin 2.8 L (3.5-5.0) g/dL 07/02/19 Range/Units 11:41 RBC (3.80-5.40) m/uL Hgb (11.4-16.0) gm/dL Hct (34.0-46.0) % Chloride (98-107) mmol/L POC Glucose (mg/dL) 113 H (75-99) mg/dL Calcium (8.4-10.2) mg/dL AST (14-36) U/L Total Protein (6.3-8.2) g/dL Albumin (3.5-5.0) g/dL Microbiology - Last 24 Hours (Table) 06/29/19 15:45 Blood Culture - Preliminary Blood No Growth after 48 hours Assessment and Plan Assessment: Change in mental status, acute metabolic encephalopathy, possibly secondary to sepsis Cholelithiasis as noted on abdominal ultrasound Acute gangrenous cholecystitis, status post laparoscopic cholecystectomy Right foot diabetic ulcer as a cause of possible sepsis Dehydration with acute renal failure, acute prerenal acute tubular necrosis Diabetes mellitus type 2, uncontrolled with hyperglycemia Elevated bilirubin and AST, possibly indicating hepatitis of undetermined etiology History of recent osteomyelitis of the right foot, status post IV antibiotics Hyperlipidemia 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 Recommendations and discussion: Recommend to continue current medications, management, and symptomatic treatment. We'll continue to monitor closely. Infectious disease and surgery are following. Patient underwent laparoscopic cholecystectomy with Dr. Walsh yesterday. Patient is currently on IV antibiotics in the form of Zosyn and will continue at this time. Blood and urine cultures thus far have been negative. Patient was having some wheezing and breathing treatments were ordered. Chest x-ray today shows left lower lobe infiltrate. Discussed with the patient about continuing to use incentive spirometer obese 10 times every hour while awake along with coughing and deep breathing. Will repeat a.m. labs. Guarded prognosis. Further recommendations to follow.
[2019-07-02] MEDS: IPRATROPIUM-ALBUTEROL 3 ML NEB INHALATION SCH ×2 (15:41→19:14)
[2019-07-02 16:29] LABS: Glucose,Whole Blood 169 mg/dL (75-99)
[2019-07-02] MEDS: SODIUM CHLORIDE 0.9% 1,000 ML IV SCH (18:12)
[2019-07-02] MEDS: ATORVASTATIN 10 MG TAB PO SCH (20:36)
[2019-07-02] MEDS: ESTROGENS, CONJUGATED 0.3 MG TAB PO SCH (20:36)
[2019-07-02] MEDS: PIOGLITAZONE 30 MG TAB PO SCH (20:36)
[2019-07-02] MEDS: ESCITALOPRAM 20 MG TAB PO SCH (20:37)
[2019-07-02] MEDS: BRIMONIDINE TARTRATE 0.2% DROPS 5 ML BTL BOTH EYES SCH (20:37)
[2019-07-02] MEDS: predniSONE 1 MG TAB PO SCH (20:37)
[2019-07-02] MEDS: OXYBUTYNIN XL 5 MG TAB.ER.24 PO SCH (20:37)
[2019-07-02] MEDS: LEVOTHYROXINE 100 MCG TAB PO SCH (20:37)
[2019-07-02] MEDS: DORZOLAMIDE HCL 2% DROPS 10 ML BTL BOTH EYES SCH (20:38)
[2019-07-02] MEDS: TIMOLOL 0.5% OPHTH DROPS 5 ML BTL BOTH EYES SCH (20:38)
[2019-07-02] MEDS: HYDROcodone/APAP 5-325MG 1 EACH TAB PO PRN (20:42)
[2019-07-02 20:54] LABS: Glucose,Whole Blood 81 mg/dL (75-99)
[2019-07-03 02:38] LABS: Glucose,Whole Blood 103 mg/dL (75-99)
[2019-07-03 07:04] LABS: Glucose,Whole Blood 140 mg/dL (75-99)
[2019-07-03] MEDS: PIPERACILLIN-TAZOBACTAM 3.375 GM in SODIUM CHLORIDE 0.9% 100 ML IVPB SCH ×3 (07:15→23:14)
[2019-07-03] MEDS: PANTOPRAZOLE 40 MG TABLET PO SCH (07:15)
[2019-07-03] MEDS: HEPARIN SODIUM,PORCINE 5,000 UNIT/ML 1 ML VIAL SQ SCH ×2 (07:15→20:22)
[2019-07-03] MEDS: HYDROcodone/APAP 5-325MG 1 EACH TAB PO PRN (07:15)
[2019-07-03] MEDS: INSULIN ASPART (NovoLOG) 100 UNIT/ML VIAL SQ SCH ×4 (07:16→20:39)
[2019-07-03] MEDS: BRIMONIDINE TARTRATE 0.2% DROPS 5 ML BTL BOTH EYES SCH ×2 (07:17→20:22)
[2019-07-03] MEDS: TIMOLOL 0.5% OPHTH DROPS 5 ML BTL BOTH EYES SCH ×2 (07:17→20:32)
[2019-07-03] MEDS: DORZOLAMIDE HCL 2% DROPS 10 ML BTL BOTH EYES SCH ×2 (07:17→20:29)
[2019-07-03] MEDS: IPRATROPIUM-ALBUTEROL 3 ML NEB INHALATION SCH ×4 (07:56→21:16)
[2019-07-03 08:11] LABS: Basophils % (A) 0 %; Eosinophils # (A) 0.1 k/uL (0-0.7); Eosinophils % (A) 1 %; HCT 29.2 % (34.0-46.0); HGB 9.7 gm/dL (11.4-16.0); Lymphocytes # (A) 0.7 k/uL (1.0-4.8); Lymphocytes % (A) 13 %; MCHC 33.2 g/dL (31.0-37.0); MCV 93.5 fL (80.0-100.0); Mean Platelet Volume 8.3; Monocytes # (A) 0.3 k/uL (0-1.0); Monocytes % (A) 5 %; Neutrophils # (A) 4.7 k/uL (1.3-7.7); Neutrophils % (A) 81 %; Platelet Count 144 k/uL (150-450); RBC 3.12 m/uL (3.80-5.40); RDW 12.9 % (11.5-15.5); WBC 5.9 k/uL (3.8-10.6)
[2019-07-03 08:21] LABS: African American GFR (CKD) >90 (>60 ml/min/1.73 sqM); Anion Gap 7 mmol/L; Blood Urea Nitrogen 7 mg/dL (7-17); Calcium 7.8 mg/dL (8.4-10.2); Carbon Dioxide 26 mmol/L (22-30); Chloride 108 mmol/L (98-107); Glucose 139 mg/dL (74-99); Non-African American GFR(CKD) >90 (>60 ml/min/1.73 sqM); Potassium 4.2 mmol/L (3.5-5.1); Sodium 141 mmol/L (137-145)
[2019-07-03 11:52] LABS: Glucose,Whole Blood 128 mg/dL (75-99)
--- NOTE | 2019-07-03 12:13 | P.PN ---
Subjective Progress Note Date: 07/03/19 Principal diagnosis: Acute cholecystitis Patient doing better today. More alert. Tolerating diet. ISAAC is serosanguineous. Objective - Vital Signs Vital signs: Vital Signs Temp 98.3 F 07/03/19 07:00 Pulse 77 07/03/19 07:00 Resp 16 07/03/19 07:00 BP 103/68 07/03/19 11:54 Pulse Ox 97 07/03/19 07:00 Intake & Output 07/02/19 07/03/19 07/03/19 18:59 06:59 18:59 Intake Total 1140 1360 125 Output Total 620 895 50 Balance 520 465 75 Intake: Intake, IV Titration 900 1160 Amount 0.9% NaCl with KCl 20 Meq 800 1000 /l 1,000 ml @ 100 mls/hr IV .BY DURATION [facility] Rx#: [id number] Piperacillin-Tazobactam 3 100 .375 gm In Sodium Chloride 0.9% 100 ml @ 25 mls/hr IVPB Q8HR [facility] Rx# :[id number] Sodium Chloride 0.9% 1, 160 000 ml @ 80 mls/hr IV . [id number] [facility] Rx#:[id number] Oral 240 200 125 Output: Drainage 120 295 50 Right 120 295 50 Urine 500 600 Straight 500 Other: Voiding Method Indwelling Catheter Indwelling Catheter - Exam Abdomen: Soft, nondistended, incisions clean and dry, mild tenderness - Labs CBC & Chem 7: 07/03/19 06:59 07/03/19 06:59 Labs: Abnormal Lab Results - Last 24 Hours (Table) 07/02/19 07/03/19 07/03/19 Range/Units 16:27 02:36 06:59 RBC 3.12 L (3.80-5.40) m/uL Hgb 9.7 L (11.4-16.0) gm/dL Hct 29.2 L (34.0-46.0) % Plt Count 144 L (150-450) k/uL Lymphocytes # 0.7 L (1.0-4.8) k/uL Chloride (98-107) mmol/L Glucose (74-99) mg/dL POC Glucose (mg/dL) 169 H 103 H (75-99) mg/dL Calcium (8.4-10.2) mg/dL 07/03/19 07/03/19 07/03/19 Range/Units 06:59 07:02 11:51 RBC (3.80-5.40) m/uL Hgb (11.4-16.0) gm/dL Hct (34.0-46.0) % Plt Count (150-450) k/uL Lymphocytes # (1.0-4.8) k/uL Chloride 108 H (98-107) mmol/L Glucose 139 H (74-99) mg/dL POC Glucose (mg/dL) 140 H 128 H (75-99) mg/dL Calcium 7.8 L (8.4-10.2) mg/dL Microbiology - Last 24 Hours (Table) 06/29/19 15:45 Blood Culture - Preliminary Blood No Growth after 72 hours Assessment and Plan (1) Acute on chronic cholecystitis concurrent with and due to calculus of gallbladder and bile duct Narrative/Plan: Continue low-fat diet. Ambulate. Keep drain in place. Current Visit: Yes Status: Acute Code(s): K80.66 - CALCULUS OF GB AND BILE DUCT W AC AND CHR CHOLECYST W/O OBST SNOMED Code(s): 75854259460045
[2019-07-03 16:35] LABS: Glucose,Whole Blood 115 mg/dL (75-99)
[2019-07-03 18:39] LABS: ALT 33 U/L (9-52); AST 47 U/L (14-36); African American GFR (CKD) >90 (>60 ml/min/1.73 sqM); Albumin 2.8 g/dL (3.5-5.0); Alkaline Phosphatase 145 U/L (38-126); Anion Gap 4 mmol/L; Blood Urea Nitrogen 8 mg/dL (7-17); Calcium 7.7 mg/dL (8.4-10.2); Carbon Dioxide 26 mmol/L (22-30); Chloride 108 mmol/L (98-107); Glucose 105 mg/dL (74-99); Non-African American GFR(CKD) >90 (>60 ml/min/1.73 sqM); Sodium 138 mmol/L (137-145); Total Bilirubin 0.6 mg/dL (0.2-1.3); Total Protein 5.7 g/dL (6.3-8.2)
[2019-07-03] MEDS: PIOGLITAZONE 30 MG TAB PO SCH (20:19)
[2019-07-03] MEDS: ATORVASTATIN 10 MG TAB PO SCH (20:19)
[2019-07-03] MEDS: LEVOTHYROXINE 100 MCG TAB PO SCH (20:19)
[2019-07-03] MEDS: predniSONE 1 MG TAB PO SCH (20:19)
[2019-07-03] MEDS: OXYBUTYNIN XL 5 MG TAB.ER.24 PO SCH (20:19)
[2019-07-03] MEDS: ESCITALOPRAM 20 MG TAB PO SCH (20:19)
[2019-07-03] MEDS: ESTROGENS, CONJUGATED 0.3 MG TAB PO SCH (20:21)
[2019-07-03 20:39] LABS: Glucose,Whole Blood 97 mg/dL (75-99)
--- NOTE | 2019-07-03 22:47 | PN ---
PROGRESS NOTE DATE OF SERVICE: 07/03/2019. This 34-year-old woman was admitted with change in mental status, metabolic encephalopathy, also had cholelithiasis and cholecystitis and possible gangrenous cholecystitis and with sepsis also. The patient underwent surgery. The patient is tolerating a diet and ISAAC drainage is serosanguineous. The patient complains of weakness today. PAST MEDICAL HISTORY: Reviewed. CURRENT MEDICATIONS: 1. Tylenol 650 q.6 hours. 2. [place] 5 mg q.4 p.r.n. 3. DuoNeb q.i.d. and p.r.n. 4. Lipitor 10 mg q.h.s. 5. Alphagan eye drops. 6. Trusopt 1 drop both eyes. 7. Vitamin D2 50,000 p.o. Sunday. 8. Lexapro 20 mg q.h.s. 9. Heparin. 10.Dilaudid. 11.NovoLog. 12.Toradol. 13.Synthroid. 14.Narcan. 15.Ditropan. 16.Protonix. 17.Actos. 18.Zosyn IV. 19.Timoptic. Doses were reviewed. PHYSICAL EXAM: Patient is alert, oriented x3. Pulse is a 77, blood pressure 113/70, respirations 16, temperature 98.2, pulse ox 97% on 3 L. HEENT: Conjunctivae normal. Oral mucosa moist. NECK: No jugular venous distention. No lymph node enlargement. CARDIOVASCULAR: S1, S2. RESPIRATORY: Diminished breath sounds at the bases. Bilateral scattered rhonchi and crackles. ABDOMEN: Soft. Status post surgery. LEGS: No swelling. NERVOUS SYSTEM: No focal deficits. LABS: WBC 5.2, hemoglobin 9.7. Accu-Cheks are noted. ASSESSMENT: 1. Acute gangrenous cholecystitis with cholelithiasis with sepsis present on admission, status post laparoscopic cholecystectomy. 2. Change in mental status, metabolic encephalopathy, possibly acute, possibly secondary to sepsis. 3. Right foot diabetic ulcer as a cause of possible sepsis. 4. Dehydration with acute renal failure, possibly with acute prerenal acute tubular necrosis. 5. Diabetes mellitus type 2, uncontrolled with hyperglycemia. 6. Elevated bilirubin and AST, possibly indicating hepatitis of undetermined etiology. 7. History of recent osteomyelitis of the right foot status post IV antibiotics. 8. Hyperlipidemia. 9. 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 10.Glaucoma. 11.Degenerative joint disease. 12.Hypothyroidism. 13.Depression. 14.History of a body mass index of 36.4 with obesity. RECOMMENDATIONS AND DISCUSSION: Recommend to continue current medications, continue symptomatic treatment, continue the broad-spectrum IV antibiotics. Repeat labs. Otherwise, I would recommend repeat liver functions to document improvement. Otherwise, continue to monitor. Further recommendations to follow. We will await further cultures. Also recommend orthostatic vitals. Encourage p.o. fluids. MMODL / IJN: [id number] /
[2019-07-04 03:30] LABS: Glucose,Whole Blood 149 mg/dL (75-99)
[2019-07-04 06:56] LABS: Glucose,Whole Blood 135 mg/dL (75-99)
[2019-07-04 07:37] LABS: Basophils % (A) 0 %; Eosinophils # (A) 0.1 k/uL (0-0.7); Eosinophils % (A) 2 %; HCT 27.1 % (34.0-46.0); HGB 9.1 gm/dL (11.4-16.0); Lymphocytes # (A) 0.8 k/uL (1.0-4.8); Lymphocytes % (A) 13 %; MCHC 33.5 g/dL (31.0-37.0); MCV 92.4 fL (80.0-100.0); Mean Platelet Volume 6.8; Monocytes # (A) 0.2 k/uL (0-1.0); Monocytes % (A) 4 %; Neutrophils # (A) 4.7 k/uL (1.3-7.7); Neutrophils % (A) 79 %; Platelet Count 137 k/uL (150-450); RBC 2.93 m/uL (3.80-5.40); RDW 12.9 % (11.5-15.5); WBC 5.9 k/uL (3.8-10.6)
[2019-07-04] MEDS: HEPARIN SODIUM,PORCINE 5,000 UNIT/ML 1 ML VIAL SQ SCH ×2 (08:06→20:53)
[2019-07-04] MEDS: PANTOPRAZOLE 40 MG TABLET PO SCH (08:06)
[2019-07-04] MEDS: PIPERACILLIN-TAZOBACTAM 3.375 GM in SODIUM CHLORIDE 0.9% 100 ML IVPB SCH ×2 (08:07→16:01)
[2019-07-04] MEDS: TIMOLOL 0.5% OPHTH DROPS 5 ML BTL BOTH EYES SCH ×2 (08:07→20:55)
[2019-07-04] MEDS: IPRATROPIUM-ALBUTEROL 3 ML NEB INHALATION SCH ×4 (08:07→19:36)
[2019-07-04] MEDS: INSULIN ASPART (NovoLOG) 100 UNIT/ML VIAL SQ SCH ×5 (08:07→20:48)
[2019-07-04] MEDS: BRIMONIDINE TARTRATE 0.2% DROPS 5 ML BTL BOTH EYES SCH ×2 (08:09→20:55)
[2019-07-04] MEDS: DORZOLAMIDE HCL 2% DROPS 10 ML BTL BOTH EYES SCH ×2 (08:09→20:54)
--- NOTE | 2019-07-04 09:48 | P.PN ---
<Vanessa Johnson Radha - Last Filed: 07/04/19 09:46> Subjective Progress Note Date: 07/04/19 CHIEF COMPLAINT: Gallstones HISTORY OF PRESENT ILLNESS: 34-year-old female who is status post laparoscopic cholecystectomy secondary to acute gangrenous cholecystitis. Patient examined this morning at the bedside. Patient reports her abdominal pain is tolerable. Tolerating diet without nausea or vomiting. Vital signs are stable. She is afebrile. WBC 5.9. Hemoglobin 9.1. PHYSICAL EXAM: VITAL SIGNS: Reviewed. GENERAL: Well-developed in no acute distress. HEENT: No sclera icterus. Extraocular movements grossly intact. Moist buccal mucosa. Head is atraumatic, normocephalic. ABDOMEN: Soft. Nondistended. Appropriate surgical tenderness. ISAAC with serosanguineous drainage NEUROLOGIC: Alert and oriented. Cranial nerves II through XII grossly intact. ASSESSMENT: 1. Right upper quadrant abdominal pain 2. Cholelithiasis, acute gangrenous cholecystitis, status post lap mon[place] 3. Elevated bilirubin, resolved 4. Mildly elevated LFTs, resolved PLAN: -Continue diet as tolerated -Pain control -Increase activity as tolerated. PT/OT on consult. -Incentive spirometry -Continue to monitor drainage from ISAAC drain Nurse practitioner note has been reviewed by physician. Signing provider agrees with the documented findings, assessment, and plan of care. Objective - Vital Signs Vital signs: Vital Signs Temp 98.7 F 07/04/19 07:00 Pulse 76 07/04/19 08:18 Resp 18 07/04/19 08:14 BP 103/66 07/04/19 07:00 Pulse Ox 95 07/04/19 08:08 Intake & Output 07/03/19 07/04/19 07/04/19 18:59 06:59 18:59 Intake Total 243 150 Output Total 120 1125 100 Balance 123 -975 -100 Intake: Intake, IV Titration 100 Amount Piperacillin-Tazobactam 3 100 .375 gm In Sodium Chloride 0.9% 100 ml @ 25 mls/hr IVPB Q8HR [facility] Rx# :[id number] Oral 243 50 Output: Drainage 120 175 100 Right 120 175 100 Urine 950 Other: Voiding Method Indwelling Catheter Indwelling Catheter Indwelling Catheter - Labs CBC & Chem 7: 07/04/19 07:00 07/03/19 17:53 Labs: Abnormal Lab Results - Last 24 Hours (Table) 07/03/19 07/03/19 07/03/19 Range/Units 11:51 16:33 17:53 RBC (3.80-5.40) m/uL Hgb (11.4-16.0) gm/dL Hct (34.0-46.0) % Plt Count (150-450) k/uL Lymphocytes # (1.0-4.8) k/uL Chloride 108 H (98-107) mmol/L Glucose 105 H (74-99) mg/dL POC Glucose (mg/dL) 128 H 115 H (75-99) mg/dL Calcium 7.7 L (8.4-10.2) mg/dL AST 47 H (14-36) U/L Alkaline Phosphatase 145 H (38-126) U/L Total Protein 5.7 L (6.3-8.2) g/dL Albumin 2.8 L (3.5-5.0) g/dL 07/04/19 07/04/19 07/04/19 Range/Units 03:28 06:54 07:00 RBC 2.93 L (3.80-5.40) m/uL Hgb 9.1 L (11.4-16.0) gm/dL Hct 27.1 L (34.0-46.0) % Plt Count 137 L (150-450) k/uL Lymphocytes # 0.8 L (1.0-4.8) k/uL Chloride (98-107) mmol/L Glucose (74-99) mg/dL POC Glucose (mg/dL) 149 H 135 H (75-99) mg/dL Calcium (8.4-10.2) mg/dL AST (14-36) U/L Alkaline Phosphatase (38-126) U/L Total Protein (6.3-8.2) g/dL Albumin (3.5-5.0) g/dL Microbiology - Last 24 Hours (Table) 06/29/19 15:45 Blood Culture - Preliminary Blood No Growth after 96 hours <Nikos Jj - Last Filed: 07/04/19 12:57> Subjective As above. Patient doing well. Continue diet as tolerated. Keep drain for now. Increase activity. Objective - Vital Signs Vital signs: Vital Signs Temp 98.7 F 07/04/19 07:00 Pulse 74 07/04/19 11:38 Resp 18 07/04/19 08:14 BP 103/66 07/04/19 07:00 Pulse Ox 95 07/04/19 08:08 Intake & Output 07/03/19 07/04/19 07/04/19 18:59 06:59 18:59 Intake Total 243 150 Output Total 120 1125 100 Balance 123 -975 -100 Intake: Intake, IV Titration 100 Amount Piperacillin-Tazobactam 3 100 .375 gm In Sodium Chloride 0.9% 100 ml @ 25 mls/hr IVPB Q8HR [facility] Rx# :[id number] Oral 243 50 Output: Drainage 120 175 100 Right 120 175 100 Urine 950 Other: Voiding Method Indwelling Catheter Indwelling Catheter Indwelling Catheter - Labs CBC & Chem 7: 07/04/19 07:00 07/03/19 17:53 Labs: Abnormal Lab Results - Last 24 Hours (Table) 07/03/19 07/03/19 07/04/19 Range/Units 16:33 17:53 03:28 RBC (3.80-5.40) m/uL Hgb (11.4-16.0) gm/dL Hct (34.0-46.0) % Plt Count (150-450) k/uL Lymphocytes # (1.0-4.8) k/uL Chloride 108 H (98-107) mmol/L Glucose 105 H (74-99) mg/dL POC Glucose (mg/dL) 115 H 149 H (75-99) mg/dL Calcium 7.7 L (8.4-10.2) mg/dL AST 47 H (14-36) U/L Alkaline Phosphatase 145 H (38-126) U/L Total Protein 5.7 L (6.3-8.2) g/dL Albumin 2.8 L (3.5-5.0) g/dL 07/04/19 07/04/19 07/04/19 Range/Units 06:54 07:00 11:32 RBC 2.93 L (3.80-5.40) m/uL Hgb 9.1 L (11.4-16.0) gm/dL Hct 27.1 L (34.0-46.0) % Plt Count 137 L (150-450) k/uL Lymphocytes # 0.8 L (1.0-4.8) k/uL Chloride (98-107) mmol/L Glucose (74-99) mg/dL POC Glucose (mg/dL) 135 H 148 H (75-99) mg/dL Calcium (8.4-10.2) mg/dL AST (14-36) U/L Alkaline Phosphatase (38-126) U/L Total Protein (6.3-8.2) g/dL Albumin (3.5-5.0) g/dL Microbiology - Last 24 Hours (Table) 06/29/19 15:45 Blood Culture - Preliminary Blood No Growth after 96 hours Assessment and Plan (1) Acute on chronic cholecystitis concurrent with and due to calculus of gallbladder and bile duct Current Visit: Yes Status: Acute Code(s): K80.66 - CALCULUS OF GB AND BILE DUCT W AC AND CHR CHOLECYST W/O OBST SNOMED Code(s): 19127395097646
[2019-07-04 11:38] LABS: Glucose,Whole Blood 148 mg/dL (75-99)
--- NOTE | 2019-07-04 13:34 | XR ---
EXAMINATION TYPE: XR chest 1V portable DATE OF EXAM: 07/04/2019 COMPARISON: 07/02/2019 HISTORY: Chest pain TECHNIQUE: Single frontal view of the chest is obtained. FINDINGS: Right perihilar and left basilar infiltrate and/or atelectasis persists. The cardiomediastinal silhou ette is unremarkable. Bony thorax is intact. IMPRESSION: 1. Right perihilar and left basilar infiltrate and/or atelectasis persists.
[2019-07-04 16:30] LABS: Glucose,Whole Blood 109 mg/dL (75-99)
--- NOTE | 2019-07-04 17:48 | PN ---
PROGRESS NOTE DATE OF SERVICE: 07/04/2019 This 34-year-old woman who was admitted with change in mental status and acute gangrenous cholecystitis had surgery. The patient is complaining of some shortness of breath and cough at this time. A chest x-ray which was ordered by me was reviewed and showed some right perihilar infiltrates suggestive of pneumonia. The patient is being closely monitored. Patient is on broad-spectrum IV antibiotics. Past medical history reviewed. REVIEW OF SYSTEMS: CARDIOVASCULAR SYSTEM: No angina, palpitations. RESPIRATORY SYSTEM: As mentioned earlier. GI: As mentioned earlier. : No dysuria or retention. NERVOUS SYSTEM: No numbness, weakness. CURRENT MEDICATIONS: Reviewed. They include: 1. Tylenol 650 q.6 p.r.n. 2. [place] 5 mg q.4 p.r.n. 3. DuoNeb q.i.d. and p.r.n. 4. Lipitor 10 mg at bedtime. 5. Alphagan. 6. Trusopt 1 drop both eyes. 7. Vitamin D2 50,000. 8. Lexapro 20 mg. 9. Heparin 5000 units subcutaneously b.i.d. 10.Dilaudid. 11.Ketorolac. 12.Synthroid. 13.Narcan. 14.Actos. 15.Zosyn. Other medications reviewed. PHYSICAL EXAMINATION: Patient is alert, oriented x3. Pulse 72, blood pressure 124/82, respiration 17, temperature 98.4. HEENT: Conjunctivae normal. NECK: No jugular venous distention. CARDIOVASCULAR SYSTEM: S1, S2 muffled. RESPIRATORY SYSTEM: Breath sounds diminished at the bases. Bilateral scattered rhonchi and crackles. ABDOMEN: Soft, non-tender. LEGS: No edema. No swelling. NERVOUS SYSTEM: No focal deficit. LABS: WBC 5.9, hemoglobin 9.1. ASSESSMENT: 1. Acute gangrenous cholecystitis with cholelithiasis, sepsis, present on admission, status post laparoscopic cholecystectomy. 2. Possible right perihilar, left basilar infiltrate and pneumonia. 3. Change in mental status, metabolic encephalopathy, possibly acute, possibly secondary to sepsis. 4. Right foot diabetic ulcer as a cause of possible sepsis. 5. Dehydration with acute renal failure, possibly with acute prerenal and acute tubular necrosis. 6. Diabetes mellitus, type 2, uncontrolled with hyperglycemia. 7. Elevated bilirubin, AST, possibly indicating hepatitis of undetermined etiology, possibly secondary to sepsis. 8. History of recent osteomyelitis of the right foot, status post IV antibiotics. 9. Hyperlipidemia. 10.Left eye blindness secondary to diabetes mellitus, type 2. 11.Glaucoma. 12.Degenerative joint disease. 13.Hypothyroidism. 14.Depression. 15.History of body mass index of 36.4 with morbid obesity. RECOMMENDATIONS AND DISCUSSION: I recommend to continue current medications, continue symptomatic treatment. I would add bronchodilators, cap the IV. I would also recommend continuing with the broad- spectrum IV antibiotics. The patient was already started on Zosyn. I would also recommend evaluation by Pulmonology, Dr. Rosado. Otherwise, guarded prognosis because of multiple complex medical conditions. Further recommendations to follow. Closely follow with Surgery. DUSTIN / LEAHN: [id number] / KYLIE
[2019-07-04 20:39] LABS: Glucose,Whole Blood 105 mg/dL (75-99)
[2019-07-04] MEDS: predniSONE 1 MG TAB PO SCH (20:54)
[2019-07-04] MEDS: ESCITALOPRAM 20 MG TAB PO SCH (20:54)
[2019-07-04] MEDS: LEVOTHYROXINE 100 MCG TAB PO SCH (20:54)
[2019-07-04] MEDS: ESTROGENS, CONJUGATED 0.3 MG TAB PO SCH (20:54)
[2019-07-04] MEDS: ATORVASTATIN 10 MG TAB PO SCH (20:54)
[2019-07-04] MEDS: OXYBUTYNIN XL 5 MG TAB.ER.24 PO SCH (20:54)
[2019-07-04] MEDS: PIOGLITAZONE 30 MG TAB PO SCH (20:55)
[2019-07-05] MEDS: PIPERACILLIN-TAZOBACTAM 3.375 GM in SODIUM CHLORIDE 0.9% 100 ML IVPB SCH ×3 (00:36→16:26)
[2019-07-05 06:44] LABS: Glucose,Whole Blood 164 mg/dL (75-99)
[2019-07-05 07:05] LABS: Basophils % (A) 0 %; Eosinophils # (A) 0.1 k/uL (0-0.7); Eosinophils % (A) 2 %; HGB 9.9 gm/dL (11.4-16.0); Lymphocytes # (A) 0.7 k/uL (1.0-4.8); Lymphocytes % (A) 10 %; MCH 30.7 pg (25.0-35.0); MCHC 32.9 g/dL (31.0-37.0); MCV 93.2 fL (80.0-100.0); Mean Platelet Volume 7.4; Monocytes # (A) 0.2 k/uL (0-1.0); Monocytes % (A) 3 %; Neutrophils # (A) 5.5 k/uL (1.3-7.7); Neutrophils % (A) 84 %; Platelet Count 182 k/uL (150-450); RBC 3.22 m/uL (3.80-5.40); WBC 6.6 k/uL (3.8-10.6)
[2019-07-05] MEDS: HEPARIN SODIUM,PORCINE 5,000 UNIT/ML 1 ML VIAL SQ SCH ×2 (08:05→21:05)
[2019-07-05] MEDS: PANTOPRAZOLE 40 MG TABLET PO SCH (08:06)
[2019-07-05] MEDS: DORZOLAMIDE HCL 2% DROPS 10 ML BTL BOTH EYES SCH ×2 (08:06→21:03)
[2019-07-05] MEDS: INSULIN ASPART (NovoLOG) 100 UNIT/ML VIAL SQ SCH ×4 (08:06→21:04)
[2019-07-05] MEDS: TIMOLOL 0.5% OPHTH DROPS 5 ML BTL BOTH EYES SCH ×2 (08:07→20:59)
[2019-07-05] MEDS: BRIMONIDINE TARTRATE 0.2% DROPS 5 ML BTL BOTH EYES SCH ×2 (08:07→21:07)
[2019-07-05] MEDS: IPRATROPIUM-ALBUTEROL 3 ML NEB INHALATION SCH ×4 (09:20→19:26)
[2019-07-05 11:39] LABS: Glucose,Whole Blood 122 mg/dL (75-99)
--- NOTE | 2019-07-05 11:44 | P.PN ---
Subjective Progress Note Date: 07/05/19 Principal diagnosis: Acute cholecystitis Patient denies pain. Labs look good. ISAAC drain will longer holding suction. Objective - Vital Signs Vital signs: Vital Signs Temp 98 F 07/05/19 07:00 Pulse 72 07/05/19 09:32 Resp 15 07/05/19 07:00 BP 103/66 07/05/19 07:00 Pulse Ox 93 L 07/05/19 07:00 Intake & Output 07/04/19 07/05/19 07/05/19 18:59 06:59 18:59 Intake Total 50 Output Total 1040 530 Balance -1040 -530 50 Weight 96.207 kg Intake: Oral 50 Output: Drainage 190 30 Right 190 30 Urine 850 500 Other: Voiding Method Indwelling Catheter Indwelling Catheter # Bowel Movements 1 - Exam Abdomen: Soft, nondistended, incisions clean and dry, nontender, ISAAC serous - Labs CBC & Chem 7: 07/05/19 06:29 07/03/19 17:53 Labs: Abnormal Lab Results - Last 24 Hours (Table) 07/04/19 07/04/19 07/05/19 Range/Units 16:28 20:37 06:29 RBC 3.22 L (3.80-5.40) m/uL Hgb 9.9 L (11.4-16.0) gm/dL Hct 30.0 L (34.0-46.0) % Lymphocytes # 0.7 L (1.0-4.8) k/uL POC Glucose (mg/dL) 109 H 105 H (75-99) mg/dL 07/05/19 07/05/19 Range/Units 06:41 11:37 RBC (3.80-5.40) m/uL Hgb (11.4-16.0) gm/dL Hct (34.0-46.0) % Lymphocytes # (1.0-4.8) k/uL POC Glucose (mg/dL) 164 H 122 H (75-99) mg/dL Microbiology - Last 24 Hours (Table) 06/29/19 15:45 Blood Culture - Preliminary Blood No Growth after 120 hours Assessment and Plan (1) Acute on chronic cholecystitis concurrent with and due to calculus of gallbladder and bile duct Narrative/Plan: Patient overall doing well. We'll remove ISAAC drain as it is partially out. Continue diet. Increase activity. Current Visit: Yes Status: Acute Code(s): K80.66 - CALCULUS OF GB AND BILE DUCT W AC AND CHR CHOLECYST W/O OBST SNOMED Code(s): 19919265117392
--- NOTE | 2019-07-05 15:18 | P.CNPUL ---
History of Present Illness Consult date: 07/05/19 Reason for consult: pneumonia History of present illness: 4-year-old female patient is post laparoscopic cholecystectomy secondary to acute gangrenous cholecystitis. I was asked to evaluate the patient with the possibility of a developing pneumonia in the right upper lobe. Reviewing the chest x-ray there is an atelectatic band in the right upper lobe. Lung volumes are small. The patient is not taking a deep breath. She is not ambulating and she is making any efforts for pulmonary toileting no she is using incentive spirometer. No significant sputum production. Her fever has defervesced and she hasn't had any fever since her surgery. She is postop day #4. She is on DuoNeb nebulized treatments around the clock. Also on IV Zosyn. She is on heparin subcu for DVT prophylaxis. No hemoptysis. No pleurisy. No previous history of DVT or pulmonary embolism. Review of Systems Constitutional: Reports chills, Reports fatigue, Reports fever, Reports lethargy, Reports malaise, Denies anorexia, Denies poor appetite Eyes: denies blurred vision, denies pain Ears, nose, mouth and throat: Denies headache, Denies nasal congestion, Denies nasal discharge, Denies sore throat, Denies vertigo Cardiovascular: Denies chest pain, Denies dyspnea on exertion, Denies edema, Denies leg edema, Denies lightheadedness, Denies shortness of breath, Denies syncope Respiratory: Denies cough, Denies cough with sputum, Denies dyspnea, Denies excessive sputum, Denies hemoptysis, Denies home oxygen Gastrointestinal: Reports abdominal pain, Reports constipation, Denies diarrhea, Denies loss of appetite, Denies nausea, Denies vomiting Genitourinary: Denies dysuria, Denies hematuria, Denies urgency, Denies urinary frequency Musculoskeletal: Reports gait dysfunction, Reports muscle weakness, Denies frequ ent falls, Denies myalgias Integumentary: Reports wounds, Denies pruritus, Denies rash Neurological: Reports gait dysfunction, Denies change in mentation, Denies change in speech, Denies numbness, Denies weakness Psychiatric: Denies anxiety, Denies depression Endocrine: Reports high blood sugars, Denies fatigue, Denies weight change Eyes: bilateral blurred vision Ears: left: decreased hearing, bilateral: ear discharge, earache, tinnitus Past Medical History Past Medical History: Diabetes Mellitus, Eye Disorder, Hearing Disorder / Deafness, Hyperlipidemia, Musculoskeletal Disorder, Skin Disorder, Thyroid Disorder Additional Past Medical History / Comment(s): brain tumor resected surgically, visual impairment of the patient has impaired vision and impaired hearing on the left and history of psoriasis that she is morbidly obese with a BMI of 36.4. History of Any Multi-Drug Resistant Organisms: None Reported Past Surgical History: Cholecystectomy, Orthopedic Surgery Additional Past Surgical History / Comment(s): brain tumor removed 2002, Past Anesthesia/Blood Transfusion Reactions: No Reported Reaction Past Psychological History: Depression Smoking Status: Never smoker Past Alcohol Use History: None Reported Additional Past Alcohol Use History / Comment(s): Patient has been a lifelong nonsmoker, no illicit drug use, no alcohol use. She lives at home with her aunt and brother. There are 2 dogs and 3 cats in the home. Past Drug Use History: None Reported - Past Family History Brother(s) Additional Family Medical History / Comment(s): pt states her brother is healthy Medications and Allergies Home Medications Medication Instructions Recorded Confirmed Type Ergocalciferol [Vitamin D2 50,000 unit PO Q7D 03/25/14 06/29/19 History (DRISDOL)] Estrogens, Conjugated [Premarin] 0.3 mg PO DAILY 03/25/14 06/29/19 History Simvastatin [Zocor] 20 mg PO DAILY 03/25/14 06/29/19 History predniSONE 4 mg PO DAILY 03/25/14 06/29/19 History Escitalopram [Lexapro] 20 mg PO DAILY 10/28/18 06/29/19 History INSULIN LISPRO (humaLOG) [humaLOG] See Protocol SQ ACHS 10/28/18 06/29/19 History Levothyroxine Sodium [Synthroid] 100 mcg PO DAILY 10/28/18 06/29/19 History Pioglitazone HCl 30 mg PO DAILY 10/28/18 06/29/19 History Bisacodyl [Dulcolax] 5 - 15 mg PO DAILY PRN 06/29/19 06/29/19 History Brimonidine Tartrate/Timolol 1 drop BOTH EYES BID 06/29/19 06/29/19 History [Combigan 0.2%-0.5% Eye Drops] Brinzolamide [Azopt 1% Ophth Susp] 1 drop BOTH EYES BID 06/29/19 06/29/19 History Oxybutynin Chloride [Ditropan] 5 mg PO DAILY 06/29/19 06/29/19 History Hydrocodone/Acetaminophen [[place] 1 tab PO Q6HR PRN 3 Days #12 tab 07/01/19 Rx 5-325] Allergies Allergy/AdvReac Type Severity Reaction Status Date / Time lactose Allergy Diarrhea Verified 06/29/19 18:19 Physical Exam Vitals: Vital Signs Temp Pulse Pulse Resp BP BP BP 07/05/19 14:30 98.5 F 71 17 105/65 07/05/19 09:32 72 07/05/19 09:20 72 07/05/19 07:00 98 F 72 15 103/66 07/05/19 01:01 98.5 F 71 16 07/05/19 00:09 71 16 07/04/19 20:00 71 16 07/04/19 19:47 70 16 07/04/19 19:36 72 16 07/04/19 19:32 98.0 F 71 16 104/64 07/04/19 16:09 70 16 07/04/19 15:58 72 16 BP Pulse Ox 07/05/19 14:30 94 L 07/05/19 09:32 07/05/19 09:20 07/05/19 07:00 93 L 07/05/19 01:01 112/71 95 07/05/19 00:09 07/04/19 20:00 07/04/19 19:47 07/04/19 19:36 07/04/19 19:32 97 07/04/19 16:09 07/04/19 15:58 Intake and Output 07/05/19 07/05/19 07/05/19 06:59 14:59 22:59 Intake Total 100 Output Total 530 Balance -530 100 Intake: Oral 100 Output: Drainage 30 Right 30 Urine 500 Other: Voiding Method Indwelling Catheter # Voids 3 # Bowel Movements 1 Gen: This is a 34-year-old female oxygen saturation is 97 % on 2 L via nasal cannula. HEENT: Head is atraumatic, normocephalic. Pupils equal, round. Sclerae is anicteric. Conjunctivae pale, oral mucosa is dry NECK: Supple. No JVD. No lymphadenopathy. No thyromegaly. LUNGS: Diminished breath sounds at the bases with a few scattered rhonchi noted. No intercostal retractions. HEART: S1, S2 are muffled ABDOMEN: Soft. Obese. Bowel sounds are present. No masses. Mild tenderness noted of the right upper quadrant upon palpation. ISAAC drain present with serosanguineous drainage noted. EXTREMITIES: No pedal edema. No calf tenderness. NEUROLOGICAL: Patient is asleep but arousable, alert and oriented x3. Cranial nerves 2 through 12 are grossly intact. SKIN: Right foot lateral aspect ulceration noted with minimal redness and no swelling Results - Laboratory Findings CBC and BMP: 07/05/19 06:29 07/03/19 17:53 PT/INR, D-dimer PT 11.6 sec (9.0-12.0) 06/29/19 15:45 INR 1.1 (<1.2) 06/29/19 15:45 Abnormal lab findings: Abnormal Labs 06/29/19 06/29/19 06/29/19 15:45 15:45 15:45 WBC 16.4 H RBC Hgb Hct Plt Count Neutrophils # 11.7 H Lymphocytes # Monocytes # 1.5 H Basophils # Chloride Creatinine 1.14 H Glucose 234 H POC Glucose (mg/dL) Hemoglobin A1c Plasma Lactic Acid William Calcium Total Bilirubin 2.6 H AST 62 H Alkaline Phosphatase Total Protein Albumin Urine Protein Trace H 06/29/19 06/29/19 06/29/19 15:54 17:35 20:58 WBC RBC Hgb Hct Plt Count Neutrophils # Lymphocytes # Monocytes # Basophils # Chloride Creatinine Glucose POC Glucose (mg/dL) 226 H 222 H Hemoglobin A1c Plasma Lactic Acid William 2.1 H* Calcium Total Bilirubin AST Alkaline Phosphatase Total Protein Albumin Urine Protein 06/30/19 06/30/19 06/30/19 02:22 06:43 06:43 WBC RBC Hgb Hct Plt Count 125 L Neutrophils # Lymphocytes # 0.8 L Monocytes # Basophils # 0.3 H Chloride 109 H Creatinine Glucose 177 H POC Glucose (mg/dL) 206 H Hemoglobin A1c Plasma Lactic Acid William Calcium Total Bilirubin 2.0 H AST 47 H Alkaline Phosphatase Total Protein Albumin 3.4 L Urine Protein 06/30/19 06/30/19 06/30/19 06:43 06:53 12:06 WBC RBC Hgb Hct Plt Count Neutrophils # Lymphocytes # Monocytes # Basophils # Chloride Creatinine Glucose POC Glucose (mg/dL) 179 H 166 H Hemoglobin A1c 6.7 H Plasma Lactic Acid William Calcium Total Bilirubin AST Alkaline Phosphatase Total Protein Albumin Urine Protein 06/30/19 06/30/19 07/01/19 16:39 19:57 02:24 WBC RBC Hgb Hct Plt Count Neutrophils # Lymphocytes # Monocytes # Basophils # Chloride Creatinine Glucose POC Glucose (mg/dL) 155 H 145 H 113 H Hemoglobin A1c Plasma Lactic Acid William Calcium Total Bilirubin AST Alkaline Phosphatase Total Protein Albumin Urine Protein 07/01/19 07/01/19 07/01/19 06:38 07:36 07:36 WBC 12.8 H RBC 3.45 L Hgb 10.7 L Hct 32.0 L Plt Count Neutrophils # 11.4 H Lymphocytes # 0.9 L Monocytes # Basophils # Chloride 111 H Creatinine Glucose 116 H POC Glucose (mg/dL) 117 H Hemoglobin A1c Plasma Lactic Acid William Calcium Total Bilirubin AST Alkaline Phosphatase Total Protein Albumin 3.4 L Urine Protein 07/01/19 07/02/19 07/02/19 11:33 06:27 06:27 WBC RBC 3.40 L Hgb 10.5 L Hct 32.0 L Plt Count Neutrophils # Lymphocytes # Monocytes # Basophils # Chloride 110 H Creatinine Glucose POC Glucose (mg/dL) 110 H Hemoglobin A1c Plasma Lactic Acid William Calcium 7.9 L Total Bilirubin AST 62 H Alkaline Phosphatase Total Protein 5.7 L Albumin 2.8 L Urine Protein 07/02/19 07/02/19 07/02/19 06:44 11:41 16:27 WBC RBC Hgb Hct Plt Count Neutrophils # Lymphocytes # Monocytes # Basophils # Chloride Creatinine Glucose POC Glucose (mg/dL) 74 L 113 H 169 H Hemoglobin A1c Plasma Lactic Acid William Calcium Total Bilirubin AST Alkaline Phosphatase Total Protein Albumin Urine Protein 07/03/19 07/03/19 07/03/19 02:36 06:59 06:59 WBC RBC 3.12 L Hgb 9.7 L Hct 29.2 L Plt Count 144 L Neutrophils # Lymphocytes # 0.7 L Monocytes # Basophils # Chloride 108 H Creatinine Glucose 139 H POC Glucose (mg/dL) 103 H Hemoglobin A1c Plasma Lactic Acid William Calcium 7.8 L Total Bilirubin AST Alkaline Phosphatase Total Protein Albumin Urine Protein 07/03/19 07/03/19 07/03/19 07:02 11:51 16:33 WBC RBC Hgb Hct Plt Count Neutrophils # Lymphocytes # Monocytes # Basophils # Chloride Creatinine Glucose POC Glucose (mg/dL) 140 H 128 H 115 H Hemoglobin A1c Plasma Lactic Acid William Calcium Total Bilirubin AST Alkaline Phosphatase Total Protein Albumin Urine Protein 07/03/19 07/04/19 07/04/19 17:53 03:28 06:54 WBC RBC Hgb Hct Plt Count Neutrophils # Lymphocytes # Monocytes # Basophils # Chloride 108 H Creatinine Glucose 105 H POC Glucose (mg/dL) 149 H 135 H Hemoglobin A1c Plasma Lactic Acid William Calcium 7.7 L Total Bilirubin AST 47 H Alkaline Phosphatase 145 H Total Protein 5.7 L Albumin 2.8 L Urine Protein 07/04/19 07/04/19 07/04/19 07:00 11:32 16:28 WBC RBC 2.93 L Hgb 9.1 L Hct 27.1 L Plt Count 137 L Neutrophils # Lymphocytes # 0.8 L Monocytes # Basophils # Chloride Creatinine Glucose POC Glucose (mg/dL) 148 H 109 H Hemoglobin A1c Plasma Lactic Acid William Calcium Total Bilirubin AST Alkaline Phosphatase Total Protein Albumin Urine Protein 07/04/19 07/05/19 07/05/19 20:37 06:29 06:41 WBC RBC 3.22 L Hgb 9.9 L Hct 30.0 L Plt Count Neutrophils # Lymphocytes # 0.7 L Monocytes # Basophils # Chloride Creatinine Glucose POC Glucose (mg/dL) 105 H 164 H Hemoglobin A1c Plasma Lactic Acid William Calcium Total Bilirubin AST Alkaline Phosphatase Total Protein Albumin Urine Protein 07/05/19 11:37 WBC RBC Hgb Hct Plt Count Neutrophils # Lymphocytes # Monocytes # Basophils # Chloride Creatinine Glucose POC Glucose (mg/dL) 122 H Hemoglobin A1c Plasma Lactic Acid William Calcium Total Bilirubin AST Alkaline Phosphatase Total Protein Albumin Urine Protein - Diagnostic Findings Chest x-ray: image reviewed Assessment and Plan Plan: 1 right upper lobe atelectasis, questionable early pneumonia currently on IV Zosyn. Aggressive pulmonary toileting as needed 2 post cholecystectomy laparoscopic for acute gangrenous cholecystitis. The patient is postop day #4 3 obesity BMI of 36.4 4 history of brain tumor post resection. The patient has some cognitive impairment in addition to impaired hearing and vision 5 history of psoriasis 6 diabetes mellitus 7 acute leukocytosis, improved plan Aggressive pulmonary toileting. Continue IV Zosyn. Monitor the white count. Monitor fever pattern. Repeat chest x-ray in a.m.
[2019-07-05 16:35] LABS: Glucose,Whole Blood 145 mg/dL (75-99)
--- NOTE | 2019-07-05 18:18 | PN ---
PROGRESS NOTE DATE OF SERVICE: 07/05/2019 This 34 -year-old woman was admitted with gangrenous cholecystitis, sepsis, underwent surgery, but however the patient had very limited movement at this time. The patient apparently developed right-sided pneumonia, possibly gram-negative in nature and the patient is being closely monitored at this time. Patient on broad spectrum IV antibiotics. PAST MEDICAL HISTORY: Reviewed. REVIEW OF SYSTEMS: CARDIOVASCULAR SYSTEM: No angina or palpitations. RESPIRATORY: As mentioned earlier. GI: As mentioned earlier. : No dysuria or hematuria. CENTRAL NERVOUS SYSTEM: No numbness or weakness. CURRENT MEDICATIONS: Reviewed and include: 1. Tylenol 650 q.6h p.r.n. 2. [place] 5 mg q.4 p.r.n. 3. DuoNeb q.i.d. and p.r.n. 4. Alphagan. 5. Trusopt. 6. Vitamin D2. 7. Lexapro 20 mg q.h.s. 8. Premarin. 9. Heparin subcu b.i.d. 10.Dilaudid p.r.n. 11.NovoLog. 12.Toradol. 13.Synthroid. 14.Ditropan. 15.Protonix. 16.Actos. 17.Zosyn 3.365 IV q.8h. 18.Prednisone taper 4 mg p.o. q.h.s. 19.Timoptic. PHYSICAL EXAMINATION: Patient is alert, oriented times three. Pulse is 71. Blood pressure 108/64, respirations 17, temperature 98.4, pulse ox 94% on 2 L. HEENT are conjunctivae normal. Oral mucosa moist. NECK is no jugular venous distention. No carotid bruit. No lymph node enlargement. Cardiovascular systems: S1, S2. Respiration: Breath sounds diminished in the bases. Bilateral scattered rhonchi and crackles. ABDOMEN: Soft, obese, nontender. Status post surgery. LEGS are no edema. No swelling. Nervous system: No focal deficits. LABS: WBC 6.0, hemoglobin 9.8. Accu-Cheks are noted. ASSESSMENT: 1. Acute gangrenous cholecystitis with cholelithiasis and sepsis present on admission, status post laparoscopic cholecystectomy. 2. Right perihilar, right basilar infiltrate with possibly gram-negative pneumonia. 3. Change in mental status, metabolic encephalopathy, possibly acute secondary to sepsis. 4. Right foot diabetic ulcer as a cause of possible sepsis. 5. Dehydration with acute renal failure possibly acute prerenal acute tubular necrosis. 6. Diabetes mellitus type 2, uncontrolled with hyperglycemia. 7. Elevated bilirubin, AST, possibly indicating hepatitis of undetermined etiology possibly secondary to sepsis. 8. History of recent osteomyelitis of the right foot, status post IV antibiotics. 9. Hyperlipidemia. 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 11.Glaucoma. 12.Degenerative joint disease. 13.Hypothyroidism. 14.Depression. 15.History of body mass index of 36.4 with morbid obesity. RECOMMENDATIONS AND DISCUSSION: Recommend to continue current medications, management and symptomatic treatment. Continue with antibiotics. Continue the bronchodilators. Incentive spirometry. Encourage mobilization. Closely follow with multiple consultants. Dr. Rosado has been consulted. Further recommendations to follow. MMODL / IJN: [id number] /
[2019-07-05 20:16] LABS: Glucose,Whole Blood 136 mg/dL (75-99)
[2019-07-05] MEDS: ESTROGENS, CONJUGATED 0.3 MG TAB PO SCH (21:00)
[2019-07-05] MEDS: ESCITALOPRAM 20 MG TAB PO SCH (21:01)
[2019-07-05] MEDS: OXYBUTYNIN XL 5 MG TAB.ER.24 PO SCH (21:01)
[2019-07-05] MEDS: predniSONE 1 MG TAB PO SCH (21:01)
[2019-07-05] MEDS: PIOGLITAZONE 30 MG TAB PO SCH (21:01)
[2019-07-05] MEDS: LEVOTHYROXINE 100 MCG TAB PO SCH (21:01)
[2019-07-05] MEDS: ATORVASTATIN 10 MG TAB PO SCH (21:01)
[2019-07-06 03:03] LABS: Glucose,Whole Blood 160 mg/dL (75-99)
[2019-07-06 06:55] LABS: Glucose,Whole Blood 171 mg/dL (75-99)
[2019-07-06 07:40] LABS: Basophils % (A) 0 %; Eosinophils # (A) 0.2 k/uL (0-0.7); Eosinophils % (A) 3 %; HCT 30.1 % (34.0-46.0); Lymphocytes # (A) 0.9 k/uL (1.0-4.8); Lymphocytes % (A) 14 %; MCH 31.3 pg (25.0-35.0); MCHC 33.2 g/dL (31.0-37.0); MCV 94.1 fL (80.0-100.0); Mean Platelet Volume 7.7; Monocytes # (A) 0.2 k/uL (0-1.0); Monocytes % (A) 4 %; Neutrophils # (A) 4.6 k/uL (1.3-7.7); Neutrophils % (A) 78 %; Platelet Count 196 k/uL (150-450); RDW 13.4 % (11.5-15.5)
[2019-07-06] MEDS: IPRATROPIUM-ALBUTEROL 3 ML NEB INHALATION SCH ×4 (08:34→19:50)
[2019-07-06] MEDS: PIPERACILLIN-TAZOBACTAM 3.375 GM in SODIUM CHLORIDE 0.9% 100 ML IVPB SCH ×3 (09:04)
[2019-07-06] MEDS: INSULIN ASPART (NovoLOG) 100 UNIT/ML VIAL SQ SCH ×4 (09:05→19:58)
[2019-07-06] MEDS: PANTOPRAZOLE 40 MG TABLET PO SCH (09:05)
[2019-07-06] MEDS: HEPARIN SODIUM,PORCINE 5,000 UNIT/ML 1 ML VIAL SQ SCH ×2 (09:05→20:01)
[2019-07-06] MEDS: DORZOLAMIDE HCL 2% DROPS 10 ML BTL BOTH EYES SCH ×2 (09:06→20:03)
[2019-07-06] MEDS: BRIMONIDINE TARTRATE 0.2% DROPS 5 ML BTL BOTH EYES SCH ×2 (09:06→20:03)
[2019-07-06] MEDS: TIMOLOL 0.5% OPHTH DROPS 5 ML BTL BOTH EYES SCH ×2 (09:06→20:02)
--- NOTE | 2019-07-06 10:28 | XR ---
EXAMINATION TYPE: XR chest 2V DATE OF EXAM: 07/06/2019 CLINICAL HISTORY: Pneumonia TECHNIQUE: Frontal and lateral views of the chest are obtained. COMPARISON: 07/04/2019 FINDINGS: There is no focal air space opacity, pleural effusion, or pneumothorax seen. The cardiac silhouette size is within normal limits. The osseous structures are intact. IMPRESSION: No acute cardiopulmonary process.
--- NOTE | 2019-07-06 10:33 | P.PN ---
Subjective Progress Note Date: 07/06/19 Principal diagnosis: Acute cholecystitis Patient without new complaints. Perdomo catheter was removed. ISAAC drain was also removed. White blood cell count was normal. Tolerating diet. Denies pain. Objective - Vital Signs Vital signs: Vital Signs Temp 97.6 F 07/06/19 07:00 Pulse 64 07/06/19 08:48 Resp 16 07/06/19 07:00 BP 117/68 07/06/19 07:00 Pulse Ox 96 07/06/19 07:00 Intake & Output 07/05/19 07/06/19 07/06/19 18:59 06:59 18:59 Intake Total 100 100 Output Total 425 350 200 Balance -325 -250 -200 Intake: Intake, IV Titration 100 Amount Piperacillin-Tazobactam 3 100 .375 gm In Sodium Chloride 0.9% 100 ml @ 25 mls/hr IVPB Q8HR [facility] Rx# :[id number] Oral 100 Output: Urine 425 350 Post Void Residual 200 Other: # Voids 3 # Bowel Movements 1 - Exam Abdomen: Soft, nondistended, incisions clean and dry, nontender - Labs CBC & Chem 7: 07/06/19 06:12 07/03/19 17:53 Labs: Abnormal Lab Results - Last 24 Hours (Table) 07/05/19 07/05/19 07/05/19 Range/Units 11:37 16:33 20:15 RBC (3.80-5.40) m/uL Hgb (11.4-16.0) gm/dL Hct (34.0-46.0) % Lymphocytes # (1.0-4.8) k/uL POC Glucose (mg/dL) 122 H 145 H 136 H (75-99) mg/dL 07/06/19 07/06/19 07/06/19 Range/Units 03:02 06:12 06:52 RBC 3.20 L (3.80-5.40) m/uL Hgb 10.0 L (11.4-16.0) gm/dL Hct 30.1 L (34.0-46.0) % Lymphocytes # 0.9 L (1.0-4.8) k/uL POC Glucose (mg/dL) 160 H 171 H (75-99) mg/dL Microbiology - Last 24 Hours (Table) 06/29/19 15:45 Blood Culture - Final Blood No Growth after 144 hours Assessment and Plan (1) Acute on chronic cholecystitis concurrent with and due to calculus of gallbladder and bile duct Narrative/Plan: Patient doing well at this time. No surgical plans. Continue increasing activity. Current Visit: Yes Status: Acute Code(s): K80.66 - CALCULUS OF GB AND BILE DUCT W AC AND CHR CHOLECYST W/O OBST SNOMED Code(s): 03600679485308
[2019-07-06 11:40] LABS: Glucose,Whole Blood 166 mg/dL (75-99)
--- NOTE | 2019-07-06 13:16 | P.PN ---
Subjective Progress Note Date: 07/06/19 34-year-old female patient is post laparoscopic cholecystectomy secondary to acute gangrenous cholecystitis. I was asked to evaluate the patient with the possibility of a developing pneumonia in the right upper lobe. Reviewing the chest x-ray there is an atelectatic band in the right upper lobe. Lung volumes are small. The patient is not taking a deep breath. She is not ambulating and she is making any efforts for pulmonary toileting no she is using incentive spirometer. No significant sputum production. Her fever has defervesced and she hasn't had any fever since her surgery. She is postop day #4. She is on DuoNeb nebulized treatments around the clock. Also on IV Zosyn. She is on hepa rin subcu for DVT prophylaxis. No hemoptysis. No pleurisy. No previous history of DVT or pulmonary embolism. On today's evaluation, the patient is using incentive spirometer. Limited cough. No significant sputum production. Chest x-ray repeated and right upper lobe atelectatic change/infiltrates a completely resolved and it's abnormal chest x-ray. No other complaints otherwise for now. The patient is recovering from her surgery. She remains on IV Zosyn. She is postop day #5. Objective - Vital Signs Vital signs: Vital Signs Temp 97.6 F 07/06/19 07:00 Pulse 64 07/06/19 11:51 Resp 16 07/06/19 07:00 BP 117/68 07/06/19 07:00 Pulse Ox 96 07/06/19 07:00 Intake & Output 07/05/19 07/06/19 07/06/19 18:59 06:59 18:59 Intake Total 100 100 Output Total 425 350 200 Balance -325 -250 -200 Intake: Intake, IV Titration 100 Amount Piperacillin-Tazobactam 3 100 .375 gm In Sodium Chloride 0.9% 100 ml @ 25 mls/hr IVPB Q8HR [facility] Rx# :[id number] Oral 100 Output: Urine 425 350 Post Void Residual 200 Other: # Voids 3 # Bowel Movements 1 - Exam Gen: This is a 34-year-old female oxygen saturation is 97 % on 2 L via nasal cannula. HEENT: Head is atraumatic, normocephalic. Pupils equal, round. Sclerae is anicteric. Conjunctivae pale, oral mucosa is dry NECK: Supple. No JVD. No lymphadenopathy. No thyromegaly. LUNGS: Diminished breath sounds at the bases with a few scattered rhonchi noted. No intercostal retractions. HEART: S1, S2 are muffled ABDOMEN: Soft. Obese. Bowel sounds are present. No masses. Mild tenderness noted of the right upper quadrant upon palpation. ISAAC drain present with serosanguineous drainage noted. EXTREMITIES: No pedal edema. No calf tenderness. NEUROLOGICAL: Patient is asleep but arousable, alert and oriented x3. Cranial n erves 2 through 12 are grossly intact. SKIN: Right foot lateral aspect ulceration noted with minimal redness and no swelling - Labs CBC & Chem 7: 07/06/19 06:12 07/03/19 17:53 Labs: Abnormal Lab Results - Last 24 Hours (Table) 07/05/19 07/05/19 07/06/19 Range/Units 16:33 20:15 03:02 RBC (3.80-5.40) m/uL Hgb (11.4-16.0) gm/dL Hct (34.0-46.0) % Lymphocytes # (1.0-4.8) k/uL POC Glucose (mg/dL) 145 H 136 H 160 H (75-99) mg/dL 07/06/19 07/06/19 07/06/19 Range/Units 06:12 06:52 11:37 RBC 3.20 L (3.80-5.40) m/uL Hgb 10.0 L (11.4-16.0) gm/dL Hct 30.1 L (34.0-46.0) % Lymphocytes # 0.9 L (1.0-4.8) k/uL POC Glucose (mg/dL) 171 H 166 H (75-99) mg/dL Microbiology - Last 24 Hours (Table) 06/29/19 15:45 Blood Culture - Final Blood No Growth after 144 hours Assessment and Plan Plan: 1 right upper lobe atelectasis, questionable early pneumonia currently on IV Z osyn. Aggressive pulmonary toileting as needed, chest x-ray from today is recovered and normalized 2 post cholecystectomy laparoscopic for acute gangrenous cholecystitis. The patient is postop day #5 3 obesity BMI of 36.4 4 history of brain tumor post resection. The patient has some cognitive impairment in addition to impaired hearing and vision 5 history of psoriasis 6 diabetes mellitus 7 acute leukocytosis, improved plan Aggressive pulmonary toileting. Continue IV Zosyn. Chest x-ray normalized. Continue using incentive spirometer. The ISAAC drain has been removed. Encourage ambulation. General surgeries on the case. The patient is postop day #5. Pulmonary and critical care services we'll sign off.
[2019-07-06 17:09] LABS: Glucose,Whole Blood 79 mg/dL (75-99)
--- NOTE | 2019-07-06 18:15 | PN ---
PROGRESS NOTE DATE OF SERVICE: 07/06/2019 This 34-year-old woman who was admitted with gangrenous cholecystitis and fever also had developed an episode of pneumonia. Patient is on bronchodilators and antibiotics. The chest x-ray is improving significantly. Multiple consultants including Dr. Rosado are following the patient closely. EXAM: Alert and oriented. Pulse 57, blood pressure 109/69, respiration 16, temperature 98.2, pulse ox 98% on room air. skin: HEENT: Conjunctivae normal. Oral mucosa moist. NECK: No jugular venous distention. No lymph node enlargement. CARDIOVASCULAR: S1, S2. RESPIRATORY: Diminished breath sounds at the bases. A few scattered rhonchi and crackles. ABDOMEN: Soft, obese, nontender. LEGS: No swelling. NERVOUS SYSTEM: No focal deficits. LABS: WBC 6, hemoglobin is 10. ASSESSMENT: 1. Acute gangrenous cholecystitis with cholelithiasis and sepsis, present on admission, status post laparoscopic cholecystectomy. 2. Right perihilar, right basilar infiltrate with possible gram-negative pneumonia. 3. Change in mental status, metabolic encephalopathy, possibly acute secondary to sepsis. 4. Right foot diabetic ulcer as a cause of possible sepsis. 5. Dehydration with acute renal failure, possibly acute prerenal and acute tubular necrosis. 6. Diabetes mellitus type 2, uncontrolled with hyperglycemia. 7. Elevated bilirubin and AST, possibly indicating hepatitis of undetermined etiology or secondary to sepsis. 8. History of recent osteomyelitis of the right foot, status post IV antibiotics, prolonged. 9. Hyperlipidemia. 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 11.Glaucoma. 12.Degenerative joint disease. 13.Hypothyroidism. 14.Depression. 15.History of BMI of 36.4 and morbid obesity. RECOMMENDATIONS AND DISCUSSION: Recommend to continue current medications, continue symptomatic treatment. Continue the antibiotics. Continue the rest of medications. Continue the bronchodilators. Increase ambulation. Guarded prognosis. Further recommendations to follow. MMODL / IJN: [id number] /
[2019-07-06 19:52] LABS: Glucose,Whole Blood 96 mg/dL (75-99)
[2019-07-06] MEDS: PIOGLITAZONE 30 MG TAB PO SCH (20:01)
[2019-07-06] MEDS: predniSONE 1 MG TAB PO SCH (20:01)
[2019-07-06] MEDS: ATORVASTATIN 10 MG TAB PO SCH (20:02)
[2019-07-06] MEDS: LEVOTHYROXINE 100 MCG TAB PO SCH (20:02)
[2019-07-06] MEDS: ESCITALOPRAM 20 MG TAB PO SCH (20:02)
[2019-07-06] MEDS: OXYBUTYNIN XL 5 MG TAB.ER.24 PO SCH (20:02)
[2019-07-06] MEDS: ESTROGENS, CONJUGATED 0.3 MG TAB PO SCH (20:02)
[2019-07-07 01:37] LABS: Glucose,Whole Blood 112 mg/dL (75-99)
[2019-07-07 07:03] LABS: Glucose,Whole Blood 119 mg/dL (75-99)
[2019-07-07] MEDS: INSULIN ASPART (NovoLOG) 100 UNIT/ML VIAL SQ SCH ×4 (07:06→21:42)
[2019-07-07] MEDS: HEPARIN SODIUM,PORCINE 5,000 UNIT/ML 1 ML VIAL SQ SCH ×2 (07:20→20:25)
[2019-07-07] MEDS: DORZOLAMIDE HCL 2% DROPS 10 ML BTL BOTH EYES SCH ×2 (07:20→20:25)
[2019-07-07] MEDS: BRIMONIDINE TARTRATE 0.2% DROPS 5 ML BTL BOTH EYES SCH ×2 (07:20→20:26)
[2019-07-07] MEDS: PANTOPRAZOLE 40 MG TABLET PO SCH (07:20)
[2019-07-07] MEDS: TIMOLOL 0.5% OPHTH DROPS 5 ML BTL BOTH EYES SCH ×2 (07:20→20:25)
[2019-07-07] MEDS: IPRATROPIUM-ALBUTEROL 3 ML NEB INHALATION SCH ×4 (08:09→20:50)
[2019-07-07 11:21] LABS: Glucose,Whole Blood 139 mg/dL (75-99)
--- NOTE | 2019-07-07 12:55 | P.DS ---
Providers Date of admission: 06/29/19 18:06 Expected date of discharge: 07/07/19 Attending physician: Sherice Govea Consults: 06/30/19 09:01 Consult Physician Routine Consulting Provider: Sumit Addison Consult Reason/Comments: sepsis Do you want consulting provider notified?: Yes 07/01/19 09:44 Consult Physician Urgent Consulting Provider: Vince Walsh Consult Reason/Comments: gallstones/ RUQ pain Do you want consulting provider notified?: Yes 07/04/19 16:19 Consult Physician Routine Consulting Provider: Srinath Rosado Consult Reason/Comments: pneumonia Do you want consulting provider notified?: Yes Primary care physician: Janet Stanton [facility] Course: Final diagnosis Acute gangrenous cholecystitis with cholelithiasis and sepsis, present on admission, status post laparoscopic cholecystectomy Right perihilar, right basilar infiltrate with possible gram-negative pneumonia Change in mental status, metabolic encephalopathy,. 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 Discharge disposition Patient is being discharged in a stable condition with guarded prognosis to home and will have continued Homecare in the outpatient setting. Patient will follow-up with primary care provider Dr. Janet Stanton in the outpatient setting upon discharge. She will also be following up with surgery in one week as discussed. Patient is to continue short course of oral antibiotics in the form of Augmentin twice daily for the next 5 days. Total time taken is 35 minutes. History of present illness This is a 34-year-old female who was recently admitted with fever, cough, shortness of breath, and an abdominal pain and was being closely monitored. Surgery is following. Patient underwent an abdominal ultrasound showing multiple gallstones and patient underwent a laparoscopic cholecystectomy for gangrenous cholecystitis. Patient will follow-up with surgery in the outpatient setting in 1-2 weeks as discussed. Patient will currently continue on a short course of oral antibiotics in the form of Augmentin twice daily for the next 5 days. Patient also continue to have some mild shortness of breath and was found to have an episode of pneumonia. Pulmonary was following. Patient encouraged to continue using her incentive spirometer at least 10 times every hour while awake along with coughing and deep breathing. Patient will be given a pro-air inhaler upon discharge. Patient instructed to follow-up with primary care provider upon discharge. Today patient denies any chest pain, shortness of breath, or palpitations. Patient is afebrile. Patient denies any nausea or vomiting and is tolerating diet. Patient states that she has some mild abdominal tenderness but has significantly improved. Guarded prognosis. On exam vital signs are stable. Temp is 98.1F, pulse is 65, respirations are 17, blood pressure 121/76, oxygen saturation is 95% on room air. Cardio S1, S2 are muffled. Respiratory system shows diminished breath sounds at the bases with a few scattered rhonchi, with no wheezing noted. Abdomen is soft, obese, nontender. Nervous system shows no focal deficits. Please refer to medication reconciliation sheet for a list of medications. Patient Condition at Discharge: Fair Plan - Discharge Summary Discharge Rx Participant: Yes New Discharge Prescriptions: New Hydrocodone/Acetaminophen [Gardner 5-325] 1 tab PO Q6HR PRN 3 Days #12 tab PRN Reason: Pain Pantoprazole [Protonix] 40 mg PO DAILY 30 Days #30 tablet. Amoxic-Pot Clav 875-125Mg [Augmentin 875-125] 1 tab PO Q12HR 5 Days #10 tablet Albuterol Sulfate [Proair Hfa] 2 puff INHALATION Q6HR #1 inhaler Continue Ergocalciferol [Vitamin D2 (DRISDOL)] 50,000 unit PO Q7D predniSONE 4 mg PO DAILY Estrogens, Conjugated [Premarin] 0.3 mg PO DAILY Simvastatin [Zocor] 20 mg PO DAILY Escitalopram [Lexapro] 20 mg PO DAILY Pioglitazone HCl 30 mg PO DAILY INSULIN LISPRO (humaLOG) [humaLOG] See Protocol SQ ACHS Levothyroxine Sodium [Synthroid] 100 mcg PO DAILY Oxybutynin Chloride [Ditropan] 5 mg PO DAILY Brimonidine Tartrate/Timolol [Combigan 0.2%-0.5% Eye Drops] 1 drop BOTH EYES BID Bisacodyl [Dulcolax] 5 - 15 mg PO DAILY PRN PRN Reason: Constipation Brinzolamide [Azopt 1% Ophth Susp] 1 drop BOTH EYES BID Discharge Medication List Ergocalciferol [Vitamin D2 (DRISDOL)] 50,000 unit PO Q7D 03/25/14 [History] Estrogens, Conjugated [Premarin] 0.3 mg PO DAILY 03/25/14 [History] Simvastatin [Zocor] 20 mg PO DAILY 03/25/14 [History] predniSONE 4 mg PO DAILY 03/25/14 [History] Escitalopram [Lexapro] 20 mg PO DAILY 10/28/18 [History] INSULIN LISPRO (humaLOG) [humaLOG] See Protocol SQ ACHS 10/28/18 [History] Levothyroxine Sodium [Synthroid] 100 mcg PO DAILY 10/28/18 [History] Pioglitazone HCl 30 mg PO DAILY 10/28/18 [History] Bisacodyl [Dulcolax] 5 - 15 mg PO DAILY PRN 06/29/19 [History] Brimonidine Tartrate/Timolol [Combigan 0.2%-0.5% Eye Drops] 1 drop BOTH EYES BID 06/29/19 [History] Brinzolamide [Azopt 1% Ophth Susp] 1 drop BOTH EYES BID 06/29/19 [History] Oxybutynin Chloride [Ditropan] 5 mg PO DAILY 06/29/19 [History] Hydrocodone/Acetaminophen [Gardner 5-325] 1 tab PO Q6HR PRN 3 Days #12 tab 07/01/19 [Rx] Albuterol Sulfate [Proair Hfa] 2 puff INHALATION Q6HR #1 inhaler 07/07/19 [Rx] Amoxic-Pot Clav 875-125Mg [Augmentin 875-125] 1 tab PO Q12HR 5 Days #10 tablet 07/07/19 [Rx] Pantoprazole [Protonix] 40 mg PO DAILY 30 Days #30 tablet. 07/07/19 [Rx] Follow up Appointment(s)/Referral(s): [facility], [NON-STAFF] - Janet Stanton MD [Primary Care Provider] - 1-2 days Vince Walsh MD [STAFF PHYSICIAN] - 1 Week Activity/Diet/Wound Care/Special Instructions: No lifting over 10 pounds You may shower. No soaking or tub baths Very light activity until you are reevaluated at your follow up appointment with your surgeon Follow-up with primary care provider upon discharge Continue current diet Follow-up with surgery as discussed and scheduled Continue using incentive spirometer at least 10 times every hour while awake Continue antibiotics until finished Discharge Disposition: HOME WITH HOME HEALTH SERVICES
--- NOTE | 2019-07-07 13:17 | P.PN ---
Subjective Progress Note Date: 07/07/19 CHIEF COMPLAINT: Gallstones HISTORY OF PRESENT ILLNESS: 34-year-old female who is status post laparoscopic cholecystectomy secondary to acute gangrenous cholecystitis. Patient examined this morning at the bedside. Patient reports her abdominal pain is tolerable. Tolerating diet without nausea or vomiting. Vital signs are stable. She is afebrile. PHYSICAL EXAM: VITAL SIGNS: Reviewed. GENERAL: Well-developed in no acute distress. HEENT: No sclera icterus. Extraocular movements grossly intact. Moist buccal mucosa. Head is atraumatic, normocephalic. ABDOMEN: Soft. Nondistended. Nontender. NEUROLOGIC: Alert and oriented. Cranial nerves II through XII grossly intact. ASSESSMENT: 1. Right upper quadrant abdominal pain 2. Cholelithiasis, acute gangrenous cholecystitis, status post lap monica 3. Elevated bilirubin, resolved 4. Mildly elevated LFTs, resolved PLAN: -Continue diet as tolerated -Pain control -Increase activity as tolerated -Incentive spirometry -Stable for discharge from a surgical standpoint. patient to follow up with Dr. Walsh outpatient. Nurse practitioner note has been reviewed by physician. Signing provider agrees with the documented findings, assessment, and plan of care. Objective - Vital Signs Vital signs: Vital Signs Temp 98.1 F 07/07/19 07:00 Pulse 68 07/07/19 12:05 Resp 17 07/07/19 07:00 BP 121/76 07/07/19 07:00 Pulse Ox 96 07/07/19 08:11 Intake & Output 07/06/19 07/07/19 07/07/19 18:59 06:59 18:59 Intake Total 400 Output Total 800 1020 Balance -800 -620 Intake: Oral 400 Output: Urine 600 970 Post Void Residual 200 Stool 50 Other: Voiding Method Bedside Commode # Voids 1 1 # Bowel Movements 1 - Labs CBC & Chem 7: 07/06/19 06:12 07/03/19 17:53 Labs: Abnormal Lab Results - Last 24 Hours (Table) 07/07/19 07/07/19 07/07/19 Range/Units 01:35 07:01 11:19 POC Glucose (mg/dL) 112 H 119 H 139 H (75-99) mg/dL
[2019-07-07 16:09] LABS: Glucose,Whole Blood 115 mg/dL (75-99)
--- NOTE | 2019-07-07 16:57 | P.PN ---
Subjective Progress Note Date: 07/07/19 Principal diagnosis: This is a 34-year-old female who was recently admitted with a change in mental status and a decrease in oral intake and is being closely monitored. Patient was recently receiving IV antibiotic therapy and following up with the wound care center for a right foot diabetic osteomyelitis. Patient states that she recently underwent debridement of the right foot ulcer last week. Infectious disease was consulted. No acute overnight issues. Patient continues to be slightly delayed with responses and slightly confused. Patient denies any chest pain, shortness of breath, or palpitations. Patient has been afebrile. Patient denies any nausea or vomiting and is tolerating diet. Patient states that she has some discomfort in the right upper quadrant. Patient states that she is passing gas and having bowel movements. 07/01/2019 Patient is sitting up in bed in no acute distress with no acute overnight issues. Infectious disease is following. Patient continues to have some right upper quadrant pain and underwent an abdominal ultrasound yesterday showing numerous gallstones. Surgery was consulted. Patient states that she is passing gas and had a bowel movement yesterday and has tolerated diet this morning. Currently patient denies any chest pain, shortness of breath, or palpitations. Patient has been afebrile. Patient denies any nausea or vomiting. Patient's mentation is slightly improved from yesterday and is a little more awake and a lert today. Will continue to monitor closely. 07/02/2019 Patient is sitting up in the chair sleeping but arousable. No acute overnight issues. Patient is quite lethargic today status post laparoscopic cholecystectomy. Surgery is following. Patient states that she is having some discomfort in the abdomen near the ISAAC drain but is tolerable. Patient is currently on clear liquid diet and tolerating well. Patient denies any chest pain, shortness of breath, or palpitations. Patient has been afebrile. Patient denies any nausea or vomiting at this time. Patient states that she is passing gas but has not had a bowel movement yet. PT/OT following. Will continue to monitor closely. 07/07/2019 Patient is sitting up in the chair sleeping but arousable. Acute overnight issues. Patient is more awake today but not very active. Patient needs continuous encouragement and education on incentive spirometry use. Patient is currently still on oxygen via nasal cannula and does not normally wear oxygen at home. D-dimer was ordered and is elevated at 5.45. CT angiogram of the chest was ordered and is pending at this time. Currently patient denies any chest pain, shortness of breath, or palpitations. Patient is afebrile. Patient denies any nausea or vomiting and has been tolerating diet. Patient states that she has some minimal abdominal tenderness but has gotten better over the last few days. Will continue to monitor closely. Objective - Vital Signs Vital signs: Vital Signs Temp 98.6 F 07/07/19 14:31 Pulse 68 07/07/19 16:41 Resp 17 07/07/19 14:31 BP 104/68 07/07/19 14:31 Pulse Ox 94 L 07/07/19 16:26 Intake & Output 07/06/19 07/07/19 07/07/19 18:59 06:59 18:59 Intake Total 400 Output Total 800 1020 200 Balance -800 -620 -200 Weight 96.207 kg Intake: Oral 400 Output: Urine 600 970 200 Post Void Residual 200 Stool 50 Other: Voiding Method Bedside Commode # Voids 1 1 1 # Bowel Movements 1 - Exam Gen: This is a 34-year-old female sitting up in the chair in no acute distress. Temp is 98.6F, pulse is 69, respirations are 17, blood pressure is 104/68, oxygen saturation is 94 % on 2 L via nasal cannula. HEENT: Head is atraumatic, normocephalic. Pupils equal, round. Sclerae is anicteric. Conjunctivae pale, oral mucosa is dry NECK: Supple. No JVD. No lymphadenopathy. No thyromegaly. LUNGS: Diminished breath sounds at the bases with a few scattered rhonchi noted. No intercostal retractions. HEART: S1, S2 are muffled ABDOMEN: Soft. Obese. Bowel sounds are present. No masses. Mild tenderness noted near the surgical site on the right side EXTREMITIES: No pedal edema. No calf tenderness. NEUROLOGICAL: Patient is asleep but arousable, alert and oriented x3. Cranial nerves 2 through 12 are grossly intact. SKIN: Right foot lateral aspect ulceration noted with minimal redness and no swelling - Labs CBC & Chem 7: 07/06/19 06:12 07/03/19 17:53 Labs: Abnormal Lab Results - Last 24 Hours (Table) 07/07/19 07/07/19 07/07/19 Range/Units 01:35 07:01 11:19 D-Dimer (<0.60) mg/L FEU POC Glucose (mg/dL) 112 H 119 H 139 H (75-99) mg/dL 07/07/19 07/07/19 Range/Units 14:53 16:07 D-Dimer 5.45 H (<0.60) mg/L FEU POC Glucose (mg/dL) 115 H (75-99) mg/dL Assessment and Plan Assessment: Change in mental status, acute metabolic encephalopathy, possibly acute secondary to sepsis Right periHilar, right basilar infiltrate with possible gram-negative pneumonia Acute gangrenous cholecystitis with cholelithiasis and sepsis, present on admission, status post laparoscopic cholecystectomy Right foot diabetic ulcer as a cause of possible sepsis Dehydration with acute renal failure, possibly acute prerenal and acute tubular necrosis Diabetes mellitus type 2, uncontrolled with hyperglycemia Elevated bilirubin and AST, possibly indicating hepatitis of undetermined etiology or secondary to sepsis History of recent osteomyelitis of the right foot, status post IV antibiotics, prolonged Hyperlipidemia 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 Recommendations and discussion: Recommend to continue current medications, management, and symptomatic treatment. We'll continue to monitor closely. Infectious disease and surgery are following. Patient continued to be on oxygen via nasal cannula and doesn't normally require oxygen at home so a d-dimer was ordered. D-dimer is elevated at 5.45. CT angiogram of the chest was ordered and is pending at this time. Discussed with the patient about continuing to use incentive spirometer at least 10 times every hour while awake along with coughing and deep breathing. Guarded prognosis. Further recommendations to follow. Possible discharge in 24-48 hours.
--- NOTE | 2019-07-07 19:33 | CT ---
EXAMINATION TYPE: CT angio chest DATE OF EXAM: 07/07/2019 COMPARISON: Chest x-ray of 07/06/2019 HISTORY: Fever, SOB, elevated d-dimer CT DLP: 730 mGycm. Automated Exposure Control for Dose Reduction was Utilized. CONTRAST: CTA scan of the thorax is performed with IV Contrast, patient injected with 100 mL of Isovue 370, pul monary embolism protocol. MIP Images are created on CT scanner and reviewed. FINDINGS: LUNGS: Small bilateral pleural effusions layer dependently with associated atelectasis. Mild intersti tial pulmonary edema and interfissural fluid. Linear probable atelectasis in the right upper lobe and lingula. MEDIASTINUM: There is satisfactory enhancement of the pulmonary artery and its branches, there is no gross CT evidence for pulmonary embolism. However the exam is slightly limited by patient motion. Th ere are no greater than 1 cm hilar or mediastinal lymph nodes. Cardiomegaly is seen with trace perica rdial effusion. Very mild coronary calcifications. OTHER: Subcutaneous density of the ventral abdomen likely on the basis of a subcutaneous contusion. C holelithiasis is seen. Diffuse hepatic steatosis. Pancreatic parenchymal atrophy. Anasarca. Upper tho racic compression deformities age-indeterminate. IMPRESSION: 1. No gross evidence of pulmonary embolism although the exam is degraded by patient motion. 2. Fluid overload with small layering pleural effusions and interstitial edema. Multifocal probable a telectasis. 3. Anasarca. 4. Age-indeterminate upper thoracic compression deformity. Correlate with point tenderness.
[2019-07-07] MEDS: predniSONE 1 MG TAB PO SCH (20:25)
[2019-07-07] MEDS: OXYBUTYNIN XL 5 MG TAB.ER.24 PO SCH (20:25)
[2019-07-07] MEDS: ESTROGENS, CONJUGATED 0.3 MG TAB PO SCH (20:25)
[2019-07-07] MEDS: ATORVASTATIN 10 MG TAB PO SCH (20:25)
[2019-07-07] MEDS: ESCITALOPRAM 20 MG TAB PO SCH (20:25)
[2019-07-07] MEDS: LEVOTHYROXINE 100 MCG TAB PO SCH (20:25)
[2019-07-07] MEDS: PIOGLITAZONE 30 MG TAB PO SCH (20:25)
[2019-07-07 21:20] LABS: Glucose,Whole Blood 146 mg/dL (75-99)
[2019-07-08 02:29] LABS: Glucose,Whole Blood 126 mg/dL (75-99)
[2019-07-08 07:01] LABS: Glucose,Whole Blood 160 mg/dL (75-99)
[2019-07-08] MEDS: HEPARIN SODIUM,PORCINE 5,000 UNIT/ML 1 ML VIAL SQ SCH ×2 (08:29→22:13)
[2019-07-08] MEDS: IPRATROPIUM-ALBUTEROL 3 ML NEB INHALATION SCH ×4 (08:29→20:00)
[2019-07-08] MEDS: TIMOLOL 0.5% OPHTH DROPS 5 ML BTL BOTH EYES SCH ×2 (08:30→22:13)
[2019-07-08] MEDS: BRIMONIDINE TARTRATE 0.2% DROPS 5 ML BTL BOTH EYES SCH ×2 (08:30→22:13)
[2019-07-08] MEDS: PANTOPRAZOLE 40 MG TABLET PO SCH (08:30)
[2019-07-08] MEDS: INSULIN ASPART (NovoLOG) 100 UNIT/ML VIAL SQ SCH ×4 (08:30→21:20)
[2019-07-08] MEDS: DORZOLAMIDE HCL 2% DROPS 10 ML BTL BOTH EYES SCH ×2 (08:30→22:13)
[2019-07-08] MEDS: ERGOCALCIFEROL 50,000 UNIT CAP PO SCH (08:32)
[2019-07-08] MEDS ORDERED: FUROSEMIDE 10 MG/ML 4 ML VIAL IV STA (09:32)
--- NOTE | 2019-07-08 11:04 | P.PN ---
Subjective Progress Note Date: 07/08/19 CHIEF COMPLAINT: Gallstones HISTORY OF PRESENT ILLNESS: 34-year-old female who is status post laparoscopic cholecystectomy secondary to acute gangrenous cholecystitis. Patient examined this morning at the bedside. Patient reports her abdominal pain is tolerable. Tolerating diet without nausea or vomiting. Vital signs are stable. She is afebrile. PHYSICAL EXAM: VITAL SIGNS: Reviewed. GENERAL: Well-developed in no acute distress. HEENT: No sclera icterus. Extraocular movements grossly intact. Moist buccal mucosa. Head is atraumatic, normocephalic. ABDOMEN: Soft. Nondistended. Nontender. NEUROLOGIC: Alert and oriented. Cranial nerves II through XII grossly intact. ASSESSMENT: 1. Right upper quadrant abdominal pain 2. Cholelithiasis, acute gangrenous cholecystitis, status post lap monica 3. Elevated bilirubin, resolved 4. Mildly elevated LFTs, resolved PLAN: -Continue diet as tolerated -Pain control -Increase activity as tolerated -Incentive spirometry -Stable for discharge from a surgical standpoint. patient to follow up with Dr. Walsh outpatient. Nurse practitioner note has been reviewed by physician. Signing provider agrees with the documented findings, assessment, and plan of care. Objective - Vital Signs Vital signs: Vital Signs Temp 98.4 F 07/08/19 06:22 Pulse 67 07/08/19 06:22 Resp 18 07/08/19 06:22 BP 104/59 07/08/19 06:22 Pulse Ox 95 07/08/19 06:22 Intake & Output 07/07/19 07/08/19 07/08/19 18:59 06:59 18:59 Intake Total 600 400 Output Total 400 Balance -400 600 400 Weight 96.207 kg Intake: Oral 600 400 Output: Urine 400 Other: Voiding Method Bedside Commode Bedside Commode # Voids 1 1 # Bowel Movements 1 - Labs CBC & Chem 7: 07/06/19 06:12 07/03/19 17:53 Labs: Abnormal Lab Results - Last 24 Hours (Table) 07/07/19 07/07/19 07/07/19 Range/Units 11: 14:53 16:07 D-Dimer 5.45 H (<0.60) mg/L FEU POC Glucose (mg/dL) 139 H 115 H (75-99) mg/dL 07/07/19 07/08/1907/08/19 Range/Units 21:19 02:27 06:58 D-Dimer (<0.60) mg/L FEU POC Glucose (mg/dL) 146 H 126 H 160 H (75-99) mg/dL
[2019-07-08 11:36] LABS: Glucose,Whole Blood 157 mg/dL (75-99)
--- NOTE | 2019-07-08 12:16 | ECHOF ---
Referral Reason:hypoxia, shortness of breath MEASUREMENTS -------- HEIGHT: 162.6 cm WEIGHT: 96.2 kg BP: 104/55 RVIDd: 3.4 cm (< 3.3) IVSd: 1.1 cm (0.6 - 1.1) LVIDd: 4.3 cm (3.9 - 5.3) LVPWd: 1.2 cm (0.6 - 1.1) IVSs: 1.2 cm LVIDs: 3.4 cm LVPWs: 1.1 cm LA Diam: 3.5 cm (2.7 - 3.8) LAESV Index (A-L): 18.85 ml/m Ao Diam: 3.0 cm (2.0 - 3.7) AV Cusp: 2.0 cm (1.5 - 2.6) LA Diam: 3.7 cm (2.7 - 3.8) MV EXCURSION: 22.907 mm (> 18.000) MV EF SLOPE: 80 mm/s (70 - 150) EPSS: 1.3 cm MV E Benny: 0.76 m/s MV DecT: 114 ms MV A Benny: 0.57 m/s MV E/A Ratio: 1.33 RAP: 5.00 mmHg RVSP: 11.68 mmHg FINDINGS -------- Sinus rhythm. This was a technically adequate study. LV size, wall thickness and systolic function are normal, with an EF greater than 55%. The left christian tricular size is normal. The diastolic filling pattern is normal for the age of the patient 9.44. The right ventricle is normal in size. The left atrial size is normal. The right atrial size is normal. The aortic valve is trileaflet, and appears structurally normal. No aortic stenosis or regurgitation. Mild mitral annular calcification present. Mild mitral regurgitation is present. Mild tricuspid regurgitation present. Right ventricular systolic pressure is normal at < 35 mmHg. There is no evidence of pulmonary hypertension. The pulmonic valve was not well visualized. The aortic root size is normal. There is no pericardial effusion. CONCLUSIONS -------- 1. Sinus rhythm. 2. This was a technically adequate study. 3. LV size, wall thickness and systolic function are normal, with an EF greater than 55%. 4. The left ventricular size is normal. 5. The diastolic filling pattern is normal for the age of the patient 9.44 6. The right ventricle is normal in size. 7. The left atrial size is normal. 8. The right atrial size is normal. 9. The aortic valve is trileaflet, and appears structurally normal. No aortic stenosis or regurgitati on. 10. Mild mitral annular calcification present. 11. Mild mitral regurgitation is present. 12. Mild tricuspid regurgitation present. 13. Right ventricular systolic pressure is normal at < 35 mmHg. 14. There is no evidence of pulmonary hypertension. 15. The pulmonic valve was not well visualized. 16. The aortic root size is normal. 17. There is no pericardial effusion. NEUROLOGICAL PHYSIOTHERAPIST: Deidre Sawyer RDCS
--- NOTE | 2019-07-08 13:08 | P.PN ---
Subjective Progress Note Date: 07/08/19 Principal diagnosis: This is a 34-year-old female who was recently admitted with a change in mental status and a decrease in oral intake and is being closely monitored. Patient was recently receiving IV antibiotic therapy and following up with the wound care center for a right foot diabetic osteomyelitis. Patient states that she recently underwent debridement of the right foot ulcer last week. Infectious disease was consulted. No acute overnight issues. Patient continues to be slightly delayed with responses and slightly confused. Patient denies any chest pain, shortness of breath, or palpitations. Patient has been afebrile. Patient denies any nausea or vomiting and is tolerating diet. Patient states that she has some discomfort in the right upper quadrant. Patient states that she is passing gas and having bowel movements. 07/01/2019 Patient is sitting up in bed in no acute distress with no acute overnight issues. Infectious disease is following. Patient continues to have some right upper quadrant pain and underwent an abdominal ultrasound yesterday showing numerous gallstones. Surgery was consulted. Patient states that she is passing gas and had a bowel movement yesterday and has tolerated diet this morning. Currently patient denies any chest pain, shortness of breath, or palpitations. Patient has been afebrile. Patient denies any nausea or vomiting. Patient's mentation is slightly improved from yesterday and is a little more awake and a lert today. Will continue to monitor closely. 07/02/2019 Patient is sitting up in the chair sleeping but arousable. No acute overnight issues. Patient is quite lethargic today status post laparoscopic cholecystectomy. Surgery is following. Patient states that she is having some discomfort in the abdomen near the ISAAC drain but is tolerable. Patient is currently on clear liquid diet and tolerating well. Patient denies any chest pain, shortness of breath, or palpitations. Patient has been afebrile. Patient denies any nausea or vomiting at this time. Patient states that she is passing gas but has not had a bowel movement yet. PT/OT following. Will continue to monitor closely. 07/07/2019 Patient is sitting up in the chair sleeping but arousable. Acute overnight issues. Patient is more awake today but not very active. Patient needs continuous encouragement and education on incentive spirometry use. Patient is currently still on oxygen via nasal cannula and does not normally wear oxygen at home. D-dimer was ordered and is elevated at 5.45. CT angiogram of the chest was ordered and is pending at this time. Currently patient denies any chest pain, shortness of breath, or palpitations. Patient is afebrile. Patient denies any nausea or vomiting and has been tolerating diet. Patient states that she has some minimal abdominal tenderness but has gotten better over the last few days. Will continue to monitor closely. 07/08/2019 Patient is sitting up in the chair in no acute distress with no overnight issues. Patient continues to have some shortness of breath but per nursing staff patient has been using her incentive spirometer on her own with little encouragement. Attempting to wean patient off the oxygen as she does not normally require it at home, currently weaned down to 2 L via nasal cannula. Cardiology has been consulted and is pending at this time. Patient underwent a CT angiogram of the chest yesterday to assess for possible PE which was negative at this time. Did show some fluid overload with small pleural effusions, multifocal probable atelectasis. Serial order troponins were ordered with the first one being negative. Patient underwent an echo today showing LV systolic function normal with an EF of greater than 55% with no evidence of pulmonary hypertension and mild mitral and tricuspid regurgitation is present. Will continue to monitor closely. Objective - Vital Signs Vital signs: Vital Signs Temp 98.4 F 07/08/19 06:22 Pulse 68 07/08/19 11:13 Resp 18 07/08/19 06:22 BP 104/59 07/08/19 06:22 Pulse Ox 95 07/08/19 06:22 Intake & Output 07/07/19 07/08/19 07/08/19 18:59 06:59 18:59 Intake Total 600 720 Output Total 400 Balance -400 600 720 Weight 96.207 kg Intake: Oral 600 720 Output: Urine 400 Other: Voiding Method Bedside Commode Bedside Commode # Voids 1 1 3 # Bowel Movements 1 2 - Exam Gen: This is a 34-year-old female sitting up in the chair in no acute distress. Temp is 98.4F, pulse is 67, respirations are 18, blood pressure is 104/59, oxygen saturation is 95 % on 2 L via nasal cannula. HEENT: Head is atraumatic, normocephalic. Pupils equal, round. Sclerae is anicteric. Conjunctivae pale, oral mucosa is dry NECK: Supple. No JVD. No lymphadenopathy. No thyromegaly. LUNGS: Diminished breath sounds at the bases with a few scattered rhonchi and crackles noted. No intercostal retractions. HEART: S1, S2 are muffled ABDOMEN: Soft. Obese. Bowel sounds are present. No masses. Mild tenderness noted near the surgical site on the right side EXTREMITIES: No pedal edema. No calf tenderness. NEUROLOGICAL: Patient is asleep but arousable, alert and oriented x3. Cranial nerves 2 through 12 are grossly intact. SKIN: Right foot lateral aspect ulceration noted with minimal redness and no swelling - Labs CBC & Chem 7: 07/06/19 06:12 07/03/19 17:53 Labs: Abnormal Lab Results - Last 24 Hours (Table) 07/07/19 07/07/19 07/07/19 Range/Units 14:53 16:07 21:19 D-Dimer 5.45 H (<0.60) mg/L FEU POC Glucose (mg/dL) 115 H 146 H (75-99) mg/dL 07/08/19 07/08/19 07/08/19 Range/Units 02:27 06:58 11:26 D-Dimer (<0.60) mg/L FEU POC Glucose (mg/dL) 126 H 160 H 157 H (75-99) mg/dL Assessment and Plan Assessment: Change in mental status, acute metabolic encephalopathy, possibly acute secondary to sepsis Right periHilar, right basilar infiltrate with possible gram-negative pneumonia Acute gangrenous cholecystitis with cholelithiasis and sepsis, present on admission, status post laparoscopic cholecystectomy Right foot diabetic ulcer as a cause of possible sepsis Dehydration with acute renal failure, possibly acute prerenal and acute tubular necrosis Diabetes mellitus type 2, uncontrolled with hyperglycemia Elevated bilirubin and AST, possibly indicating hepatitis of undetermined etiology or secondary to sepsis History of recent osteomyelitis of the right foot, status post IV antibiotics, prolonged Hyperlipidemia 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 Recommendations and discussion: Recommend to continue current medications, management, and symptomatic treatment. Will continue to monitor closely. Cardiology has been consulted and is pending at this time. Patient is currently requiring oxygen via nasal cannula at 2 L. CTA of the chest was negative for any PEs. Patient underwent an echo today showing normal LV function and an EF of 55%. Patient was given a one-time dose of IV Lasix and will continue with IV Lasix daily at this time. PT/OT following. Case management and social work are following as patient may require rehab upon discharge. Discussed with the patient about continuing to use incentive spirometer at least 10 times every hour while awake along with coughing and deep breathing. Guarded prognosis. Further recommendations to follow. Possible discharge in 24-48 hours.
[2019-07-08 16:46] LABS: Glucose,Whole Blood 136 mg/dL (75-99)
[2019-07-08 21:09] LABS: Glucose,Whole Blood 163 mg/dL (75-99)
[2019-07-08] MEDS: predniSONE 1 MG TAB PO SCH (22:13)
[2019-07-08] MEDS: ESTROGENS, CONJUGATED 0.3 MG TAB PO SCH (22:13)
[2019-07-08] MEDS: LEVOTHYROXINE 100 MCG TAB PO SCH (22:14)
[2019-07-08] MEDS: ATORVASTATIN 10 MG TAB PO SCH (22:14)
[2019-07-08] MEDS: ESCITALOPRAM 20 MG TAB PO SCH (22:14)
[2019-07-08] MEDS: OXYBUTYNIN XL 5 MG TAB.ER.24 PO SCH (22:14)
[2019-07-08] MEDS: PIOGLITAZONE 30 MG TAB PO SCH (22:14)
[2019-07-09 03:11] LABS: Glucose,Whole Blood 138 mg/dL (75-99)
[2019-07-09 06:58] LABS: Glucose,Whole Blood 140 mg/dL (75-99)
[2019-07-09] MEDS: IPRATROPIUM-ALBUTEROL 3 ML NEB INHALATION SCH ×4 (07:05→21:11)
[2019-07-09] MEDS: INSULIN ASPART (NovoLOG) 100 UNIT/ML VIAL SQ SCH ×4 (07:15→20:40)
[2019-07-09] MEDS: DORZOLAMIDE HCL 2% DROPS 10 ML BTL BOTH EYES SCH ×2 (08:44→20:47)
[2019-07-09] MEDS: PANTOPRAZOLE 40 MG TABLET PO SCH (08:44)
[2019-07-09] MEDS: HEPARIN SODIUM,PORCINE 5,000 UNIT/ML 1 ML VIAL SQ SCH ×2 (08:44→20:47)
[2019-07-09] MEDS: TIMOLOL 0.5% OPHTH DROPS 5 ML BTL BOTH EYES SCH ×2 (08:45→20:47)
[2019-07-09] MEDS: BRIMONIDINE TARTRATE 0.2% DROPS 5 ML BTL BOTH EYES SCH ×2 (08:46→20:47)
[2019-07-09] MEDS ORDERED: FUROSEMIDE 10 MG/ML 4 ML VIAL IV SCH (09:00)
--- NOTE | 2019-07-09 11:14 | P.PN ---
Subjective Progress Note Date: 07/09/19 CHIEF COMPLAINT: Gallstones HISTORY OF PRESENT ILLNESS: 34-year-old female who is status post laparoscopic cholecystectomy secondary to acute gangrenous cholecystitis. Patient examined this morning at the bedside. Patient reports her abdominal pain is tolerable. Tolerating diet without nausea or vomiting. Vital signs are stable. She is afebrile. PHYSICAL EXAM: VITAL SIGNS: Reviewed. GENERAL: Well-developed in no acute distress. HEENT: No sclera icterus. Extraocular movements grossly intact. Moist buccal mucosa. Head is atraumatic, normocephalic. ABDOMEN: Soft. Nondistended. Nontender. NEUROLOGIC: Alert and oriented. Cranial nerves II through XII grossly intact. ASSESSMENT: 1. Right upper quadrant abdominal pain 2. Cholelithiasis, acute gangrenous cholecystitis, status post lap monica 3. Elevated bilirubin, resolved 4. Mildly elevated LFTs, resolved PLAN: -Continue diet as tolerated -Pain control -Increase activity as tolerated -Incentive spirometry -Stable for discharge from a surgical standpoint. patient to follow up with Dr. Walsh outpatient. We will sign off. Please reconsult if needed Nurse practitioner note has been reviewed by physician. Signing provider agrees with the documented findings, assessment, and plan of care. Objective - Vital Signs Vital signs: Vital Signs Temp 97.8 F 07/09/19 07:00 Pulse 60 07/09/19 11:07 Resp 17 07/09/19 08:05 BP 111/72 07/09/19 07:00 Pulse Ox 97 07/09/19 07:05 Intake & Output 07/08/19 07/09/19 07/09/19 18:59 06:59 18:59 Intake Total 720 1080 Output Total 200 Balance 720 1080 -200 Intake: Oral 720 1080 Output: Urine 200 Other: Voiding Method Bedside Commode Bedside Commode # Voids 3 3 # Bowel Movements 2 2 - Labs CBC & Chem 7: 07/06/19 06:12 07/03/19 17:53 Labs: Abnormal Lab Results - Last 24 Hours (Table) 07/08/19 07/08/19 07/08/19 Range/Units 11:26 16:44 21:08 POC Glucose (mg/dL) 157 H 136 H 163 H (75-99) mg/dL 07/09/19 07/09/19 Range/Units 03:09 06:56 POC Glucose (mg/dL) 138 H 140 H (75-99) mg/dL
[2019-07-09 11:32] LABS: Glucose,Whole Blood 234 mg/dL (75-99)
[2019-07-09 11:49] LABS: African American GFR (CKD) >90 (>60 ml/min/1.73 sqM); Blood Urea Nitrogen 13 mg/dL (7-17); Calcium 8.7 mg/dL (8.4-10.2); Chloride 98 mmol/L (98-107); Glucose 240 mg/dL (74-99); Non-African American GFR(CKD) >90 (>60 ml/min/1.73 sqM); Potassium 3.9 mmol/L (3.5-5.1); Sodium 140 mmol/L (137-145)
[2019-07-09 11:57] LABS: Anion Gap 4 mmol/L; Carbon Dioxide 38 mmol/L (22-30)
[2019-07-09 12:01] LABS: Basophils % (A) 0 %; Eosinophils # (A) 0.1 k/uL (0-0.7); Eosinophils % (A) 2 %; HCT 32.1 % (34.0-46.0); HGB 10.6 gm/dL (11.4-16.0); Lymphocytes % (A) 13 %; MCH 30.6 pg (25.0-35.0); MCHC 32.9 g/dL (31.0-37.0); Mean Platelet Volume 7.1; Monocytes # (A) 0.2 k/uL (0-1.0); Monocytes % (A) 3 %; Neutrophils # (A) 6.4 k/uL (1.3-7.7); Neutrophils % (A) 81 %; Platelet Count 203 k/uL (150-450); RBC 3.45 m/uL (3.80-5.40); RDW 13.5 % (11.5-15.5); WBC 7.8 k/uL (3.8-10.6)
--- NOTE | 2019-07-09 12:09 | XR ---
EXAMINATION TYPE: XR chest 1V portable DATE OF EXAM: 07/09/2019 COMPARISON: 07/06/2019 HISTORY: Chest pain TECHNIQUE: Single frontal view of the chest is obtained. FINDINGS: Pulmonary venous congestion with scattered infiltrates. Lung volumes are diminished. Heart is mildly prominent. Hilar and mediastinal structures are unremarkable. IMPRESSION: 1. Findings which may reflect congestive heart failure with pulmonary edema. Infiltrates of other jerad ology not excluded.
[2019-07-09 13:04] LABS: Albumin 3.1 g/dL (3.5-5.0)
--- NOTE | 2019-07-09 13:21 | P.CRDCN ---
History of Present Illness History of present illness: HISTORY OF PRESENTING ILLNESS This is a pleasant 34-year-old female past medical history significant for benign brain tumor s/p resection, dyslipidemia, diabetes mellitus, impaired vision and cognitive impairment. She recently underwent cholecystectomy with Dr. Zhao. She denies prior history of coronary artery disease or hypertension. She does not follow in the office with a ham trimmer for any reason. We have been asked to see him in consultation for shortness of breath. She underwent laparoscopic cholecystectomy secondary to acute gangrenous cholecystitis 07/01/2019. Her post-operative course has been complicated by pneumonia and hypoxic respiratory failure requiring oxygen. She is seen and examined sitting up in the chair in no acute distress. Respirations are equal and unlabored on oxygen via nasal cannula. She states if she gets up and walks she becomes in creasingly short of breath. She denies chest pain, dizziness or palpitations. She underwent a CTA of the chest 07/07 revealing no gross evidence of PE, fluid overload with small layering pleural effusions and interstitial edema, multifocal atelectasis, anasarca and upper thoracic compression deformity. She was initiated on IV Lasix. DIAGNOSTICS EKG on admission reveals sinus tachycardia, heart rate 122 with left posterior fasicular block. Chest xray 07/06 negative for an acute cardiopulmonary process. Laboratory reviewed, cardiac enzymes negative x4, d-dimer 5.45, WBC 7.8, hgb 10.6, plt 203, sodium 140, potassium 3.9, creatinine 0.71, NTproBNP 963. Current cardiac medications include simvastatin 10 mg daily. Echocardiogram obtained reveals preserved LV systolic function with ejection fr action 55%, normal diastolic filling pattern, mild MR and mild TR. REVIEW OF SYSTEMS At the time of my exam: CONSTITUTIONAL: Denies fever or chills. CARDIOVASCULAR: Complains of shortness of breath with exertion. Denies chest pain, orthopnea, PND or palpitations. RESPIRATORY: Denies cough. GASTROINTESTINAL: Denies abdominal pain, diarrhea, constipation, nausea or vomiting. MUSCULOSKELETAL: Denies myalgias. NEUROLOGIC: Denies numbness, tingling or weakness. ENDOCRINE: Denies fatigue, weight change, polydipsia or polyurina. GENITOURINARY: Denies burning, hematuria or urgency with micturation. HEMATOLOGIC: Denies history of anemia or bleeding. PHYSICAL EXAMINATION Blood pressure 106/67 heart rate 64 afebrile and maintaining oxygen saturation on nasal cannula. CONSTITUTIONAL: No apparent distress. Obese. HEENT: Head is normocephalic. Pupils are unequal left pupil dilated. Sclerae anicteric. Mucous membranes of the mouth are moist. No JVD. No carotid bruit. Isbell face. CHEST EXAMINATION: Lungs are clear to auscultation. No chest wall tenderness is noted on palpation or with deep breathing. Diminished bilaterally. HEART EXAMINATION: Regular rate and rhythm. S1, S2 heard. No murmurs, gallops or rub. ABDOMEN: Soft, nontender. Positive bowel sounds. EXTREMITIES: 2+ peripheral pulses, no lower extremity edema and no calf tenderness. NEUROLOGIC EXAMINATION: Patient is awake, alert and oriented x3. ASSESSMENT Hypoxic respiratory failure secondary to pneumonia and fluid overload. Acute diastolic heart failure Gangrenous cholecystitis s/p cholecystectomy Sepsis Metabolic encephalopathy Diabetes mellitus Dyslipidemia History of brain tumor s/p resection PLAN Repeat chest xray requested this morning revealed pulmonary edema. Increase lasix to BID. Follow renal function and electrolytes in the morning. Further recommendations to follow based on clinical course. Thank you kindly for this consultation. Nurse Practitioner note has been reviewed, I agree with a documented findings and plan of care. Patient was seen and examined. Past Medical History Past Medical History: Diabetes Mellitus, Eye Disorder, Hearing Disorder / Deafness, Hyperlipidemia, Musculoskeletal Disorder, Skin Disorder, Thyroid Disorder Additional Past Medical History / Comment(s): brain tumor resected surgically, visual impairment of the patient has impaired vision and impaired hearing on the left and history of psoriasis that she is morbidly obese with a BMI of 36.4. History of Any Multi-Drug Resistant Organisms: None Reported Past Surgical History: Cholecystectomy, Orthopedic Surgery Additional Past Surgical History / Comment(s): brain tumor removed 2002, Past Anesthesia/Blood Transfusion Reactions: No Reported Reaction Past Psychological History: Depression Smoking Status: Never smoker Past Alcohol Use History: None Reported Additional Past Alcohol Use History / Comment(s): Patient has been a lifelong nonsmoker, no illicit drug use, no alcohol use. She lives at home with her aunt and brother. There are 2 dogs and 3 cats in the home. Past Drug Use History: None Reported - Past Family History Brother(s) Additional Family Medical History / Comment(s): pt states her brother is healthy Medications and Allergies Home Medications Medication Instructions Recorded Confirmed Type Ergocalciferol [Vitamin D2 50,000 unit PO Q7D 03/25/14 06/29/19 History (DRISDOL)] Estrogens, Conjugated [Premarin] 0.3 mg PO DAILY 03/25/14 06/29/19 History Simvastatin [Zocor] 20 mg PO DAILY 03/25/14 06/29/19 History predniSONE 4 mg PO DAILY 03/25/14 06/29/19 History Escitalopram [Lexapro] 20 mg PO DAILY 10/28/18 06/29/19 History INSULIN LISPRO (humaLOG) [humaLOG] See Protocol SQ ACHS 10/28/18 06/29/19 History Levothyroxine Sodium [Synthroid] 100 mcg PO DAILY 10/28/18 06/29/19 History Pioglitazone HCl 30 mg PO DAILY 10/28/18 06/29/19 History Bisacodyl [Dulcolax] 5 - 15 mg PO DAILY PRN 06/29/19 06/29/19 History Brimonidine Tartrate/Timolol 1 drop BOTH EYES BID 06/29/19 06/29/19 History [Combigan 0.2%-0.5% Eye Drops] Brinzolamide [Azopt 1% Ophth Susp] 1 drop BOTH EYES BID 06/29/19 06/29/19 History Oxybutynin Chloride [Ditropan] 5 mg PO DAILY 06/29/19 06/29/19 History Hydrocodone/Acetaminophen [Chrisman 1 tab PO Q6HR PRN 3 Days #12 tab 07/01/19 Rx 5-325] Albuterol Sulfate [Proair Hfa] 2 puff INHALATION Q6HR #1 inhaler 07/07/19 Rx Amoxic-Pot Clav 875-125Mg 1 tab PO Q12HR 5 Days #10 tablet 07/07/19 Rx [Augmentin 875-125] Pantoprazole [Protonix] 40 mg PO DAILY 30 Days #30 07/07/19 Rx tablet.dr Allergies Allergy/AdvReac Type Severity Reaction Status Date / Time lactose Allergy Diarrhea Verified 06/29/19 18:19 Physical Exam Vitals: Vital Signs Temp Pulse Pulse Resp BP BP BP 07/09/19 07:15 64 07/09/19 07:05 63 07/09/19 07:00 97.8 F 60 17 111/72 07/09/19 00:25 98.1 F 61 100/63 07/08/19 21:50 98.1 F 68 16 103/64 07/08/19 20:10 64 07/08/19 20:01 60 07/08/19 16:27 60 07/08/19 16:06 64 07/08/19 14:16 98.3 F 60 20 106/67 07/08/19 11:13 68 07/08/19 11:04 66 Pulse Ox 07/09/19 07:15 07/09/19 07:05 97 07/09/19 07:00 86 L 07/09/19 00:25 97 07/08/19 21:50 95 07/08/19 20:10 07/08/19 20:01 07/08/19 16:27 07/08/19 16:06 07/08/19 14:16 91 L 07/08/19 11:13 07/08/19 11:04 Intake and Output 07/08/19 07/09/19 07/09/19 22:59 06:59 14:59 Intake Total 540 540 Balance 540 540 Intake: Oral 540 540 Results 07/09/19 11:04 07/09/19 11:04 Cardiac Enzymes 07/08/19 07/08/19 07/08/19 Range/Units 11:36 17:22 23:29 Troponin I <0.012 <0.012 <0.012 (0.000-0.034) ng/mL Current Medications Generic Name Dose Route Start Last Admin Trade Name Freq PRN Reason Stop Dose Admin Acetaminophen 650 mg 06/29/19 18:06 06/30/19 00:20 Tylenol Tab PO 650 mg Q6HR PRN Administration Mild Pain or Fever > 100.5 Hydrocodone Bitart/Acetaminophen 1 each 07/02/19 10:22 07/03/19 07:15 Chrisman 5-325 PO 1 each Q4HR PRN Administration MODERATE Pain Albuterol/Ipratropium 3 ml 07/02/19 16:00 07/09/19 07:05 Duoneb 0.5 Mg-3 Mg/3 Ml Soln INHALATION 3 ml RT-QID GENO Administration Atorvastatin Calcium 10 mg 06/29/19 21:00 07/08/19 22:14 Lipitor PO 10 mg HS GENO Administration Brimonidine Tartrate 1 drops 07/02/19 21:00 07/09/19 08:46 Alphagan P 0.2% Ophth Soln BOTH EYES 1 drops BID GENO Administration Dorzolamide HCl 1 drops 07/02/19 21:00 07/09/19 08:44 Trusopt BOTH EYES 1 drops BID GENO Administration Ergocalciferol 50,000 unit 07/01/19 09:00 07/08/19 08:32 Vitamin D2 PO 50,000 unit TU GENO Administration Escitalopram Oxalate 20 mg 06/29/19 21:00 07/08/19 22:14 Lexapro PO 20 mg HS GENO Administration Estrogens Conjugated 0.3 mg 06/29/19 21:00 07/08/19 22:13 Premarin PO 0.3 mg HS GENO Administration Furosemide 40 mg 07/09/19 09:00 07/09/19 08:44 Lasix IV 40 mg DAILY GENO Administration Heparin Sodium (Porcine) 5,000 unit 06/29/19 21:00 07/09/19 08:44 Heparin SQ 5,000 unit Q12HR GENO Administration Hydromorphone HCl 0.5 mg 07/02/19 11:41 Dilaudid IVP Q3HR PRN Severe Pain Insulin Aspart 0 unit 06/29/19 21:00 07/09/19 07:15 Novolog SQ Not Given ACHS [facility] Protocol Levothyroxine Sodium 100 mcg 06/29/19 21:00 07/08/19 22:14 Synthroid PO 100 mcg HS GENO Administration Naloxone HCl 0.2 mg 06/29/19 18:06 Narcan IV Q2M PRN Opioid Reversal Oxybutynin Chloride 5 mg 06/29/19 21:00 07/08/19 22:14 Ditropan Xl PO 5 mg HS GENO Administration Pantoprazole Sodium 40 mg 07/01/19 09:00 07/09/19 08:44 Protonix PO 40 mg DAILY GENO Administration Pioglitazone HCl 30 mg 06/29/19 21:00 07/08/19 22:14 Actos PO 30 mg HS GENO Administration Prednisone 4 mg 06/29/19 21:00 07/08/19 22:13 PO 4 mg HS GENO Administration Timolol Maleate 1 drops 07/02/19 21:00 07/09/19 08:45 Timoptic BOTH EYES 1 drops BID GENO Administration Intake and Output 07/08/19 07/09/19 07/09/19 22:59 06:59 14:59 Intake Total 540 540 Balance 540 540 Intake: Oral 540 540 07/06/19 06:12 07/03/19 17:53
--- NOTE | 2019-07-09 15:42 | P.PN ---
Subjective Progress Note Date: 07/09/19 Principal diagnosis: This is a 34-year-old female who was recently admitted with a change in mental status and a decrease in oral intake and is being closely monitored. Patient was recently receiving IV antibiotic therapy and following up with the wound care center for a right foot diabetic osteomyelitis. Patient states that she recently underwent debridement of the right foot ulcer last week. Infectious disease was consulted. No acute overnight issues. Patient continues to be slightly delayed with responses and slightly confused. Patient denies any chest pain, shortness of breath, or palpitations. Patient has been afebrile. Patient denies any nausea or vomiting and is tolerating diet. Patient states that she has some discomfort in the right upper quadrant. Patient states that she is passing gas and having bowel movements. 07/01/2019 Patient is sitting up in bed in no acute distress with no acute overnight issues. Infectious disease is following. Patient continues to have some right upper quadrant pain and underwent an abdominal ultrasound yesterday showing numerous gallstones. Surgery was consulted. Patient states that she is passing gas and had a bowel movement yesterday and has tolerated diet this morning. Currently patient denies any chest pain, shortness of breath, or palpitations. Patient has been afebrile. Patient denies any nausea or vomiting. Patient's mentation is slightly improved from yesterday and is a little more awake and a lert today. Will continue to monitor closely. 07/02/2019 Patient is sitting up in the chair sleeping but arousable. No acute overnight issues. Patient is quite lethargic today status post laparoscopic cholecystectomy. Surgery is following. Patient states that she is having some discomfort in the abdomen near the ISAAC drain but is tolerable. Patient is currently on clear liquid diet and tolerating well. Patient denies any chest pain, shortness of breath, or palpitations. Patient has been afebrile. Patient denies any nausea or vomiting at this time. Patient states that she is passing gas but has not had a bowel movement yet. PT/OT following. Will continue to monitor closely. 07/07/2019 Patient is sitting up in the chair sleeping but arousable. Acute overnight issues. Patient is more awake today but not very active. Patient needs continuous encouragement and education on incentive spirometry use. Patient is currently still on oxygen via nasal cannula and does not normally wear oxygen at home. D-dimer was ordered and is elevated at 5.45. CT angiogram of the chest was ordered and is pending at this time. Currently patient denies any chest pain, shortness of breath, or palpitations. Patient is afebrile. Patient denies any nausea or vomiting and has been tolerating diet. Patient states that she has some minimal abdominal tenderness but has gotten better over the last few days. Will continue to monitor closely. 07/08/2019 Patient is sitting up in the chair in no acute distress with no overnight issues. Patient continues to have some shortness of breath but per nursing staff patient has been using her incentive spirometer on her own with little encouragement. Attempting to wean patient off the oxygen as she does not normally require it at home, currently weaned down to 2 L via nasal cannula. Cardiology has been consulted and is pending at this time. Patient underwent a CT angiogram of the chest yesterday to assess for possible PE which was negative at this time. Did show some fluid overload with small pleural effusions, multifocal probable atelectasis. Serial order troponins were ordered with the first one being negative. Patient underwent an echo today showing LV systolic function normal with an EF of greater than 55% with no evidence of pulmonary hypertension and mild mitral and tricuspid regurgitation is present. Will continue to monitor closely. 07/09/2019 Patient is lying in bed in no acute distress no acute overnight issues. Patient states that she has some minimal shortness of breath with exertion still being maintained on oxygen via nasal cannula at 2 L. Patient is not very active and needs continuous encouragement on getting up as well as the use of her incentive spirometer. Discussed with the patient about possible rehab upon discharge the patient states that she lives with her aunt and she takes care of her. Case management and social work are following for discharge needs. PT/OT following. Cardiology is following as well. Patient had a series of troponins drawn yesterday and were negative. Chest x-ray today shows some venous congestion with scattered infiltrates that may reflect congestive heart failure with pulmonary edema. Patient was currently receiving Lasix 40 mg daily IV and will increase to twice daily at this time. Will continue to monitor closely. Objective - Vital Signs Vital signs: Vital Signs Temp 97.8 F 07/09/19 15:00 Pulse 61 07/09/19 15:00 Resp 17 07/09/19 15:00 BP 94/59 07/09/19 15:00 Pulse Ox 91 L 07/09/19 15:00 Intake & Output 07/08/19 07/09/19 07/09/19 18:59 06:59 18:59 Intake Total 720 1080 Output Total 200 Balance 720 1080 -200 Intake: Oral 720 1080 Output: Urine 200 Other: Voiding Method Bedside Commode Bedside Commode # Voids 3 3 # Bowel Movements 2 2 - Exam Gen: This is a 34-year-old female sitting up in bed in no acute distress. Temp is 97.8 F, pulse is 61, respirations are 16, blood pressure is 44/59, oxygen saturation is 91% on room air HEENT: Head is atraumatic, normocephalic. Pupils equal, round. Sclerae is anicteric. Conjunctivae pale, oral mucosa is dry NECK: Supple. No JVD. No lymphadenopathy. No thyromegaly. LUNGS: Diminished breath sounds at the bases with a few scattered rhonchi noted. No intercostal retractions. Improved from previous HEART: S1, S2 are muffled ABDOMEN: Soft. Obese. Bowel sounds are present. No masses. No tenderness noted upon palpation EXTREMITIES: No pedal edema. No calf tenderness. NEUROLOGICAL: Patient is asleep but arousable, alert and oriented x3. Cranial nerves 2 through 12 are grossly intact. SKIN: Right foot lateral aspect ulceration noted with minimal redness and no swelling - Labs CBC & Chem 7: 07/09/19 11:04 07/09/19 11:04 Labs: Abnormal Lab Results - Last 24 Hours (Table) 07/08/19 07/08/19 07/09/19 Range/Units 16:44 21:08 03:09 RBC (3.80-5.40) m/uL Hgb (11.4-16.0) gm/dL Hct (34.0-46.0) % Carbon Dioxide (22-30) mmol/L Glucose (74-99) mg/dL POC Glucose (mg/dL) 136 H 163 H 138 H (75-99) mg/dL Albumin (3.5-5.0) g/dL 07/09/19 07/09/19 07/09/19 Range/Units 06:56 11:04 11:04 RBC 3.45 L (3.80-5.40) m/uL Hgb 10.6 L (11.4-16.0) gm/dL Hct 32.1 L (34.0-46.0) % Carbon Dioxide 38 H (22-30) mmol/L Glucose 240 H (74-99) mg/dL POC Glucose (mg/dL) 140 H (75-99) mg/dL Albumin 3.1 L (3.5-5.0) g/dL 07/09/19 Range/Units 11:27 RBC (3.80-5.40) m/uL Hgb (11.4-16.0) gm/dL Hct (34.0-46.0) % Carbon Dioxide (22-30) mmol/L Glucose (74-99) mg/dL POC Glucose (mg/dL) 234 H (75-99) mg/dL Albumin (3.5-5.0) g/dL Assessment and Plan Assessment: Change in mental status, acute metabolic encephalopathy, possibly acute secondary to sepsis Right periHilar, right basilar infiltrate with possible gram-negative pneumonia Acute gangrenous cholecystitis with cholelithiasis and sepsis, present on admission, status post laparoscopic cholecystectomy Possible acute congestive heart failure with diastolic dysfunction Right foot diabetic ulcer as a cause of possible sepsis Dehydration with acute renal failure, possibly acute prerenal and acute tubular necrosis Diabetes mellitus type 2, uncontrolled with hyperglycemia Elevated bilirubin and AST, possibly indicating hepatitis of undetermined etiology or secondary to sepsis History of recent osteomyelitis of the right foot, status post IV antibiotics, prolonged Hyperlipidemia 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 Recommendations and discussion: Recommend to continue current medications, management, and symptomatic treatment. Will continue to monitor closely. Cardiology is following. Patient's IV Lasix 40 mg will be continued and increased to twice daily. Today's chest x-ray shows some congestion along with pulmonary edema. Patient is currently still on oxygen via nasal cannula at 2 L discussed with the nursing staff about continuing to wean off as she does not normally require oxygen at home. PT/OT following. Case management and social work are following as jordy wiley may require rehab upon discharge. Patient lives with her aunt and aunt takes care of her. Discussed with the patient and staff about continuing to use incentive spirometer at least 10 times every hour while awake along with coughing and deep breathing. Guarded prognosis. Further recommendations to follow. Possible discharge in 24-48 hours.
[2019-07-09 16:58] LABS: Glucose,Whole Blood 133 mg/dL (75-99)
[2019-07-09 20:38] LABS: Glucose,Whole Blood 139 mg/dL (75-99)
[2019-07-09] MEDS: OXYBUTYNIN XL 5 MG TAB.ER.24 PO SCH (20:46)
[2019-07-09] MEDS: PIOGLITAZONE 30 MG TAB PO SCH (20:46)
[2019-07-09] MEDS: predniSONE 1 MG TAB PO SCH (20:46)
[2019-07-09] MEDS: LEVOTHYROXINE 100 MCG TAB PO SCH (20:46)
[2019-07-09] MEDS: ATORVASTATIN 10 MG TAB PO SCH (20:46)
[2019-07-09] MEDS: ESCITALOPRAM 20 MG TAB PO SCH (20:46)
[2019-07-09] MEDS: ESTROGENS, CONJUGATED 0.3 MG TAB PO SCH (20:46)
[2019-07-09] MEDS: FUROSEMIDE 10 MG/ML 4 ML VIAL IV SCH (20:47)
[2019-07-10 02:28] LABS: Glucose,Whole Blood 159 mg/dL (75-99)
[2019-07-10 06:51] LABS: Glucose,Whole Blood 184 mg/dL (75-99)
[2019-07-10 07:20] VITALS: BP 112/71; PULSE 67; RESP 16; TEMP 98.2
[2019-07-10] MEDS: PANTOPRAZOLE 40 MG TABLET PO SCH (07:53)
[2019-07-10] MEDS: FUROSEMIDE 10 MG/ML 4 ML VIAL IV SCH (07:53)
[2019-07-10] MEDS: HEPARIN SODIUM,PORCINE 5,000 UNIT/ML 1 ML VIAL SQ SCH (07:53)
[2019-07-10] MEDS: BRIMONIDINE TARTRATE 0.2% DROPS 5 ML BTL BOTH EYES SCH (07:54)
[2019-07-10] MEDS: TIMOLOL 0.5% OPHTH DROPS 5 ML BTL BOTH EYES SCH (07:54)
[2019-07-10] MEDS: INSULIN ASPART (NovoLOG) 100 UNIT/ML VIAL SQ SCH ×2 (07:54→11:53)
[2019-07-10] MEDS: DORZOLAMIDE HCL 2% DROPS 10 ML BTL BOTH EYES SCH (07:54)
[2019-07-10] MEDS: IPRATROPIUM-ALBUTEROL 3 ML NEB INHALATION SCH ×2 (08:21→11:21)
[2019-07-10 08:41] LABS: African American GFR (CKD) >90 (>60 ml/min/1.73 sqM); Anion Gap 5 mmol/L; Blood Urea Nitrogen 15 mg/dL (7-17); Calcium 9.1 mg/dL (8.4-10.2); Carbon Dioxide 38 mmol/L (22-30); Chloride 97 mmol/L (98-107); Glucose 195 mg/dL (74-99); Non-African American GFR(CKD) >90 (>60 ml/min/1.73 sqM); Potassium 4.1 mmol/L (3.5-5.1); Sodium 140 mmol/L (137-145)
[2019-07-10 11:39] LABS: Glucose,Whole Blood 185 mg/dL (75-99)
--- NOTE | 2019-07-10 13:32 | P.PN ---
Subjective HISTORY OF PRESENTING ILLNESS This is a pleasant 34-year-old female past medical history significant for benign brain tumor s/p resection, dyslipidemia, diabetes mellitus, impaired vision and cognitive impairment. She recently underwent cholecystectomy with Dr. Zhao. She denies prior history of coronary artery disease or hypertension. She does not follow in the office with a television journalist for any reason. She is seen and examined sitting up in bed in no acute distress. She is maintaining oxygen saturation on room air. She has been up to the bathroom without difficulty. She denies chest pain, dizziness or palpitations. Blood pressure 112/71 heart rate 67 afebrile and maintaining oxygen saturation on room air. Laboratory data reviewed, sodium 140, potassium 4.1, creatinine 0.72. PHYSICAL EXAMINATION CONSTITUTIONAL: No apparent distress. Obese. HEENT: Head is normocephalic. Pupils are unequal left pupil dilated. Sclerae anicteric. Mucous membranes of the mouth are moist. No JVD. No carotid bruit. Isbell face. CHEST EXAMINATION: Lungs are clear to auscultation. No chest wall tenderness is noted on palpation or with deep breathing. Diminished bilaterally. HEART EXAMINATION: Regular rate and rhythm. S1, S2 heard. No murmurs, gallops or rub. EXTREMITIES: 2+ peripheral pulses, no lower extremity edema and no calf ten derness. ASSESSMENT Acute hypoxic respiratory failure secondary to fluid overload from sepsis and f luid administration. Acute diastolic heart failure Gangrenous cholecystitis s/p cholecystectomy Sepsis Metabolic encephalopathy Diabetes mellitus Dyslipidemia History of brain tumor s/p resection PLAN Breathing and respiratory status has greatly improved with diuresis. Agree with discharge on oral diuretics for 1 week. Nurse Practitioner note has been reviewed, I agree with a documented findings and plan of care. Patient was seen and examined. Objective - Vital Signs Vital signs: Vital Signs Temp 98.2 F 07/10/19 07:00 Pulse 67 07/10/19 08:00 Resp 16 07/10/19 08:00 BP 112/71 07/10/19 07:00 Pulse Ox 90 L 07/10/19 07:00 Intake & Output 07/09/19 07/10/19 07/10/19 18:59 06:59 18:59 Output Total 400 Balance -400 Output: Urine 400 Other: Voiding Method Toilet Toilet # Voids 3 4 1 # Bowel Movements 2 - Labs CBC & Chem 7: 07/09/19 11:04 07/10/19 07:29 Labs: Abnormal Lab Results - Last 24 Hours (Table) 07/09/19 07/09/19 07/09/19 Range/Units 11:04 16:56 20:37 Chloride (98-107) mmol/L Carbon Dioxide 38 H (22-30) mmol/L Glucose 240 H (74-99) mg/dL POC Glucose (mg/dL) 133 H 139 H (75-99) mg/dL Albumin 3.1 L (3.5-5.0) g/dL 07/10/19 07/10/19 07/10/19 Range/Units 02:27 06:47 07:29 Chloride 97 L (98-107) mmol/L Carbon Dioxide 38 H (22-30) mmol/L Glucose 195 H (74-99) mg/dL POC Glucose (mg/dL) 159 H 184 H (75-99) mg/dL Albumin (3.5-5.0) g/dL 07/10/19 Range/Units 11:37 Chloride (98-107) mmol/L Carbon Dioxide (22-30) mmol/L Glucose (74-99) mg/dL POC Glucose (mg/dL) 185 H (75-99) mg/dL Albumin (3.5-5.0) g/dL
--- NOTE | 2019-07-10 16:00 | P.DS ---
Providers Date of admission: 06/29/19 18:06 Expected date of discharge: 07/10/19 Attending physician: Sherice Govea Consults: 06/30/19 09:01 Consult Physician Routine Consulting Provider: Sumit Addison Consult Reason/Comments: sepsis Do you want consulting provider notified?: Yes 07/04/19 16:19 Consult Physician Routine Consulting Provider: Srinath Rosado Consult Reason/Comments: pneumonia Do you want consulting provider notified?: Yes 07/08/19 11:06 Consult Physician Stat Consulting Provider: [facility] Consult Reason/Comments: shortness of breath, elevated d dimer Do you want consulting provider notified?: Yes Primary care physician: Janet Stanton [facility] Course: Final diagnosis Change in mental status, acute metabolic encephalopathy, possibly acute secondary to sepsis Right periHilar, right basilar infiltrate with possible gram-negative pneumonia Acute gangrenous cholecystitis with cholelithiasis and sepsis, present on admission, status post laparoscopic cholecystectomy Possible acute congestive heart failure with diastolic dysfunction Right foot diabetic ulcer as a cause of possible sepsis Dehydration with acute renal failure, possibly acute prerenal and acute tubular necrosis Diabetes mellitus type 2, uncontrolled with hyperglycemia Elevated bilirubin and AST, possibly indicating hepatitis of undetermined etiology or secondary to sepsis History of recent osteomyelitis of the right foot, status post IV antibiotics, prolonged Hyperlipidemia 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 Discharge disposition Patient is being discharged in a stable condition with guarded prognosis to home and will have home care in the outpatient setting. Patient will follow-up with her primary care provider Dr. Janet Stanton in the outpatient setting upon discharge. Patient will continue on a short course of oral diuretics Lasix 40 mg daily for 1 week. Total time taken is 35 minutes. History of present illness This is a 34-year-old female who was recently admitted with a change in mental status, decreasing oral intake, and abdominal pain and was being closely monitored. Recently patient was receiving IV antibiotic therapy and wound care for right but diabetic foot ulcer and osteomyelitis. Multiple medical c onsultations are following. During hospitalization patient had an abdominal ultrasound showing multiple gallstones and surgery was consulted. Patient underwent a cholecystectomy which was found to be gangrenous. Status post surgery patient was doing well but requiring oxygen via nasal cannula and continuous encouragement of incentive spirometer use. Patient does not get up much out of bed and was not walking around very much as well. D-dimer was done and was elevated and a CTA of the chest was ordered which showed no pulmonary embolisms. Cardiology was consulted. Patient had serial troponins that were negative and patient underwent an echo showing normal LV function with an EF of greater than 55% with no evidence of pulmonary hypertension. Patient was then diuresed with IV Lasix and diuresed well. Patient will continue in the outpatient setting with oral Lasix for 1 week and will follow-up with her primary care provider upon discharge. Patient will also follow-up with surgery next week as scheduled status post laparoscopic cholecystectomy. Patient has been off of oxygen for over 24 hours and maintaining saturations in the mid 90s. Discussed with the patient at length about continuing to use incentive spirometer in the outpatient setting at least 10 times every hour while awake and increasing activity as tolerated. Discussed this with the aunt as well who takes care of her and lives with her. She will have home care in the outpatient setting. Currently patient's condition is stable with much improvement and states that she would like to go home today. Patient denies any chest pain, shortness of breath, or palpitations. Patient has been afebrile. Patient denies any nausea or vomiting and has been tolerating diet. Guarded prognosis. On exam vital signs are stable. Temp is 98.2F, pulse is 1, respirations are 18, blood pressure is 112/71, oxygen saturation is 95% on room air. Cardio S1, S2 are muffled. Respiratory system shows diminished breath sounds at the bases with no wheezing or crackles noted. Abdomen is soft, obese, nontender. Nervous system shows no focal deficits. Please refer to medication reconciliation sheet for a list of medications Patient Condition at Discharge: Fair Plan - Discharge Summary Discharge Rx Participant: Yes New Discharge Prescriptions: New Hydrocodone/Acetaminophen [Palestine 5-325] 1 tab PO Q6HR PRN 3 Days #12 tab PRN Reason: Pain Pantoprazole [Protonix] 40 mg PO DAILY 30 Days #30 tablet. Amoxjoya-Pot Clav 875-125Mg [Augmentin 875-125] 1 tab PO Q12HR 5 Days #10 tablet Albuterol Sulfate [Proair Hfa] 2 puff INHALATION Q6HR #1 inhaler Furosemide [Lasix] 40 mg PO DAILY 7 Days #7 tablet Continue Ergocalciferol [Vitamin D2 (DRISDOL)] 50,000 unit PO Q7D predniSONE 4 mg PO DAILY Estrogens, Conjugated [Premarin] 0.3 mg PO DAILY Simvastatin [Zocor] 20 mg PO DAILY Escitalopram [Lexapro] 20 mg PO DAILY Pioglitazone HCl 30 mg PO DAILY INSULIN LISPRO (humaLOG) [humaLOG] See Protocol SQ ACHS Levothyroxine Sodium [Synthroid] 100 mcg PO DAILY Oxybutynin Chloride [Ditropan] 5 mg PO DAILY Brimonidine Tartrate/Timolol [Combigan 0.2%-0.5% Eye Drops] 1 drop BOTH EYES BID Bisacodyl [Dulcolax] 5 - 15 mg PO DAILY PRN PRN Reason: Constipation Brinzolamide [Azopt 1% Ophth Susp] 1 drop BOTH EYES BID Discharge Medication List Ergocalciferol [Vitamin D2 (DRISDOL)] 50,000 unit PO Q7D 03/25/14 [History] Estrogens, Conjugated [Premarin] 0.3 mg PO DAILY 03/25/14 [History] Simvastatin [Zocor] 20 mg PO DAILY 03/25/14 [History] predniSONE 4 mg PO DAILY 03/25/14 [History] Escitalopram [Lexapro] 20 mg PO DAILY 10/28/18 [History] INSULIN LISPRO (humaLOG) [humaLOG] See Protocol SQ ACHS 10/28/18 [History] Levothyroxine Sodium [Synthroid] 100 mcg PO DAILY 10/28/18 [History] Pioglitazone HCl 30 mg PO DAILY 10/28/18 [History] Bisacodyl [Dulcolax] 5 - 15 mg PO DAILY PRN 06/29/19 [History] Brimonidine Tartrate/Timolol [Combigan 0.2%-0.5% Eye Drops] 1 drop BOTH EYES BID 06/29/19 [History] Brinzolamide [Azopt 1% Ophth Susp] 1 drop BOTH EYES BID 06/29/19 [History] Oxybutynin Chloride [Ditropan] 5 mg PO DAILY 06/29/19 [History] Hydrocodone/Acetaminophen [Palestine 5-325] 1 tab PO Q6HR PRN 3 Days #12 tab 07/01/19 [Rx] Albuterol Sulfate [Proair Hfa] 2 puff INHALATION Q6HR #1 inhaler 07/07/19 [Rx] Amoxic-Pot Clav 875-125Mg [Augmentin 875-125] 1 tab PO Q12HR 5 Days #10 tablet 07/07/19 [Rx] Pantoprazole [Protonix] 40 mg PO DAILY 30 Days #30 tablet. 07/07/19 [Rx] Furosemide [Lasix] 40 mg PO DAILY 7 Days #7 tablet 07/10/19 [Rx] Follow up Appointment(s)/Referral(s): [facility], [NON-STAFF] - Janet Stanton MD [Primary Care Provider] - 07/15/19 10:45 am (Staff is unable to set up a follow up appointment due to office computers being froze, they have asked for patient to please call SundayJuly 08 morning to set up this appo) [facility] [[facility]-STAFF] - 07/18/19 11:15 am Vince Walsh MD [STAFF PHYSICIAN] - 07/15/19 2:15 pm Patient Instructions/Handouts: Laparoscopic Cholecystectomy (GEN) Activity/Diet/Wound Care/Special Instructions: No lifting over 10 pounds You may shower. No soaking or tub baths Very light activity until you are reevaluated at your follow up appointment with your surgeon Follow-up with primary care provider upon discharge Continue current diet Follow-up with surgery as discussed and scheduled Continue using incentive spirometer at least 10 times every hour while awake Continue antibiotics until finished Continue with Lasix daily for 1 week Discharge Disposition: HOME WITH HOME HEALTH SERVICES
--- NOTE | 2019-07-11 06:49 | CDI ---
Documentation Clarification Form Date: 07/11/2019 6:20:20 AM From: Amrita Casarez Phone: If you have a question about this query, please contact Katie Avina [employer] Scrubber at [phone] between 8am and 5pm. Admit Date: 06/29/2019 6:06:00 PM Patient Name: Octavia Huynh Visit Number: [id number] Discharge Date: 07/10/2019 3:15:00 PM ATTENTION: The Clinical Documentation Specialists (CDI) and [facility] Coding Staff appreciate your assistance in clarifying documentation. Please respond to the clarification below the line at the bottom and electronically sign. The CDI & [facility] Coding staff will review the response and follow-up if needed. Please note: Queries are made part of the Legal Health Record. If you have any questions, please contact the author of this message via ITS. Dr. Sherice Govea Conflicting documentation has been found in the medical record: DM Type I is documented in the H and P. DM Type II is documented in DCS, PN's 07/03, 07/04, 07/05. Please clarify if patient had Type I or Type II DM. History/Risk Factors: Cholecystitis, sepsis, DM complications In your opinion, what is the most clinically appropriate diagnosis for this patient? Type I diabetes Type II diabetes Other explanation of clinical findings Unable to determine (no explanation for clinical findings) Type I diabetes MTDD
== END 2019-07-10 15:15 | disposition home health service (06) | DRG 853 ==
LOC: EC 15:32 → 4SSUR 18:06
PROVIDERS: ADMIT Hospitalist; ATTEND Hospitalist
PROC: 0FT44ZZ Resection of Gallbladder, Percutaneous Endoscopic Approach (ICD-10-PCS; principal; 2019-07-01 16:53)
DX: A41.9 Sepsis, unspecified organism (principal); G93.41 Metabolic encephalopathy; I50.31 Acute diastolic (congestive) heart failure; J96.01 Acute respiratory failure with hypoxia; N17.0 Acute kidney failure with tubular necrosis; J15.6 Pneumonia due to other Gram-negative bacteria; J98.11 Atelectasis; K80.66 Calculus of gallbladder and bile duct with acute and chronic cholecystitis without obstruction; M86.671 Other chronic osteomyelitis, right ankle and foot; E03.9 Hypothyroidism, unspecified; E10.39 Type 1 diabetes mellitus with other diabetic ophthalmic complication; E10.621 Type 1 diabetes mellitus with foot ulcer; E10.65 Type 1 diabetes mellitus with hyperglycemia; E10.69 Type 1 diabetes mellitus with other specified complication; E66.01 Morbid (severe) obesity due to excess calories; E78.5 Hyperlipidemia, unspecified; E86.0 Dehydration; F32.9 Major depressive disorder, single episode, unspecified; H40.9 Unspecified glaucoma; H54.62 Unqualified visual loss, left eye, normal vision right eye; H91.90 Unspecified hearing loss, unspecified ear; K59.00 Constipation, unspecified; K82.A1 Gangrene of gallbladder in cholecystitis; L97.519 Non-pressure chronic ulcer of other part of right foot with unspecified severity; M19.90 Unspecified osteoarthritis, unspecified site; Z68.36 Body mass index [BMI] 36.0-36.9, adult; Z79.4 Long term (current) use of insulin; Z79.890 Hormone replacement therapy; Z79.899 Other long term (current) drug therapy; Z86.011 Personal history of benign neoplasm of the brain; R65.20 Severe sepsis without septic shock; R26.9 Unspecified abnormalities of gait and mobility; Z74.01 Bed confinement status; L40.9 Psoriasis, unspecified; Z79.52 Long term (current) use of systemic steroids
CPT/HCPCS: 36415; 70450; 71045; 71046; 71275; 76705; 80048; 80053; 80306; 81003; 81025; 82040; 82140; 82550; 83036; 83605; 83880; 84484; 84703; 85025; 85379; 85610; 85730; 87040; 87086; 87324; 88304; 93005; 93306; 94640; 94760; 96360; 96361; 99285

== ENCOUNTER 2019-08-18 13:25 | Emergency (ER) | payer MEDICARE, OTHER ==
--- NOTE | 2019-08-18 13:34 | ED ---
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 She presents by EMS with complaints of left leg and knee pain. She presented in position of comfort with her hip flexed and the [place]. No complaints of head neck or back pain no other extremity injury no other modifying factors at this time she is not on any blood thinners. Patient states pain is apparently 6/10 in severity to the left femur/thigh area MD Complaint: fall - Related Data Home Medications Medication Instructions Recorded Confirmed Ergocalciferol [Vitamin D2 50,000 unit PO Q7D 03/25/14 06/29/19 (DRISDOL)] Estrogens, Conjugated [Premarin] 0.3 mg PO DAILY 03/25/14 06/29/19 Simvastatin [Zocor] 20 mg PO DAILY 03/25/14 06/29/19 predniSONE 4 mg PO DAILY 03/25/14 06/29/19 Escitalopram [Lexapro] 20 mg PO DAILY 10/28/18 06/29/19 INSULIN LISPRO (humaLOG) [humaLOG] See Protocol SQ ACHS 10/28/18 06/29/19 Levothyroxine Sodium [Synthroid] 100 mcg PO DAILY 10/28/18 06/29/19 Pioglitazone HCl 30 mg PO DAILY 10/28/18 06/29/19 Bisacodyl [Dulcolax] 5 - 15 mg PO DAILY PRN 06/29/19 06/29/19 Brimonidine Tartrate/Timolol 1 drop BOTH EYES BID 06/29/19 06/29/19 [Combigan 0.2%-0.5% Eye Drops] Brinzolamide [Azopt 1% Ophth Susp] 1 drop BOTH EYES BID 06/29/19 06/29/19 Oxybutynin Chloride [Ditropan] 5 mg PO DAILY 06/29/19 06/29/19 Previous Rx's Medication Instructions Recorded Hydrocodone/Acetaminophen [Elliott 1 tab PO Q6HR PRN 3 Days #12 tab 07/01/19 5-325] Albuterol Sulfate [Proair Hfa] 2 puff INHALATION Q6HR #1 inhaler 07/07/19 Amoxic-Pot Clav 875-125Mg 1 tab PO Q12HR 5 Days #10 tablet 07/07/19 [Augmentin 875-125] Pantoprazole [Protonix] 40 mg PO DAILY 30 Days #30 07/07/19 tablet. Furosemide [Lasix] 40 mg PO DAILY 7 Days #7 tablet 07/10/19 Allergies Allergy/AdvReac Type Severity Reaction Status Date / Time lactose Allergy Diarrhea Verified 08/18/19 13:28 Review of Systems ROS Statement: Those systems with pertinent positive or pertinent negative responses have been documented in the HPI. ROS Other: All systems not noted in ROS Statement are negative. Past Medical History Past Medical History: Diabetes Mellitus, Eye Disorder, Hearing Disorder / Deafness, Hyperlipidemia, Musculoskeletal Disorder, Skin Disorder, Thyroid Disorder Additional Past Medical History / Comment(s): OP, has no peripheral vision, hard of hearing to left side, psoriasis History of Any Multi-Drug Resistant Organisms: None Reported Past Surgical History: Orthopedic Surgery Additional Past Surgical History / Comment(s): brain tumor removed 2002, Past Anesthesia/Blood Transfusion Reactions: No Reported Reaction Past Psychological History: Depression Smoking Status: Never smoker Past Alcohol Use History: None Reported Additional Past Alcohol Use History / Comment(s): Patient has been a lifelong nonsmoker, no illicit drug use, no alcohol use. She lives at home with her aunt and brother. There are 2 dogs and 3 cats in the home. Past Drug Use History: None Reported - Past Family History Brother(s) Additional Family Medical History / Comment(s): pt states her brother is healthy General Exam - General Exam Comments Initial Comments: Physical well-developed well-nourished awake alert oriented 3 female with a [place] Coma Scale of 15 General appearance: alert, anxious Head exam: Present: atraumatic, normocephalic, normal inspection Eye exam: Present: other (Patient does demonstrate anisocoria with the enlarged left pupil relative to the right she is blind in the left eye this is normal for her) ENT exam: Present: normal exam, mucous membranes moist Neck exam: Present: normal inspection, full ROM, other (No stridor JVD or bruits). Absent: tenderness, meningismus, lymphadenopathy Respiratory exam: Present: normal lung sounds bilaterally. Absent: respiratory distress, wheezes, rales, rhonchi, stridor Cardiovascular Exam: Present: regular rate, normal rhythm, normal heart sounds. Absent: systolic murmur, diastolic murmur, rubs, gallop, clicks GI/Abdominal exam: Present: soft, normal bowel sounds. Absent: distended, tenderness, guarding, rebound, rigid Rectal exam: Present: deferred Extremities exam: Present: tenderness, normal capillary refill, other (Tenderness to the mid left femur and to the knee on palpation limited range of motion secondary to pain no sensory motor or vascular deficit however.). Absent: full ROM, pedal edema, joint swelling, calf tenderness Back exam: Present: normal inspection Neurological exam: Present: alert, oriented X3, CN II-XII intact Psychiatric exam: Present: normal affect, normal mood Skin exam: Present: warm, dry, intact, normal color. Absent: rash Course Vital Signs 08/18/19 08/18/19 08/18/19 13:28 15:17 15:22 Temperature 97.9 F Pulse Rate 89 91 Respiratory 18 18 Rate Blood Pressure 133/77 129/84 O2 Sat by Pulse 93 L 92 L 100 Oximetry - Reevaluation(s) Reevaluation #1: 08/18/19 15:40 The patient require some IV pain medication fracture. She does feeling better after the initial treatment. Procedures - Orthopedic Fracture Reduction Fracture #1 Consent Obtained: verbal consent Side: left Fracture Reduction Location: femur Technique: traction/counter-traction, traction splint Post Reduction X-rays Demonstrate: anatomical reduction Post-Reduction Neuro Exam: intact Post-Reduction Vascular Exam: intact Splint Applied: Yes (5 x 30 posterior OCL long-leg) Patient Tolerated Procedure: well Medical Decision Making - Medical Decision Making I did discuss the findings with patient family members as well as with the orthopedic services. I did recommend transfer to a higher level care for orthopedic trauma specialty. I did discuss the case with Dr. Alfaro who did agree to accept the patient in transfer. Additionally case was discussed with the emergency personnel at [facility]. Dr. Lee has accepted the patient is a year to ER transfer. - Radiology Data Radiology results: report reviewed (I did review the imaging and report there is a distal third left femur fracture below the ), image reviewed Disposition Clinical Impression: Closed fracture of left distal femur, History of fracture of left hip Disposition: OTHER INSTITUTION NOT DEFINED Condition: Stable Referrals: Janet Stanton MD [Primary Care Provider] - 1-2 days - Out of Hospital Transfer - Req. Specs Out of Hospital Transfer - Requested Specifics: Other Emergency Center
[2019-08-18 13:39] VITALS: RESP 18; TEMP 97.9
[2019-08-18] MEDS ORDERED: HYDROmorphone 1 MG/ML 1 ML SYRINGE IVP STA ×2 (14:26→15:43)
[2019-08-18] MEDS ORDERED: ONDANSETRON 4 MG/2 ML VIAL IVP STA (14:26)
--- NOTE | 2019-08-18 14:33 | XR ---
EXAMINATION TYPE: XR pelvis AP view, XR femur LT, XR tibia fibula LT DATE OF EXAM: 08/18/2019 CLINICAL HISTORY: Pelvic and left femur and leg pain after fall injury. TECHNIQUE: A single AP view of the pelvis is obtained. Two views of the left leg and femur are obtain ed. COMPARISON: Pelvic and left hip x-ray July 09, 2016 FINDINGS: Osseous structures redemonstrated demineralized. There is no acute fracture/dislocation ev ident in the pelvis pubic symphysis is intact. Persistent asymmetric narrowing and sclerosis of the l eft sacroiliac joint are present. Persistent mild to moderate narrowing of both hip joints greater on the left redemonstrated. 2 views of left femur show proximal fixation hardware unchanged in position. Distal to this there is acute comminuted displaced fracture centered mid shaft level with 1.8 cm medial displacement distal f racture fragment and roughly 2.3 cm impaction. There is posterior angulation. Patellofemoral joint sh ows moderate narrowing. Entire distal femur not included on frontal view. Images of left leg show demineralization. There is a broad-based bony projection proximal metaphysis right tibia consistent with osteochondroma. No additional acute fracture is evident. Suboptimal as an kle joint does not include frontal projection. IMPRESSION: There is new Acute comminuted displaced fracture mid shaft level left femur. (Initial encounter closed type post traumatic fracture)
[2019-08-18] MEDS ORDERED: LORazepam 2 MG/ML INJ IV STA ×2 (15:43→15:54)
[2019-08-18 15:59] VITALS: BP 119/90; PULSE 99
== END 2019-08-18 16:45 | disposition short-term general hospital (02) ==
LOC: EC 13:25
DX: S72.402A Unspecified fracture of lower end of left femur, initial encounter for closed fracture (principal); Z87.81 Personal history of (healed) traumatic fracture; H54.62 Unqualified visual loss, left eye, normal vision right eye; H57.02 Anisocoria; E11.9 Type 2 diabetes mellitus without complications; H91.92 Unspecified hearing loss, left ear; E78.5 Hyperlipidemia, unspecified; E07.9 Disorder of thyroid, unspecified; F32.9 Major depressive disorder, single episode, unspecified; Z91.018 Allergy to other foods; Z79.4 Long term (current) use of insulin; Z79.82 Long term (current) use of aspirin; Z79.890 Hormone replacement therapy; Z79.899 Other long term (current) drug therapy; Z87.2 Personal history of diseases of the skin and subcutaneous tissue; W10.9XXA Fall (on) (from) unspecified stairs and steps, initial encounter; Y93.01 Activity, walking, marching and hiking; Y92.009 Unspecified place in unspecified non-institutional (private) residence as the place of occurrence of the external cause; Z53.8 Procedure and treatment not carried out for other reasons
CPT/HCPCS: 72170; 73552; 73590; 99285; 27502; 96374; 96375 ×2; 96376; J2060; J2405; J1170

== ENCOUNTER 2020-10-28 13:11 | Inpatient (IN) | payer MEDICARE, OTHER ==
[2020-10-28 14:35] LABS: VBG PH 7.35 (7.31-7.41)
[2020-10-28 14:45] LABS: ALT 11 U/L (4-34); AST 50 U/L (14-36); African American GFR (CKD) >90 (>60 ml/min/1.73 sqM); Albumin 4.6 g/dL (3.5-5.0); Alkaline Phosphatase 57 U/L (38-126); Anion Gap 10 mmol/L; Blood Urea Nitrogen 20 mg/dL (7-17); Calcium 9.7 mg/dL (8.4-10.2); Carbon Dioxide 27 mmol/L (22-30); Chloride 105 mmol/L (98-107); Glucose 100 mg/dL (74-99); Magnesium 1.9 mg/dL (1.6-2.3); Non-African American GFR(CKD) >90 (>60 ml/min/1.73 sqM); Sodium 142 mmol/L (137-145); Total Bilirubin 1.6 mg/dL (0.2-1.3); Total Protein 8.3 g/dL (6.3-8.2)
[2020-10-28 14:46] LABS: Potassium 4.7 mmol/L (3.5-5.1)
[2020-10-28 14:57] LABS: Basophils % (A) 0 %; Eosinophils # (A) 0.1 k/uL (0-0.7); Eosinophils % (A) 2 %; HCT 36.8 % (34.0-46.0); HGB 12.4 gm/dL (11.4-16.0); Lymphocytes # (A) 2.5 k/uL (1.0-4.8); Lymphocytes % (A) 36 %; MCH 30.3 pg (25.0-35.0); MCHC 33.6 g/dL (31.0-37.0); MCV 90.1 fL (80.0-100.0); Mean Platelet Volume 9.4; Monocytes # (A) 0.5 k/uL (0-1.0); Monocytes % (A) 7 %; Neutrophils # (A) 3.7 k/uL (1.3-7.7); Neutrophils % (A) 53 %; Platelet Count 104 k/uL (150-450); RBC 4.09 m/uL (3.80-5.40); RDW 13.5 % (11.5-15.5)
[2020-10-28 15:23] LABS: Acetaminophen <10.0 ug/mL; Salicylate <1.0 mg/dL
--- NOTE | 2020-10-28 15:24 | CT ---
EXAMINATION TYPE: CT brain wo con DATE OF EXAM: 10/28/2020 COMPARISON: 06/29/2019 HISTORY: Altered mental status CT DLP: 1130.4 mGycm. Automated Exposure Control for Dose Reduction was Utilized. TECHNIQUE: CT scan of the head is performed without contrast. FINDINGS: There is no acute intracranial hemorrhage, mass effect, or midline shift identified. High attenuation is present within the brainstem and bilaterally within the basal ganglia and thalami con sistent with calcification, there is also calcification present within the region of the sella eccent rically to the right which is coarse. Calcification overlying the ivory also appears present and stabl e from prior exam. Tiny area of low attenuation right basal ganglia compatible with remote lacunar in farct. Cerebral vascular calcifications are present. Right frontal lobe shows low attenuation inferiorly, po stop changes are noted to the calvarium in the right frontal region. The ventricles and sulci are wit hin normal limits in size. The globes are intact and the visualized sinuses are clear. Intracranial a therosclerotic changes noted. Vertebral basilar system is diminutive. IMPRESSION: 1. Stable calcifications in the basal ganglia region bilaterally with no diagnostic evidence of acute hemorrhage or mass effect. 2. Postsurgical changes involving the calvarium
[2020-10-28 15:41] LABS: Amphetamine Screen,Urine Not Detected (NotDetected); Appearance,Urine Cloudy (Clear); Bacteria,Urine Many /hpf; Barbiturate Screen,Urine Not Detected (NotDetected); Benzodiazepines Screen,Urine Not Detected (NotDetected); Bilirubin,Urine Negative (Negative); Blood,Urine Negative (Negative); Cocaine Screen,Urine Not Detected (NotDetected); Color,Urine Yellow; Glucose,Urine (UA) Negative (Negative); Granular Casts,Urine 1 /lpf (0); Ketones,Urine Negative (Negative); Leukocyte Esterase,Urine Large (Negative); Methadone Screen, Urine Not Detected (NotDetected); Mucus,Urine Occasional /hpf; Nitrite,Urine Positive (Negative); Opiate Screen,Urine Not Detected (NotDetected); Oxycodone Screen, Urine Not Detected (NotDetected); PH, Urine 5.5 (5.0-8.0); Phencyclidine Screen,Urine Not Detected (NotDetected); Protein,Urine Trace (Negative); RBC,Urine 1 /hpf (0-5); Specific Gravity,Urine 1.027 (1.001-1.035); Tricyclic Antidepressant,Urine Not Detected (NotDetected); Urn Cannabinoid Scrn Not Detected (NotDetected); Urobilinogen,Urine <2.0 mg/dL (<2.0); WBC,Urine 55 /hpf (0-5)
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
[2020-10-28] MEDS ORDERED: ONDANSETRON 4 MG/2 ML VIAL IVP PRN (21:22)
[2020-10-28] MEDS ORDERED: NALOXONE 0.4 MG/ML 1 ML VIAL IV PRN (21:22)
[2020-10-29 05:37] LABS: Glucose,Whole Blood 78 mg/dL (75-99)
[2020-10-29 06:56] LABS: Glucose,Whole Blood 89 mg/dL (75-99)
[2020-10-29] MEDS: SODIUM CHLORIDE 0.9% 1,000 ML IV SCH ×2 (08:02→20:32)
[2020-10-29] MEDS ORDERED: CLOBETASOL PROP 0.05% CR 15GM TOPICAL PRN (11:01)
[2020-10-29 12:07] LABS: Glucose,Whole Blood 84 mg/dL (75-99)
[2020-10-29] MEDS: OXYBUTYNIN CHLORIDE 5 MG TAB PO SCH (12:18)
[2020-10-29] MEDS: PIOGLITAZONE 15 MG TAB PO SCH (12:18)
[2020-10-29] MEDS: LEVOTHYROXINE 100 MCG TAB PO SCH (12:18)
[2020-10-29] MEDS: PSYLLIUM HUSK 100% 6 GM PACKET PO SCH (12:18)
[2020-10-29] MEDS: ESCITALOPRAM 20 MG TAB PO SCH (12:18)
--- NOTE | 2020-10-29 13:07 | P.CN ---
Psychiatric Consult - . Consult date: 10/29/20 Consult:: 10/29/20 11:17 IDENTIFYING DATA: This patient is a 35-year-old female who currently lives with her aunt and brother in a trailer. She has no kids and is unmarried. REASON FOR REFERRAL: Psychiatry was consulted for auditory hallucinations HISTORY OF PRESENT ILLNESS: The patient presented to the hospital yesterday for altered mental status for about 2 days. According the ER report patient was apparently hearing voices and acting sluggish and apparently has no psychiatric history of significance. She had a positive urinalysis for nitrites and her UDS was negative. She had a computed tomography scan of her brain which showed stable calcifications on the basal ganglia bilaterally and no hemorrhages. She did have postsurgical changes which are noted on the computed tomography scan report. Patient apparently had a history of a brain tumor with a resection in 2002. Patient was seen at the bedside and preferred to speak in the dark as the light was bothering her. She appeared to be attempting to cooperate and had a soft tone of voice. She states that she has been hearing voices for the past few days. She states that she does not know who the voices coming from however states that the voice has gotten less negative today. She claims that the voices telling her "I do exist" repeatedly. She also states that the voices been repeating sentences over and over again. She claims that she has never had this before in the past. She admits to mild depression and claims that she has poor sleep at night is sleeping approximately 1 hour. She claims that she has been depressed since 2002. She denies any anxiety. She states that she has a poor appetite today. At this time patient denies any suicidal or homical ideations, intent or plan. Patient denies any visual hallucinations and denies any paranoia or delusions. Patients admits to using no recreational drugs or cigarettes. PAST PSYCHIATRIC HISTORY: Patient has a a history of depression. Patient was on Lexapro 20 mg daily. Patient denies any previous psychiatric hospitalizations. Patient denies any psychiatric outpatient follow-up. Patient denies any history of suicide attempts in the past. PAST MEDICAL HISTORY: She has a history of a brain tumor and a resection in February 2003. Hyperlipidemia, thyroid disorder, diabetes mellitus, hearing disorder, glaucoma and blindness. ALLERGIES: as per EMR. CHEMICAL DEPENDENCY HISTORY: as per HPI. FAMILY PSYCHIATRIC/SUBSTANCE USE HISTORY: denies SOCIAL HISTORY: Patient was born and raised in [place], [place]. She states that she completed high school. She claims that she did not work after high school. She states that she does not have any kids and is unmarried and currently lives her aunt and brother in a trailer. She denies any legal history. MENTAL STATUS EXAM: General Appearance: Patient appears to be older than stated age is alert, attempting to be cooperative. Patient appears to have poor hygiene and grooming wearing hospital gown with fair eye contact. Behavior: Patient is calmly lying in bed without any agitated behavior. Speech: Patient's speech is fluent and nonpressured. Soft tone of voice Mood/Affect: Patient reports their mood is "depressed", affect is congruent and constricted Suicidality/Homicidality: Patient denies having any suicidal or homicidal ideation intent or plan. Perceptions: Patient denies any visual hallucinations and denies any auditory hallucinations Though content/process: There is no evidence of any delusional thought content and thought process is linear and goal-directed. No paranoia. Memory and concentration: AOX3, grossly intact for the purposes of this session. Cannot spell "WORLD" backwards Judgment and insight: poor IMPRESSIONS: Major depressive disorder, with psychotic features r/o secondary to a general medical condition PLAN: -Will continue to follow along with patients care and determine if patient will be suitable for possible inpatient psych admission. -Would recommend the following medication changes/additions: Started invega 3mg qhs for psychosis. Melatonin 3 mg daily at bedtime for insomnia. Can continue with Lexapro 20 mg daily for mood. -deli worker to provide patient with outpatient mental health/psychiatry resources for appropriate follow up upon discharge -Communicated plan to patient's nurse -Will continue to follow along tomorrow. -Please contact with any questions.
[2020-10-29 17:09] LABS: Glucose,Whole Blood 114 mg/dL (75-99)
[2020-10-29] MEDS: MELATONIN 3 MG TABLET PO SCH (20:30)
[2020-10-29] MEDS: ATORVASTATIN 10 MG TAB PO SCH (20:30)
[2020-10-29] MEDS: PALIPERIDONE 3 MG TAB.ER.24 PO SCH (20:31)
[2020-10-29 20:58] LABS: Glucose,Whole Blood 132 mg/dL (75-99)
--- NOTE | 2020-10-29 21:12 | P.CNNES ---
History of Present Illness Consult date: 10/29/20 Requesting physician: Sarina Kelly Reason for Consult: Altered mental status, hallucinations History of Present Illness: Patient is a 35-year-old female with extensive past medical history came to the hospital by ambulance on 10/28/2020 at 1:11 PM for altered mental status, mainly hearing voices for the last 2 weeks. Patient states that the voices were telling to do that things about her and the family. She denies any visual hallucinations. Patient denies any headache, or any other symptoms at all. She denies depression. Patient states that she has history of craniopharyngioma diagnosed at age 17. She required craniotomy, followed by radiation therapy. Never needed a chemotherapy. Patient also has significant vision problem with the left eye from glaucoma. Also has slight decreased hearing. Patient states that she started using the walker when she was age 20. About a year ago she gave up on walker, and started using wheelchair. She currently lives with her brother and aunt. Vital signs on arrival blood pressure 97/65, pulse of 95, temperature 97.8. Blood tests shows normal CBC, ABG, Chem-7, AST is 50, ALT 11, UA shows large amount of leukocyte Estrace. Urine drug screen negative. Aguilar virus PCR negative. CT head showed stable calcifications in bilateral basal ganglia, with no diagnostic evidence of acute hemorrhage or mass effect. Postsurgical changes involving the calvarium. Patient has been seen by psychiatry, who has diagnosed her with depression with psychotic features. Medications have been adjusted. Patient otherwise appears very comfortable. Review of Systems Weakness particularly of the left side, mainly stays in the wheelchair. Denies headache, double vision. She has loss of vision in the left eye, hearing loss. Denies chest pain shortness of breath wheezing or cough. Denies abdominal pain nausea vomiting. All other review of systems noncontributory. Past Medical History Past Medical History: Diabetes Mellitus, Eye Disorder, Hearing Disorder / Deafness, Hyperlipidemia, Musculoskeletal Disorder, Skin Disorder, Thyroid Disorder Additional Past Medical History / Comment(s): OP, has no peripheral vision, hard of hearing to left side, psoriasis History of Any Multi-Drug Resistant Organisms: None Reported Past Surgical History: Orthopedic Surgery Additional Past Surgical History / Comment(s): brain tumor removed 2002, (L) pupil enlargement normal since tumor removal Past Anesthesia/Blood Transfusion Reactions: No Reported Reaction Past Psychological History: Depression Smoking Status: Never smoker Past Alcohol Use History: None Reported Additional Past Alcohol Use History / Comment(s): Patient has been a lifelong nonsmoker, no illicit drug use, no alcohol use. She lives at home with her aunt and brother. There are 2 dogs and 3 cats in the home. Past Drug Use History: None Reported - Past Family History Brother(s) Additional Family Medical History / Comment(s): pt states her brother is healthy Medications and Allergies Home Medications Medication Instructions Recorded Confirmed Type Ergocalciferol [Vitamin D2 50,000 unit PO Q7D 03/25/14 10/28/20 History (DRISDOL)] Simvastatin [Zocor] 20 mg PO HS 03/25/14 10/28/20 History Escitalopram [Lexapro] 20 mg PO DAILY 10/28/18 10/28/20 History Levothyroxine Sodium [Synthroid] 100 mcg PO DAILY 10/28/18 10/28/20 History Oxybutynin Chloride [Ditropan] 5 mg PO DAILY 06/29/19 10/28/20 History Clobetasol Propionate [Temovate 1 applic TOPICAL BID PRN 10/28/20 10/28/20 History 0.05% Cream] Pioglitazone [Actos] 15 mg PO DAILY 10/28/20 10/28/20 History Psyllium Husk 100% [Metamucil 6 gm PO DAILY 10/28/20 10/28/20 History Packet] Brimonidine Tartrate/Timolol 1 drop BOTH EYES BID 10/29/20 10/29/20 History [Combigan 0.2%-0.5% Eye Drops] Brinzolamide [Azopt 1% Ophth Susp] 1 drop BOTH EYES TID 10/29/20 10/29/20 History Allergies Allergy/AdvReac Type Severity Reaction Status Date / Time lactose Allergy Diarrhea Verified 10/28/20 13:17 Physical Examination - Vital Signs Vital Signs: Vital Signs Temp Pulse Pulse Resp BP BP Pulse Ox 10/29/20 13:50 99.3 F 86 32 H 94/58 91 L 10/29/20 08:00 18 10/29/20 06:43 99.3 F 100 30 H 104/67 93 L 10/28/20 22:44 96 16 10/28/20 22:40 98.6 F 96 16 104/69 95 10/28/20 22:12 82 16 107/76 98 10/28/20 18:47 93 18 101/73 98 Intake and Output 10/29/20 10/29/20 10/29/20 06:59 14:59 22:59 Intake Total 0 Balance 0 Intake: Oral 0 Other: Voiding Method Diaper Incontinent # Voids 1 On examination patient is a young female, very pleasant, but has slightly flat affect. She is in no acute distress. Speech she will speak with very low volume. No aphasia or dysarthria. Her comprehension is intact. She is hard of hearing. She knows that it is the year 2020 although states is the month of November. She knows she is in [facility] name of the current and the previous presidents. Comprehension is intact. On cranial examination her left pupil is large, irregular surgical from previous glaucoma. Right pupil is round. Patient has difficulty keeping her eyes open to check for pupillary response. She has right homonymous hemianopia. Her vision is decreased in the left eye as well. Face is symmetric, tongue protrudes to the midline. Palatal elevation and sensation normal, hearing is slightly decreased, shoulder shrug normal. On muscle strength testing patient has obvious left arm weakness, with deltoid 4- to 5-, biceps 5-, triceps 4+5-, [employer] is weak and some fingers stick out. Patient stated that she has carpal tunnel. Reflexes are diminished in the upper and lower limbs, plantar is downgoing on the right, upon left. Sensory touch is decreased on the left. Patient does not walk. No obvious bruit. S1 and S2 audible abdomen soft. Patient is laying in the bed, has gown placed upside down, and continuously bends her knees on her abdomen. Results - Laboratory Findings CBC and BMP: 10/30/20 08:38 10/30/20 08:38 Abnormal Lab Findings: Abnormal Labs 10/28/20 10/28/20 10/28/20 14:09 14:09 15:17 Plt Count 104 L BUN 20 H Creatinine 0.48 L Glucose 100 H POC Glucose (mg/dL) Phosphorus 5.0 H Total Bilirubin 1.6 H AST 50 H Total Protein 8.3 H Urine Appearance Cloudy H Urine Protein Trace H Urine Nitrite Positive H Ur Leukocyte Esterase Large H Urine WBC 55 H Urine WBC Clumps Many H Urine Bacteria Many H Urine Mucus Occasional H 10/29/20 17:08 Plt Count BUN Creatinine Glucose POC Glucose (mg/dL) 114 H Phosphorus Total Bilirubin AST Total Protein Urine Appearance Urine Protein Urine Nitrite Ur Leukocyte Esterase Urine WBC Urine WBC Clumps Urine Bacteria Urine Mucus Assessment and Plan Assessment: * Auditory hallucinations, likely due to psychiatric condition. Patient denies any other focal symptoms. * History of craniopharyngioma, status post surgery and radiation at age 17. * Mild left hemiparesis, probably due to #2. * Mild hearing impaired * Diabetes Plan: * Psychiatric he has seen the patient, and is adjusting the medications. * Symptoms do not appear to originate from neurological process. * We will check B12, folate, TSH. * No other workup indicated from neurology point. * Neurologically clear.
[2020-10-29] MEDS: TIMOLOL 0.5% OPHTH DROPS 5 ML BTL BOTH EYES SCH (21:46)
[2020-10-29] MEDS: DORZOLAMIDE HCL 2% DROPS 10 ML BTL BOTH EYES SCH (21:46)
[2020-10-29] MEDS: BRIMONIDINE TARTRATE 0.2% DROPS 5 ML BTL BOTH EYES SCH (21:46)
--- NOTE | 2020-10-29 23:23 | P.HPIM ---
History of Present Illness H&P Date: 10/29/20 Chief Complaint: Change in mental status Mr. Huynh is a 35-year-old female with extensive past medical history of brain tumor removed in 2002, type 2 diabetes mellitus, hearing disorder, hyper lipidemia, thyroid disorder, Left eye Blindness coming in through the emergency department for chief complaint of altered mental status changes for 2 days. Patient states that she is hearing voices, she thinks it is the voice of Satan. She also states that the light bothers her and she would prefer to be dark as she has visual problems due to glaucoma in her eyes. Patient has hard of hearing and slow to respond to the questions. She lives with her brother and aunt who take care of her. Patient denied having any chest pain or palpitations. She denies having any cough or difficulty in breathing. No abdominal pain nausea vomiting or diarrhea. She denies having any dysuria or hematuria. Patient has history of incontinence and wears diapers at home. She denies having any suicidal or homicidal ideation. But she consistently keeps on telling that she is hearing voices. In the ER patient had blood work done showing white count of 7, hemoglobin 12.5, platelets 104. Sodium 142, potassium 4.7, chloride 105, bicarb 27, BUN 20, creatinine 0.48. Urine analysis is cloudy, nitrites positive and large leukocyte esterase and WBC clumps. UDS is negative. At the time of admission patient's temperature 97.8, heart rate 91, respiratory rate 16, blood pressure 97 x 65 saturating at 99% on room air. She was given a dose of ceftriaxone and admitted from further management. Review of Systems REVIEW OF SYSTEMS: CONSTITUTIONAL: No fevers, chills or rigors HEENT: Hard of hearing, Left eye blindness CARDIOVASCULAR: No chest pain, orthopnea, PND, no palpitations, no syncope. PULMONARY: Cough with difficulty in breathing GASTROINTESTINAL: PNo adbominal pain , nausea or vomiting. No diarrhea. NEUROLOGICAL: No headaches, no weakness. HEMATOLOGICAL: Denies any bleeding or petechiae. GENITOURINARY: Denies any burning micturition, frequency, or urgency. Wears diapers MUSCULOSKELETAL/RHEUMATOLOGICAL: Denies any joint pain, swelling, or any muscle pain. ENDOCRINE: Denies any polyuria or polydipsia. The rest of the 14-point review of systems is negative. Past Medical History Past Medical History: Diabetes Mellitus, Eye Disorder, Hearing Disorder / Deafness, Hyperlipidemia, Musculoskeletal Disorder, Skin Disorder, Thyroid Disorder Additional Past Medical History / Comment(s): OP, has no peripheral vision, hard of hearing to left side, psoriasis History of Any Multi-Drug Resistant Organisms: None Reported Past Surgical History: Orthopedic Surgery Additional Past Surgical History / Comment(s): brain tumor removed 2002, (L) pupil enlargement normal since tumor removal Past Anesthesia/Blood Transfusion Reactions: No Reported Reaction Past Psychological History: Depression Smoking Status: Never smoker Past Alcohol Use History: None Reported Additional Past Alcohol Use History / Comment(s): Patient has been a lifelong nonsmoker, no illicit drug use, no alcohol use. She lives at home with her aunt and brother. There are 2 dogs and 3 cats in the home. Past Drug Use History: None Reported - Past Family History Brother(s) Additional Family Medical History / Comment(s): pt states her brother is healthy Medications and Allergies Home Medications Medication Instructions Recorded Confirmed Type Ergocalciferol [Vitamin D2 50,000 unit PO Q7D 03/25/14 10/28/20 History (DRISDOL)] Simvastatin [Zocor] 20 mg PO HS 03/25/14 10/28/20 History Escitalopram [Lexapro] 20 mg PO DAILY 10/28/18 10/28/20 History Levothyroxine Sodium [Synthroid] 100 mcg PO DAILY 10/28/18 10/28/20 History Oxybutynin Chloride [Ditropan] 5 mg PO DAILY 06/29/19 10/28/20 History Clobetasol Propionate [Temovate 1 applic TOPICAL BID PRN 10/28/20 10/28/20 History 0.05% Cream] Pioglitazone [Actos] 15 mg PO DAILY 10/28/20 10/28/20 History Psyllium Husk 100% [Metamucil 6 gm PO DAILY 10/28/20 10/28/20 History Packet] Brimonidine Tartrate/Timolol 1 drop BOTH EYES BID 10/29/20 10/29/20 History [Combigan 0.2%-0.5% Eye Drops] Brinzolamide [Azopt 1% Ophth Susp] 1 drop BOTH EYES TID 10/29/20 10/29/20 History Allergies Allergy/AdvReac Type Severity Reaction Status Date / Time lactose Allergy Diarrhea Verified 10/28/20 13:17 Physical Exam Vitals: Vital Signs Temp Pulse Pulse Resp BP BP Pulse Ox 10/29/20 08:00 18 10/29/20 06:43 99.3 F 100 30 H 104/67 93 L 10/28/20 22:44 96 16 10/28/20 22:40 98.6 F 96 16 104/69 95 10/28/20 22:12 82 16 107/76 98 10/28/20 18:47 93 18 101/73 98 10/28/20 15:16 95 18 107/74 96 10/28/20 13:13 97.8 F 95 16 97/65 99 Intake and Output 10/28/20 10/29/20 10/29/20 22:59 06:59 14:59 Intake Total 0 Balance 0 Intake: Oral 0 Other: Voiding Method Diaper Diaper Incontinent Incontinent Weight 81.647 kg PHYSICAL EXAMINATION: GENERAL: The patient is alert and oriented x2-3 , not in any acute distress. HEENT: Hard of hearing ; left pupil irregular CARDIOVASCULAR: S1 and S2 present. PULMONARY: Bilateral breath sounds clear . No crackles at the lower lung bases. ABDOMEN: Abdomen is soft. Nontender. Nondistended. Normal bowel sounds. MUSCULOSKELETAL: No joint swelling or deformity. EXTREMITIES: No cyanosis, clubbing, or pedal edema. NEUROLOGICAL: No focal deficits. Deferred to Neurology SKIN: No rashes. Results CBC & Chem 7: 10/28/20 14:09 10/28/20 14:09 Labs: Abnormal Lab Results - Last 24 Hours (Table) 10/28/20 10/28/20 10/28/20 Range/Units 14:09 14:09 15:17 Plt Count 104 L (150-450) k/uL BUN 20 H (7-17) mg/dL Creatinine 0.48 L (0.52-1.04) mg/dL Glucose 100 H (74-99) mg/dL Phosphorus 5.0 H (2.5-4.5) mg/dL Total Bilirubin 1.6 H (0.2-1.3) mg/dL AST 50 H (14-36) U/L Total Protein 8.3 H (6.3-8.2) g/dL Urine Appearance Cloudy H (Clear) Urine Protein Trace H (Negative) Urine Nitrite Positive H (Negative) Ur Leukocyte Esterase Large H (Negative) Urine WBC 55 H (0-5) /hpf Urine WBC Clumps Many H (None) /hpf Urine Bacteria Many H (None) /hpf Urine Mucus Occasional H (None) /hpf Microbiology - Last 24 Hours (Table) 10/28/20 15:17 Urine Culture - Preliminary Urine,Voided Thrombosis Risk Factor Assmnt - Choose All That Apply Each Factor Represents 1 point: Obesity (BMI >25) Other Risk Factors: No Other congenital or acquired thrombophilia - If yes, enter type in comment: No Thrombosis Risk Factor Assessment Total Risk Factor Score: 1 Thrombosis Risk Factor Assessment Level: Low Risk Assessment and Plan Assessment: ASSESSMENT Encephalopathy -likely due to UTI Gram-negative UTI Auditory hallucinations History of craniopharyngioma, status post radiation and surgery 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 Awaiting urine cultures. Psychiatry has been consulted for auditory hallucinations. The change in mental status could be due to acute infection which is a UTI . The patient has extensive neurological history, so neurology has been consulted. We will restart her on home medications. Further recommendations to follow depending on the progress of the patient.
[2020-10-30] MEDS: LEVOTHYROXINE 100 MCG TAB PO SCH (05:10)
[2020-10-30 06:02] LABS: Folate, Serum >24.0 ng/mL
[2020-10-30 07:19] LABS: Glucose,Whole Blood 81 mg/dL (75-99)
[2020-10-30 09:53] LABS: Basophils % (A) 0 %; Eosinophils # (A) 0.2 k/uL (0-0.7); Eosinophils % (A) 3 %; HCT 33.1 % (34.0-46.0); HGB 11.7 gm/dL (11.4-16.0); Lymphocytes # (A) 1.9 k/uL (1.0-4.8); Lymphocytes % (A) 34 %; MCH 31.9 pg (25.0-35.0); MCHC 35.4 g/dL (31.0-37.0); MCV 90.2 fL (80.0-100.0); Mean Platelet Volume 9.8; Monocytes # (A) 0.3 k/uL (0-1.0); Monocytes % (A) 6 %; Neutrophils % (A) 55 %; RBC 3.67 m/uL (3.80-5.40); RDW 12.9 % (11.5-15.5); WBC 5.4 k/uL (3.8-10.6)
[2020-10-30 10:00] LABS: African American GFR (CKD) >90 (>60 ml/min/1.73 sqM); Anion Gap 4 mmol/L; Blood Urea Nitrogen 14 mg/dL (7-17); Carbon Dioxide 29 mmol/L (22-30); Chloride 105 mmol/L (98-107); Glucose 69 mg/dL (74-99); Non-African American GFR(CKD) >90 (>60 ml/min/1.73 sqM); Potassium 4.4 mmol/L (3.5-5.1); Sodium 138 mmol/L (137-145)
[2020-10-30] MEDS: PIOGLITAZONE 15 MG TAB PO SCH (10:12)
[2020-10-30] MEDS: OXYBUTYNIN CHLORIDE 5 MG TAB PO SCH (10:12)
[2020-10-30] MEDS: ESCITALOPRAM 20 MG TAB PO SCH (10:13)
[2020-10-30] MEDS: PSYLLIUM HUSK 100% 6 GM PACKET PO SCH (10:13)
[2020-10-30] MEDS: DORZOLAMIDE HCL 2% DROPS 10 ML BTL BOTH EYES SCH ×3 (10:16→19:21)
[2020-10-30] MEDS: TIMOLOL 0.5% OPHTH DROPS 5 ML BTL BOTH EYES SCH ×2 (10:16→19:22)
[2020-10-30] MEDS: BRIMONIDINE TARTRATE 0.2% DROPS 5 ML BTL BOTH EYES SCH ×2 (10:16→19:22)
--- NOTE | 2020-10-30 10:41 | P.PN ---
Progress Note - Text Progress Note Date: 10/30/20 Octavia Huynh is a 35 year old white female who was admitted to Hospital with altered mental status. She was already consulted by psychiatry for auditory hallucinations. This patient was barely sleeping for 1 hour at night. She has been depressed off and on since 2002. She has a history of resection of brain tumor in 2002. This patient was taking Lexapro 20 mg and was started on Invega 3 mg. I met with this patient in her room and she told me that she is still hearing voices. She appears very drowsy and was a hardly able to open her eyes and her speech is a hardly productive and barely audible. I met with the staff nurse taking care of her who told me that she is complaining of still hearing devil's voice. Staff nurse told me she rambles and has nonsensical speech all day long. Nurse told me that she did not take her medication today. Plan: This patient continues to show symptoms of psychosis. Given her level of her drowsiness I will not increase the dose of her medication. Whenever she is medically stable she will need to be transferred to psychiatric floor.
[2020-10-30 10:48] LABS: Platelet Count 93 k/uL (150-450)
[2020-10-30 11:24] LABS: Glucose,Whole Blood 80 mg/dL (75-99)
[2020-10-30 17:29] LABS: Glucose,Whole Blood 57 mg/dL (75-99)
[2020-10-30 18:50] LABS: Glucose,Whole Blood 73 mg/dL (75-99)
[2020-10-30] MEDS: MELATONIN 3 MG TABLET PO SCH (19:21)
[2020-10-30] MEDS: ATORVASTATIN 10 MG TAB PO SCH (19:21)
[2020-10-30] MEDS: SODIUM CHLORIDE 0.9% 1,000 ML IV SCH (19:22)
[2020-10-30] MEDS: PALIPERIDONE 3 MG TAB.ER.24 PO SCH (20:00)
[2020-10-30 21:05] LABS: Glucose,Whole Blood 80 mg/dL (75-99)
--- NOTE | 2020-10-30 22:02 | P.PN ---
Subjective Progress Note Date: 10/30/20 Principal diagnosis: Encephalopathy Mr. Huynh is a 35-year-old female with extensive past medical history of brain tumor removed in 2002, type 2 diabetes mellitus, hearing disorder, hyper lipidemia, thyroid disorder, Left eye Blindness coming in through the emergency department for chief complaint of altered mental status changes for 2 days. Patient states that she is hearing voices, she thinks it is the voice of Satan. She also states that the light bothers her and she would prefer to be dark as she has visual problems due to glaucoma in her eyes. Patient has hard of hearing and slow to respond to the questions. She lives with her brother and aunt who t javier care of her. Patient denied having any chest pain or palpitations. She denies having any cough or difficulty in breathing. No abdominal pain nausea vomiting or diarrhea. She denies having any dysuria or hematuria. Patient has history of incontinence and wears diapers at home. She denies having any suicidal or homicidal ideation. But she consistently keeps on telling that she is hearing voices. In the ER patient had blood work done showing white count of 7, hemoglobin 12.5, platelets 104. Sodium 142, potassium 4.7, chloride 105, bicarb 27, BUN 20, creatinine 0.48. Urine analysis is cloudy, nitrites positive and large leukocyte esterase and WBC clumps. UDS is negative. At the time of admission patient's temperature 97.8, heart rate 91, respiratory rate 16, blood pressure 97 x 65 saturating at 99% on room air. She was given a dose of ceftriaxone and admitted from further management. On 10/30/2020 -patient was seen and examined at bedside. As per nursing staff report patient has been sleeping all through the morning. She did not eat breakfast. When I went into the room patient was sleeping, I woke her up. She woke up and answer most of my questions. She states that she is not hearing any voices this morning. The last time she had her device was last night. Patient denies having any chest pain or difficulty in breathing. No abdominal pain nausea vomiting or diarrhea. On reviewing the vitals temperature of 97.9, heart rate 75, respiratory 16, blood pressure 111 x 74 saturating at 94% on room air. Reviewing the labs white count of 5.4, hemoglobin 9.7, platelets 93. Sodium 138, potassium 4.4, chloride 105, bicarb 29, BUN 14, creatinine 0.48. Urine analysis positive for E. coli and blood cultures no growth. Active Medications Atorvastatin Calcium (Atorvastatin 10 Mg Tab) 10 mg PO HS [facility] Last Admin: 10/30/20 19:21 Dose: 10 mg Documented by: Brimonidine Tartrate (Brimonidine Tartrate 0.2% Drops 5 Ml Btl) 1 drops BOTH EYES BID [facility] Last Admin: 10/30/20 19:22 Dose: 1 drops Documented by: Clobetasol Propionate (Clobetasol Prop 0.05% Cr 15gm) 1 applic TOPICAL BID PRN PRN Reason: Rash Dorzolamide HCl (Dorzolamide Hcl 2% Drops 10 Ml Btl) 1 drops BOTH EYES TID [facility] Last Admin: 10/30/20 19:21 Dose: 1 drops Documented by: Escitalopram Oxalate (Escitalopram 20 Mg Tab) 20 mg PO DAILY [facility] Last Admin: 10/30/20 10:13 Dose: 20 mg Documented by: Sodium Chloride (Saline 0.9%) 1,000 mls @ 20 mls/hr IV .Q24H [facility] Last Admin: 10/30/20 19:22 Dose: 20 mls/hr Documented by: Ceftriaxone Sodium 1 gm/ (Sodium Chloride) 50 mls @ 100 mls/hr IVPB Q24HR [facility] Last Admin: 10/30/20 10:11 Dose: 100 mls/hr Documented by: Levothyroxine Sodium (Levothyroxine 100 Mcg Tab) 100 mcg PO DAILY@0630 [facility] Last Admin: 10/30/20 05:10 Dose: 100 mcg Documented by: Melatonin (Melatonin 3 Mg Tablet) 3 mg PO HS [facility] Last Admin: 10/30/20 19:21 Dose: 3 mg Documented by: Naloxone HCl (Naloxone 0.4 Mg/Ml 1 Ml Vial) 0.2 mg IV Q2M PRN PRN Reason: Opioid Reversal Ondansetron HCl (Ondansetron 4 Mg/2 Ml Vial) 4 mg IVP Q8HR PRN PRN Reason: Nausea And Vomiting Oxybutynin Chloride (Oxybutynin Chloride 5 Mg Tab) 5 mg PO DAILY [facility] Last Admin: 10/30/20 10:12 Dose: 5 mg Documented by: Paliperidone (Paliperidone 3 Mg Tab.Er.24) 3 mg PO [facility] Last Admin: 10/30/20 20:00 Dose: 3 mg Documented by: Pioglitazone HCl (Pioglitazone 15 Mg Tab) 15 mg PO DAILY [facility] Last Admin: 10/30/20 10:12 Dose: 15 mg Documented by: Psyllium Hydrophilic Mucilloid (Psyllium Husk 100% 6 Gm Packet) 6 gm PO DAILY [facility] Last Admin: 10/30/20 10:13 Dose: 6 gm Documented by: Timolol Maleate (Timolol 0.5% Ophth Drops 5 Ml Btl) 1 drops BOTH EYES BID [facility] Last Admin: 10/30/20 19:22 Dose: 1 drops Documented by: Objective - Vital Signs Vital signs: Vital Signs Temp 98.0 F 10/30/20 07:00 Pulse 81 10/30/20 07:00 Resp 18 10/30/20 07:00 BP 102/67 10/30/20 07:00 Pulse Ox 94 L 10/30/20 07:00 Intake & Output 10/29/20 10/30/20 10/30/20 18:59 06:59 18:59 Intake Total 0 370 Balance 0 370 Intake: Intake, IV Titration 370 Amount Sodium Chloride 0.9% 1, 320 000 ml @ 20 mls/hr IV . Q24H [facility] Rx#:[id number] cefTRIAXone 1 gm In 50 Sodium Chloride 0.9% 50 ml @ 100 mls/hr IVPB Q24HR [facility] Rx#:[id number] Oral 0 Other: Voiding Method Diaper Diaper Diaper Incontinent Incontinent Incontinent # Voids 1 1 - Exam PHYSICAL EXAMINATION: GENERAL: Sleeping and was difficult to arouse, but she woke up and answered all my questions Slow to respond HEENT: Hard of hearing ; left pupil irregular CARDIOVASCULAR: S1 and S2 present. PULMONARY: Bilateral breath sounds clear . No crackles at the lower lung bases. ABDOMEN: Abdomen is soft. Nontender. Nondistended. Normal bowel sounds. MUSCULOSKELETAL: No joint swelling or deformity. EXTREMITIES: No cyanosis, clubbing, or pedal edema. NEUROLOGICAL: No focal deficits. SKIN: No rashes. - Labs CBC & Chem 7: 10/30/20 08:38 10/30/20 08:38 Labs: Abnormal Lab Results - Last 24 Hours (Table) 10/28/20 10/29/20 10/29/20 Range/Units 14:09 17:08 20:56 RBC (3.80-5.40) m/uL Hct (34.0-46.0) % Plt Count (150-450) k/uL Creatinine (0.52-1.04) mg/dL Glucose (74-99) mg/dL POC Glucose (mg/dL) 114 H 132 H (75-99) mg/dL TSH 0.040 L (0.350-5.500) uIU/mL 10/30/20 10/30/20 Range/Units 08:38 08:38 RBC 3.67 L (3.80-5.40) m/uL Hct 33.1 L (34.0-46.0) % Plt Count 93 L (150-450) k/uL Creatinine 0.48 L (0.52-1.04) mg/dL Glucose 69 L (74-99) mg/dL POC Glucose (mg/dL) (75-99) mg/dL TSH (0.350-5.500) uIU/mL Microbiology - Last 24 Hours (Table) 10/28/20 15:17 Urine Culture - Preliminary Urine,Voided Gram Neg Bacilli 10/28/20 14:09 Blood Culture - Preliminary Blood No Growth after 24 hours 10/28/20 14:09 Blood Culture - Preliminary Blood No Growth after 24 hours Assessment and Plan Assessment: ASSESSMENT Encephalopathy -likely due to UTI Gram-negative UTI Auditory hallucinations History of craniopharyngioma, 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 coli, blood cultures are negative. She has been continued on ceftriaxone for UTI. She was started on Invega by psychiatry yesterday. Patient is not hearing voices anymore. Patient's mentation seems to be improving. Neurology was consulted and recommended treatment for UTI and no further work-up suggested. Patient will be continued on the current medication regimen. Further recommendations to follow depending on the progress of the patient.
[2020-10-31] MEDS: LEVOTHYROXINE 100 MCG TAB PO SCH (05:12)
[2020-10-31 07:35] LABS: Glucose,Whole Blood 76 mg/dL (75-99)
[2020-10-31] MEDS: PSYLLIUM HUSK 100% 6 GM PACKET PO SCH (08:32)
[2020-10-31] MEDS: BRIMONIDINE TARTRATE 0.2% DROPS 5 ML BTL BOTH EYES SCH ×2 (08:40→19:20)
[2020-10-31] MEDS: DORZOLAMIDE HCL 2% DROPS 10 ML BTL BOTH EYES SCH ×3 (08:40→19:20)
[2020-10-31] MEDS: TIMOLOL 0.5% OPHTH DROPS 5 ML BTL BOTH EYES SCH ×2 (08:40→19:20)
[2020-10-31] MEDS: OXYBUTYNIN CHLORIDE 5 MG TAB PO SCH (08:41)
--- NOTE | 2020-10-31 10:13 | P.PN ---
Progress Note - Text Progress Note Date: 10/31/20 I met with this patient today. I also talked to her staff nurse. She told me she feels pretty good. She is talking in a very low monotonous voice. She is still hallucinating and is hearing voices that are not there. She was excessively drowsy yesterday and I will review her medications. Plan: I will review her medication and this patient can benefit from transfer to psychiatric unit when she is medically stable.
[2020-10-31] MEDS: PIOGLITAZONE 15 MG TAB PO SCH (10:32)
--- NOTE | 2020-10-31 10:53 | P.PN ---
Progress Note - Text Progress Note Date: 10/31/20 Chart reviewed. Patient still having auditory hallucinations. Patient's B12 is 452, folate > 24.0, TSH is low 0.040, free T4 1.00. Slightly abnormal thyroid function studies to be addressed by IM. No other neurological workup indicated. Neurology will sign off.
[2020-10-31 11:16] LABS: Glucose,Whole Blood 64 mg/dL (75-99)
[2020-10-31 11:45] LABS: Glucose,Whole Blood 83 mg/dL (75-99)
--- NOTE | 2020-10-31 16:09 | P.PN ---
Subjective Progress Note Date: 10/31/20 Principal diagnosis: Encephalopathy Mr. Huynh is a 35-year-old female with extensive past medical history of brain tumor removed in 2002, type 2 diabetes mellitus, hearing disorder, hyper lipidemia, thyroid disorder, Left eye Blindness coming in through the emergency department for chief complaint of altered mental status changes for 2 days. Patient states that she is hearing voices, she thinks it is the voice of Satan. She also states that the light bothers her and she would prefer to be dark as she has visual problems due to glaucoma in her eyes. Patient has hard of hearing and slow to respond to the questions. She lives with her brother and aunt who t javier care of her. Patient denied having any chest pain or palpitations. She denies having any cough or difficulty in breathing. No abdominal pain nausea vomiting or diarrhea. She denies having any dysuria or hematuria. Patient has history of incontinence and wears diapers at home. She denies having any suicidal or homicidal ideation. But she consistently keeps on telling that she is hearing voices. In the ER patient had blood work done showing white count of 7, hemoglobin 12.5, platelets 104. Sodium 142, potassium 4.7, chloride 105, bicarb 27, BUN 20, creatinine 0.48. Urine analysis is cloudy, nitrites positive and large leukocyte esterase and WBC clumps. UDS is negative. At the time of admission patient's temperature 97.8, heart rate 91, respiratory rate 16, blood pressure 97 x 65 saturating at 99% on room air. She was given a dose of ceftriaxone and admitted from further management. On 10/30/2020 -patient was seen and examined at bedside. As per nursing staff report patient has been sleeping all through the morning. She did not eat breakfast. When I went into the room patient was sleeping, I woke her up. She woke up and answer most of my questions. She states that she is not hearing any voices this morning. The last time she had her device was last night. Patient denies having any chest pain or difficulty in breathing. No abdominal pain nausea vomiting or diarrhea. On reviewing the vitals temperature of 97.9, heart rate 75, respiratory 16, blood pressure 111 x 74 saturating at 94% on room air. Reviewing the labs white count of 5.4, hemoglobin 9.7, platelets 93. Sodium 138, potassium 4.4, chloride 105, bicarb 29, BUN 14, creatinine 0.48. Urine analysis positive for E. coli and blood cultures no growth. On 10/23/2020 - patient is seen and examined at bedside. She is comfortably sleeping in her bed appears to be no acute distress. Patient complains of hearing voices. She is much more awake compared to yesterday. She denies having any chest pain or palpitations. No cough or difficulty in breathing. No pain nausea vomiting or diarrhea. No dysuria or hematuria. Reviewing the vitals temperature 98.1, heart rate 74, respiratory rate 16, blood pressure 116- 76, saturating at 100% on room. On reviewing the labs urine culture is positive for E. coli, susceptibilities reviewed. TSH 0.040 him a free T4 1 0.0. Active Medications Generic Name Dose Route Start Last Admin Trade Name Freq PRN Reason Stop Dose Admin Atorvastatin Calcium 10 mg 10/29/20 21:00 10/30/20 19:21 Atorvastatin 10 Mg Tab PO 10 mg HS [facility] Administration Brimonidine Tartrate 1 drops 10/29/20 21:00 10/31/20 08:40 Brimonidine Tartrate 0.2% Drops 5 Ml Btl BOTH EYES 1 drops BID [facility] Administration Clobetasol Propionate 1 applic 10/29/20 11:01 Clobetasol Prop 0.05% Cr 15gm TOPICAL BID PRN Rash Dorzolamide HCl 1 drops 10/29/20 22:00 10/31/20 15:43 Dorzolamide Hcl 2% Drops 10 Ml Btl BOTH EYES 1 drops TID [facility] Administration Escitalopram Oxalate 10 mg 11/01/20 09:00 Escitalopram 10 Mg Tab PO DAILY [facility] Sodium Chloride 1,000 mls @ 20 mls/hr 10/28/20 21:30 10/30/20 19:22 Saline 0.9% IV 20 mls/hr .Q24H [facility] Administration Ceftriaxone Sodium 1 gm/ 50 mls @ 100 mls/hr 10/29/20 23:15 10/31/20 08:33 Sodium Chloride IVPB 100 mls/hr Q24HR [facility] Administration Levothyroxine Sodium 100 mcg 10/29/20 11:15 10/31/20 05:12 Levothyroxine 100 Mcg Tab PO 100 mcg DAILY@0630 [facility] Administration Melatonin 3 mg 10/29/20 21:00 10/30/20 19:21 Melatonin 3 Mg Tablet PO 3 mg HS [facility] Administration Naloxone HCl 0.2 mg 10/28/20 21:22 Naloxone 0.4 Mg/Ml 1 Ml Vial IV Q2M PRN Opioid Reversal Ondansetron HCl 4 mg 10/28/20 21:22 Ondansetron 4 Mg/2 Ml Vial IVP Q8HR PRN Nausea And Vomiting Oxybutynin Chloride 5 mg 10/29/20 11:15 10/31/20 08:41 Oxybutynin Chloride 5 Mg Tab PO 5 mg DAILY [facility] Administration Paliperidone 3 mg 10/29/20 21:00 10/30/20 20:00 Paliperidone 3 Mg Tab.Er.24 PO 3 mg HS [facility] Administration Pioglitazone HCl 15 mg 10/29/20 11:15 10/31/20 10:32 Pioglitazone 15 Mg Tab PO Not Given DAILY [facility] Psyllium Hydrophilic Mucilloid 6 gm 10/29/20 11:15 10/31/20 08:32 Psyllium Husk 100% 6 Gm Packet PO 6 gm DAILY [facility] Administration Timolol Maleate 1 drops 10/29/20 21:00 10/31/20 08:40 Timolol 0.5% Ophth Drops 5 Ml Btl BOTH EYES 1 drops BID [facility] Administration Objective - Vital Signs Vital signs: Vital Signs Temp 98.1 F 10/31/20 07:00 Pulse 74 10/31/20 07:00 Resp 16 10/31/20 07:00 BP 116/76 10/31/20 07:00 Pulse Ox 100 10/31/20 07:00 Intake & Output 10/30/20 10/31/20 10/31/20 18:59 06:59 18:59 Intake Total 420 210 Balance 420 210 Intake: Intake, IV Titration 200 210 Amount Sodium Chloride 0.9% 1, 150 160 000 ml @ 20 mls/hr IV . Q24H [facility] B[facility]S AT [facility] Rx#:[id number] cefTRIAXone 1 gm In 50 50 Sodium Chloride 0.9% 50 ml @ 100 mls/hr IVPB Q24HR [facility] Rx#:[id number] Oral 220 Other: Voiding Method Diaper Diaper Diaper Incontinent Incontinent Incontinent # Voids 1 # Bowel Movements 1 - Exam PHYSICAL EXAMINATION: GENERAL: Comfortably sleeping in bed appears to be no acute distress, Slow to respond HEENT: Hard of hearing ; left pupil irregular CARDIOVASCULAR: S1 and S2 present. PULMONARY: Bilateral breath sounds clear . No crackles at the lower lung bases. ABDOMEN: Abdomen is soft. Nontender. Nondistended. Normal bowel sounds. No CVA tenderness MUSCULOSKELETAL: No joint swelling or deformity. EXTREMITIES: No cyanosis, clubbing, or pedal edema. NEUROLOGICAL: No focal deficits. SKIN: No rashes. - Labs CBC & Chem 7: 10/30/20 08:38 10/30/20 08:38 Labs: Abnormal Lab Results - Last 24 Hours (Table) 10/30/20 10/30/20 10/31/20 Range/Units 17:27 18:46 11:14 POC Glucose (mg/dL) 57 L 73 L 64 L (75-99) mg/dL Microbiology - Last 24 Hours (Table) 10/28/20 15:17 Urine Culture - Final Urine,Voided Escherichia coli 10/28/20 14:09 Blood Culture - Preliminary Blood No Growth after 48 hours 10/28/20 14:09 Blood Culture - Preliminary Blood No Growth after 48 hours Assessment and Plan Assessment: ASSESSMENT Encephalopathy -likely due to UTI - rsolved E coli UTI Auditory hallucinations History of craniopharyngioma, 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 coli, blood cultures are negative. Susceptibilities off urine culture reviewed, to be continued on ceftriaxone for now and changed to po at discharge. Patient's mentation seems to be back to her baseline. But she still continues to hear voices. Psychiatry for possible inpatient admission. TSH and free T4 within normal limits, to repeat them as outpatient in 6 weeks. Patient's son was contacted and she said the patient does not have a guardian. If she needs to go in patient psych, needs to be approved by the guardian, so consulted social human services assistants to work on this issue. Further recommendations to follow depending on the progress of the patient.
[2020-10-31 17:10] LABS: Glucose,Whole Blood 100 mg/dL (75-99)
[2020-10-31] MEDS: ESCITALOPRAM 20 MG TAB PO SCH (18:43)
[2020-10-31] MEDS: PALIPERIDONE 3 MG TAB.ER.24 PO SCH (19:19)
[2020-10-31] MEDS: MELATONIN 3 MG TABLET PO SCH (19:19)
[2020-10-31] MEDS: ATORVASTATIN 10 MG TAB PO SCH (19:19)
[2020-10-31] MEDS: SODIUM CHLORIDE 0.9% 1,000 ML IV SCH (19:20)
[2020-10-31 20:43] LABS: Glucose,Whole Blood 102 mg/dL (75-99)
[2020-11-01] MEDS: LEVOTHYROXINE 100 MCG TAB PO SCH (05:21)
[2020-11-01 06:49] LABS: Glucose,Whole Blood 84 mg/dL (75-99)
[2020-11-01] MEDS: PSYLLIUM HUSK 100% 6 GM PACKET PO SCH (08:21)
[2020-11-01] MEDS: PIOGLITAZONE 15 MG TAB PO SCH (08:22)
[2020-11-01] MEDS: BRIMONIDINE TARTRATE 0.2% DROPS 5 ML BTL BOTH EYES SCH ×2 (08:22→19:31)
[2020-11-01] MEDS: OXYBUTYNIN CHLORIDE 5 MG TAB PO SCH (08:22)
[2020-11-01] MEDS: DORZOLAMIDE HCL 2% DROPS 10 ML BTL BOTH EYES SCH ×3 (08:23→19:31)
[2020-11-01] MEDS: TIMOLOL 0.5% OPHTH DROPS 5 ML BTL BOTH EYES SCH ×2 (08:23→19:31)
[2020-11-01] MEDS ORDERED: ESCITALOPRAM 10 MG TAB PO SCH (09:00)
[2020-11-01 12:03] LABS: Glucose,Whole Blood 88 mg/dL (75-99)
--- NOTE | 2020-11-01 13:40 | P.PN ---
Progress Note - Text Progress Note Date: 11/01/20 Interval History: Patient was seen today for psychiatric follow-up regarding patient's psychosis and auditory hallucinations. Patient was seen at the bedside today and appeared to be mildly lethargic however agreeable to speak to casualty underwriter. She was attempting to cooperate as best as she could. She states that she is having poor energy today and claims that she has been oversleeping. She states that her appetite has been mildly improving. She claims that her mood is also been mildly improvi ng. She denies any anxiety today. She continues to state that she is hearing voices talking to her throughout the day that are telling her to "kill myself" and other negative things. She states that it is distressing to her and needs to turn on the TV to distract herself.. At this time patient denies any suicidal or homical ideations, intent or plan. Patient denies any visual hallucinations and denies any paranoia or delusions. Patient has been compliant with meds. Mental Status Exam: General Appearance: Patient appears to be older than stated age is mildly lethargic, attempting to be cooperative. Patient appears to have improving hygiene and grooming wearing hospital gown with fair eye contact. Behavior: Patient is calmly lying in bed without any agitated behavior. Speech: Patient's speech is fluent and nonpressured. Soft tone of voice Mood/Affect: Patient reports their mood is mildly improving, affect is congruent and constricted Suicidality/Homicidality: Patient denies having any suicidal or homicidal ideation intent or plan. Perceptions: Patient denies any visual hallucinations and admits to ongoing hallucinations which are negative and distressing towards her. Though content/process: There is no evidence of any delusional thought content and thought process is linear and goal-directed. No paranoia. Focused on the auditory hallucinations Memory and concentration: AOX3, grossly intact for the purposes of this session. 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 -Would recommend the following medication changes/additions: Discontinued paliperidone by mouth and switched to Haldol by mouth 2 mg twice a day for psychosis. Continue with Melatonin 3 mg daily at bedtime for insomnia. Increased Lexapro 15 mg daily for mood. -Communicated plan to patient's nurse -Once patient is medically stable and a psychiatric bed is available than patient can be transferred. -At this time psychiatry will sign off. -Please contact with any questions.
--- NOTE | 2020-11-01 14:19 | P.DS ---
Providers Date of admission: 10/29/20 13:13 Expected date of discharge: 11/01/20 Attending physician: Sherice Govea Consults: 10/29/20 10:55 Consult Physician Routine Consulting Provider: Chapincito Corea Consult Reason/Comments: hallucinations, hearing voice of zev saying he was going to harm her Do you want consulting provider notified?: Yes 10/29/20 17:34 Consult Physician Routine Consulting Provider: Jeison Cardozo Consult Reason/Comments: AMS, hallucinations Do you want consulting provider notified?: Yes Primary care physician: Janet Stanton Hospital Course: Final diagnosis Encephalopathy -likely due to UTI - resolved E coli UTI Auditory hallucinations History of craniopharyngioma, 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 Patient will follow-up with Dr. Janet Stanton in the outpatient setting upon discharge. Total time taken is greater than 35 minutes. Hospital course Encephalopathy Ms. Huynh is a 35-year-old female with extensive past medical history of brain tumor removed in 2002, type 2 diabetes mellitus, hearing disorder, hyper lipidemia, thyroid disorder, Left eye Blindness coming in through the emergency department for chief complaint of altered mental status changes for 2 days. Patient states that she is hearing voices, she thinks it is the voice of Zev. She also states that the light bothers her and she would prefer to be dark as she has visual problems due to glaucoma in her eyes. Patient has hard of hearing and slow to respond to the questions. She lives with her brother and aunt who take care of her. Patient denied having any chest pain or palpitations. She denies having any cough or difficulty in breathing. No abdominal pain nausea vomiting or diarrhea. She denies having any dysuria or hematuria. Patient has history of incontinence and wears diapers at home. She denies having any suicidal or homicidal ideation. But she consistently keeps on telling that she is hearing voices. In the ER patient had blood work done showing white count of 7, hemoglobin 12.5, platelets 104. Sodium 142, potassium 4.7, chloride 105, bicarb 27, BUN 20, creatinine 0.48. Urine analysis is cloudy, nitrites positive and large leukocyte esterase and WBC clumps. UDS is negative. At the time of admission patient's temperature 97.8, heart rate 91, respiratory rate 16, blood pressure 97 x 65 saturating at 99% on room air. She was given a dose of ceftriaxone and admitted from further management. On 10/30/2020 -patient was seen and examined at bedside. As per nursing staff report patient has been sleeping all through the morning. She did not eat breakfast. When I went into the room patient was sleeping, I woke her up. She woke up and answer most of my questions. She states that she is not hearing any voices this morning. The last time she had her device was last night. Patient denies having any chest pain or difficulty in breathing. No abdominal pain nausea vomiting or diarrhea. On reviewing the vitals temperature of 97.9, heart rate 75, respiratory 16, blood pressure 111 x 74 saturating at 94% on room air. Reviewing the labs white count of 5.4, hemoglobin 9.7, platelets 93. Sodium 138, potassium 4.4, chloride 105, bicarb 29, BUN 14, creatinine 0.48. Urine analysis positive for E. coli and blood cultures no growth. On 10/31/2020 - patient is seen and examined at bedside. She is comfortably sleeping in her bed appears to be no acute distress. Patient complains of hearing voices. She is much more awake compared to yesterday. She denies having any chest pain or palpitations. No cough or difficulty in breathing. No pain nausea vomiting or diarrhea. No dysuria or hematuria. Reviewing the vitals temperature 98.1, heart rate 74, respiratory rate 16, blood pressure 116- 76, saturating at 100% on room. On reviewing the labs urine culture is positive for E. coli, susceptibilities reviewed. TSH 0.040 him a free T4 1 0.0. 11/01/2020 Patient is seen and evaluated and follow-up with no acute overnight issues. Patient has been treated adequately with IV ceftriaxone as urine cultures fin alized showing E. coli and will not require antibiotics upon discharge. Patient thyroid functions will need follow-up outpatient in 6 weeks for repeat labs. Patient continues to have hallucinations although states they have lessened in severity. She denies any thoughts of wanting to harm herself or others. Patient is tolerating diet with no reports of nausea or vomiting noted. Currently no reports of chest pain, shortness of breath, or palpitations. Patient is afebrile. No reports of nausea or vomiting and patient is tolerating diet. Patient will be transferred to inpatient psychiatric unit today for further evaluation. Apparently there was a possibility of a guardian although this was confirmed from case management and social professionals patient does not have a guardian. Patient is medically clear and stable for transfer to inpatient psychiatric unit. On exam vital signs are stable. Cardio S1, S2 are muffled. Respiratory system shows diminished breath sounds at the bases with no wheezing or rhonchi noted. Abdomen is soft and nontender. Nervous system shows no focal deficits. Please refer to medication reconciliation sheet for a list of medications. Patient Condition at Discharge: Stable Plan - Discharge Summary New Discharge Prescriptions: New Paliperidone [Invega] 3 mg PO HS tab.er.24 Escitalopram [Lexapro] 10 mg PO DAILY tab Melatonin 3 mg PO HS tablet Continue Ergocalciferol [Vitamin D2 (DRISDOL)] 50,000 unit PO Q7D Simvastatin [Zocor] 20 mg PO HS Levothyroxine Sodium [Synthroid] 100 mcg PO DAILY Oxybutynin Chloride [Ditropan] 5 mg PO DAILY Psyllium Husk 100% [Metamucil Packet] 6 gm PO DAILY Pioglitazone [Actos] 15 mg PO DAILY Brimonidine Tartrate/Timolol [Combigan 0.2%-0.5% Eye Drops] 1 drop BOTH EYES BID Clobetasol Propionate [Temovate 0.05% Cream] 1 applic TOPICAL BID PRN PRN Reason: Rash Brinzolamide [Azopt 1% Ophth Susp] 1 drop BOTH EYES TID Discontinued Escitalopram [Lexapro] 20 mg PO DAILY Discharge Medication List Ergocalciferol [Vitamin D2 (DRISDOL)] 50,000 unit PO Q7D 03/25/14 [History] Simvastatin [Zocor] 20 mg PO HS 03/25/14 [History] Levothyroxine Sodium [Synthroid] 100 mcg PO DAILY 10/28/18 [History] Oxybutynin Chloride [Ditropan] 5 mg PO DAILY 06/29/19 [History] Clobetasol Propionate [Temovate 0.05% Cream] 1 applic TOPICAL BID PRN 10/28/20 [History] Pioglitazone [Actos] 15 mg PO DAILY 10/28/20 [History] Psyllium Husk 100% [Metamucil Packet] 6 gm PO DAILY 10/28/20 [History] Brimonidine Tartrate/Timolol [Combigan 0.2%-0.5% Eye Drops] 1 drop BOTH EYES BID 10/29/20 [History] Brinzolamide [Azopt 1% Ophth Susp] 1 drop BOTH EYES TID 10/29/20 [History] Escitalopram [Lexapro] 10 mg PO DAILY tab 11/01/20 [Rx] Melatonin 3 mg PO HS tablet 11/01/20 [Rx] Paliperidone [Invega] 3 mg PO HS tab.er.24 11/01/20 [Rx] Follow up Appointment(s)/Referral(s): Janet Stanton MD [Primary Care Provider] - 1-2 days Activity/Diet/Wound Care/Special Instructions: Patient is medically clear and stable for transfer to inpatient psychiatric unit Activity as tolerated follow up with primary care provider upon discharge Discharge Disposition: TRANSFER TO PSYCH HOSP/UNIT
[2020-11-01 14:41] VITALS: RESP 16
[2020-11-01 16:54] LABS: Glucose,Whole Blood 80 mg/dL (75-99)
[2020-11-01] MEDS: MELATONIN 3 MG TABLET PO SCH (19:31)
[2020-11-01] MEDS: ATORVASTATIN 10 MG TAB PO SCH (19:31)
[2020-11-01] MEDS: SODIUM CHLORIDE 0.9% 1,000 ML IV SCH (19:32)
[2020-11-01 20:43] LABS: Glucose,Whole Blood 76 mg/dL (75-99)
[2020-11-02] MEDS: LEVOTHYROXINE 100 MCG TAB PO SCH (05:21)
[2020-11-02 07:29] LABS: Glucose,Whole Blood 57 mg/dL (75-99)
[2020-11-02 07:36] LABS: Glucose,Whole Blood 64 mg/dL (75-99)
[2020-11-02 07:39] VITALS: PULSE 83
[2020-11-02 07:52] LABS: Glucose,Whole Blood 77 mg/dL (75-99)
[2020-11-02] MEDS: OXYBUTYNIN CHLORIDE 5 MG TAB PO SCH (08:30)
[2020-11-02] MEDS: PSYLLIUM HUSK 100% 6 GM PACKET PO SCH (08:30)
[2020-11-02] MEDS: PIOGLITAZONE 15 MG TAB PO SCH (08:30)
[2020-11-02] MEDS: BRIMONIDINE TARTRATE 0.2% DROPS 5 ML BTL BOTH EYES SCH (08:31)
[2020-11-02] MEDS: TIMOLOL 0.5% OPHTH DROPS 5 ML BTL BOTH EYES SCH (08:31)
[2020-11-02] MEDS: DORZOLAMIDE HCL 2% DROPS 10 ML BTL BOTH EYES SCH ×2 (08:31→16:12)
[2020-11-02] MEDS ORDERED: ESCITALOPRAM 5 MG TAB PO SCH (09:00)
[2020-11-02 11:33] LABS: Glucose,Whole Blood 72 mg/dL (75-99)
[2020-11-02 14:25] VITALS: BP 104/71; TEMP 97.8
--- NOTE | 2020-11-02 14:25 | P.DS ---
Providers Date of admission: 10/29/20 13:13 Attending physician: Sherice Govea Consults: 10/29/20 10:55 Consult Physician Routine Consulting Provider: Chapincito Corea Consult Reason/Comments: hallucinations, hearing voice of zev saying he was going to harm her Do you want consulting provider notified?: Yes 10/29/20 17:34 Consult Physician Routine Consulting Provider: Jeison Cardozo Consult Reason/Comments: AMS, hallucinations Do you want consulting provider notified?: Yes Primary care physician: [facility] Course: Please refer to my nurse practitioner documentation for further details of discharge summary. This discharge summary was done yesterday although patient ended up staying in the hospital because of nonavailability of her psychiatric meds. Psychiatric history evaluated the patient today. He recommended discharge to home to family along with providing resources and follow-up with, to mental health. Psychiatry also recommended to increase Lexapro dose to 20 mg daily and Haldol 2 mg twice a day along with the rest of her psychiatric medications. Patient will be discharged today PHYSICAL EXAMINATION: GENERAL: The patient is alert and oriented x3, not in any acute distress. Well developed, well nourished. HEENT: Pupils are round and equally reacting to light. EOMI. No scleral icterus. No conjunctival pallor. Normocephalic, atraumatic. No pharyngeal erythema. No thyromegaly. CARDIOVASCULAR: S1 and S2 present. No murmurs, rubs, or gallops. PULMONARY: Chest is clear to auscultation, no wheezing or crackles. ABDOMEN: Soft, nontender, nondistended, normoactive bowel sounds. No palpable organomegaly. MUSCULOSKELETAL: No joint swelling or deformity. EXTREMITIES: No cyanosis, clubbing, or pedal edema. NEUROLOGICAL: Gross neurological examination did not reveal any focal deficits. SKIN: No rashes. ` Patient Condition at Discharge: Stable Plan - Discharge Summary New Discharge Prescriptions: New Paliperidone [Invega] 3 mg PO HS tab.er.24 Melatonin 3 mg PO HS tablet haloperidoL [Haldol] 2 mg PO BID #30 tab Escitalopram [Lexapro] 20 mg PO DAILY #30 tablet Continue Ergocalciferol [Vitamin D2 (DRISDOL)] 50,000 unit PO Q7D Simvastatin [Zocor] 20 mg PO HS Levothyroxine Sodium [Synthroid] 100 mcg PO DAILY Oxybutynin Chloride [Ditropan] 5 mg PO DAILY Psyllium Husk 100% [Metamucil Packet] 6 gm PO DAILY Pioglitazone [Actos] 15 mg PO DAILY Brimonidine Tartrate/Timolol [Combigan 0.2%-0.5% Eye Drops] 1 drop BOTH EYES BID Clobetasol Propionate [Temovate 0.05% Cream] 1 applic TOPICAL BID PRN PRN Reason: Rash Brinzolamide [Azopt 1% Ophth Susp] 1 drop BOTH EYES TID Discontinued Escitalopram [Lexapro] 20 mg PO DAILY Discharge Medication List Ergocalciferol [Vitamin D2 (DRISDOL)] 50,000 unit PO Q7D 03/25/14 [History] Simvastatin [Zocor] 20 mg PO HS 03/25/14 [History] Levothyroxine Sodium [Synthroid] 100 mcg PO DAILY 10/28/18 [History] Oxybutynin Chloride [Ditropan] 5 mg PO DAILY 06/29/19 [History] Clobetasol Propionate [Temovate 0.05% Cream] 1 applic TOPICAL BID PRN 10/28/20 [History] Pioglitazone [Actos] 15 mg PO DAILY 10/28/20 [History] Psyllium Husk 100% [Metamucil Packet] 6 gm PO DAILY 10/28/20 [History] Brimonidine Tartrate/Timolol [Combigan 0.2%-0.5% Eye Drops] 1 drop BOTH EYES BID 10/29/20 [History] Brinzolamide [Azopt 1% Ophth Susp] 1 drop BOTH EYES TID 10/29/20 [History] Melatonin 3 mg PO HS tablet 11/01/20 [Rx] Paliperidone [Invega] 3 mg PO HS tab.er.24 11/01/20 [Rx] Escitalopram [Lexapro] 20 mg PO DAILY #30 tablet 11/02/20 [Rx] haloperidoL [Haldol] 2 mg PO BID #30 tab 11/02/20 [Rx] Follow up Appointment(s)/Referral(s): Janet Stanton MD [Primary Care Provider] - 3 Days Activity/Diet/Wound Care/Special Instructions: Patient is medically clear and stable for transfer to inpatient psychiatric unit Activity as tolerated follow up with primary care provider upon discharge Discharge Disposition: HOME SELF-CARE
--- NOTE | 2020-11-02 14:35 | P.PN ---
Progress Note - Text Progress Note Date: 11/02/20 Interval History: Patient was seen today for psychiatric follow-up regarding patient's psychosis and auditory hallucinations. Patient was seen at the bedside today and appeared to be more awake. She claims that she is doing better today overall. She states that she was able to sleep better throughout the night and claims that the auditory hallucinations have improved significantly since yesterday. She states that she has not heard them since this morning and they are no longer negative in nature. She was attempting to cooperate as best as she could. She claims that she has mildly more energy today and is less sedated. She states that her appetite has been mildly improving. She claims that her mood is also been mildly improving. She denies any anxiety today. She was asking about discharge today to go back home. At this time patient denies any suicidal or homical ideations, intent or plan. Patient denies any visual hallucinations and denies any paranoia or delusions. Patient has been compliant with meds. Mental Status Exam: General Appearance: Patient appears to be older than stated age is mildly more alert/awake, attempting to be cooperative. Patient appears to have improving hygiene and grooming wearing hospital gown with fair eye contact. Behavior: Patient is calmly lying in bed without any agitated behavior. Speech: Patient's speech is fluent and nonpressured. Soft tone of voice Mood/Affect: Patient reports their mood is mildly improving, affect is congruent Suicidality/Homicidality: Patient denies having any suicidal or homicidal ideation intent or plan. Perceptions: Patient denies any visual hallucinations and claims that the auditory hallucinations have subsided. Though content/process: There is no evidence of any delusional thought content and thought process is linear and goal-directed. No paranoia. Memory and concentration: AOX3, grossly intact for the purposes of this session. 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 -Would recommend the following medication changes/additions: Continue with Haldo l by mouth 2 mg twice a day for psychosis. Continue with Melatonin 3 mg daily at bedtime for insomnia. Increased Lexapro 20 mg daily for mood. -Communicated plan to patient's nurse and Dr. Portillo -At this time psychiatry will sign off. -Please contact with any questions.
[2020-11-03] MEDS ORDERED: ESCITALOPRAM 20 MG TAB PO SCH (09:00)
== END 2020-11-02 16:45 | disposition home or self-care (01) | DRG 690 ==
LOC: EC 13:11 → 6NMEDSUR 18:07 → OBSVTOIN 10-29 13:13
PROVIDERS: ADMIT Hospitalist; ATTEND Hospitalist
DX: N39.0 Urinary tract infection, site not specified (principal); G93.40 Encephalopathy, unspecified; F32.3 Major depressive disorder, single episode, severe with psychotic features; G81.94 Hemiplegia, unspecified affecting left nondominant side; H53.461 Homonymous bilateral field defects, right side; B96.20 Unspecified Escherichia coli [E. coli] as the cause of diseases classified elsewhere; E11.39 Type 2 diabetes mellitus with other diabetic ophthalmic complication; E03.9 Hypothyroidism, unspecified; E66.9 Obesity, unspecified; Z20.822 Contact with and (suspected) exposure to COVID-19; H40.9 Unspecified glaucoma; H42 Glaucoma in diseases classified elsewhere; E78.5 Hyperlipidemia, unspecified; L40.9 Psoriasis, unspecified; H54.62 Unqualified visual loss, left eye, normal vision right eye; R32 Unspecified urinary incontinence; H91.90 Unspecified hearing loss, unspecified ear; Z68.31 Body mass index [BMI] 31.0-31.9, adult; Z79.84 Long term (current) use of oral hypoglycemic drugs; Z79.890 Hormone replacement therapy; Z79.899 Other long term (current) drug therapy; Z86.69 Personal history of other diseases of the nervous system and sense organs; Z92.3 Personal history of irradiation; Z98.890 Other specified postprocedural states; Z91.011 Allergy to milk products
CPT/HCPCS: 36415; 70450; 80048; 80053; 80143; 80179; 80306; 81001; 81025; 82607; 82746; 82803; 83605; 83735; 84100; 84439; 84443; 85025; 87040; 87077; 87086; 87186; 87635; 96365; 99285

== ENCOUNTER → 2020-11-12 | Outpatient (CLI) | payer MEDICARE, OTHER ==
--- NOTE | 2020-11-12 14:05 | MR ---
EXAMINATION TYPE: MR brain wo/w con DATE OF EXAM: 11/12/2020 COMPARISON: CT brain 10/28/2020 HISTORY: Confusion, hallucinations, Hx of pituitary tumor 2002 CONTRAST: Performed utilizing 7 mL intravenous Gadavist gadolinium contrast. TECHNIQUE: Multiplanar, multiecho imaging on a 3.0 [place] magnet is performed through the brain. Stud y is performed within 24 hours of arrival to the hospital. The craniovertebral junction is normal. The pituitary is poorly visualized which may be related to p rior surgery. Diffusion-weighted imaging is performed. No abnormal hyperintensity is present to suggest an acute i ntracranial infarct or acute ischemic change. There is mild increased signal adjacent to the ventricles compatible some mild periventricular chroni c appearing white matter ischemic-type changes. Lacunar infarct or Virchow-Delfino space is in the righ t basal ganglion. Ventricles and sulci are appropriate for the patient age. No suspicious enhancement is evident. IMPRESSIONS: 1. Mild chronic-appearing white matter changes. 2. No acute intracranial process.
== END | disposition home or self-care (01) ==
LOC: RADMRIMAIN 12:46
PROVIDERS: ATTEND Nurse Practitioner Family
DX: R41.0 Disorientation, unspecified (principal)
CPT/HCPCS: 70553; A9585

== ENCOUNTER 2021-01-15 20:36 | Emergency (ER) | payer MEDICARE, OTHER ==
[2021-01-15 20:44] VITALS: RESP 16; TEMP 98.6
--- NOTE | 2021-01-15 21:38 | ED ---
Fall HPI - General Chief Complaint: Fall Stated Complaint: Fall, Head injury Time Seen by Provider: 01/15/21 20:49 Source: patient, EMS Mode of arrival: EMS - History of Present Illness Initial Comments: Patient is a 35-year-old female presenting to the emergency department via EMS after falling out of her wheelchair. Patient has history of brain tumor removed in 2002, history of left pupil enlargement since removal, diabetes, left eye blindness. She states she was being pulled back up her bran in her wheelchair when they hit a bump and she fell forward out of her wheelchair landing mostly on her forehead and nose. She states she did not lose consciousness, she remembers the whole fall. She is having pain of her forehead and her nose. She states she did have some mild left knee pain but states it feels okay now. She denies any dizziness, no neck pain, no chest pain or shortness of breath. She denies any upper extremity discomfort. She denies being on blood thinners. She has no further complaints at this time. Upon arrival to the ER, her vitals are stable. - Related Data Home Medications Medication Instructions Recorded Confirmed Ergocalciferol [Vitamin D2 50,000 unit PO Q7D 03/25/14 10/28/20 (DRISDOL)] Simvastatin [Zocor] 20 mg PO HS 03/25/14 10/28/20 Levothyroxine Sodium [Synthroid] 100 mcg PO DAILY 10/28/18 10/28/20 Oxybutynin Chloride [Ditropan] 5 mg PO DAILY 06/29/19 10/28/20 Clobetasol Propionate [Temovate 1 applic TOPICAL BID PRN 10/28/20 10/28/20 0.05% Cream] Pioglitazone [Actos] 15 mg PO DAILY 10/28/20 10/28/20 Psyllium Husk 100% [Metamucil 6 gm PO DAILY 10/28/20 10/28/20 Packet] Brimonidine Tartrate/Timolol 1 drop BOTH EYES BID 10/29/20 10/29/20 [Combigan 0.2%-0.5% Eye Drops] Brinzolamide [Azopt 1% Ophth Susp] 1 drop BOTH EYES TID 10/29/20 10/29/20 Previous Rx's Medication Instructions Recorded Melatonin 3 mg PO HS tablet 11/01/20 Paliperidone [Invega] 3 mg PO HS tab.er.24 11/01/20 Escitalopram [Lexapro] 20 mg PO DAILY #30 tablet 11/02/20 haloperidoL [Haldol] 2 mg PO BID #30 tab 11/02/20 Allergies Allergy/AdvReac Type Severity Reaction Status Date / Time lactose Allergy Diarrhea Verified 10/28/20 13:17 Review of Systems ROS Statement: Those systems with pertinent positive or pertinent negative responses have been documented in the HPI. ROS Other: All systems not noted in ROS Statement are negative. Past Medical History Past Medical History: Diabetes Mellitus, Eye Disorder, Hearing Disorder / Deafness, Hyperlipidemia, Musculoskeletal Disorder, Skin Disorder, Thyroid Disorder Additional Past Medical History / Comment(s): OP, has no peripheral vision, hard of hearing to left side, psoriasis History of Any Multi-Drug Resistant Organisms: None Reported Past Surgical History: Orthopedic Surgery Additional Past Surgical History / Comment(s): brain tumor removed 2002, (L) pupil enlargement normal since tumor removal Past Anesthesia/Blood Transfusion Reactions: No Reported Reaction Past Psychological History: Depression Smoking Status: Never smoker Past Alcohol Use History: None Reported Past Drug Use History: None Reported - Past Family History Brother(s) Additional Family Medical History / Comment(s): pt states her brother is healthy General Exam - General Exam Comments Initial Comments: GENERAL: Patient is well-developed and well-nourished. Patient is nontoxic and in no acute distress. HEAD: Patient has very small hematoma to the middle of the forehead, she also has some slight bruising noted to her nasal bridge with some mild pain with palpation. No signs of basal skull fracture. EYES: Patient's left pupil is dilated however this is normal for the patient secondary to brain tumor removal, right pupil is normal, reactive to light, extraocular movements intact, sclera anicteric, conjunctiva are normal. Eyelids were unremarkable. ENT: TMs normal, nares patent, oropharynx clear without exudates. Moist mucous membranes. NECK: Normal range of motion, supple without lymphadenopathy or JVD. No midline tenderness. LUNGS: Unlabored respirations. Breath sounds clear to auscultation bilaterally and equal. No wheezes rales or rhonchi. HEART: Regular rate and rhythm without murmurs, rubs or gallops. ABDOMEN: Soft, nontender, normoactive bowel sounds. No guarding, no rebound. No masses appreciated. : Deferred MUSCULOSKELETAL: No pain to palpation of all 4 extremities. Normal extremities with adequate strength and normal range of motion, no pitting or edema. No clubbing or cyanosis. NEUROLOGICAL: Patient is alert and oriented x 3. Motor and sensory are also intact. Cranial nerves II through XII grossly intact. Symmetrical smile. Normal speech. PSYCH: Normal mood, normal affect. SKIN: Warm, Dry, normal turgor, no rashes or lesions noted. Limitations: no limitations Course Vital Signs 01/15/21 01/15/21 20:38 21:40 Temperature 98.6 F Pulse Rate 87 85 Respiratory 16 16 Rate Blood Pressure 92/56 98/59 O2 Sat by Pulse 95 94 L Oximetry Medical Decision Making - Medical Decision Making Patient is a 35-year-old female here after she fell out of her wheelchair just prior to arrival. She arrived via EMS. She has a small hematoma to her forehead and pain along her nasal bridge. No loss of consciousness. She does have history of brain tumor removal, history of left dilated pupil. Rest of her exam is unremarkable. CT of the brain, C-spine and facial bones revealed no acute abnormality, only chronic changes. Patient is feeling well and is ready to go home. She is stable for discharge. She should follow up with her primary care physician. She is in agreement with this plan of care. Return parameters were discussed with the patient she verbalized understanding. Case discussed with Dr. Morel. Disposition Clinical Impression: Fall, Traumatic hematoma of forehead, Contusion of nose Disposition: HOME SELF-CARE Condition: Stable Instructions (If sedation given, give patient instructions): Contusion in Adults (ED) Additional Instructions: Please return to the Emergency Department if symptoms worsen or any other concerns. Recommend ice to the area, Tylenol or ibuprofen for discomfort. Follow up with your primary care physician. Is patient prescribed a controlled substance at d/c from ED?: No Referrals: Janet Stanton MD [Primary Care Provider] - 1-2 days Time of Disposition: 23:03
--- NOTE | 2021-01-15 22:13 | CT ---
EXAMINATION TYPE: CT brain cspine wo con DATE OF EXAM: 01/15/2021 COMPARISON: CT brain 10/28/2020 HISTORY: pt fall CT DLP: 1760.9 mGycm Automated exposure control for dose reduction was used. Images of the brain and cervical spine obtained without contrast. There is extensive bilateral symmetric basal ganglia calcification involving the thalamus and caudate nucleus. There is no mass effect nor midline shift. There is no sign of intracranial hemorrhage. The calvarium is intact. There is apparent right posterior frontal craniotomy defect. The skull base is intact. There is normal aeration of the mastoid sinuses. Cervical vertebra show some straightening. Disc spaces are fairly normal. There is no compression fra cture. Facet joints are intact. Skull base is intact. There is slight depression of the superior endp late of C7 vertebral body. This is probably old. IMPRESSION: Basal ganglia extensive calcification without change compared to old exam. No acute intracranial abno rmality. Mild straightening of the cervical spine. No fracture seen. Minimal compression deformity of C7 verte bral body is probably old. There is also noted some wedging of T5 and T4 vertebra up to 40%. These ar e probably old fractures also.
--- NOTE | 2021-01-15 22:28 | CT ---
EXAMINATION TYPE: CT facial bones wo con DATE OF EXAM: 01/15/2021 COMPARISON: None HISTORY: Fall, facial trauma CT DLP: 1760.9 mGycm Automated exposure control for dose reduction was used. Images obtained from the bottom of the mandible to the top of the frontal sinuses without contrast. The mandibular ring is intact. Temporomandibular joints are intact. Zygomatic arches appear normal. O rbital margins are intact. There is normal aeration of the mastoid sinuses. There is no evidence of o rbital blowout fracture. There is fairly normal aeration of the paranasal sinuses. There is no eviden ce of retro-orbital mass. The maxilla is intact. Nasal bone is intact. There is previous right fronta l craniotomy defect noted. IMPRESSION: No acute abnormality of the facial bones. No fracture seen.
[2021-01-15 23:37] VITALS: BP 107/77; PULSE 82
== END 2021-01-15 23:50 | disposition home or self-care (01) ==
LOC: EC 20:36
DX: S00.83XA Contusion of other part of head, initial encounter (principal); S00.33XA Contusion of nose, initial encounter; M25.562 Pain in left knee; E11.9 Type 2 diabetes mellitus without complications; E78.5 Hyperlipidemia, unspecified; F32.9 Major depressive disorder, single episode, unspecified; H91.92 Unspecified hearing loss, left ear; W05.0XXA Fall from non-moving wheelchair, initial encounter
CPT/HCPCS: 70450; 70486; 72125; 99284